=== PATIENT | male | born 1960 | race Caucasian/White ===

== ENCOUNTER → 2019-08-12 09:09 | Outpatient (CLI) | payer OTHER, SELFPAY ==
--- NOTE | ~2019-08-12 | CT_ITS ---
EXAMINATION: CT chest w con DATE: 08/12/2019 09:34 INDICATION: Solitary pulmonary nodule TECHNIQUE: Transaxial computed tomographic images of the chest were obtained after the administration of 75 cc of Omnipaque 350 intravenous contrast. The dose-length product (DLP) was 400.32 mGy-cm. Ite rative reconstruction was used. COMPARISON: 06/12/2018 FINDINGS: Calcified pulmonary nodules and calcified left hilar lymph nodes are consistent with old gr anulomatous disease. No suspicious pulmonary nodule is identified. There is mild dependent atelectasi s. There is no pleural effusion or pneumothorax. No focal airspace opacity is identified. No patholog ically enlarged thoracic lymph nodes are identified. The heart size is normal. There is mild thoracic spondylosis. Punctate calcifications in an otherwise normal spleen likely represent healed granuloma tous disease. IMPRESSION: 1. Old granulomatous disease without suspicious pulmonary nodule identified. Reviewed, dictated and finalized at location A. TAL CUTTER
== END ==
PROVIDERS: PCP Physician Assistant; Visit Provider Physician Assistant
DX: R91.1 Solitary pulmonary nodule (principal)
CPT/HCPCS: 71260; Q9967

== ENCOUNTER 2021-03-15 02:19 | Day surgery (SDC) | payer OTHER, SELFPAY ==
[2021-03-04 09:27] VITALS: BMI 29.6
--- NOTE | 2021-03-15 10:57 | WPDANESEPPF ---
Anes - Initial Pre Proc Eval Procedure: Operation Date: 03/15/21 13:00 Proposed Procedures p Colonoscopy - Denzel Hannah MD Date/Time: 03/15/21 10:57 Surgeon: Denzel Hannah MD Pre Op Diagnosis: change in bowel habits, hx of colon polyps Patient Data Age: 60 Gender: M Height: 1.73 m Weight: 88.5 kg Allergies Allergy/AdvReac Type Severity Reaction Status Date / Time Antihistamines - Alkylamine Allergy Unknown Unknown Verified 03/15/21 12:06 codeine Allergy Unknown Abdominal Verified 03/15/21 12:06 Pain Penicillins Allergy Unknown Rash Verified 03/15/21 12:06 Sulfa (Sulfonamide Allergy Unknown Unknown Verified 03/15/21 12:06 Antibiotics) sulfamethoxazole Allergy Unknown Unknown Verified 03/15/21 12:06 trimethoprim Allergy Unknown Unknown Verified 03/15/21 12:06 acetaminophen AdvReac Unknown UPSET Verified 03/15/21 12:06 STOMACH oxycodone AdvReac Unknown UPSET Verified 03/15/21 12:06 STOMACH Home Medications Medication Instructions Recorded Confirmed Type bupropion HCl 150 mg PO DAILY 03/04/21 03/04/21 History ergocalciferol (vitamin D2) 1,250 mcg PO WEEKLY 03/04/21 03/04/21 History ergocalciferol (vitamin D2) 1 mcg PO DAILY 03/04/21 03/04/21 History [Vitamin D2] finasteride 5 mg PO DAILY 03/04/21 03/04/21 History hydroxyzine HCl 25 mg PO DAILY 03/04/21 03/04/21 History simvastatin 40 mg PO DAILY 03/04/21 03/04/21 History tamsulosin 0.4 mg PO DAILY 03/04/21 03/04/21 History Patient hx anesthesia problems: none Family hx anesthesia problems: none PMFSH Past Medical History Medical History (Updated 03/15/21 @ 10:58 by Anil Goldberg MD) BPH (benign prostatic hyperplasia) Depression Hyperlipidemia FELICIA (obstructive sleep apnea) Overweight (BMI 25.0-29.9) Family History Family History (Updated 01/29/16 @ 23:21 by DOCTOR UNKNOWN) Father Patient's father is in good health Mother Family history of diabetes mellitus in first degree relative Family history of malignant neoplasm of breast in first degree relative Grandparent Family history of heart disease in male family member before age 55 Other Depression Social History Social History Smoking status: Never smoker Alcohol intake: current Drinks per week: 3 Alcohol use details: on weekend 2-8 beers Substance use: current Substance use type: marijuana Other substance usage details: evita 2 times per month Living arrangements: with family Additional living arrangements comments: lives with spouse Spiritual care concerns: No Anes - Eval Final PreProcedure Day of Procedure 03/15/21 10:57 Patient weight: overweight Heart: regular rate and rhythm Lungs: clear to auscultation and normal air movement Airway: Mallampati scale class II Neurological: alert and oriented Last oral intake: >/= 8 hours ASA classification: II Emergent: no Anesthetic plan: proceed Anesthesia type and monitoring: general GIVS Informed Consent: The patient's anesthetic plan and its attendant risks and benefits were discussed with the patient/family/POA. Questions were solicited and answers provided to the satisfaction of the patient/family/POA.
[2021-03-15 12:08] VITALS: BP 123/84; PULSE 87; RESP 16; TEMP 36.1; O2SAT 99; BMI 28.7
[2021-03-15] MEDS: LACTATED RINGERS 1,000 ML 150 ML IV CONT (12:23)
--- NOTE | 2021-03-15 12:32 | PM.HPGS ---
History of Present Illness History of Present Illness Consent: Risks, benefits, and alternatives have been discussed and questions answered. Patient agrees to proceed with procedure. Chief complaint: change in bowel habits, hx of colon polyps Narrative: Clay Cabrera is a 60 year old male with a history of colon polyps removed 5 years ago. Recently he has had some discomfort in left lower quadrant and was constipated. This pain also radiated to the left lower back Review of Systems Review of Systems: All systems reviewed & are unremarkable except as noted in HPI and below PMFSH Past Medical History Medical History BPH (benign prostatic hyperplasia) Depression Hyperlipidemia FELICIA (obstructive sleep apnea) Overweight (BMI 25.0-29.9) Family History Family History Father Patient's father is in good health Mother Family history of diabetes mellitus in first degree relative Family history of malignant neoplasm of breast in first degree relative Grandparent Family history of heart disease in male family member before age 55 Other Depression Social History Social History Smoking status: Never smoker Alcohol intake: current Drinks per week: 3 Alcohol use details: on weekend 2-8 beers Substance use: current Substance use type: marijuana Other substance usage details: evita 2 times per month Living arrangements: with family Additional living arrangements comments: lives with spouse Spiritual care concerns: No Meds Home Medications and Allergies Home Medications Medication Instructions Recorded Confirmed Type bupropion HCl 150 mg PO DAILY 03/04/21 03/04/21 History ergocalciferol (vitamin D2) 1,250 mcg PO WEEKLY 03/04/21 03/04/21 History ergocalciferol (vitamin D2) 1 mcg PO DAILY 03/04/21 03/04/21 History [Vitamin D2] finasteride 5 mg PO DAILY 03/04/21 03/04/21 History hydroxyzine HCl 25 mg PO DAILY 03/04/21 03/04/21 History simvastatin 40 mg PO DAILY 03/04/21 03/04/21 History tamsulosin 0.4 mg PO DAILY 03/04/21 03/04/21 History Allergies Allergy/AdvReac Type Severity Reaction Status Date / Time Antihistamines - Alkylamine Allergy Unknown Unknown Verified 03/15/21 12:06 codeine Allergy Unknown Abdominal Verified 03/15/21 12:06 Pain Penicillins Allergy Unknown Rash Verified 03/15/21 12:06 Sulfa (Sulfonamide Allergy Unknown Unknown Verified 03/15/21 12:06 Antibiotics) sulfamethoxazole Allergy Unknown Unknown Verified 03/15/21 12:06 trimethoprim Allergy Unknown Unknown Verified 03/15/21 12:06 acetaminophen AdvReac Unknown UPSET Verified 03/15/21 12:06 STOMACH oxycodone AdvReac Unknown UPSET Verified 03/15/21 12:06 STOMACH Vital Signs Vital Signs - 24 hr 03/15/21 12:08 Temperature 36.1 C L Pulse Rate 87 Respiratory Rate 16 Blood Pressure 123/84 Pulse Oximetry 99 Exam Resp: Auscultation: clear to auscultation bilaterally Cardio: Rate: regular rate Rhythm: regular rhythm GI: GI Palp: Yes Soft to palpation and No Tenderness to palpation present (GI) Assessment and Plan Assessment and plan (1) Colon cancer screening: Code(s): Z12.11 - Encounter for screening for malignant neoplasm of colon Status: Acute Assessment and Plan: Colonoscopy with possible biopsy or polypectomy or cautery or injection of substances.
[2021-03-15 13:00] VITALS: BP 112/73; PULSE 82; RESP 21; O2SAT 95
[2021-03-15 13:10] VITALS: BP 123/78; PULSE 83; RESP 15; O2SAT 93
[2021-03-15 13:20] VITALS: BP 122/89; PULSE 75; RESP 17; O2SAT 93
== END 2021-03-15 13:39 | disposition home or self-care (01) ==
PROVIDERS: PCP Physician Assistant; Visit Provider Internal Medicine Gastroenterology
PROC: 0DJD8ZZ Inspection of Lower Intestinal Tract, Via Natural or Artificial Opening Endoscopic (ICD-10-PCS; CPT 45378; principal; 2021-03-15 13:00)
DX: Z12.11 Encounter for screening for malignant neoplasm of colon (principal); Z86.010 Personal history of colon polyps; N40.0 Benign prostatic hyperplasia without lower urinary tract symptoms; F32.9 Major depressive disorder, single episode, unspecified; G47.33 Obstructive sleep apnea (adult) (pediatric); E78.5 Hyperlipidemia, unspecified; F12.90 Cannabis use, unspecified, uncomplicated; R19.4 Change in bowel habit
CPT/HCPCS: 45378; J2704; J7120

== ENCOUNTER 2021-07-16 13:04 | Outpatient (CLI) | payer OTHER, SELFPAY ==
--- NOTE | ~2021-07-16 | XR_ITS ---
XR chest 2V DATE: 07/16/2021 13:21 INDICATION: Cough for 2 weeks post Covid TECHNIQUE: PA and lateral views COMPARISON: August 12, 2019 CT chest 04/15/2013 two-view chest FINDINGS: Normal heart size. No hilar or mediastinal enlargement. Calcified pulmonary granulomas cons istent with old granulomatous disease. No pulmonary infiltrate or consolidation, pleural effusion or pulmonary vascular congestion or pneumothorax is detected. IMPRESSION: No active cardiopulmonary disease Reviewed, dictated and finalized at location J. D PROPELLANT PROCESSOR
== END 2021-07-16 13:05 | disposition home or self-care (01) ==
LOC: ANHIMG 13:09
PROVIDERS: PCP Physician Assistant; Visit Provider Physician Assistant
DX: R05.9 Cough, unspecified (principal)
CPT/HCPCS: 71046

== ENCOUNTER 2022-01-07 17:18 | Outpatient (CLI) | payer OTHER, SELFPAY ==
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
== END 2022-01-07 17:19 | disposition home or self-care (01) ==
PROVIDERS: PCP Physician Assistant; Visit Provider Physician Assistant
DX: M79.642 Pain in left hand (principal); Z98.1 Arthrodesis status
CPT/HCPCS: 73120

== ENCOUNTER 2022-07-13 13:45 | Emergency (ER) | payer OTHER, SELFPAY ==
--- NOTE | ~2022-07-13 | CT_ITS ---
EXAMINATION: CT abdomen pelvis wo con DATE: 07/13/2022 14:20 INDICATION: LLQ pain TECHNIQUE: Computed tomography (CT) of the abdomen and pelvis was performed without intravenous contr ast. Automated exposure control and iterative reconstruction technique were employed. The dose-length product was 507.78 mGy-cm. COMPARISON: 06/12/2018. FINDINGS: Lower thorax: Coronary artery calcification. Calcified left upper lobe granuloma. Liver: Normal. Biliary/Gallbladder: Gallbladder is normal. No bile duct dilation. Pancreas: No mass or duct dilation. Spleen: Granulomatous calcifications. Adrenals:No mass. Kidneys: No mass, stone, or hydronephrosis. Bilateral perinephric stranding likely secondary to medic al renal disease. GI tract: No small or large bowel dilation. Normal appendix. Mesentery/Peritoneum: No ascites, mass, or free air. Retroperitoneum: No mass. Atherosclerotic abdominal aortic and/or arterial calcifications. Pelvis: Pelvic organs are within normal limits. Soft Tissues: Soft tissues and body wall unremarkable. Bones: No acute osseous finding. IMPRESSION: No acute abdominopelvic process detected. Reviewed, dictated and finalized at location K. E ADVISOR
[2022-07-13 13:49] VITALS: BP 154/96; PULSE 92; RESP 14; TEMP 36.5; O2SAT 97
[2022-07-13 14:24] LABS: Basophils Percent Auto 0.4 % (0.2-1.2); Eosinophils Percent Auto 0.3 % (0-4.4); Hematocrit 47.6 % (42.0-52.0); Hemoglobin 16.5 g/dL (14.0-18.0); Immature Granulocyte Absolute 0.02 K/mm3 (0.00-0.031); Immature Granulocyte Percent A 0.2 % (0-0.5); Lymphocytes Absolute Auto 0.94 K/mm3 (0.9-3.2); Lymphocytes Percent Auto 10.4 % (18.3-44.2); Mean Corpuscular HGB Conc 34.7 g/dl (32-36); Mean Corpuscular Hemoglobin 31.4 pg (26-34); Mean Corpuscular Volume 90.5 fl (80-100); Mean Platelet Volume 11.4 fl (7.4-10.4); Monocytes Absolute Auto 0.8 K/mm3 (0.1-0.6); Monocytes Percent Auto 8.3 % (2.6-8.5); Neutrophils Absolute Auto 7.2 K/mm3 (1.3-6.7); Neutrophils Percent Auto 80.4 % (45.5-73.1); Platelet Count Result 241 k/mm3 (150-375); Red Blood Count 5.26 M/mm3 (4.6-6.20); Red Cell Distribution Width 12.7 % (11.5-14.5)
[2022-07-13 14:28] LABS: Alanine Aminotransferase 38 U/L (6-50); Albumin Level 4.8 g/dL (3.5-5.1); Alkaline Phosphatase 81 U/L (38-126); Anion Gap 9 mmol/L (8-16); Aspartate Amino Transferase 31 U/L (17-59); Bilirubin,Total 1.1 mg/dL (0.2-1.3); Blood Urea Nitrogen 17 mg/dL (9-20); Calcium 9.6 mg/dL (8.4-10.2); Carbon Dioxide 23 mmol/L (22-30); Chloride 103 mmol/L (98-107); Estimated CRCL calculation 57 ml/min; Estimated Glomerular Filt Rate > 60; Glucose 102 mg/dL (65-110); Lipase 72 U/L (23-300); Sodium 135 mmol/L (137-145)
--- NOTE | 2022-07-13 14:48 | ED.ABDPAIN ---
HPI - Abdominal Pain General Chief Complaint: Abdominal Pain Stated Complaint: LLQ pain Time Seen by Provider: 07/13/22 13:47 History of Present Illness HPI narrative: 61-year-old male history of depression, BPH, hyperlipidemia presents emergency room for evaluation of intermittent left lower quadrant abdominal pain has been present since last week. Patient denies nausea vomiting or diarrhea. Denies any urinary retention or dysuria. Denies fever. States had a colonoscopy last year which was clean. Denies any blood in stools. Related Data Home Medications Medication Instructions Recorded Confirmed bupropion HCl 150 mg 24 hr tablet, 150 mg PO DAILY 03/04/21 03/04/21 extended release ergocalciferol (vitamin D2) 1,250 1,250 mcg PO WEEKLY 03/04/21 03/04/21 mcg (50,000 unit) capsule ergocalciferol (vitamin D2) 1,250 1 mcg PO DAILY 03/04/21 03/04/21 mcg (50,000 unit) capsule (Vitamin D2) finasteride 5 mg tablet 5 mg PO DAILY 03/04/21 03/04/21 hydroxyzine HCl 25 mg tablet 25 mg PO DAILY 03/04/21 03/04/21 simvastatin 40 mg tablet 40 mg PO DAILY 03/04/21 03/04/21 tamsulosin 0.4 mg capsule 0.4 mg PO DAILY 03/04/21 03/04/21 Allergies Allergy/AdvReac Type Severity Reaction Status Date / Time Antihistamines - Alkylamine Allergy Unknown Unknown Verified 03/15/21 12:06 codeine Allergy Unknown Abdominal Verified 03/15/21 12:06 Pain Penicillins Allergy Unknown Rash Verified 03/15/21 12:06 Sulfa (Sulfonamide Allergy Unknown Unknown Verified 03/15/21 12:06 Antibiotics) sulfamethoxazole Allergy Unknown Unknown Verified 03/15/21 12:06 trimethoprim Allergy Unknown Unknown Verified 03/15/21 12:06 acetaminophen AdvReac Unknown UPSET Verified 03/15/21 12:06 STOMACH oxycodone AdvReac Unknown UPSET Verified 03/15/21 12:06 STOMACH Review of Systems Review of Systems: CONSTITUTIONAL: Denies fever, chills, or sweats. EYES: Denies visual changes, redness, or discharge. ENT: Denies rhinorrhea, congestion, sore throat, or otalgia. CARDIOVASCULAR: Denies chest pain, palpitations, or edema. RESPIRATORY: Denies cough or dyspnea. GASTROINTESTINAL: Reports abdominal pain GENITOURINARY: Denies dysuria or hematuria. SKIN: Denies rash or itching. MUSCULOSKELETAL: Denies back pain, joint pain, or myalgia. NEUROLOGIC: Denies headache, numbness, dizziness, or weakness. PSYCHIATRIC: Denies anxiety or depression. [facility] Past Medical History Medical History BPH (benign prostatic hyperplasia) Depression Hyperlipidemia FLEICIA (obstructive sleep apnea) Overweight (BMI 25.0-29.9) Family History Family History Father Patient's father is in good health Mother Family history of diabetes mellitus in first degree relative Family history of malignant neoplasm of breast in first degree relative Grandparent Family history of heart disease in male family member before age 55 Other Depression Social History Social History Smoking status: Never smoker Alcohol intake: current Drinks per week: 3 Alcohol use details: on weekend 2-8 beers Substance use: current Substance use type: marijuana Other substance usage details: evita 2 times per month Additional living arrangements comments: lives with spouse Spiritual care concerns: No Exam Narrative: GENERAL: Well-appearing, well-nourished, no physical limitations, and in no acute distress. HEAD: Normocephalic, atraumatic. EYES: Conjunctivae normal, PERRLA and EOMI. CHEST: Clear to auscultation. No respiratory distress. No wheezes rales or rhonchi. HEART: Regular rate and rhythm. No murmur heard. Normal peripheral pulses. ABDOMEN: Soft, left lower quadrant tenderness, nondistended, normal active bowel sounds. BACK: No CVA tenderness EXTREMITIES: Normal range of motion. No edema. No clubb
[2022-07-13 14:59] VITALS: BP 111/85; PULSE 88; RESP 18
[2022-07-13] MEDS: SODIUM CHLORIDE 0.9% IV 1,000 ML 999 ML IV CONT (14:59)
[2022-07-13 15:31] VITALS: BP 130/89; PULSE 90; RESP 21
[2022-07-13 15:36] LABS: Appearance Urine Clear (Clear); Bilirubin Urine Negative (Negative); Blood Urine Trace-intact (Negative); Color Urine Yellow (Yellow); Glucose Urine UA Negative (Negative); Ketones Urine Negative (Negative); Leukocyte Esterase Ur Negative LEU/UL (Negative); Nitrate Urine Negative (Negative); Protein Urine Negative (Negative); Specific Grav Ur 1.025 (1.001-1.035); Urobilinogen Urine 0.2 mg/dL (<2.0)
[2022-07-13 15:56] LABS: Mucus Urine Rare /lpf; RBC Urine 0-2 /hpf (0-2); WBC Urine 0-3 /hpf
[2022-07-13 16:00] LABS: Add Urine Microscopic? YES
== END 2022-07-13 15:35 | disposition home or self-care (01) ==
PROVIDERS: Emergency Provider Nurse Practitioner Family; PCP Physician Assistant
DX: R10.32 Left lower quadrant pain (principal); E78.5 Hyperlipidemia, unspecified; N40.0 Benign prostatic hyperplasia without lower urinary tract symptoms; G47.33 Obstructive sleep apnea (adult) (pediatric); F32.A Depression, unspecified; E66.3 Overweight; Z68.29 Body mass index [BMI] 29.0-29.9, adult
CPT/HCPCS: 36415; 74176; 80053; 81001; 83690; 85025; 96360; 99284; J7030

== ENCOUNTER 2024-05-01 22:51 | Observation (INO) | payer OTHER, SELFPAY ==
--- NOTE | ~2024-05-01 | XR_ITS ---
Supine and upright views of the abdomen Clinical history: Kidney stone Findings: Bowel gas pattern is nonspecific. No evidence for obstruction or free air. 6 mm proximal ri ght ureteral stone probably visualized projecting at the level of the L2-L3 disc space.. Osseous stru ctures are intact. Impression: Probable 6 mm proximal right ureteral stone, as detailed above. Reviewed, dictated and finalized at location . Impression: Probable 6 mm proximal right ureteral stone, as detailed above.
--- NOTE | ~2024-05-01 | XR_ITS ---
EXAMINATION: XR abdomen/kub 1V DATE: 05/03/2024 13:32 INDICATION: Kidney stone. TECHNIQUE: A supine view of the abdomen on 2 radiographs was obtained. COMPARISON: CT abdomen and pelvis 05/02/2024 FINDINGS: There are no dilated loops of bowel. There is a 6 x 3 mm stone in proximal right ureter. IMPRESSION: 1. 6 x 3 mm stone in proximal right ureter. Reviewed, dictated and finalized at location B.
--- NOTE | ~2024-05-01 | CT_ITS ---
Non-contrast CT scan of the Abdomen and Pelvis Clinical indication: Flank pain Technique: 2.5 mm axial scans were obtained through the abdomen and pelvis without intravenous or or al contrast. Dose reduction technique was used on this scan by utilizing automated exposure control a nd iterative reconstruction technique. The dose-length product (DLP) was 635.73 mGy-cm. COMPARISON: 07/13/2022 Findings: Images through the lung bases reveal no abnormalities. There is a 6 mm proximal right ureteral stone (axial image 5), with mild right hydronephrosis. Additi onal punctate nonobstructing right renal stone present. No left renal or left ureteral stone present. No left hydronephrosis. The liver, spleen, pancreas, gallbladder, and adrenals appear normal. There are mild atherosclerotic calcifications of the aorta. . There is no evidence of bowel obstruction. Images through the pelvis were performed. There is no evidence of ascites or lymphadenopathy. Urinary bladder unremarkable. No pelvic mass seen. Impression: 6 mm proximal right ureteral stone with mild right hydronephrosis to this level. Additional punctate nonobstructing right renal stone. Reviewed, dictated and finalized at location M. Impression: 6 mm proximal right ureteral stone with mild right hydronephrosis to this level . Additional punctate nonobstructing right renal stone.
[2024-05-01 23:08] VITALS: BP 139/96; PULSE 73; RESP 20; TEMP 36; O2SAT 100
[2024-05-01 23:20] LABS: Basophils Absolute Auto 0.1 K/mm3 (0.0-0.1); Basophils Percent Auto 0.9 % (0.2-1.2); Eosinophils Absolute Auto 0.1 K/mm3 (0-0.3); Eosinophils Percent Auto 1.3 % (0-4.4); Hematocrit 42.5 % (42.0-52.0); Hemoglobin 15.1 g/dL (14.0-18.0); Immature Granulocyte Absolute 0.02 K/mm3 (0.00-0.031); Immature Granulocyte Percent A 0.3 % (0-0.5); Lymphocytes Absolute Auto 1.99 K/mm3 (0.9-3.2); Lymphocytes Percent Auto 26.6 % (18.3-44.2); Mean Corpuscular HGB Conc 35.5 g/dl (32-36); Mean Corpuscular Hemoglobin 31.5 pg (26-34); Mean Corpuscular Volume 88.5 fl (80-100); Monocytes Absolute Auto 0.6 K/mm3 (0.1-0.6); Monocytes Percent Auto 8.3 % (2.6-8.5); Neutrophils Absolute Auto 4.7 K/mm3 (1.3-6.7); Neutrophils Percent Auto 62.6 % (45.5-73.1); Platelet Count Result 235 k/mm3 (150-375); Red Cell Distribution Width 12.8 % (11.5-14.5); White Blood Count 7.5 K/mm3 (4.5-10.0)
[2024-05-01 23:38] LABS: Alanine Aminotransferase 31 U/L (6-50); Albumin Level 4.9 g/dL (3.5-5.1); Alkaline Phosphatase 83 U/L (38-126); Anion Gap 23 mmol/L (4-12); Aspartate Amino Transferase 35 U/L (17-59); Bilirubin,Total 0.8 mg/dL (0.2-1.3); Blood Urea Nitrogen 14 mg/dL (9-20); Calcium 9.5 mg/dL (8.4-10.2); Carbon Dioxide 20 mmol/L (22-30); Chloride 97 mmol/L (98-107); Estimated CRCL calculation 39 ml/min; Estimated Glomerular Filt Rate 41; Glucose 114 mg/dL (65-110); Lipase 138 U/L (23-300); Potassium 3.7 mmol/L (3.4-5.0); Sodium 140 mmol/L (137-145)
[2024-05-01 23:42] LABS: Add Urine Microscopic? YES; Appearance Urine Clear (Clear); Bacteria Urine None Seen /hpf; Bilirubin Urine Negative (Negative); Blood Urine 2+ (Negative); Color Urine Yellow (Yellow); Glucose Urine UA Negative (Negative); Ketones Urine Trace mg/dL (Negative); Leukocyte Esterase Ur Trace LEU/UL (Negative); Nitrate Urine Negative (Negative); Non Pathogenic Casts 0-2; Protein Urine Trace mg/dL (Negative); RBC Urine >100 /hpf (0-2); Squamous Epithelial Cell Urine None Seen /hpf (Few); WBC Urine 0-5 /hpf (0-3); pH Urine 6.5 (5.0-9.0)
[2024-05-02] MEDS: SODIUM CHLORIDE 0.9% IV 1,000 ML 999 ML IV CONT (04:20)
[2024-05-02] MEDS: ONDANSETRON INJ 4 MG/2 ML VIAL IV PUSH ×4 (04:21→21:07)
[2024-05-02] MEDS: MORPHINE SULFATE (*CRX) 4 MG/ML INJ IV PUSH ×2 (04:21→05:59)
--- NOTE | 2024-05-02 05:44 | ED_ITS ---
HPI - General Adult General Chief complaint: Abdominal Pain <Troy Galindo MD - Last Filed: 05/02/24 07:09> Stated complaint: abd pain <Troy Galindo MD - Last Filed: 05/02/24 07:09> Time Seen by Provider: 05/02/24 04:07 <Troy Galindo MD - Last Filed: 05/02/24 07:09> History of Present Illness HPI narrative: Patient is 63-year-old gentleman who presents emergency department with chief complaint of abdominal pain and flank pain. Patient reports he has prior history of kidney stones reports that he started having pain in the right flank and right lower quadrant around 9:00 p.m. this evening patient reports pain is not improved by anything reports he is not able to get comfortable in any position. <Troy Galindo MD - Last Filed: 05/02/24 07:09> Related Data Home medications: Home Medications Medication Instructions Recorded Confirmed bupropion HCl 150 mg 24 hr tablet, 150 mg PO DAILY 03/04/21 05/02/24 extended release simvastatin 40 mg tablet 40 mg PO DAILY 03/04/21 05/02/24 gabapentin 300 mg capsule 600 mg PO HS 05/02/24 05/02/24 pantoprazole 40 mg tablet,delayed 40 mg PO DAILY 05/02/24 05/02/24 release <Troy Galindo MD - Last Filed: 05/02/24 07:09> Allergies/adverse reactions: Allergies Allergy/AdvReac Type Severity Reaction Status Date / Time codeine Allergy Unknown Abdominal Verified 05/02/24 10:04 Pain Penicillins Allergy Unknown Rash Verified 05/02/24 10:04 oxycodone AdvReac Unknown UPSET Verified 05/02/24 10:04 STOMACH <Troy Galindo MD - Last Filed: 05/02/24 07:09> Review of Systems Review of Systems: A 10 system review of systems was completed on the patient and is negative except for what is stated in the HPI. Nursing and ancillary documentation was reviewed. <Troy Galindo MD - Last Filed: 05/02/24 07:09> [facility] Past Medical History Medical History: Medical History BPH (benign prostatic hyperplasia) Depression Hyperlipidemia FELICIA (obstructive sleep apnea) Overweight (BMI 25.0-29.9) <Troy Galindo MD - Last Filed: 05/02/24 07:09> Family History Family History: Family History Father Patient's father is in good health Mother Family history of diabetes mellitus in first degree relative Family history of malignant neoplasm of breast in first degree relative Grandparent Family history of heart disease in male family member before age 55 Other Depression <Troy Galindo MD - Last Filed: 05/02/24 07:09> Social History Social History: Social History Smoking status: Never smoker Alcohol intake: current Drinks per week: 2 Alcohol use details: on weekend 2-8 beers Substance use: current Substance use type: does not use Other substance usage details: maijuana 2 times per month Do You Feel Safe in your Home?: Yes Lack of Transportation: No Lack of Food: Never True Current Housing: I Have Housing Concerned About Future Housing: No Difficulty Paying Gas/Electric Bills: No Difficulty Paying for Meds: No Currently Unemployed: No Education: High School Diploma/GED Difficulty w/ Childcare or Family Care: No Living arrangements: with family Additional living arrangements comments: lives with spouse Spiritual care concerns: No <Troy Galindo MD - Last Filed: 05/02/24 07:09> Exam Narrative: GENERAL: Well-appearing, well-nourished, and in mild acute pain distress. HEAD: Normocephalic, atraumatic. EYES: PERRLA and EOMI. ENT: Nares clear, no rhinorrhea or epistaxis. Mucous membranes moist. NECK: Supple. CHEST: Clear to auscultation. No respiratory distress. HEART: Regular rate and rhythm. No murmur heard. Normal peripheral pulses. ABDOMEN: Soft, nontender, nondistended, normal active bowel sounds. EXTREMITIES: Normal range of motion. No edema. SKIN: Warm, dry, no rash. NEURO: No focal deficits. Alert and oriented x3. PSYCH: Normal mood and affect. <Troy Galindo MD - Last Filed: 05/02/24 07:09> Course Reevaluation(s) Reevaluation #1: Patient evaluated by a urology and admitted to their service for pain control. <Gadiel Badillo MD - Last Filed: 05/02/24 17:36> Vital Signs Vital signs: Vital Signs Temperature 96.8 F L 05/01/24 23:08 Pulse Rate 73 05/01/24 23:08 Respiratory Rate 20 05/01/24 23:08 Blood Pressure 139/96 H 05/01/24 23:08 Pulse Oximetry 100 05/01/24 23:08 Oxygen Delivery Room Air 05/01/24 23:08 Temperature 97.3 F L 05/02/24 13:55 Pulse Rate 71 05/02/24 13:55 Respiratory Rate 16 05/02/24 13:55 Blood Pressure 108/65 05/02/24 13:55 Pulse Oximetry 96 05/02/24 13:55 Oxygen Delivery Room Air 05/01/24 23:08 <Troy Galindo MD - Last Filed: 05/02/24 07:09> Vital Signs Temperature 96.8 F L 05/01/24 23:08 Pulse Rate 73 05/01/24 23:08 Respiratory Rate 20 05/01/24 23:08 Blood Pressure 139/96 H 05/01/24 23:08 Pulse Oximetry 100 05/01/24 23:08 Oxygen Delivery Room Air 05/01/24 23:08 Temperature 97.3 F L 05/02/24 13:55 Pulse Rate 71 05/02/24 13:55 Respiratory Rate 16 05/02/24 13:55 Blood Pressure 108/65 05/02/24 13:55 Pulse Oximetry 96 05/02/24 13:55 Oxygen Delivery Room Air 05/01/24 23:08 <Gadiel Badillo MD - Last Filed: 05/02/24 17:36> Medical Decision Making Vital Signs Vital Signs: Vital Signs Temperature 96.8 F L 05/01/24 23:08 Pulse Rate 73 05/01/24 23:08 Respiratory Rate 20 05/01/24 23:08 Blood Pressure 139/96 H 05/01/24 23:08 Pulse Oximetry 100 05/01/24 23:08 Oxygen Delivery Room Air 05/01/24 23:08 Temperature 97.3 F L 05/02/24 13:55 Pulse Rate 71 05/02/24 13:55 Respiratory Rate 16 05/02/24 13:55 Blood Pressure 108/65 05/02/24 13:55 Pulse Oximetry 96 05/02/24 13:55 Oxygen Delivery Room Air 05/01/24 23:08 <Troy Galindo MD - Last Filed: 05/02/24 07:09> Vital Signs Temperature 96.8 F L 05/01/24 23:08 Pulse Rate 73 05/01/24 23:08 Respiratory Rate 20 05/01/24 23:08 Blood Pressure 139/96 H 05/01/24 23:08 Pulse Oximetry 100 05/01/24 23:08 Oxygen Delivery Room Air 05/01/24 23:08 Temperature 97.3 F L 05/02/24 13:55 Pulse Rate 71 05/02/24 13:55 Respiratory Rate 16 05/02/24 13:55 Blood Pressure 108/65 05/02/24 13:55 Pulse Oximetry 96 05/02/24 13:55 Oxygen Delivery Room Air 05/01/24 23:08 <Gadiel Badillo MD - Last Filed: 05/02/24 17:36> Lab Data Result diagrams: 05/01/24 23:13 05/01/24 23:13 <Troy Galindo MD - Last Filed: 05/02/24 07:09> Labs: Lab Results 05/01/24 05/01/24 Range/Units 23:13 23:29 WBC 7.5 (4.5-10.0) K/mm3 RBC 4.80 (4.6-6.20) M/mm3 Hgb 15.1 (14.0-18.0) g/dL Hct 42.5 (42.0-52.0) % MCV 88.5 (80-100) fl MCH 31.5 (26-34) pg MCHC 35.5 (32-36) g/dl RDW 12.8 (11.5-14.5) % Plt Count 235 (150-375) k/mm3 MPV 11.0 H (7.4-10.4) fl Immature Gran % (Auto) 0.3 (0-0.5) % Neut % (Auto) 62.6 (45.5-73.1) % Lymph % (Auto) 26.6 (18.3-44.2) % [place] % (Auto) 8.3 (2.6-8.5) % Eos % (Auto) 1.3 (0-4.4) % Baso % (Auto) 0.9 (0.2-1.2) % Lymph # (Auto) 1.99 (0.9-3.2) K/mm3 [place] # (Auto) 0.6 (0.1-0.6) K/mm3 Eos # (Auto) 0.1 (0-0.3) K/mm3 Baso # (Auto) 0.1 (0.0-0.1) K/mm3 Abs Immat Gran (auto) 0.02 (0.00-0.031) K/mm3 Absolute Neuts (auto) 4.7 (1.3-6.7) K/mm3 Absolute Nucleated RBC 0.000 (0.0-0.012) K/mm3 Nucleated RBC % 0.0 (0.0-0.2) % Sodium 140 (137-145) mmol/L Potassium 3.7 (3.4-5.0) mmol/L Chloride 97 L (98-107) mmol/L Carbon Dioxide 20 L (22-30) mmol/L Anion Gap 23 H (4-12) mmol/L BUN 14 (9-20) mg/dL Creatinine 1.70 H (0.7-1.3) mg/dL Estim Creat Clear Calc 39 ml/min Estimated GFR 41 L (59 - ) Glucose 114 H (65-110) mg/dL Calcium 9.5 (8.4-10.2) mg/dL Total Bilirubin 0.8 (0.2-1.3) mg/dL AST 35 (17-59) U/L ALT 31 (6-50) U/L Alkaline Phosphatase 83 (38-126) U/L Total Protein 8.0 (6.3-8.2) g/dL Albumin 4.9 (3.5-5.1) g/dL Lipase 138 (23-300) U/L Urine Color Yellow (Yellow) Urine Appearance Clear (Clear) Urine pH 6.5 (5.0-9.0) Ur Specific [place] 1.020 (1.001-1.035) Urine Protein Trace (Negative) mg/dL Urine Glucose (UA) Negative (Negative) mg/dL Urine Ketones Trace H (Negative) mg/dL Ur Blood (Man) 2+ H (Negative) Urine Nitrate Negative (Negative) Urine Bilirubin Negative (Negative) Urine Urobilinogen 1.0 (<2.0) mg/dL Leukocyte Esterase Rfl Trace H (Negative) CATHY/UL Urine RBC >100 H (0-2) /hpf Urine WBC 0-5 (0-3) /hpf Ur Squamous Epith Cells None seen (Few) /hpf Urine Bacteria None seen /hpf Urine Casts 0-2 <Troy Galindo MD - Last Filed: 05/02/24 07:09> Lab Results 05/01/24 05/01/24 Range/Units 23:13 23:29 WBC 7.5 (4.5-10.0) K/mm3 RBC 4.80 (4.6-6.20) M/mm3 Hgb 15.1 (14.0-18.0) g/dL Hct 42.5 (42.0-52.0) % MCV 88.5 (80-100) fl MCH 31.5 (26-34) pg MCHC 35.5 (32-36) g/dl RDW 12.8 (11.5-14.5) % Plt Count 235 (150-375) k/mm3 MPV 11.0 H (7.4-10.4) fl Immature Gran % (Auto) 0.3 (0-0.5) % Neut % (Auto) 62.6 (45.5-73.1) % Lymph % (Auto) 26.6 (18.3-44.2) % [place] % (Auto) 8.3 (2.6-8.5) % Eos % (Auto) 1.3 (0-4.4) % Baso % (Auto) 0.9 (0.2-1.2) % Lymph # (Auto) 1.99 (0.9-3.2) K/mm3 [place] # (Auto) 0.6 (0.1-0.6) K/mm3 Eos # (Auto) 0.1 (0-0.3) K/mm3 Baso # (Auto) 0.1 (0.0-0.1) K/mm3 Abs Immat Gran (auto) 0.02 (0.00-0.031) K/mm3 Absolute Neuts (auto) 4.7 (1.3-6.7) K/mm3 Absolute Nucleated RBC 0.000 (0.0-0.012) K/mm3 Nucleated RBC % 0.0 (0.0-0.2) % Sodium 140 (137-145) mmol/L Potassium 3.7 (3.4-5.0) mmol/L Chloride 97 L (98-107) mmol/L Carbon Dioxide 20 L (22-30) mmol/L Anion Gap 23 H (4-12) mmol/L BUN 14 (9-20) mg/dL Creatinine 1.70 H (0.7-1.3) mg/dL Estim Creat Clear Calc 39 ml/min Estimated GFR 41 L (59 - ) Glucose 114 H (65-110) mg/dL Calcium 9.5 (8.4-10.2) mg/dL Total Bilirubin 0.8 (0.2-1.3) mg/dL AST 35 (17-59) U/L ALT 31 (6-50) U/L Alkaline Phosphatase 83 (38-126) U/L Total Protein 8.0 (6.3-8.2) g/dL Albumin 4.9 (3.5-5.1) g/dL Lipase 138 (23-300) U/L Urine Color Yellow (Yellow) Urine Appearance Clear (Clear) Urine pH 6.5 (5.0-9.0) Ur Specific [place] 1.020 (1.001-1.035) Urine Protein Trace (Negative) mg/dL Urine Glucose (UA) Negative (Negative) mg/dL Urine Ketones Trace H (Negative) mg/dL Ur Blood (Man) 2+ H (Negative) Urine Nitrate Negative (Negative) Urine Bilirubin Negative (Negative) Urine Urobilinogen 1.0 (<2.0) mg/dL Leukocyte Esterase Rfl Trace H (Negative) CATHY/UL Urine RBC >100 H (0-2) /hpf Urine WBC 0-5 (0-3) /hpf Ur Squamous Epith Cells None seen (Few) /hpf Urine Bacteria None seen /hpf Urine Casts 0-2 <Gadiel Badillo MD - Last Filed: 05/02/24 17:36> Discharge Plan Discharge Clinical Impression: Ureterolithiasis <Troy Galindo MD - Last Filed: 05/02/24 07:09> Patient Disposition: Still a Patient <Troy Galindo MD - Last Filed: 05/02/24 07:09> Condition: Stable <Troy Galindo MD - Last Filed: 05/02/24 07:09>
[2024-05-02 06:25] VITALS: BP 126/85; PULSE 77; RESP 15; O2SAT 96
[2024-05-02] MEDS: HYDROmorphone HCL INJ (*CRX) 1 MG/ML SYR IV PUSH (06:35)
--- NOTE | 2024-05-02 07:18 | P.HP_ITS ---
H&P: HPI History of Present Illness Date/Time: 05/02/24 07:18 Chief Complaint: Right flank pain, nausea/vomiting Narrative: 63-year-old male who has spontaneously passed stones in the past presents to the emergency department with acute right flank pain, nausea and vomiting. This occurred without precipitating injury or strain it was not associated with fever chills or gross hematuria. Imaging demonstrates a calcified 6 mm obstructing right proximal ureteral stone. Intractable pain and nausea will likely require admission with plans for right ESWL tomorrow. Review of Systems Review of Systems: All systems reviewed & are unremarkable except as noted in HPI and below Cardiovascular: Cardiovascular: Denies chest pain, Denies lightheadedness, Denies palpitations and Denies dyspnea Respiratory: Respiratory: Denies dyspnea Gastrointestinal: Gastrointestinal: Denies diarrhea, Denies nausea and Denies vomiting Genitourinary: Genitourinary: Denies hematuria and Denies dysuria Endocrine: Endocrine: Denies palpitations PMFSH Past Medical History Medical History BPH (benign prostatic hyperplasia) Depression Hyperlipidemia FELICIA (obstructive sleep apnea) Overweight (BMI 25.0-29.9) Family History Family History Father Patient's father is in good health Mother Family history of diabetes mellitus in first degree relative Family history of malignant neoplasm of breast in first degree relative Grandparent Family history of heart disease in male family member before age 55 Other Depression Social History Social History Smoking status: Never smoker Alcohol intake: current Drinks per week: 3 Alcohol use details: on weekend 2-8 beers Substance use: current Substance use type: marijuana Other substance usage details: evita 2 times per month Living arrangements: with family Additional living arrangements comments: lives with spouse Spiritual care concerns: No Meds Home Medications and Allergies Home Medications Medication Instructions Recorded Confirmed Type bupropion HCl 150 mg 24 hr tablet, 150 mg PO DAILY 03/04/21 03/04/21 History extended release ergocalciferol (vitamin D2) 1,250 1,250 mcg PO WEEKLY 03/04/21 03/04/21 History mcg (50,000 unit) capsule ergocalciferol (vitamin D2) 1,250 1 mcg PO DAILY 03/04/21 03/04/21 History mcg (50,000 unit) capsule (Vitamin D2) finasteride 5 mg tablet 5 mg PO DAILY 03/04/21 03/04/21 History hydroxyzine HCl 25 mg tablet 25 mg PO DAILY 03/04/21 03/04/21 History simvastatin 40 mg tablet 40 mg PO DAILY 03/04/21 03/04/21 History tamsulosin 0.4 mg capsule 0.4 mg PO DAILY 03/04/21 03/04/21 History Allergies Allergy/AdvReac Type Severity Reaction Status Date / Time codeine Allergy Unknown Abdominal Verified 05/01/24 23:07 Pain Penicillins Allergy Unknown Rash Verified 05/01/24 23:07 oxycodone AdvReac Unknown UPSET Verified 05/01/24 23:07 STOMACH Vital Signs Vital Signs - 24 hr 05/01/24 23:08 05/02/24 06:25 Temperature 96.8 F L Pulse Rate 73 77 Respiratory Rate 20 15 Blood Pressure 139/96 H 126/85 Pulse Oximetry 100 96 Oxygen Delivery Room Air Exam Const: General: no acute distress Resp: Effort & Inspection: normal respiratory effort GI: Inspection: non-distended GI Palp: No abdominal tenderness and No Guarding due to palpation present (GI) Auscultation: normal bowel sounds H&P: Results Labs Labs: Short CBC 05/01/24 Range/Units 23:13 WBC 7.5 (4.5-10.0) K/mm3 Hgb 15.1 (14.0-18.0) g/dL Hct 42.5 (42.0-52.0) % Plt Count 235 (150-375) k/mm3 BMP 05/01/24 23:13 Sodium 140 Potassium 3.7 Chloride 97 L Carbon Dioxide 20 L BUN 14 Creatinine 1.70 H Glucose 114 H Calcium 9.5 Liver Function 05/01/24 Range/Units 23:13 Total Bilirubin 0.8 (0.2-1.3) mg/dL AST 35 (17-59) U/L ALT 31 (6-50) U/L Alkaline Phosphatase 83 (38-126) U/L Albumin 4.9 (3.5-5.1) g/dL Urine 05/01/24 Range/Units 23:29 Urine Color Yellow (Yellow) Urine Appearance Clear (Clear) Urine pH 6.5 (5.0-9.0) Ur Specific [place] 1.020 (1.001-1.035) Urine Protein Trace (Negative) mg/dL Urine Glucose (UA) Negative (Negative) mg/dL Assessment and Plan Assessment and plan (1) Ureterolithiasis: Code(s): N20.1 - Calculus of ureter Status: Acute Assessment and Plan: * Admission for hydration analgesics and management of nausea vomiting * Plan right ESWL tomorrow for 6 mm right proximal ureteral stone
[2024-05-02] MEDS: METOCLOPRAMIDE HCL INJ 10 MG/2 ML VIAL IV PUSH (07:22)
[2024-05-02] MEDS: SODIUM CHLORIDE 0.9% IV 1,000 ML 125 ML IV CONT ×3 (07:36→23:13)
[2024-05-02] MEDS: diphenhydrAMINE HCl INJ 50 MG/ML VIAL 25 MG IV PUSH (09:45)
--- NOTE | 2024-05-02 09:46 | PC.NURSE ---
Pt was about to go upstairs when inorganic chemical technician told this RN pt was vomiting. Verbal order for 25 mg Benadryl IV obtained from EDP Dr. Badillo.
[2024-05-02] MEDS: HYDROmorphone HCL INJ (*CRX) 1 MG/ML SYR 0.5 MG IV PUSH ×3 (09:49→21:07)
[2024-05-02 10:19] VITALS: BP 104/64; PULSE 73; RESP 18; TEMP 36.1; O2SAT 94
[2024-05-02 13:55] VITALS: BP 108/65; PULSE 71; RESP 16; TEMP 36.3; O2SAT 96
[2024-05-02] MEDS: polyethylene glycoL 3350 17 GM POWD.PACK PO (15:41)
[2024-05-02 20:00] VITALS: PULSE 62; RESP 16; O2SAT 97
[2024-05-02 20:32] VITALS: BP 106/70; PULSE 62; RESP 16; TEMP 36.5; O2SAT 97
[2024-05-03] VITALS (9 sets, daily range): BP systolic 100–136; BP diastolic 66–85; PULSE 61–70; RESP 14–20; TEMP 36.1–36.6; O2SAT 98–100
[2024-05-03] MEDS: HYDROmorphone HCL INJ (*CRX) 1 MG/ML SYR 0.5 MG IV PUSH (01:00)
[2024-05-03] MEDS: ONDANSETRON INJ 4 MG/2 ML VIAL IV PUSH ×2 (01:00→07:22)
--- NOTE | 2024-05-03 06:34 | WPDHPUPDATE1 ---
History and Physical Update Update Date/Time: 05/03/24 06:34 History and Physical has been reviewed, including an updated exam of the patient. There are NO changes in the patient's condition. Risks, benefits, and alternatives have been discussed and questions answered. Patient agrees to proceed with procedure.
--- NOTE | 2024-05-03 06:52 | P.PNUR_ITS ---
Progress Note: A&P Assessment and Plan (1) Ureterolithiasis: Code(s): N20.1 - Calculus of ureter Status: Acute Assessment and Plan: * Right ESWL this afternoon * Anticipate discharge following that procedure Subjective Subjective Date/Time Seen: 05/03/24 06:52 Interval history: Intermittent right flank pain persist Review of Systems Review of Systems: All systems reviewed & are unremarkable except as noted in HPI and below Exam Const: General: no acute distress Resp: Effort & Inspection: normal respiratory effort GI: Inspection: non-distended GI Palp: No abdominal tenderness and No Guarding due to palpation present (GI) Auscultation: normal bowel sounds Objective Data Vital Signs Vital Signs: Vital Signs - 24 hr 05/02/24 10:19 05/02/24 13:55 05/02/24 20:32 Temperature 97.0 F L 97.3 F L 97.7 F Pulse Rate 73 71 62 Respiratory Rate 18 16 16 Blood Pressure 104/64 108/65 106/70 Pulse Oximetry 94 96 97 Oxygen Delivery 05/02/24 20:00 05/03/24 05:16 Temperature 97.8 F Pulse Rate 62 65 Respiratory Rate 16 18 Blood Pressure 100/70 Pulse Oximetry 97 98 Oxygen Delivery Room Air Intake/Output Intake/Output: Intake & Output 04/30/24 05/01/24 05/02/24 05/03/24 23:59 23:59 23:59 23:59 Intake Total 3532.1 400 Output Total 700 Balance 3532.1 -300 Meds/Results Medications: Active Medications Generic Name Dose Route Start Last Admin Trade Name Freq PRN Reason Stop Dose Admin Bisacodyl 5 mg 05/02/24 15:37 Bisacodyl 5 Mg Tablet Ec PO QAM PRN Constipation Hydromorphone HCl 0.5 mg 05/02/24 07:21 05/03/24 01:00 Hydromorphone Hcl Inj (*Crx) 1 Mg/Ml Syr IV PUSH 0.5 mg Q4H PRN Administration Pain Rated 7-10 Sodium Chloride 1,000 mls @ 125 mls/hr 05/02/24 07:25 05/02/24 23:13 Normal Saline Iv IV CONT 125 mls/hr .Q8H SETH Administration Ondansetron HCl 4 mg 05/02/24 15:36 05/03/24 01:00 Ondansetron Inj 4 Mg/2 Ml Vial IV PUSH 4 mg Q4H PRN Administration Nausea And Vomiting Polyethylene Glycol 17 gm 05/02/24 15:37 05/02/24 15:41 Polyethylene Glycol 3350 17 Gm Powd.Pack PO 17 gm QAM SETH Administration Radiology Results: ITS Impressions Abdomen/Pelvis CT 05/02/24 06:10 Impression: 6 mm proximal right ureteral stone with mild right hydronephrosis to this level. Additional punctate nonobstructing right renal stone. Abdomen X-Ray 05/02/24 07:03 Impression: Probable 6 mm proximal right ureteral stone, as detailed above.
--- NOTE | 2024-05-03 06:54 | WPDHPUPDATE1 ---
History and Physical Update Update Date/Time: 05/03/24 06:54 History and Physical has been reviewed, including an updated exam of the patient. There are NO changes in the patient's condition. Risks, benefits, and alternatives have been discussed and questions answered. Patient agrees to proceed with procedure.
[2024-05-03] MEDS: SODIUM CHLORIDE 0.9% IV 1,000 ML 125 ML IV CONT (07:25)
[2024-05-03] MEDS: LACTATED RINGERS 1,000 ML 30 ML IV CONT (13:30)
--- NOTE | 2024-05-03 13:53 | WPDANESEPPF ---
Anes - Initial Pre Proc Eval Procedure: Operation Date: 05/03/24 15:00 Proposed Procedures p Right Extracorporeal Shock Wave Lithotripsy - Julio Cesar Martins MD Date/Time: 05/03/24 13:53 Surgeon: Julio Cesar Martins MD Pre Op Diagnosis: Kidney Stone/Pain Control Patient Data Age: 63 Gender: M Height: 1.73 m Weight: 81.8 kg Last Vital Signs Temp 36.1 C L 05/03/24 13:22 Pulse 61 05/03/24 13:22 Resp 18 05/03/24 13:22 BP 124/73 05/03/24 13:22 Pulse Ox 100 05/03/24 13:22 O2 Del Method Room Air 05/03/24 13:22 Allergies Allergy/AdvReac Type Severity Reaction Status Date / Time codeine Allergy Unknown Abdominal Verified 05/02/24 10:04 Pain Penicillins Allergy Unknown Rash Verified 05/02/24 10:04 oxycodone AdvReac Unknown UPSET Verified 05/02/24 10:04 STOMACH Home Medications Medication Instructions Recorded Confirmed Type bupropion HCl 150 mg 24 hr tablet, 150 mg PO DAILY 03/04/21 05/02/24 History extended release simvastatin 40 mg tablet 40 mg PO DAILY 03/04/21 05/02/24 History gabapentin 300 mg capsule 600 mg PO HS 05/02/24 05/02/24 History pantoprazole 40 mg tablet,delayed 40 mg PO DAILY 05/02/24 05/02/24 History release hydrocodone 5 mg-acetaminophen 325 1 - 2 tablet PO Q6H PRN pain #20 05/03/24 Rx mg tablet tabs Patient hx anesthesia problems: none Family hx anesthesia problems: none Results Review: All pre-operative results and documents have been reviewed as part of the pre-operative evaluation. [facility] Past Medical History Medical History BPH (benign prostatic hyperplasia) Depression Hyperlipidemia FELICIA (obstructive sleep apnea) Overweight (BMI 25.0-29.9) Family History Family History Father Patient's father is in good health Mother Family history of diabetes mellitus in first degree relative Family history of malignant neoplasm of breast in first degree relative Grandparent Family history of heart disease in male family member before age 55 Other Depression Social History Social History Smoking status: Never smoker Alcohol intake: current Drinks per week: 2 Alcohol use details: on weekend 2-8 beers Substance use: current Substance use type: does not use Other substance usage details: maijuana 2 times per month Do You Feel Safe in your Home?: Yes Lack of Transportation: No Lack of Food: Never True Current Housing: I Have Housing Concerned About Future Housing: No Difficulty Paying Gas/Electric Bills: No Difficulty Paying for Meds: No Currently Unemployed: No Education: High School Diploma/GED Difficulty w/ Childcare or Family Care: No Living arrangements: with family Additional living arrangements comments: lives with spouse Spiritual care concerns: No Anes - Eval Final PreProcedure Day of Procedure 05/03/24 13:53 Patient weight: overweight Heart: regular rate and rhythm Lungs: clear to auscultation Airway: Mallampati scale class II Neurological: alert and oriented Last oral intake: >/= 8 hours ASA classification: II Emergent: no Anesthetic plan: proceed Anesthesia type and monitoring: general LMA and standard monitoring Results Review: All pre-operative results and documents have been reviewed as part of the pre-operative evaluation. Informed Consent: The patient's anesthetic plan and its attendant risks and benefits were discussed with the patient/family/POA. Questions were solicited and answers provided to the satisfaction of the patient/family/POA.
--- NOTE | 2024-05-03 14:42 | W.PM.PROC2 ---
Procedure Note - Detailed Date of Procedure 05/03/24 Pre-op Diagnosis Right ureteral stone Post-op Diagnosis Same Procedure Performed Right ESWL Surgeon Julio Cesar Martins MD Anesthesia General Description of Procedure The patient was brought to the operative suite where he was placed in the supine position on the Dornier lithotripsy table. The focal point of the lithotripter was placed at a 5mm right mid-ureteral calculus. A total of 3000 shocks were delivered at a power setting of 6. There appeared to be good fragmentation of the stone. The patient tolerated the procedure well and was taken to the recovery room in good condition. Urine Output 300 Drains No Packing No Pathology None sent Complications No immediate complications Condition Stable Disposition PACU
--- NOTE | 2024-05-06 15:19 | PM.DS ---
DS: Admitting Diagnosis Discharge Date 05/03/24 Admitting Diagnosis Ureteral stone DS: Discharge Diagnosis Discharge Diagnosis (1) Ureterolithiasis: Code(s): N20.1 - Calculus of ureter Status: Acute DS: Summary Hospital Course Hospital Course: Patient mid to the ER with a painful obstructing proximal ureteral stone. Had intractable nausea vomiting opting to be admitted for pain management while awaiting right ESWL. That procedure was undertaken and subsequently he was comfortable and tolerating a diet. He was discharged the evening of his right ESWL Time Spent with Patient Time attestation: Total time spent providing and/or coordinating discharge services: Exam Const: General: no acute distress Resp: Effort & Inspection: normal respiratory effort GI: Inspection: non-distended GI Palp: No abdominal tenderness and No Guarding due to palpation present (GI) Auscultation: normal bowel sounds Discharge Plan Discharge Attending physician on discharge: Julio Cesar Martins Consulting providers: Gadiel Badillo; Waqas Petersen; Rayray Haas; Joseph Menendez V. Discharging Clinician: Julio Cesar Martins Patient Disposition: Home, Self-Care Activity: other - see discharge instructions Diet: other - see discharge instructions Discharge Instructions: 1) Activity: no driving or important decisions x24 hours. 2) Diet: resume your normal, pre-admission diet. 3) Follow-up: 1-2 weeks / call for appointment ([phone]). Patient Instructions: Antibiotic Form Stand Alone Forms: General Discharge Information Follow-up/Referrals: Julio Cesar Martins MD [Physician] - Discharge Medications: New hydrocodone-acetaminophen 5-325 mg tablet 1 - 2 tablet PO Q6H PRN (Reason: pain) Qty: 20 0RF cephalexin 500 mg capsule 500 mg PO Q8H Qty: 9 0RF ondansetron 4 mg tablet,disintegrating 4 mg PO Q8H Qty: 10 0RF Continued simvastatin 40 mg tablet 40 mg PO DAILY bupropion HCl 150 mg tablet extended release 24 hr 150 mg PO DAILY pantoprazole 40 mg tablet,delayed release (DR/EC) 40 mg PO DAILY gabapentin 300 mg capsule 600 mg PO HS Other Ambulatory Orders: XR abdomen/kub 1V (Routine) Timeframe: 2 Weeks Location: Determined by Patient Ordered By: Julio Cesar Martins XR abdomen/kub 1V (Routine) Timeframe: 2 Weeks Location: Determined by Patient Ordered By: Julio Cesar Martins Date of admission: 05/02/24 07:21 Primary Care Provider: Nancy,Tiffany Admitting Provider: Julio Cesar Martins Attending physician on admission: Julio Cesar Martins Condition: Stable
== END 2024-05-03 18:29 | disposition home or self-care (01) ==
LOC: ANHED 05-02 07:25 → ANH3MEDSUR 05-02 09:36
PROVIDERS: Admitting Provider Urology; Emergency Provider Emergency Medicine; PCP Physician Assistant; Visit Provider Urology
PROC: (CPT 50590; principal; 2024-05-03 15:00)
DX: N20.1 Calculus of ureter (principal); Z87.442 Personal history of urinary calculi; N40.0 Benign prostatic hyperplasia without lower urinary tract symptoms; F32.9 Major depressive disorder, single episode, unspecified; G47.33 Obstructive sleep apnea (adult) (pediatric); Z79.899 Other long term (current) drug therapy
CPT/HCPCS: 50590; 36415; 74018; 74176; 80053; 81001; 83690; 85025; 96361; 96374; 96375; 96376; 99285; G0378; J0690; J1100; J1171; J1200; J2003; J2270; J2405; J2704; J2765; J7030; J7120

== ENCOUNTER 2024-07-09 11:16 | Outpatient (CLI) | payer BC, SELFPAY ==
--- NOTE | ~2024-07-09 | XR_ITS ---
XR abdomen/kub 1V 07/09/2024 11:49 INDICATION: History of kidney stones. TECHNIQUE: KUB COMPARISON: 05/03/2024 05/02/2024 FINDINGS: Bowel gas pattern is normal. There is no evidence of free air, mass, organomegaly, ascites or obstruction. No abnormal calculi are seen. The bones appear intact. IMPRESSION: 1: No acute abdominal abnormality identified. Reviewed, dictated and finalized at location B. [employer]
--- OUTSIDE RECORDS SUMMARY | 2024-07-16 11:41 | XMS_ITS | Data Portability ---
Author Organization [facility] Address [address] [place] [address] Care Team Providers Care Accounting Associate Name Role Phone JOCELYN ARAUJO Primary Care Provider Unavailab le Assessment No assessment recorded. Plan of Treatment Reminders Order Date Submit Date Provider Last Modified By Organization Details Last Modified Time Details Appointments ANY 15 2024 11:00A M GANGA Man Not available Not available Not available Lab CBC w/ auto diff 2023 024 [facility], [address] Kaela Britt, [address], [place], [address], 01/25/2024 12:37:21 CMP, serum or plasma 2023 024 [facility] [address] Kaela Britt, [address], [place], [address], 01/25/2024 12:37:19 lipid panel, serum 2023 024 [facility], 2022 Kaela Britt, [address], [place], [address], 01/25/2024 12:37:18 vitamin B12 + folate, serum or blood 2023 024 [facility], 2022 Kaela Britt, [address], [place], [address], 01/25/2024 12:37:19 magnesium , serum or plasma 2023 024 [facility], 2022 Kaela Britt, [address], [place], [address], 01/25/2024 12:37:20 PSA, total, serum or plasma 2023 [facility], 2022 Kaela Britt, [address], [place], [address], 01/25/2024 12:37:21 vitamin D, 25-hydrox y, total, serum 2023 [facility], 2022 Kaela Britt, [address], [place], [address], 01/25/2024 12:37:22 HbA1c (hemoglob in A1c), blood 2023 [facility], 2022 Kaela Britt, [address], [place], [address], 01/25/2024 12:37:20 Referral None recorded. Procedures colonosco py screening (PROC) 2023 BRITANY Wall MD, [address] [place], [address], 05/08/2024 15:28:48 Surgeries None recorded. Imaging None recorded. Medication Orders hydroxyzi ne HCl 50 mg tablet 2023 [facility] [address], [address], [place], [address], 01/03/2024 12:43:10 Patient TargetsNo targets recorded. Patient InstructionsNo instructions recorded. Reason for Referral None Reported. Results Created Date Observation Date Name Description Value Unit Range Abnormal Flag Note LastModifiedBy Organization Detail LastModifiedTime 01/24/2001/25/2024 LIPID PANEL cholesterol, total 161 mg/dL 100-19 9 Not Available [facility] ([facility]) [address] [facility], [place], [address], 01/25/2024 12:37:18 01/24/20 24 01/25/2024 LIPID PANEL triglyceride s 152 mg/dL 0-149 above high normal Not Available [facility] ([facility]) [address] [place], [address], 01/25/2024 12:37:18 01/24/20 24 01/25/2024 LIPID PANEL HDL cholesterol 33 mg/dL >39 below low normal Not Available [facility] ([facility]) [address] [place], [address], 01/25/2024 12:37:18 01/24/20 24 01/25/2024 LIPID PANEL VLDL cholesterol sally 27 mg/dL 5-40 Not Available [facility] ([facility]) [address] [place], [address], 01/25/2024 12:37:18 01/24/20 24 01/25/2024 LIPID PANEL LDL chol calc ([facility]) 101 mg/dL 0-99 above high normal Not Available [facility] ([facility]) [address] [place], [address], 01/25/2024 12:37:18 01/24/20 24 01/25/2024 COMP. METAB OLIC PANEL (14) glucose 93 mg/dL 70-99 Not Available [facility] ([facility]) [address] [place], [address], 01/25/2024 12:37:19 01/24/20 24 01/25/2024 COMP. METAB OLIC PANEL (14) BUN 13 mg/dL 8-27 Not Available [facility] ([facility]) [address] [place], [address], 01/25/2024 12:37:19 01/24/20 24 01/25/2024 COMP. METAB OLIC PANEL (14) creatinine 1.29 mg/dL 0.76-1 .27 above high normal Not Available [facility] ([facility]) [address] [place], [address], 01/25/2024 12:37:19 01/24/20 24 01/25/2024 COMP. METAB OLIC PANEL (14) eGFR 63 mL/mi n/1.7 3 >59 Not Available [facility] ([facility]) [address] [facility], [place], [address], 01/25/2024 12:37:19 01/24/20 24 01/25/2024 COMP. METAB OLIC PANEL (14) BUN/creatini ne ratio 10 10-24 Not Available [facility] ([facility]) [address] [facility], [place], [address], 01/25/2024 12:37:19 01/24/20 24 01/25/2024 COMP. METAB OLIC PANEL (14) sodium 142 mmol/ L 134-14 4 Not Available [facility] ([facility]) [address] [facility], [place], [address], 01/25/2024 12:37:19 01/24/20 24 01/25/2024 COMP. METAB OLIC PANEL (14) potassium 4.3 mmol/ L 3.5-5. 2 Not Available [facility] ([facility]) [address] [facility], [place], [address], 01/25/2024 12:37:19 01/24/20 24 01/25/2024 COMP. METAB OLIC PANEL (14) chloride 103 mmol/ L 96-106 Not Available [facility] ([facility]) [address] [facility], [place], [address], 01/25/2024 12:37:19 01/24/20 24 01/25/2024 COMP. METAB OLIC PANEL (14) carbon dioxide, total 24 mmol/ L 20-29 Not Available [facility] ([facility]) [address] [place], [address], 01/25/2024 12:37:19 01/24/20 24 01/25/2024 COMP. METAB OLIC PANEL (14) calcium 9.7 mg/dL 8.6-10 .2 Not Available [facility] ([facility]) [address], [place], [address], 01/25/2024 12:37:19 01/24/20 24 01/25/2024 COMP. METAB OLIC PANEL (14) protein, total 6.5 g/dL 6.0-8. 5 Not Available [facility] ([facility]) [address] [place], [address], 01/25/2024 12:37:19 01/24/20 24 01/25/2024 COMP. METAB OLIC PANEL (14) albumin 4.5 g/dL 3.9-4. 9 Not Available [facility] ([facility]) [address] [place], [address], 01/25/2024 12:37:19 01/24/20 24 01/25/2024 COMP. METAB OLIC PANEL (14) globulin, total 2.0 g/dL 1.5-4. 5 Not Available [facility] ([facility]) [address], [place], [address], 01/25/2024 12:37:19 01/24/20 24 01/25/2024 COMP. METAB OLIC PANEL (14) bilirubin, total 0.5 mg/dL 0.0-1. 2 Not Available [facility] ([facility]) [address] [place], [address], 01/25/2024 12:37:19 01/24/20 24 01/25/2024 COMP. METAB OLIC PANEL (14) alkaline phosphatase 77 IU/L 44-121 Not Available [facility]) [address] [place], [address], 01/25/2024 12:37:19 01/24/20 24 01/25/2024 COMP. METAB OLIC PANEL (14) AST (SGOT) 29 IU/L 0-40 Not Available [facility] ([facility]) [address] [place], [address], 01/25/2024 12:37:19 01/24/20 24 01/25/2024 COMP. METAB OLIC PANEL (14) ALT (SGPT) 29 IU/L 0-44 Not Available [facility] ([facility]) [address] [facility], [place], [address], 01/25/2024 12:37:19 01/24/20 24 01/25/2024 VITAM IN B12 AND FOLAT E vitamin B12 299 pg/mL 232-12 45 Not Available [facility] ([facility]) [address] [place], [address], 01/25/2024 12:37:19 01/24/20 24 01/25/2024 VITAM IN B12 AND FOLAT E folate (folic acid), serum 8.2 NG/mL >3.0 A serum folat e alida ntrat ion of less than 3.1 ng/mL is consi dered to repre sent clini sally defic iency . Not Available [facility] ([facility]) [address] [facility], [place], [address], 01/25/2024 12:37:19 01/24/2001/25/2024 HEMOG LOBIN A1C hemoglobin A1C 5.7 % 4.8-5. 6 above high normal Predi abete s: 5.7 - 6.4 Diabe andreia: >6.4 Glyce paras contr ol for adult s with diabe andreia: <7.0 Not Available [facility] ([facility]) [address] [place], [address], 01/25/2024 12:37:20 01/24/2001/25/2024 MAGNE SIUM magnesium 2.2 mg/dL 1.6-2. 3 Not Available [facility] ([facility]) [address] [place], [address], 01/25/2024 12:37:20 01/24/20 24 01/25/2024 CBC WITH DIFFE RENTI AL/PL ATELE T WBC 6.1 x10e3 /uL 3.4-10 .8 Not Available [facility] ([facility]) [address] [place], [address], 01/25/2024 12:37:21 01/24/20 24 01/25/2024 CBC WITH DIFFE RENTI AL/PL ATELE T RBC 4.81 x10e6 /uL 4.14-5 .80 Not Available [facility] ([facility]) [address] [place], [address], 01/25/2024 12:37:21 01/24/2001/25/2024 CBC WITH DIFFE RENTI AL/PL ATELE T hemoglobin 15.3 g/dL 13.0-1 7.7 Not Available [facility] ([facility]) [address] [place], [address], 01/25/2024 12:37:21 01/24/2001/25/2024 CBC WITH DIFFE RENTI AL/PL ATELE T hematocrit 44.0 % 37.5-5 1.0 Not Available [facility] ([facility]) [address] [place], [address], 01/25/2024 12:37:21 01/24/2001/25/2024 CBC WITH DIFFE RENTI AL/PL ATELE T MCV 92 fL 79-97 Not Available [facility] ([facility]) [address] [place], [address], 01/25/2024 12:37:21 01/24/2001/25/2024 CBC WITH DIFFE RENTI AL/PL ATELE T MCH 31.8 pg 26.6-3 3.0 Not Available [facility] ([facility]) [address] [place], [address], 01/25/2024 12:37:21 01/24/2001/25/2024 CBC WITH DIFFE RENTI AL/PL ATELE T MCHC 34.8 g/dL 31.5-3 5.7 Not Available [facility] ([facility]) [address] [facility], [place], [address], 01/25/2024 12:37:21 01/24/20 24 01/25/2024 CBC WITH DIFFE RENTI AL/PL ATELE T RDW 12.4 % 11.6-1 5.4 Not Available [facility] ([facility]) [address] [facility], [place], [address], 01/25/2024 12:37:21 01/24/20 24 01/25/2024 CBC WITH DIFFE RENTI AL/PL ATELE T platelets 225 x10e3 /uL 150-45 0 Not Available [facility] ([facility]) [address] [facility], [place], [address], 01/25/2024 12:37:21 01/24/20 24 01/25/2024 CBC WITH DIFFE RENTI AL/PL ATELE T neutrophils 56 % notest ab. Not Available [facility] ([facility]) [address] [facility], [place], [address], 01/25/2024 12:37:21 01/24/20 24 01/25/2024 CBC WITH DIFFE RENTI AL/PL ATELE T lymphs 33 % notest ab. Not Available [facility] ([facility]) [address] [place], [address], 01/25/2024 12:37:21 01/24/20 24 01/25/2024 CBC WITH DIFFE RENTI AL/PL ATELE T monocytes 8 % notest ab. Not Available [facility] ([facility]) [address] [facility], [place], [address], 01/25/2024 12:37:21 01/24/20 24 01/25/2024 CBC WITH DIFFE RENTI AL/PL ATELE T eos 2 % notest ab. Not Available [facility] ([facility]) [address] [facility], [place], [address], 01/25/2024 12:37:21 01/24/20 24 01/25/2024 CBC WITH DIFFE RENTI AL/PL ATELE T basos 1 % notest ab. Not Available [facility] ([facility]) [address] [facility], [place], [address], 01/25/2024 12:37:21 01/24/20 24 01/25/2024 CBC WITH DIFFE RENTI AL/PL ATELE T neutrophils (absolute) 3.4 x10e3 /uL 1.4-7. 0 Not Available [facility] ([facility]) [address] [facility], [place], [address], 01/25/2024 12:37:21 01/24/20 24 01/25/2024 CBC WITH DIFFE RENTI AL/PL ATELE T lymphs (absolute) 2.0 x10e3 /uL 0.7-3. 1 Not Available [facility] ([facility]) [address] [facility], [place], [address], 01/25/2024 12:37:21 01/24/20 24 01/25/2024 CBC WITH DIFFE RENTI AL/PL ATELE T monocytes(ab solute) 0.5 x10e3 /uL 0.1-0. 9 Not Available [facility] ([facility]) [address] [place], [address], 01/25/2024 12:37:21 01/24/20 24 01/25/2024 CBC WITH DIFFE RENTI AL/PL ATELE T eos (absolute) 0.1 x10e3 /uL 0.0-0. 4 Not Available [facility] ([facility]) [address] [facility], [place], [address], 01/25/2024 12:37:21 01/24/20 24 01/25/2024 CBC WITH DIFFE RENTI AL/PL ATELE T baso (absolute) 0.1 x10e3 /uL 0.0-0. 2 Not Available [facility] ([facility]) [address] [place], [address], 01/25/2024 12:37:21 01/24/20 24 01/25/2024 CBC WITH DIFFE RENTI AL/PL ATELE T immature granulocytes 0 % notest ab. Not Available [facility] ([facility]) [address] [place], [address], 01/25/2024 12:37:21 01/24/2001/25/2024 CBC WITH DIFFE RENTI AL/PL ATELE T immature grans (abs) 0.0 x10e3 /uL 0.0-0. 1 Not Available [facility] ([facility]) [address] [place], [address], 01/25/2024 12:37:21 01/24/2001/25/2024 PROST ATE-S PECIF IC AG prostate specific Ag 0.2 NG/mL 0.0-4. 0 Stephanie ECLIA metho dolog y. Accor ding to the Ameri can Urolo gical Assoc iatio n, Serum PSA shoul d decre ase and remai n at undet ectab le level s after radic al prost atect jael. The AUA defin es bioch emica l recur rence as an initi al PSA value 0.2 ng/mL or great er follo wed by a subse quent confi rmato ry PSA value 0.2 ng/mL or great er. Value s obtai frank with diffe rent assay metho ds or kits canno t be used inter sims eaevangelinay . Resul ts canno t be inter prete d as absol [place] evide nce of the prese nce or absen ce of ref[place] se. Not Available [facility] ([facility]) [address] [place], [address], 01/25/2024 12:37:21 01/24/20 24 01/25/2024 VITAM IN D, 25-HY DROXY vitamin D, 25-hydroxy 92.6 NG/mL 30.0-1 00.0 Vitam in D defic iency has been defin ed by the Insti tute of Medic ine and an Endoc rine Socie ty pract ice guide line as a level of serum 25-OH vitam in D less than 20 ng/mL (1,2) . The Endoc rine Socie ty went on to furth er defin e vitam in D insuf ficie ncy as a level betwe en 21 and 29 ng/mL (2). 1. IOM (Inst itute of Medic ine). 2010. Aleta ry refer ence solo es for calci um and D. Lien busby [place]: The [facility] . 2. Jovana anne MF, Tyrel cramer [place], Alberto off-F errar i GARNER, et al. Evalu ation , treat ment, and preve ntion of vitam in D defic iency : an Endoc rine Socie ty clini sally pract ice guide line. JCEM. 2010; 96(7) :1911 -30. Not Available [facility] ([facility]) [address] [facility], [place], [address], 01/25/2024 12:37:22 05/02/20 24 05/02/2024 CT, abdom en + pelvi s, w/o contr ast No observ ation record ed. [address], [address], 05/02/2024 14:06:50 05/03/20 24 05/03/2024 XR, abdom en No observ ation record ed. [address], [address], 05/03/2024 17:51:43 07/09/19 25 07/09/2024 XR, abdom en No observ ation record ed. [address], [address], 07/09/2024 17:41:50 Result Notes None recorded. Problems Name Problem SNOMED Code Status Onset Date Resolution Date Notes Provider Name and Address Organization Details Recorded Time Hyperlipidemia 97878267 Active 2023 Danni amador, [place] - [facility] 4 13:12:33 Long-term drug therapy Active 2023 GANGA Man Attn: Eulalio anderson,[address] [place], [address], [place] - [facility] 4 21:00:38 Fatigue 05349756 Active 2023 GANGA Man Attn: Eulalio anderson,[address] [place], [address], [place] - [facility] 4 21:00:39 Obstructive sleep apnea syndrome 55031473 Active 2023 GANGA Man Attn: Eulalio anderson,[address] [place], [address], [place] [facility] 4 21:00:51 Restless legs 70952655 Active 2023 GANGA Man Attn: Eulalio anderson,[address] [place], [address], [place] [facility] 4 21:00:53 Insomnia 232734878 Active 2023 GANGA Man Attn: Eulalio anderson,[address] [place], [address], [place] [facility] 4 21:00:55 Vitamin D deficiency 79218964 Active 2023 GANGA Man Attn: Eulalio anderson,[address] [place], [address], [place] - [facility] 4 21:01:12 Major depressive disorder 753089609 Active 2023 GANGA Man Attn: Eulalio anderson,[address] [place], [address], [place] [facility] 4 21:01:30 Problem Notes None recorded. Procedures Surgical History Date Name Laterality Status Provider Name and Address Organization Details Recorded Time 05/02/20 24 extracorporeal shockwave lithotripsy completed Danni Patel [facility] 05/31/2024 14:16:11 07/03/19 16 Back Surgery completed Alfred Lowery MA [facility] 01/03/2024 12:07:40 Imaging Results Imaging Date Name Status LastModified by Organiz ation Details LastModified Time 05/02/2024 CT, abdomen + pelvis, w/o contrast completed [address], [address], 05/02/2024 14:06:50 05/03/2024 XR, abdomen completed [address], [address], 05/03/2024 17:51:43 07/09/2024 XR, abdomen completed [address], [address], 07/09/2024 17:41:50 Procedure Notes None recorded. Medical Equipment None Reported. Allergies Allergen ID Allergen Name Allergen Category Reaction Reaction Severity Criticality Documentation Date Start Date Code Code System Note Provider Name and Address Organization Details Recorded Time 197441 Medicinal product containin g penicilli n and acting as antibacte rial agent (product) medicatio n Not available Not available Not available 01/03/2024 51377 05 SNOMED PB Viramontes [facility] 4 12:05:36 376200 codeine medicatio n Not available Not available Not available 01/03/2024 2670 RxNorm PB Viramontes [facility] 4 12:05:41 Medications Name Sig Start Date Stop Date Status Note LastModified by Organization Details LastModified Time hydroxyzi ne HCl 50 mg tablet Take 1 tablet every day by oral route at bedtime. active Not Available Not Available No t Available simvastat in 40 mg tablet one tab po daily 04/02/ 2024 active Not Available Not Available Not Avai lable pantopraz ole 40 mg tablet,de layed release active Not Available Not Available Not Available gabapenti n 300 mg capsule Take 1 capsule twice a day by oral route. active at night for restless leg syndrome Not Available Not Available Not Available ergocalci ferol (vitamin D2) 1,250 mcg (50,000 unit) capsule Take 1 capsule by mouth once a week 2023 active Not Available Not Available Not Avai lable finasteri de 5 mg tablet Take 1 tablet every day by oral route. active Not Available Not Available No t Available Wellbutri n XL 150 mg 24 hr tablet, extended release Take 1 tablet every day by oral route. active Not Available Not Available No t Available bupropion HCl 150 mg tablet,12 hr sustained -release( smoking deterrent ) Take 1 tablet twice a day by oral route. 01/02 completed Not Available Not Available Not Available Vitals Date Recorded Body weight Respiratory rate Body mass index (BMI) Body height Oxygen saturation Oxygen saturation in Arterial blood by Pulse oximetry Heart rate Systolic blood pressure Diastolic blood pressure Provider Name and Address Organization Details Last Updated DateTime 4 78561.1 3 g 20 /min 28.4 kg/m2 172.72 cm 99 % 99 % 68 /min 130 mm[Hg] 82 mm[Hg] Alfred Lowery MA [facility] 12:11:35 Social History Question Answer Notes LastModified by Organizat ion Details LastModified Time Tobacco Smoking Status Never Smoker Alfred Lowery MA null, [facility] 01/03/2024 12:08:48 What Is Your Level Of Alcohol Consumption? Occasional Beer Information not available 01/03/2024 In The 14 Days Before Symptom Onset, Have You Had Close Contact With A Laboratory-confirm ed COVID-19 While That Case Was Ill? No Information n ot available 01/02/2024 In The 14 Days Before Symptom Onset, Have You Had Close Contact With A Person Who Is Under Investigation For COVID-19 While That Person Was Ill? No Information not available 01/02/2024 Have You Been To An Area Known To Be High Risk For COVID-19? No Information not available 01/02/2024 Are There Any Guns Present In Your Home? No Information not available 01/03/2024 What Was The Date Of Your Most Recent Tobacco Screening? 01/03/2024 Information not available 01/03/2024 What Is Your Relationship Status? Information not available 01/03/2024 Do You Use Your Seat Belt Or Car Seat Routinely? Yes Information not available 01/02/2024 Do You Have Smoke And Carbon Monoxide Detectors In Your Home? Yes Information not available 01/02/2024 Do You Use Any Illicit Or Recreational Drugs? No Information not available 01/03/2024 Do You Use Sunscreen Routinely? No Information not available 01/03/2024 Has Tobacco Cessation Counseling Been Provided? Yes Information not available 01/02/2024 On What Date Was Tobacco Cessation Counseling Provided? 01/03/2024 Information not available 01/03/2024 Do You Or Have You Ever Used Any Other Forms Of Tobacco Or Nicotine? No Information not available 01/03/2024 Sex: Male Functional Status Question Answer Note LastModified by Organization D etails LastModified Time Are you able to care for yourself? Yes Information n ot available 01/02/2024 Mental Status None recorded. Family History Relationship Description Onset Age of this Age Resolved Age Notes LastModified by Organization Details LastModified Time Mother Family history of breast cancer [email or web address] Not available 2023 12:08:08 Mother Diabetes mellitus [email or web address] Not available 2023 12:08:13 Mother Disorder of thyroid gland [email or web address] Not available 2023 12:08:20 Sister Disorder of thyroid gland tcarterma Not available 2023 12:08:20 Father Hypercholest erolemia [email or web address] Not available 2023 12:08:27 Medical History Condition Response Acid Reflux (GERD) Y Headaches Y Depression Y High Cholesterol Y Past Encounters Encounter ID Performer Location Encounter Start Date Encounter Closed Date Diagnosis/Indication Diagnosis SNOMED-CT Code Diagnosis ICD10 Code Diagnosis Note [id number] GANGA Man [facility] Desiree Pierce [address] [place] [address] 01/03/2024 11:42:00 01/03/2024 12:52:14 Screening for malignant neoplasm of colon 747081020 Z12.11 Referral for colonoscop y that is due has been given today Screening for malignant neoplasm of prostate 816554928 Z12.5 Annual PSA lab is due Adult heal th examination 241594585 Z00.01 Annual wellness exam completed Major depr essive disorder 241178307 F32.9 Though not in remission, the patient is stable on Wellbutrin XL 150 mg p.o. daily Hyperlipidemia 20154285 E78.5 Continue simvastati n 40 mg daily and check updated fasting lipid panel Insomnia 106527410 G47.0 0 For chronic insomnia we will have the patient trial hydroxyzin e 50 mg at bedtime. Vitamin D deficiency 347 15553 E55.9 Vitamin-D deficiency ongoing, due for updated lab Obstructiv e sleep apnea syndrome 20570879 G47.33 Pt has inspire device. placed almost one year ago (december 2022, kicked on apr 2023). Restless legs 89200134 G 25.81 Patient has restless legs at night and does take gabapentin . We will check a serum magnesium level. Long-term drug therapy 096889408 Z79.899 Routine CBC and CMP ordered Fatigue 86064557 R53.83 Patient does have chronic fatigue and routine vitamin B12 and folate labs are being ordered Diabetes m ellitus screening 320337415 Z13.1 Annual A1c screening ordered Health Concerns Section Related Observation LastModified by Organization Detai ls LastModified Time None Recorded Concern Status LastModified by Organization Details LastModified Time None Recorded Advance Directives Directive None Recorded Payers Encounter Date Sequence Insurance Name Policy Number Policy Quinonez Covered Member ID Quinonez Member ID Guarantor Name 01/03/2024 1 [employer] [id number] Clay Cabrera [id number] Clay Cabrera Notes Date Note Type Note Provider Name and Address Organization Details Recorded Time 024 text/ht ml Anxiety/DepressionReported bypatient.Notes:Patient continues with anxiety and depression. He is taking Wellbutrin XL 150 mg daily he is stable though it is not in remissionHyperlipidemiaReported bypatient.Notes:Patient is stable on simvastatin 40 mg dailyInsomniaReported bypatient.Notes:Insomnia continues to be problematic for the patient and a primary Complaint. Interested in discussing other options for treatmentObstructive Sleep Apnea F/UReported bypatient.Notes:Patient is currently undergoing consultation and workup for inspire device which has been placed and he is waiting on the time frame of healing before it can be activated. RLS- on gabapentin from sleep sleep medicine physician that manages FELICIA and [employer]. GANGA Man Attn: Accounting, [address] [place], [address], [facility] 01/27/2024 21:02:29
--- OUTSIDE RECORDS SUMMARY | 2024-07-16 11:42 | XMS_ITS | Encounter Summary ---
Author Organization [facility] Health Address [address] [place] [address] Care Team Providers Care Telecommunications Manager Name Role Phone Tiffany Linda Primary Care Pr ovider Encounter Details Date Type Department Care Team (Latest Contact Info) Description 12/13/2022 Travel Social History Tobacco Use Types Packs/Day Years Used Date Smoking Tobacco: Former Cigarettes 0.1 2 1 976 - 1977 Smokeless Tobacco: Never Alcohol Use Standard Drinks/Week Comments Yes 4 (1 standard drink = 0.6 oz pur e alcohol) weekly 4 beers AUDIT-C Answer Date Recorded Q1: How often do you have a drink containing alcohol? Never 11/23/2022 Q2: How many drinks containi ng alcohol do you have on a typical day when you are drinking? Patient does not drink Q3: How often do you have si x or more drinks on one occasion? Never 11/23/2022 Education Answer Date Recorded What is the highest level of school you have completed or the highest degree you have received? 12th grade 06/14/2022 Sex and Gender Information Value Date Recorded Sex Assigned at Not on file Gender Identity Not on file Sexual Orientation Not on file COVID-19 Exposure Response Date Recorded In the last 10 days, have yo u been in contact with someone who was confirmed or suspected to have Coronavirus/COVID-19? No / Unsure 12/13/2022 12:11 PM CDT documented as of this encounter Plan of Treatment Not on file documented as of this encounter Visit Diagnoses Not on filedocumented in this encounter Care Teams Telecommunications Manager Relationship Specialty Start Date End Date Tiffany Linda PA [address] [place] [address] [place] [id number] PCP - General 06/14/22 documented as of this encounter
--- OUTSIDE RECORDS SUMMARY | 2024-07-16 11:42 | XMS_ITS | Encounter Summary ---
Author Organization [facility] [address] [place] [address] Care Team Providers Care Project Specialist Name Role Phone Tiffany Linda Primary Care Pr ovider Encounter Details Date Type Department Care Team (Late st Contact Info) Description 02/07/2023 Orders Only [facility] [address] [place] [phone] Krishna Temple MD [address] [facility] [place] [address] Social History Tobacco Use Types Packs/Day Years [...] on file Sexual Orientation Not on file documented as of this encounter Plan of Treatment Not on file documented as of this encounter Visit Diagnoses Not on filedocumented in this encounter Care Teams Project Specialist Relationship Specialty Start Date End Date Tiffany Linda PA [address] [place] [address] [place] [phone] PCP - General 06/14/22 documented as of this encounter
--- OUTSIDE RECORDS SUMMARY | 2024-07-16 11:42 | XMS_ITS | Encounter Summary ---
Author Organization [facility] Address [address] [place] [address] Care Team Providers Care Commercial Crabber Name Role Phone Tiffany Linda Primary Care Pr ovider Reason for Referral * Procedure (Routine) - Closed Specialty Diagnoses / Procedures Referred By Yoshi t Referred To Contact Sleep Center Diagnoses FELICIA (obstructive sleep apnea) Procedures PROC POLYSOMNOGRAPHY,DIAGNOSTI C FULL NIGHT Gregory Mcwilliams MD [address] [address] [facility] [address] [place] [address] Referral ID Status Reason Start Date Expiration Date Visits Re quested Visits Authorized [id number] Closed 05/29/2023 05/28/2024 1 1 ADER OPERATOR Reason for Visit * Reason Comments Follow-up Inspire Implant Encounter Details Date Type Department Care Team (Late st Contact Info) Description 05/29/2023 10:20 AM THREADER OPERATOR Office Visit [facility] - Sleep Services [address] [place] [address] Gregory Mcwilliams MD [address] DIV OF PULMONARY/[place] [address] FELICIA (obstructive sleep apnea) (Primary Dx); RLS (restless legs syndrome) Social History Tobacco Use Types Packs/Day Years Used Date Smoking Tobacco: Former Cigarettes 0.1 2 1 253 - 9603 Smokeless Tobacco: Never Alcohol Use Standard Drinks/Week [...] on file documented as of this encounter Last Filed Vital Signs Vital Sign Reading Time Taken Comments Blood Pressure 124/90 05/29/2023 10:02 AM THREADER OPERATOR Pulse 84 05/29/2023 10:02 AM THREADER OPERATOR Temperature - - Respiratory Rate - - Oxygen Saturation - - Inhaled Oxygen Concentration - - Weight 84.4 kg (186 lb) 05/29/2023 10:02 AM THREADER OPERATOR Height 172.7 cm (5' 8 ) 05/29/2023 10:02 AM THREADER OPERATOR Body Mass Index 28.28 05/29/2023 10:02 AM THREADER OPERATOR documented in this encounter Patient Instructions * Patient Instructions* Rose Mercedes - 05/29/2023 10:23 AM THREADER OPERATOR Images from the original note were not included. [facility], First Floor [address] [place] [address] Telephone : [phone] Medical Records SLEEP DISORDERS CLINIC HYPOGLOSSAL NERVE STIMULATOR ADHERENCE VISIT NOTE Patient Name: Clay Cabrera Date of : 1960 Date of Visit: 05/29/2023 Age: [age] year old Sex: male Time allotted by [facility] to evaluate patient = 40 minutes The patient is a 62 year old male who presents for activation of hypoglossal nerve stimulator. S> Since the patient's last clinic visit in Apr 2023, the patient has had no new health problems. Nasal congestion and nasal drainage better Heartburn controlled with as needed famotidine HNS Subjective Adherence: Frequency: [x] Nightly throughout the night - except 1 day when he went to level 9 (rough night); now back on 8 (fine) [] Most nights (5 or 6 nights a week) [] > 4 hrs/night [] < 4 hrs per night [] Some nights (< 5 nights a week) [] Not using at all Problems with HNS use: [] tongue biting [] arousals [x] grabbing throat too much on level 9 FELICIA symptoms on HNS therapy: is back in the bedroom Wt Readings from Last 3 Encounters: 05/29/23 84.4 kg (186 lb) 04/27/23 83.9 kg (185 lb) 03/28/23 82.1 kg (181 lb) He takes gabapentin 300 mg tablet, 3 tablets at bedtime. There was a day or two when he felt drowsyon 3 tabs. He went down to 2 tablets but went hack up to 3 tablets. His RLS symptoms are mostly a rippling on the left leg INTERNATIONAL RESTLESS LEGS SYNDROME RATING SCALE Overall, how would you rate the RLS discomfort in your legs or arms? 1 [ 4 ] Very severe [ 3 ] Severe [ 2 ] Moderate [ 1 ] Mild [ 0 ] None Overall, how would you rate the need to move around because of your RLS symptoms? 1 [ 4 ] Very severe [ 3 ] Severe [ 2 ] Moderate [ 1 ] Mild [ 0 ] None Overall, how much relief of your RLS arm or leg discomfort did you get from moving around? 1 [ 4 ] No relief [ 3 ] Mild relief [ 2 } Moderate relief [ 1 ] Either complete or almost complete relief [ 0 ] No RLS symptoms to be relieved How severe was your sleep disturbance from your RLS symptoms? 1 [ 4 ] Very severe [ 3 ] Severe [ 2 ] Moderate [ 1 ] Mild [ 0 ] None How severe was your tiredness or sleepiness during the day due to your RLS symptoms? 0 [ 4 ] Very severe [ 3 ] Severe [ 2 ] Moderate [ 1 ] Mild [ 0 ] None How severe was your RLS as a whole? 1 [ 4 ] Very severe [ 3 ] Severe [ 2 ] Moderate [ 1 ] Mild [ 0 ] None How often did you get RLS symptoms? 2 [ 4 ] Very often (6-7 days in 1 week) [ 3 ] Often (4-5 days in 1 week) [ 2 ] Sometimes (2-3 days in 1 week) [ 1 ] Occasionally (1 day in 1 week) [ 0 ] Never When you had RLS symptoms, how severe were they on average? 1 [ 4 ] Very severe (8 h or more per 24 h) [ 3 ] Severe (3-8 h per 24 h) [ 2 ] Moderate (1-3 h per 24 h) [ 1 ] Mild (less than 1 h per 24 h) [ 0 ] None Overall, how severe was the impact of your RLS symptoms, on your ability to carry out your daily affairs, for example, carrying out a satisfactory family, home, social, school, or work life? 0 [ 4 ] Very severe [ 3 ] Severe [ 2 ] Moderate [ 1 ] Mild [ 0 ] None How severe was your mood disturbance from your RLS symptoms-for example angry, depressed, sad, anxious, or irritable? 1 [ 4 ] Very severe [ 3 ] Severe [ 2 ] Moderate [ 1 ] Mild [ 0 ] None Total score = 9 Mild: 0 to 10 Moderate: 11 to 20 Severe: 21 to 30 Very Severe: 31 to 40 Workweek/Weekday: Bedtime 10:30 pm Initial sleep latency < 60 min Activities while awake in bed: [] worrying about sleep [] worrying about other things; Describe: [] watching TV [] reading [] computer tablet [] smart phone [] telephone call [] texting [x] other: Describe: Face mask Number of awakenings 0 Wake time 6:30 am Alarm: [] Yes; alarm time: [x] No Rise time Within 10 min Nap duration 0 Nap frequency 0 times during the workweek Weekend/Days Off: [] Same as weekday Bedtime 12 am Wake time 7 am Rise time 7 am Nap duration 0 Nap frequency 0 times during the weekend Exercise: [x] Yes [] No 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) Current Outpatient Medications: acetaminophen (Tylenol) 500 MG capsule, Take 2 (two) capsules by mouth every 6 hours as needed for Fever or Pain, Disp: 60 capsule, Rfl: 1 buPROPion XL 24hr (Wellbutrin-XL) 150 MG tablet, bupropion HCl XL 150 mg 24 hr tablet, extended release TAKE 1 TABLET BY MOUTH ONCE DAILY, Disp: , Rfl: docusate sodium (Colace) 100 MG capsule, Take 1 (one) capsule by mouth once daily as needed for Constipation, Disp: 30 capsule, Rfl: 0 ergocalciferol (Drisdol) 1.25 MG (05654 UT) capsule, ergocalciferol (vitamin D2) 1,250 mcg (50,000 unit) capsule TAKE 1 CAPSULE BY MOUTH ONCE A WEEK DIRECTED, Disp: , Rfl: famotidine (Pepcid) 40 MG tablet, Take 1 (one) tablet by mouth once daily, Disp: 90 tablet, Rfl: 3 Fexofenadine-Pseudoephedrine (KATHRYN-D 24 HOUR PO), Take 1 tablet by mouth once daily as needed (ALLERGIES), Disp: , Rfl: finasteride (Proscar) 5 MG tablet, finasteride 5 mg tablet TAKE 1 TABLET BY MOUTH ONCE DAILY, Disp:, Rfl: gabapentin (Neurontin) 300 MG capsule, Take 1 (one) capsule by mouth at bedtime, Disp: 270 capsule,Rfl: 3 ibuprofen (Motrin) 600 MG tablet, Take 1 (one) tablet by mouth every 6 hours as needed for Pain, Disp: 60 tablet, Rfl: 1 ondansetron (Zofran) 4 MG tablet, Take 1 (one) tablet by mouth every 6 hours as needed for Nausea/Vomiting, Disp: 9 tablet, Rfl: 0 oxyCODONE, immediate release, (Roxicodone) 5 MG tablet, Take 1 (one) tablet by mouth every 6 hours as needed for Pain, Disp: 15 tablet, Rfl: 0 simvastatin (Zocor) 40 MG tablet, simvastatin 40 mg tablet TAKE 1 TABLET BY MOUTH ONCE DAILY, Disp:, Rfl: tamsulosin (Flomax) 0.4 MG capsule, Take 1 (one) capsule by mouth once daily, Disp: , Rfl: Allergies Allergen Reactions Penicillins Urticaria and Other Reaction: Codeine Itching, Rash and Vomiting Reaction: Rash, Sleep Screening Tools [place] =3 Fatigue =26 O> Physical Examination There were no vitals taken for this visit. Wt Readings from Last 3 Encounters: 04/27/23 83.9 kg (185 lb) 03/28/23 82.1 kg (181 lb) 02/14/23 83 kg (183 lb) General: The patient is coherent and not in cardiopulmonary distress. Lungs: Vesicular breath sounds. No crackles. No rhonchi. No wheezing. Heart: Regular heart rhythm. No S3 or S4. No murmurs. Oropharynx: Tongue movement: intact. No neurapraxia noted. Skin: Incision site: Submandibular: healing well Right anterior thoracic: healing well I have reviewed the following laboratory tests, imaging studies, and other ancillary test results available on [facility] as part of my medical decision-making process: HNS Device Settings: Amplitude = 1.7 V Lower Limit = 1 V Upper Limit = 2 V Start Delay = 60 min Pause Time = 15 min Duration = 9 hours Electrode: default Pulse Width: default Rate: Default Sensory Waveform Analysis (Please see Inspire Printout): Nights Used = 98% Hours per Night Used = 8 hours and 34 min Therapy Pauses = 0.4 per night ASSESSMENT: Severe obstructive sleep apnea based on the respiratory disturbance index Sleep-related hypoxemia; cannot rule out sleep-related hypoventilation as cause of hypoxemia since capnography was not performed. CPAP intolerance due to nasal congestion, chest tightness, and claustrophobia History of oral appliance therapy not fitting well Restless legs syndrome (RLS), severe, with mildly elevated periodic limb movement index with rare associated arousals. Chronic insomnia History of depression History of allergic rhinitis History of COVID-19 History of GERD History of chronic low back pain PLAN: Diagnostic: Full-night therapeutic PSG with HNS titration 2. HNS Device Settings: Amplitude = 1.7 V Lower Limit = 1 V Upper Limit = 2 V Start Delay = 60 min Pause Time = 15 min Duration = 9 hours Electrode: default Pulse Width: default Rate: Default Therapeutic: Weight loss via healthy eating and exercise. Walk up to 30 minutes 3-5 days a week. Eat more fruits, vegetables, beans, nuts, seeds, etc. Avoid or minimize meat, dairy, eggs, processed foods or refined carbohydrates. Patient was instructed to use therapy all night, every night and step up levels by 0.1V once per week until patient feels that sleep quality has improved. Gabapentin 300 mg capsule, Take 3 tablets at bedtime for week 3 and onwards Set aside worry time to write worries and 1st step solution early in the evening Stimulus Control Therapy Sleep Restriction Therapy He takes melatonin gummy 25 mg tablet at bedtime Continue Loratadine 10 mg daily as needed GERD regimen: A. Avoid eating within 2-3 hours of bedtime B. Weight loss C. Raise head of bed > 30 degrees D. Minimize caffeine (coffee, tea, soda, energy drinks, etc.) E. famotidine to 40 mg po daily - which he takes as needed Patient was advised to receive Influenza and RSV vaccinations this fall. [facility], First Floor [address] [place] [address] Telephone : [phone] Medical Records Sleep Restriction Therapy for Insomnia Some people with insomnia try to deal with their poor sleep by staying in bed longer in the morningto make up some of their lost sleep. This additional sleep later in the morning may make it more difficult to fall asleep that night, resulting in the need to stay in bed even longer the following morning. Sleep restriction breaks this cycle. Estimate the average number of hours you sleep at night: Sleep ability = ___7____ hours Write down your desired wake time: ___6:30____ am. You should wake up at your desired wake time everyday with the help of an alarm clock or a household member, whether or not you slept well the previous night. If your sleep ability is only ___7__ hours and your desired wake time is __6:30___ am, then you should not go to bed before ___11____ pm Do not take daytime naps. Once sleep has improved, we will gradually increase time in bed by 15-30 minute increments each week until an optimal bedtime is determined. Note: Sleep Restriction Therapy causes partial sleep deprivation, which increases your need to sleep the next night.During the first few days to weeks, you may feel sleepy during the day and may havedifficulty being alert.You can deal with this by increasing activity levels when sleepy, avoiding sedentary activities, and discussing the sleep restriction therapy with your sleep specialist, who may need to fine tune sleep times. Gregory Mcwilliams MD, MSP, FCCP, [facility] Heavy Equipment Mechanic, [facility] [place] Professor of Internal Medicine Adjunct Machine Pecan Picker of Neurology Division of Pulmonary, Critical Care, and Sleep Medicine [facility] This note was electronically signed on 05/29/2023. [facility], First Floor [address] [place] [address] Telephone : [phone] Medical Records RESPIRATORY SYNCITIAL VIRUS (RSV) VACCINE ORDER Date: 05/29/2023 Patient's name: Clay Cabrera Date of Birth1960 Age: [age] year old Sex: male Address: [address] [place] [id number] Order: [x] RSV vaccine (Arexvy) Diagnosis: [] Asthma [] Chronic obstructive pulmonary disease (COPD) [] Congestive heart failure [] Diabetes mellitus [] Tobacco use disorder [x] Others: age 60 and older Gregory Mcwilliams MD, MSP, FCCP, [facility] Heavy Equipment Mechanic, [facility] [place] Professor of Internal Medicine Adjunct Machine Pecan Picker of Neurology Division of Pulmonary, Critical Care, and Sleep Medicine [facility], First Floor, [address] [facility] [address] [place] [address] Date of Sleep Study: 07/11/2023 Arrive by 08:30 pm you will leave by 11:00 am the following morning. PRE-TEST INSTRUCTIONS: 2-3 days prior to your test, sleep 8 hours nightly with regular sleep and wake times. Do not drink caffeine and do not nap after 11 am the day of your test. Follow any special instructions given by your doctor regarding medication changes and changes in smoking or alcohol consumption. Shower the day of your test, but DO NOT USE lotion on your skin or oily conditioners on your hair (these interfere with applying the electrodes). WHAT TO BRING the evening of the test: comfortable pajamas, shorts, sweats, etc. (two-piece clothing only please) toothbrush & toothpaste, comb, facial cleanser, wash cloth & towel (if removing electrode glue residue while you're here) ALL MEDICATIONS Insurance card(s) and picture ID, if this is your first visit at the Sleep Center Day time nap patients need to bring lunch in a lunch box or bag marked with your name. We can storethis in our office refrigerator for you. To help maintain cleanliness, we ask that you bring [id number] items such as a sandwich, apple, etc. Optional items to bring: your own pillow if you have a preference, ours are somewhat firm and flat a book to read or something to help pass the time while waiting a container with a lid if you want something to drink while you wait or when you wake up There is a TV, chair and a bathroom in your room. No food is provided and we ask that you do not have any open food in your room. For any changes to your Sleep test ON THE EVENING OF THE TEST; call [phone] to speak to or leave a message for the in-clinic evening Black Top Paver Operator. If you are unable to come, kindly call us in advance at [facility]. Obtaining authorization for a sleep test is often very difficult and time consuming. Therefore, if you have any insurance changes, please notify our office staff immediately to prevent the cancelation of your test. We need 1-2 weeks or more to get an insurance approval. ADER OPERATOR documented in this encounter Progress Notes * Gregory Mcwilliams MD - 05/29/2023 10:22 AM CST [facility], First Floor [address] [place] [id number] Telephone : [phone] Medical Records RESPIRATORY SYNCITIAL VIRUS (RSV) VACCINE ORDER Date: 05/29/2023 Patient's name: Clay Cabrera Date of Birth1960 Age: [age] year old Sex: male Address: [address] [place] [id number] Order: [x] RSV vaccine (Arexvy) Diagnosis: [] Asthma [] Chronic obstructive pulmonary disease (COPD) [] Congestive heart failure [] Diabetes mellitus [] Tobacco use disorder [x] Others: age 60 and older Gregory Mcwilliams MD, [facility], [facility], [facility] Heavy Equipment Mechanic, [facility] Professor of Internal Medicine Adjunct Machine Pecan Picker of Neurology Division of Pulmonary, Critical Care, and Sleep Medicine [facility] ADER OPERATOR * Gregory Mcwilliams MD - 05/29/2023 10:20 AM CST [facility], First Floor [address] [place] [address] Telephone : [phone] Medical Records SLEEP DISORDERS CLINIC HYPOGLOSSAL NERVE STIMULATOR ADHERENCE VISIT NOTE Patient Name: Clay Cabrera Date of : 1960 Date of Visit: 05/29/2023 Age: [age] year old Sex: male Time allotted by [facility] to evaluate patient = 40 minutes The patient is a 62 year old male who presents for activation of hypoglossal nerve stimulator. S> Since the patient's last clinic visit in Apr 2023, the patient has had no new health problems. Nasal congestion and nasal drainage better Heartburn controlled with as needed famotidine HNS Subjective Adherence: Frequency: [x] Nightly throughout the night - except 1 day when he went to level 9 (rough night); now back on 8 (fine) [] Most nights (5 or 6 nights a week) [] > 4 hrs/night [] < 4 hrs per night [] Some nights (< 5 nights a week) [] Not using at all Problems with HNS use: [] tongue biting [] arousals [x] grabbing throat too much on level 9 FELICIA symptoms on HNS therapy: is back in the bedroom Wt Readings from Last 3 Encounters: 05/29/23 84.4 kg (186 lb) 04/27/23 83.9 kg (185 lb) 03/28/23 82.1 kg (181 lb) He takes gabapentin 300 mg tablet, 3 tablets at bedtime. There was a day or two when he felt drowsyon 3 tabs. He went down to 2 tablets but went hack up to 3 tablets. His RLS symptoms are mostly a rippling on the left leg INTERNATIONAL RESTLESS LEGS SYNDROME RATING SCALE 1. Overall, how would you rate the RLS discomfort in your legs or arms? 1 [ 4 ] Very severe [ 3 ] Severe [ 2 ] Moderate [ 1 ] Mild [ 0 ] None 2. Overall, how would you rate the need to move around because of your RLS symptoms? 1 [ 4 ] Very severe [ 3 ] Severe [ 2 ] Moderate [ 1 ] Mild [ 0 ] None 3. Overall, how much relief of your RLS arm or leg discomfort did you get from moving around? 1 [ 4 ] No relief [ 3 ] Mild relief [ 2 } Moderate relief [ 1 ] Either complete or almost complete relief [ 0 ] No RLS symptoms to be relieved 4. How severe was your sleep disturbance from your RLS symptoms? 1 [ 4 ] Very severe [ 3 ] Severe [ 2 ] Moderate [ 1 ] Mild [ 0 ] None 5. How severe was your tiredness or sleepiness during the day due to your RLS symptoms? 0 [ 4 ] Very severe [ 3 ] Severe [ 2 ] Moderate [ 1 ] Mild [ 0 ] None 6. How severe was your RLS as a whole? 1 [ 4 ] Very severe [ 3 ] Severe [ 2 ] Moderate [ 1 ] Mild [ 0 ] None 7. How often did you get RLS symptoms? 2 [ 4 ] Very often (6-7 days in 1 week) [ 3 ] Often (4-5 days in 1 week) [ 2 ] Sometimes (2-3 days in 1 week) [ 1 ] Occasionally (1 day in 1 week) [ 0 ] Never 8. When you had RLS symptoms, how severe were they on average? 1 [ 4 ] Very severe (8 h or more per 24 h) [ 3 ] Severe (3-8 h per 24 h) [ 2 ] Moderate (1-3 h per 24 h) [ 1 ] Mild (less than 1 h per 24 h) [ 0 ] None 9. Overall, how severe was the impact of your RLS symptoms, on your ability to carry out your dailyaffairs, for example, carrying out a satisfactory family, home, social, school, or work life? 0 [ 4 ] Very severe [ 3 ] Severe [ 2 ] Moderate [ 1 ] Mild [ 0 ] None 10. How severe was your mood disturbance from your RLS symptoms-for example angry, depressed, sad, anxious, or irritable? 1 [ 4 ] Very severe [ 3 ] Severe [ 2 ] Moderate [ 1 ] Mild [ 0 ] None Total score = 9 Mild: 0 to 10 Moderate: 11 to 20 Severe: 21 to 30 Very Severe: 31 to 40 Workweek/Weekday: Bedtime 10:30 pm Initial sleep latency < 60 min Activities while awake in bed: [] worrying about sleep [] worrying about other things; Describe: [] watching TV [] reading [] computer tablet [] smart phone [] telephone call [] texting [x] other: Describe: Face mask Number of awakenings 0 Wake time 6:30 am Alarm: [] Yes; alarm time: [x] No Rise time Within 10 min Nap duration 0 Nap frequency 0 times during the workweek Weekend/Days Off: [] Same as weekday Bedtime 12 am Wake time 7 am Rise time 7 am Nap duration 0 Nap frequency 0 times during the weekend Exercise: [x] Yes [] 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 acetaminophen (Tylenol) 500 MG capsule, Take 2 (two) capsules by mouth every 6 hours as needed for Fever or Pain, Disp: 60 capsule, Rfl: 1 ??? buPROPion XL 24hr (Wellbutrin-XL) 150 MG tablet, bupropion HCl XL 150 mg 24 hr tablet, extendedrelease TAKE 1 TABLET BY MOUTH ONCE DAILY, Disp: , Rfl: ??? docusate sodium (Colace) 100 MG capsule, Take 1 (one) capsule by mouth once daily as needed forConstipation, Disp: 30 capsule, Rfl: 0 ??? ergocalciferol (Drisdol) 1.25 MG (84860 UT) capsule, ergocalciferol (vitamin D2) 1,250 mcg (50,000 unit) capsule TAKE 1 CAPSULE BY MOUTH ONCE A WEEK DIRECTED, Disp: , Rfl: ??? famotidine (Pepcid) 40 MG tablet, Take 1 (one) tablet by mouth once daily, Disp: 90 tablet, Rfl: 3 ??? Fexofenadine-Pseudoephedrine (KATHRYN-D 24 HOUR PO), Take 1 tablet by mouth once daily as needed (ALLERGIES), Disp: , Rfl: ??? finasteride (Proscar) 5 MG tablet, finasteride 5 mg tablet TAKE 1 TABLET BY MOUTH ONCE DAILY, Disp: , Rfl: ??? gabapentin (Neurontin) 300 MG capsule, Take 1 (one) capsule by mouth at bedtime, Disp: 270 capsule, Rfl: 3 ??? ibuprofen (Motrin) 600 MG tablet, Take 1 (one) tablet by mouth every 6 hours as needed for Pain, Disp: 60 tablet, Rfl: 1 ??? ondansetron (Zofran) 4 MG tablet, Take 1 (one) tablet by mouth every 6 hours as needed for Nausea/Vomiting, Disp: 9 tablet, Rfl: 0 ??? oxyCODONE, immediate release, (Roxicodone) 5 MG tablet, Take 1 (one) tablet by mouth every 6 hours as needed for Pain, Disp: 15 tablet, Rfl: 0 ??? simvastatin (Zocor) 40 MG tablet, simvastatin 40 mg tablet TAKE 1 TABLET BY MOUTH ONCE DAILY, Disp: , Rfl: ??? tamsulosin (Flomax) 0.4 MG capsule, Take 1 (one) capsule by mouth once daily, Disp: , Rfl: Allergies Allergen Reactions ??? Penicillins Urticaria and Other Reaction: ??? Codeine Itching, Rash and Vomiting Reaction: Rash, Sleep Screening Tools [place] =3 Fatigue =26 O> Physical Examination There were no vitals taken for this visit. Wt Readings from Last 3 Encounters: 04/27/23 83.9 kg (185 lb) 03/28/23 82.1 kg (181 lb) 02/14/23 83 kg (183 lb) General: The patient is coherent and not in cardiopulmonary distress. Lungs: Vesicular breath sounds. No crackles. No rhonchi. No wheezing. Heart: Regular heart rhythm. No S3 or S4. No murmurs. Oropharynx: Tongue movement: intact. No neurapraxia noted. Skin: Incision site: Submandibular: healing well Right anterior thoracic: healing well I have reviewed the following laboratory tests, imaging studies, and other ancillary test results available on [facility] as part of my medical decision-making process: HNS Device Settings: Amplitude =??1.7??V Lower Limit =??1??V Upper Limit =?2??V Start Delay =?60??min Pause Time =?15??min Duration =??9??hours Electrode: ??default Pulse Width: ??default Rate: ??Default ?? Sensory Waveform Analysis (Please see Inspire Printout): ?? Nights Used = 98% Hours per Night Used = 8 hours and 34 min Therapy Pauses = 0.4 per night ?? ASSESSMENT: 1. Severe??obstructive sleep apnea based on the respiratory disturbance index 2. Sleep-related hypoxemia; cannot rule out sleep-related hypoventilation as cause of hypoxemia since capnography was not performed. 3. CPAP intolerance due to nasal congestion, chest tightness, and claustrophobia 4. History of oral appliance therapy not fitting well 5. Restless legs syndrome (RLS), severe, with mildly elevated periodic limb movement index with?rare??associated arousals. 6. Chronic insomnia 7. History of depression 8. History of allergic rhinitis 9. History of COVID-19 10. History of GERD 11. History of chronic low back pain ? PLAN: Diagnostic:?? 1. Full-night therapeutic PSG with HNS titration 2. ?HNS Device Settings: Amplitude =??1.7 V Lower Limit =??1??V Upper Limit =?2??V Start Delay =?60??min Pause Time =?15??min Duration =??9??hours Electrode: ??default Pulse Width: ??default Rate: ??Default ? Therapeutic: 1. Weight loss via healthy eating and exercise. ??Walk up to 30 minutes 3-5 days a week. ??Eat morefruits, vegetables, beans, nuts, seeds, etc. ??Avoid or minimize meat, dairy, eggs, processed foodsor refined carbohydrates. 2. Patient was instructed to use therapy all night, every night and step up levels by 0.1V once per week until patient feels that sleep quality has improved. 3. Gabapentin 300 mg capsule, Take 3 tablets at bedtime for week 3 and onwards 4. Set aside worry time to write worries and 1st step solution early in the evening 5. Stimulus Control Therapy 6. Sleep Restriction Therapy 7. He takes melatonin gummy 25 mg tablet at bedtime 8. Continue??Loratadine 10 mg daily??as needed 9. GERD regimen: ?A. ??Avoid eating within 2-3 hours of bedtime ?B. ??Weight loss ?C. ??Raise head of bed >??30 degrees ?D. ??Minimize caffeine (coffee, tea, soda, energy drinks, etc.) ?E. ??famotidine??to 40 mg po daily - which he takes as needed 10. Patient was advised to receive Influenza and RSV??vaccinations??this fall. ?? [facility], First Floor [address] [place] [address] Telephone : [phone] Medical Records Sleep Restriction Therapy for Insomnia Some people with insomnia try to deal with their poor sleep by staying in bed longer in the morningto make up some of their lost sleep. This additional sleep later in the morning may make it more difficult to fall asleep that night, resulting in the need to stay in bed even longer the following morning. Sleep restriction breaks this cycle. Estimate the average number of hours you sleep at night: Sleep ability = ___7____ hours Write down your desired wake time: ___6:30____ am. You should wake up at your desired wake time everyday with the help of an alarm clock or a household member, whether or not you slept well the previous night. If your sleep ability is only ___7__ hours and your desired wake time is __6:30___ am, then you should not go to bed before ___11____ pm Do not take daytime naps. Once sleep has improved, we will gradually increase time in bed by 15-30 minute increments each week until an optimal bedtime is determined. Note: Sleep Restriction Therapy causes partial sleep deprivation, which increases your need to sleep the next night.During the first few days to weeks, you may feel sleepy during the day and may havedifficulty being alert.You can deal with this by increasing activity levels when sleepy, avoiding sedentary activities, and discussing the sleep restriction therapy with your sleep specialist, who may need to fine tune sleep times. Gregory Mcwilliams MD, [facility], [facility], [facility] Heavy Equipment Mechanic, [facility] [place] Professor of Internal Medicine Adjunct Machine Pecan Picker of Neurology Division of Pulmonary, Critical Care, and Sleep Medicine [facility] This note was electronically signed on 05/29/2023. ADER OPERATOR documented in this encounter Plan of Treatment Not on file documented as of this encounter Results * AL POLYSOM 6/> YRS 4/> FEMI (07/12/2023 8:41 AM THREADER OPERATOR) Narrative Gregory Mcwilliams MD - 07/12/2023 8:41 AM THREADER OPERATOR Gregory Mcwilliams MD ? 07/12/2023 ??8:42 AM [facility] [place] Accredited by the [place] [employer] [facility], First Floor [address] [place] [address] Telephone : [phone] ? Medical Records Patient Name: ??Clay Cabrera : ??1960 Date of Study: ??07/11/2023 Referring Physician: ??Gregory Mcwilliams MD Type of Montage: ??Respiratory Scoring System: ??[facility] FULL NIGHT THERAPEUTIC POLYSOMNOGRAM INTERPRETATION (07/11/2023) Procedure: The polysomnogram was performed with a ct mri technologist in attendance. ??Frontal, central, and temporal EEG, EOG, submentalis EMG, oronasal thermistor airflow, nasal pressure transducer airflow, thoracic and abdominal respiratory effort by respiratory inductive plethysmography, anterior tibialis EMG, snore sensor, and pulse oximetry were monitored. ??Sleep stages, periodic limb movements, and EEG arousals were scored in 30-second epochs according to the AASM Scoring Manual. ??Apnea-hypopnea index was calculated using the recommended definition of hypopnea for scoring events. ??Data acquisition, collection, and scoring have been validated and clinically correlated. Sleep History: Mr. Clay Cabrera, a 62 year old male, was referred to the [facility] Disorders [facility] by Gregory Mcwilliams MD for the evaluation of obstructive sleep apnea (FELICIA). Current Outpatient Medications: ?acetaminophen (Tylenol) 500 MG capsule, Take 2 (two) capsules by mouth every 6 hours as needed for Fever or Pain, Disp: 60 capsule, Rfl: 1 ?buPROPion XL 24hr (Wellbutrin-XL) 150 MG tablet, bupropion HCl XL 150 mg 24 hr tablet, extended release ??TAKE 1 TABLET BY MOUTH ONCE DAILY, Disp: , Rfl: ?docusate sodium (Colace) 100 MG capsule, Take 1 (one) capsule by mouth once daily as needed for Constipation, Disp: 30 capsule, Rfl: 0 ?ergocalciferol (Drisdol) 1.25 MG (33526 UT) capsule, ergocalciferol (vitamin D2) 1,250 mcg (50,000 unit) capsule ??TAKE 1 CAPSULE BY MOUTH ONCE A WEEK DIRECTED, Disp: , Rfl: ?famotidine (Pepcid) 40 MG tablet, Take 1 (one) tablet by mouth once daily, Disp: 90 tablet, Rfl: 3 ?Fexofenadine-Pseudoephedrine (KATHRYN-D 24 HOUR PO), Take 1 tablet by mouth once daily as needed (ALLERGIES), Disp: , Rfl: ?finasteride (Proscar) 5 MG tablet, finasteride 5 mg tablet ?? TAKE 1 TABLET BY MOUTH ONCE DAILY, Disp: , Rfl: ?gabapentin (Neurontin) 300 MG capsule, Take 2 (two) capsules by mouth at bedtime, Disp: 180 capsule, Rfl: 3 ?ibuprofen (Motrin) 600 MG tablet, Take 1 (one) tablet by mouth every 6 hours as needed for Pain, Disp: 60 tablet, Rfl: 1 ?ondansetron (Zofran) 4 MG tablet, Take 1 (one) tablet by mouth every 6 hours as needed for Nausea/Vomiting, Disp: 9 tablet, Rfl: 0 ?oxyCODONE, immediate release, (Roxicodone) 5 MG tablet, Take 1 (one) tablet by mouth every 6 hours as needed for Pain, Disp: 15 tablet, Rfl: 0 ?simvastatin (Zocor) 40 MG tablet, simvastatin 40 mg tablet ?? TAKE 1 TABLET BY MOUTH ONCE DAILY, Disp: , Rfl: ?tamsulosin (Flomax) 0.4 MG capsule, Take 1 (one) capsule by mouth once daily, Disp: , Rfl: THERAPEUTIC STUDY Sleep Architecture: During this therapeutic study, the patient was monitored from 10:24 pm to 8:25 am. ??The patient slept for 391.5 minutes and had normal sleep efficiency of 81.2%. ??The patient's initial sleep latency was within normal limits at 20.5 minutes. ??The initial REM latency was prolonged at 134.5 minutes. The sleep architecture was as follows: ??stage N1: 21.2%; stage N2: 50.2%; stage N3: 7.3%; stage REM: 21.3%. Respiratory Analysis, Oximetry Data, and Snoring Profile: During the initial latency period when the hypoglossal nerve stimulation had not yet started, the patient's overall apnea-hypopnea index (AHI) was decreased at 14.5 per hour while the respiratory effort-related arousal index was increased at 41.4 per hour based on a sleep duration of 29 minutes at this level. ?? Hypoglossal nerve stimulation (HNS) device was titrated from a minimum amplitude of 1.5 V to a maximum amplitude of 2 V. ??HNS therapy at the maximal level of 2 V was associated with a normal overall apnea-hypopnea index of 1.5 per hour, an increased respiratory-related arousal index of 11.9 per hour, and a normal minimum oxygen saturation of 90%. Frequent, mild to moderate snoring was detected on HNS therapy. The patient had a normal minimum oxygen saturation of 89% during REM sleep and a decreased minimum oxygen saturation of 82% during non-REM sleep. ?? The time spent with oxygen saturation less than 90% was 25 minutes of the total therapeutic sleep time. Periodic limb movement index: The patient's periodic limb movement index was within normal limits at 10.5 per hour. ?? EEG Profile: The patient's total arousal index on HNS at an amplitude of 2 V was elevated at 17.8 per hour. ??Approximately 75% of the arousals was due to respiratory events, 0% was due to leg movements,and 25% was due to spontaneous arousals. ?? There was no epileptiform activity during sleep. Cardiac profile: EKG showed normal sinus rhythm. ??No clinically significant arrhythmia was noted. Parasomnia Profile: A few episodes of increased phasic EMG twitches of the anterior tibial muscles during REM sleep were noted during this therapeutic study. IMPRESSION: Hypoglossal nerve therapy at a maximum amplitude of 2 V was effective in ameliorating obstructive apneas and hypopneas but were associated with persistence of a few some respiratory effort-related arousals (RERA) RECOMMENDATIONS: Consider further titration of HNS amplitude beyond 2 V as tolerated to ameliorate residual disordered breathing events. Gregory Henning. ??MD Poppy, [facility], [facility], [facility] Heavy Equipment Mechanic, [facility] Professor of Internal Medicine Adjunct Machine Pecan Picker of Neurology Division of Pulmonary, Critical Care, and Sleep Medicine [facility] This note was electronically signed on 07/12/2023. CC: ??Grgeory Mcwilliams MD [address] [facility] [address] [facility]/critical [facility], ??[place] [address] GANGA Heck Gregory Mcwilliams MD PROCEDURE/MINOR TORI GICAL ORDERABLES documented in this encounter Visit Diagnoses Diagnosis FELICIA (obstructive sleep apnea)- Primary Obstructive sleep apnea (adult) (pediatric) RLS (restless legs syndrome) Restless legs syndrome (RLS) Restless legs syndrome (RLS)- Primary FELICIA (obstructive sleep apnea) Obstructive sleep apnea (adult) (pediatric) documented in this encounter Care Teams Commercial Crabber Relationship Specialty Start Date End Date Tiffany Linda PA [address] [place] [id number] PCP - General 06/14/22 documented as of this encounter
--- OUTSIDE RECORDS SUMMARY | 2024-07-16 11:42 | XMS_ITS | Encounter Summary ---
Author Organization [facility] Address [address] [place] [address] Care Team Providers Care Railway Signal Operator Name Role Phone Tiffany Linda Primary Care Pr ovider Reason for Visit * Reason Comments Follow-up Inspire Encounter Details Date Type Department Care Team (Late st Contact Info) Description 04/27/2023 10:20 AM CDT Office Visit [facility] - [facility] [address] [place] [address] Gregory Mcwilliams MD [address] [facility] 2L DIV OF PULMONARY/[place] [address] RLS (restless legs syndrome) (Primary Dx) Social History Tobacco Use Types Packs/Day Years Used Date Smoking Tobacco: Former Cigarettes 0.1 2 1 596 - 1977 Smokeless Tobacco: Never Alcohol Use [...] Sign Reading Time Taken Comments Blood Pressure 108/75 04/27/2023 10:05 AM CDT Pulse 68 04/27/2023 10:05 AM CDT Temperature - - Respiratory Rate - - Oxygen Saturation - - Inhaled Oxygen Concentration - - Weight 83.9 kg (185 lb) 04/27/2023 10:05 AM CDT Height 172.7 cm (5' 8 ) 04/27/2023 10:05 AM CDT Body Mass Index 28.13 04/27/2023 10:05 AM CDT documented in this encounter Patient Instructions * Patient Instructions* Gregory Mcwilliams MD - 04/27/2023 10:[address] [facility], First Floor [address] [place] [address] Telephone : [phone] [employer] Medical Records SLEEP DISORDERS CLINIC HYPOGLOSSAL NERVE STIMULATOR ADHERENCE VISIT NOTE Patient Name: Clay Cabrera Date of : 1960 Date of Visit: 04/27/2023 Age: [age] year old Sex: male Time allotted by Mu to evaluate patient = 40 minutes The patient is a 62 year old male who presents for activation of hypoglossal nerve stimulator. S> Since the patient's last clinic visit in Mar 2023, the patient has had no new health problems. [x] nasal congestion - lightened up [x] nasal drainage- lightened up She has more upset stomach than upset stomach. No nausea, vomiting, diarrhea, constipation or weight loss. HNS Subjective Adherence: Frequency: [x] Nightly throughout the night [] Most nights (5 or 6 nights a week) [] > 4 hrs/night [] < 4 hrs per night [] Some nights (< 5 nights a week) [] Not using at all Problems with HNS use: [] tongue biting [] arousals [x] other: he feels a little jolt when he turns it on He has problem turning off his brain FELICIA symptoms on HNS therapy: He has noted that the snoring has come to a halt, hearing him gasp only once. He feels more rested, with more energy, waking up without alarm. INTERNATIONAL RESTLESS LEGS SYNDROME RATING SCALE Overall, how would you rate the RLS discomfort in your legs or arms? 3 [ 4 ] Very severe [ 3 ] Severe [ 2 ] Moderate [ 1 ] Mild [ 0 ] None Overall, how would you rate the need to move around because of your RLS symptoms? 3 [ 4 ] Very severe [ 3 ] Severe [ 2 ] Moderate [ 1 ] Mild [ 0 ] None Overall, how much relief of your RLS arm or leg discomfort did you get from moving around? 3 [ 4 ] No relief [ 3 ] Mild relief [ 2 } Moderate relief [ 1 ] Either complete or almost complete relief [ 0 ] No RLS symptoms to be relieved How severe was your sleep disturbance from your RLS symptoms? 0 [ 4 ] Very severe [ 3 ] Severe [ 2 ] Moderate [ 1 ] Mild [ 0 ] None How severe was your tiredness or sleepiness during the day due to your RLS symptoms? 2 [ 4 ] Very severe [ 3 ] Severe [ 2 ] Moderate [ 1 ] Mild [ 0 ] None How severe was your RLS as a whole? 2 [ 4 ] Very severe [ 3 ] Severe [ 2 ] Moderate [ 1 ] Mild [ 0 ] None How often did you get RLS symptoms? 3 [ 4 ] Very often (6-7 days in 1 week) [ 3 ] Often (4-5 days in 1 week) [ 2 ] Sometimes (2-3 days in 1 week) [ 1 ] Occasionally (1 day in 1 week) [ 0 ] Never When you had RLS symptoms, how severe were they on average? 2 [ 4 ] Very severe (8 h [...] family, home, social, school, or work life? 2 [ 4 ] Very severe [ 3 ] Severe [ 2 ] Moderate [ 1 ] Mild [ 0 ] None How severe was your mood disturbance from your RLS symptoms-for example angry, depressed, sad, anxious, or irritable? 3 [ 4 ] Very severe [ 3 ] Severe [ 2 ] Moderate [ 1 ] Mild [ 0 ] None Total score = 23 Mild: 0 to 10 Moderate: 11 to 20 Severe: 21 to 30 Very Severe: 31 to 40 Workweek/Weekday: Bedtime 9 pm Initial sleep latency 60 min Activities while awake in bed: [] worrying about sleep [x] worrying about other things; Describe: recap the entire day [] watching TV [] reading [] computer tablet [] smart phone [] telephone call [] texting [x] other: Describe:waith for machine to come on Number of awakenings 0 Wake time 7 am Alarm: [] Yes; alarm time: [x] No Rise time 7:15 am Nap duration 0 Nap frequency 0 times during the workweek Weekend/Days Off: [] Same as weekday Bedtime 10:30 pm Wake time 7 am Rise time 7;15 am Nap duration 0 Nap frequency 0 times during the weekend Exercise: [] Yes [x] No Current Outpatient Medications: acetaminophen (Tylenol) 500 MG [...] capsule, Rfl: 0 ergocalciferol (Drisdol) 1.25 MG (62241 UT) capsule, ergocalciferol (vitamin D2) 1,250 mcg [...] TABLET BY MOUTH ONCE DAILY, Disp:, Rfl: ibuprofen (Motrin) 600 MG tablet, Take 1 [...] and Vomiting Reaction: Rash, Sleep Screening Tools [place] =9 Fatigue =33 O> Physical Examination BP 108/75 Pulse 68 Ht 1.727 m (5' 8 ) Wt 83.9 kg (185 lb) Wt Readings from Last 3 Encounters: 04/27/23 [...] and other ancillary test results available on [employer] as part of my medical decision-making process: HNS Device Settings: Amplitude = 1.4 V Lower Limit = 1 V Upper Limit = 2 V Start Delay = 60 min Pause Time = 15 min Duration = 9 hours Electrode: default Pulse Width: default Rate: Default Sensory Waveform Analysis (Please see Inspire Printout): Nights Used = 97% Hours per Night Used = 9 hours and 5 min Therapy Pauses = 0.3 per night ASSESSMENT: Severe obstructive sleep apnea [...] Diagnostic: Full-night therapeutic PSG with HNS titration in 3 months 2. HNS Device Settings: Amplitude = 1.4 V Lower Limit = 1 V Upper Limit = 2 V Start Delay = 60 min Pause Time = 15 min Duration = 9 hours Electrode: default Pulse Width: default Rate: Default 3. If GERD symptoms persist despite optimal medical therapy, refer to GI for possible EGD Therapeutic: Weight loss via healthy eating and exercise. Walk up to 30 minutes 3-5 days a week. Eat more fruits, vegetables, beans, nuts, seeds, etc. Avoid or minimize meat, dairy, eggs, processed foods or refined carbohydrates. Patient was instructed to use therapy all night, every night and step up levels by 0.1V once per week until patient feels that sleep quality has improved. Start gabapentin 300 mg capsule titration as follows: Take 1 tablet at bedtime for week 1. If RLS symptoms persist, Take 2 tablets at bedtime for week 2. If RLS symptoms persist, Take 3 tablets at bedtime for week 3 and onwards Do not exceed 3 tablets at bedtime. Watch out for drowsiness. Set aside worry time to write worries [...] receive Influenza and RSV vaccinations this fall. [facility], First Floor [address] [place] [address] Telephone : [phone] Medical Records Stimulus Control Therapy for Insomnia 1. Go to bed only when sleepy. 2. Use bed only for sleep and sex. Do not watch television, read, eat, or worry while in bed. 3. Get out of bed if unable to fall asleep within 15 - 20 minutes, get up, go to another room and read or find another relaxing activity (reading magazines, watching boring TV shows or videos, etc.) until you feel sleepy again. Activities such as eating, balancing your checkbook, doing housework, or studying for a test, which reward you for staying awake, should be avoided. Return to bed only when sleepy. Repeat this step as manytimes as necessary throughout the night. 4. Set an alarm clock to wake up at a fixed time each morning including weekends, whether or not you slept well the previous night. 5. Avoid daytime naps. Note: You may not sleep much on the first night. However, sleep is more likely on succeeding nightsbecause naps are not allowed. Modified from: HOLLI Jeffery, JEFFY Hernandez. Nonpharmacologic treatments of insomnia. J Clin Psychiatry 1992; 53:37. [facility], First Floor [address] [place] [address] Telephone : [phone] Medical Records Sleep [...] you sleep at night: Sleep ability = ____7___ hours Write down your desired wake time: ____7___ am. You should wake up at your desired wake time everyday with the help of an alarm clock or a household member, whether or not you slept well the previous night. If your sleep ability is only ___7__ hours and your desired wake time is ___7__ am, then you shouldnot go to bed before ____12___ am. Do not take daytime naps. Once sleep [...] fine tune sleep times. Gregory Mcwilliams MD, [facility], [facility], [facility] Dog Boarder, [facility] [place] Professor of Internal Medicine Adjunct Vamp Wetter of Neurology Division of Pulmonary, Critical Care, and Sleep Medicine [facility] This note was electronically signed on 04/27/2023. documented in this encounter Progress Notes * Gregory Mcwilliams MD - 04/27/2023 10:[address] [facility] Sleep Disorders [facility], First Floor [address] [place] [address] Telephone : [phone] Medical Records SLEEP DISORDERS CLINIC HYPOGLOSSAL NERVE STIMULATOR ADHERENCE VISIT NOTE Patient Name: Clay Cabrera Date of : 1960 Date of Visit: 04/27/2023 Age: [age] year old Sex: male Time allotted by [facility] to evaluate patient = 40 minutes The patient is a 62 year old male who presents for activation of hypoglossal nerve stimulator. S> Since the patient's last clinic visit in Mar 2023, the patient has had no new health problems. [x] nasal congestion - lightened up [x] nasal drainage- lightened up She has more upset stomach than upset stomach. No nausea, vomiting, diarrhea, constipation or weight loss. HNS Subjective Adherence: Frequency: [x] Nightly throughout the night [] Most nights (5 or 6 nights a week) [] > 4 hrs/night [] < 4 hrs per night [] Some nights (< 5 nights a week) [] Not using at all Problems with HNS use: [] tongue biting [] arousals [x] other: he feels a little jolt when he turns it on He has problem turning off his brain FELICIA symptoms on HNS therapy: He has noted that the snoring has come to a halt, hearing him gasp only once. He feels more rested, with more energy, waking up without alarm. INTERNATIONAL RESTLESS LEGS SYNDROME RATING SCALE 1. Overall, how would you rate the RLS discomfort in your legs or arms? 3 [ 4 ] Very severe [ 3 ] Severe [ 2 ] Moderate [ 1 ] Mild [ 0 ] None 2. Overall, how would you rate the need to move around because of your RLS symptoms? 3 [ 4 ] Very severe [ 3 ] Severe [ 2 ] Moderate [ 1 ] Mild [ 0 ] None 3. Overall, how much relief of your RLS arm or leg discomfort did you get from moving around? 3 [ 4 ] No relief [ 3 ] Mild relief [ 2 } Moderate relief [ 1 ] Either complete or almost complete relief [ 0 ] No RLS symptoms to be relieved 4. How severe was your sleep disturbance from your RLS symptoms? 0 [ 4 ] Very severe [ 3 ] Severe [ 2 ] Moderate [ 1 ] Mild [ 0 ] None 5. How severe was your tiredness or sleepiness during the day due to your RLS symptoms? 2 [ 4 ] Very severe [ 3 ] Severe [ 2 ] Moderate [ 1 ] Mild [ 0 ] None 6. How severe was your RLS as a whole? 2 [ 4 ] Very severe [ 3 ] Severe [ 2 ] Moderate [ 1 ] Mild [ 0 ] None 7. How often did you get RLS symptoms? 3 [ 4 ] Very often (6-7 days in 1 week) [ 3 ] Often (4-5 days in 1 week) [ 2 ] Sometimes (2-3 days in 1 week) [ 1 ] Occasionally (1 day in 1 week) [ 0 ] Never 8. When you had RLS symptoms, how severe were they on average? 2 [ 4 ] Very severe (8 h [...] family, home, social, school, or work life? 2 [ 4 ] Very severe [ 3 ] Severe [ 2 ] Moderate [ 1 ] Mild [ 0 ] None 10. How severe was your mood disturbance from your RLS symptoms-for example angry, depressed, sad, anxious, or irritable? 3 [ 4 ] Very severe [ 3 ] Severe [ 2 ] Moderate [ 1 ] Mild [ 0 ] None Total score = 23 Mild: 0 to 10 Moderate: 11 to 20 Severe: 21 to 30 Very Severe: 31 to 40 Workweek/Weekday: Bedtime 9 pm Initial sleep latency 60 min Activities while awake in bed: [] worrying about sleep [x] worrying about other things; Describe: recap the entire day [] watching TV [] reading [] computer tablet [] smart phone [] telephone call [] texting [x] other: Describe:waith for machine to come on Number of awakenings 0 Wake time 7 am Alarm: [] Yes; alarm time: [x] No Rise time 7:15 am Nap duration 0 Nap frequency 0 times during the workweek Weekend/Days Off: [] Same as weekday Bedtime 10:30 pm Wake time 7 am Rise time 7;15 am Nap duration 0 Nap frequency 0 times during the weekend Exercise: [] Yes [x] No Current Outpatient Medications: ??? acetaminophen (Tylenol) 500 [...] Rfl: 0 ??? ergocalciferol (Drisdol) 1.25 MG (12259 UT) capsule, ergocalciferol (vitamin D2) 1,250 mcg [...] MOUTH ONCE DAILY, Disp: , Rfl: ??? ibuprofen (Motrin) 600 MG tablet, Take [...] and Vomiting Reaction: Rash, Sleep Screening Tools [place] =9 Fatigue =33 O> Physical Examination BP 108/75 Pulse 68 Ht 1.727 m (5' 8 ) Wt 83.9 kg (185 lb) Wt Readings from Last 3 Encounters: 04/27/23 [...] and other ancillary test results available on [facility] as part of my medical decision-making process: HNS Device Settings: Amplitude = 1.4 V Lower Limit = 1 V Upper Limit = 2 V Start Delay = 60 min Pause Time = 15 min Duration = 9 hours Electrode: default Pulse Width: default Rate: Default Sensory Waveform Analysis (Please see Inspire Printout): Nights Used = 97% Hours per Night Used = 9 hours and 5 min Therapy Pauses = 0.3 per night ASSESSMENT: 1. Severe??obstructive sleep apnea based on [...] 1. Full-night therapeutic PSG with HNS titration in 3 months 2. HNS Device Settings: Amplitude = 1.4 V Lower Limit = 1 V Upper Limit = 2 V Start Delay = 60 min Pause Time = 15 min Duration = 9 hours Electrode: default Pulse Width: default Rate: Default 3. If GERD symptoms persist despite optimal medical therapy, refer to GI for possible EGD ? Therapeutic: 1. Weight loss via healthy eating and exercise. Walk up to 30 minutes 3-5 days a week. Eat more fruits, vegetables, beans, nuts, seeds, etc. Avoid or minimize meat, dairy, eggs, processed foods or refined carbohydrates. 2. Patient was instructed to use therapy all night, every night and step up levels by 0.1V once per week until patient feels that sleep quality has improved. 3. Start gabapentin 300 mg capsule titration as follows: Take 1 tablet at bedtime for week 1. If RLS symptoms persist, Take 2 tablets at bedtime for week 2. If RLS symptoms persist, Take 3 tablets at bedtime for week 3 and onwards Do not exceed 3 tablets at bedtime. Watch out for drowsiness. 5. Set aside worry time to write worries and 1st step solution early in the evening 6. Stimulus Control Therapy 7. Sleep Restriction Therapy 8. He takes melatonin gummy 25 mg tablet at bedtime 9. Continue??Loratadine 10 mg daily as needed 10. GERD regimen: A. Avoid eating within 2-3 hours of bedtime B. Weight loss C. Raise head of bed > 30 degrees D. Minimize caffeine (coffee, tea, soda, energy drinks, etc.) E. famotidine to 40 mg po daily - which he takes as needed 10. Patient was advised to receive Influenza and RSV vaccinations this fall. ?? [facility], First Floor [address] [place] [address] Telephone : [phone] Medical Records Stimulus Control Therapy for Insomnia 1. Go to bed only when sleepy. 2. Use bed only for sleep and sex. Do not watch television, read, eat, or worry while in bed. 3. Get out of bed if unable to fall asleep within 15 - 20 minutes, get up, go to another room and read or find another relaxing activity (reading magazines, watching boring TV shows or videos, etc.) until you feel sleepy again. Activities such as eating, balancing your checkbook, doing housework, or studying for a test, which reward you for staying awake, should be avoided. Return to bed only when sleepy. Repeat this step as manytimes as necessary throughout the night. 4. Set an alarm clock to wake up at a fixed time each morning including weekends, whether or not you slept well the previous night. 5. Avoid daytime naps. Note: You may not sleep much on the first night. However, sleep is more likely on succeeding nightsbecause naps are not allowed. Modified from: HOLLI Jeffery, Mary ML. Nonpharmacologic treatments of insomnia. J Clin Psychiatry 1992; 53:37. [facility], First Floor [address] [place] [address] Telephone : [phone] Medical Records Sleep Restriction Therapy for Insomnia [...] you sleep at night: Sleep ability = ____7___ hours Write down your desired wake time: ____7___ am. You should wake up at your desired wake time everyday with the help of an alarm clock or a household member, whether or not you slept well the previous night. If your sleep ability is only ___7__ hours and your desired wake time is ___7__ am, then you shouldnot go to bed before ____12___ am. Do not take daytime naps. Once sleep [...] fine tune sleep times. Gregory Mcwilliams MD, [facility], [facility], [facility] Dog Boarder, [facility] Professor of Internal Medicine Adjunct Vamp Wetter of Neurology Division of Pulmonary, Critical Care, and Sleep Medicine [facility] This note was electronically signed on 04/27/2023. documented in this encounter Plan of Treatment Not on file documented as of this encounter Visit Diagnoses Diagnosis RLS (restless legs syndrome)- Primary Restless legs syndrome (RLS) documented in this encounter Care Teams Railway Signal Operator Relationship Specialty Start Date End Date Tiffany Linda PA [address] [place] [address] PCP - General 06/14/22 documented as of this encounter
--- OUTSIDE RECORDS SUMMARY | 2024-07-16 11:42 | XMS_ITS | Encounter Summary ---
Author Organization [facility] Health Address [address] [facility] [place] [address] Care Team Providers Care Housesmith Name Role Phone Tiffany Linda Primary Care Pr ovider Encounter Details Date Type Department Care Team (Latest Contact Info) Description 05/29/2023 Travel Social History Tobacco Use Types Packs/Day [...] on filedocumented in this encounter Care Teams Housesmith Relationship Specialty Start Date End Date Tiffany Linda PA [address] [place] [address] PCP - General 06/14/22 documented as of this encounter
--- OUTSIDE RECORDS SUMMARY | 2024-07-16 11:42 | XMS_ITS | Encounter Summary ---
Author Organization [facility] Address [address] [facility] [place] [address] Care Team Providers Care Pharmacovigilance Safety Expert Name Role Phone Tiffany Linda Primary Care Pr ovider Encounter Details Date Type Department Care Team (Latest Contact Info) Description 07/12/2023 Travel Social History Tobacco Use Types Packs/Day [...] on filedocumented in this encounter Care Teams Pharmacovigilance Safety Expert Relationship Specialty Start Date End Date Tiffany Linda PA [address] [place] [address] PCP - General 06/14/22 documented as of this encounter
--- OUTSIDE RECORDS SUMMARY | 2024-07-16 11:42 | XMS_ITS | Encounter Summary ---
Author Organization [facility] Health Address [address] [facility] [place] [address] Care Team Providers Care Resaw Tailer Name Role Phone Tiffany Linda Primary Care Pr ovider Encounter Details Date Type Department Care Team (Latest Contact Info) Description 03/28/2023 Travel Social History Tobacco Use Types Packs/Day [...] on filedocumented in this encounter Care Teams Resaw Tailer Relationship Specialty Start Date End Date Tiffany Linda PA [address] [place] [address] PCP - General 06/14/22 documented as of this encounter
--- OUTSIDE RECORDS SUMMARY | 2024-07-16 11:42 | XMS_ITS | Encounter Summary ---
Author Organization [facility] Health Address [address] [facility] [place] [address] Care Team Providers Care Food Service Team Member Name Role Phone Tiffany Linda Primary Care Pr ovider Encounter Details Date Type Department Care Team (Late st Contact Info) Description 11/30/2022 Orders Only [facility] - [facility] [address] [place] [address] Shadia Diggs Social History Tobacco Use Types Packs/Day Years Used Date Smoking Tobacco: Former Cigarettes 0.1 2 1 976 - 7154 Smokeless Tobacco: Never Alcohol Use Standard Drinks/Week Comments Yes 4 (1 standard drink = 0.6 oz pur e alcohol) weekly 4 beers AUDIT-C Answer Date Recorded Q1: How often do you have a drink containing alcohol? Never 11/23/2022 Q2: How many drinks containi ng alcohol do you have on a typical day when you are drinking? Patient does not drink 3 Q3: How often do you have si [...] suspected to have Coronavirus/COVID-19? No / Unsure 11/30/2022 9:34 AM CDT documented as of this encounter Plan of Treatment Not on file documented as of this encounter Visit Diagnoses Not on filedocumented in this encounter Care Teams Food Service Team Member Relationship Specialty Start Date End Date Tiffany Linda PA [address] [place] [address] PCP - General 06/14/22 documented as of this encounter
--- OUTSIDE RECORDS SUMMARY | 2024-07-16 11:42 | XMS_ITS | Data Portability ---
Author Organization [facility] [employer], Main Office Address [address] [place] [address] Assessment No assessment recorded. Plan of Treatment Reminders Order Date Submit Date Provider Last Modified By Organization Details Last Modified Time Details Appointments None recorded . Lab CMP, serum or plasma 023 05/16/20 [email or web address] [facility], [address], [address], [place], [address], 3 08:42:29 CBC w/ auto diff 023 05/16/20 [email or web address] [facility], [address], [address], [place], [address], 3 08:42:38 TSH + free T4, serum 023 05/16/20 BRITANY [facility], [address], [address], [place], [address], 3 08:45:50 PSA, total, serum or plasma 023 05/16/20 [email or web address] [facility], [address], [address], [place], [address], 3 08:42:20 HbA1c (hemoglo bin A1c), blood 023 05/16/20 [email or web address] [facility], [address], [address], [place], [address], 3 08:42:12 lipid panel, serum 023 05/16/20 23 [email or web address] [facility], [address], [address], [place], [address], 3 08:42:04 Referral None recorded . Procedures None recorded . Surgeries None recorded . Imaging None recorded . Medication Orders None recorded . Patient TargetsNo targets recorded. Patient InstructionsNo instructions recorded. Reason for Referral None Reported. Results Created Date Observation Date Name Description Value Unit Range Abnormal Flag Note LastModifiedBy Organization Detail LastModifiedTime 04/08/20 21 04/09/2021 PROST ATE-S PECIF IC AG prostate specific [...] kits canno t be used inter sims eably . Resul ts canno t be inter prete d as absol yasmin evide nce of the prese nce or [facility]en [facility]. Not Available [facility] ([facility]) [address] [facility], [place], [address], 04/09/2021 08:21:46 04/08/20 21 04/09/2021 HEMOG LOBIN A1C hemoglobin A1C 5.9 % 4.8-5. 6 above high normal Predi abete s: 5.7 - 6.4 Diabe andreia: >6.4 Glyce paras contr ol for adult s with diabe andreia: <7.0 Not Available [facility] ([facility]) [address] [facility], [place], [address], 04/09/2021 08:21:45 04/08/20 21 04/09/2021 LIPID PANEL AND CHOL/ HDL RATIO cholesterol, total 163 mg/dL 100-19 9 Not Available [facility] ([facility]) [address] [place], [address], 04/09/2021 08:21:45 04/08/20 21 04/09/2021 LIPID PANEL AND CHOL/ HDL RATIO triglyceride s 121 mg/dL 0-149 Not Available [facility] ([facility]) [address] [place], [address], 04/09/2021 08:21:45 04/08/20 21 04/09/2021 LIPID PANEL AND CHOL/ HDL RATIO HDL cholesterol 35 mg/dL >39 below low normal Not Available [facility] ([facility]) [address] [facility], [place], [address], 04/09/2021 08:21:45 04/08/20 21 04/09/2021 LIPID PANEL AND CHOL/ HDL RATIO VLDL cholesterol sally 22 mg/dL 5-40 Not Available [facility] ([facility]) [address] [place], [address], 04/09/2021 08:21:45 04/08/20 21 04/09/2021 LIPID PANEL AND CHOL/ HDL RATIO LDL chol calc ([facility]) 106 mg/dL 0-99 above high normal Not Available [facility] ([facility]) [address] [place], [address], 04/09/2021 08:21:45 04/08/20 21 04/09/2021 LIPID PANEL AND CHOL/ HDL RATIO comment: digester hand Not Available [facility] ([facility]) [address] [place], [address], 04/09/2021 08:21:45 04/08/20 21 04/09/2021 LIPID PANEL AND CHOL/ HDL RATIO T. chol/HDL ratio 4.7 ratio 0.0-5. 0 T. Chol/ HDL Ratio Men Women 1/2 Avg.R isk 3.4 3.3 Avg.R isk 5.0 4.4 2X Avg.R isk 9.6 7.1 3X Avg.R isk 23.4 11.0 Not Available [facility] ([facility]) [address] [facility], [place], [address], 04/09/2021 08:21:45 04/08/20 21 04/09/2021 COMP. METAB OLIC PANEL (14) glucose 97 mg/dL 65-99 Not Available [facility] ([facility]) [address] [place], [address], 04/09/2021 08:21:44 04/08/20 21 04/09/2021 COMP. METAB OLIC PANEL (14) BUN 14 mg/dL 6-24 Not Available [facility] ([facility]) [address] [place], [address], 04/09/2021 08:21:44 04/08/20 21 04/09/2021 COMP. METAB OLIC PANEL (14) creatinine 1.23 mg/dL 0.76-1 .27 Not Available [facility] ([facility]) [address] [place], [address], 04/09/2021 08:21:44 04/08/20 21 04/09/2021 COMP. METAB OLIC PANEL (14) eGFR if nonafricn AM 64 mL/mi n/1.7 3 >59 Not Available [facility] ([facility]) [address] [place], [address], 04/09/2021 08:21:44 04/08/20 21 04/09/2021 COMP. METAB OLIC PANEL (14) eGFR if africn AM 74 mL/mi n/1.7 3 >59 [facility] curre ntly repor ts eGFR in compl iance with the curre nt recom menda tions of the [facility] at[facility] . [facility] will updat e repor ting as new guide lines are publi shed from the NKF-A SN Task force . Not Available [facility] ([facility]) [address] [facility], [place], [address], 04/09/2021 08:21:44 04/08/20 21 04/09/2021 COMP. METAB OLIC PANEL (14) BUN/creatini ne ratio 11 9-20 Not Available [facility] ([facility]) [address] [facility], [place], [address], 04/09/2021 08:21:44 04/08/20 21 04/09/2021 COMP. METAB OLIC PANEL (14) sodium 141 mmol/ L 134-14 4 Not Available [facility] ([facility]) [address] [facility], [place], [address], 04/09/2021 08:21:44 04/08/20 21 04/09/2021 COMP. METAB OLIC PANEL (14) potassium 4.1 mmol/ L 3.5-5. 2 Not Available [facility] ([facility]) [address] [facility], [place], [address], 04/09/2021 08:21:44 04/08/20 21 04/09/2021 COMP. METAB OLIC PANEL (14) chloride 103 mmol/ L 96-106 Not Available [facility] ([facility]) [address] [facility], [place], [address], 04/09/2021 08:21:44 04/08/20 21 04/09/2021 COMP. METAB OLIC PANEL (14) carbon dioxide, total 23 mmol/ L 20-29 Not Available [facility] ([facility]) [address] [place], [address], 04/09/2021 08:21:44 04/08/20 21 04/09/2021 COMP. METAB OLIC PANEL (14) calcium 9.7 mg/dL 8.7-10 .2 Not Available [facility] ([facility]) [address] [facility], [place], [address], 04/09/2021 08:21:44 04/08/20 21 04/09/2021 COMP. METAB OLIC PANEL (14) protein, total 7.1 g/dL 6.0-8. 5 Not Available [facility] ([facility]) [address] [facility], [place], [address], 04/09/2021 08:21:44 04/08/20 21 04/09/2021 COMP. METAB OLIC PANEL (14) albumin 4.8 g/dL 3.8-4. 9 Not Available [facility] ([facility]) [address] [facility], [place], [address], 04/09/2021 08:21:44 04/08/20 21 04/09/2021 COMP. METAB OLIC PANEL (14) globulin, total 2.3 g/dL 1.5-4. 5 Not Available [facility] ([facility]) [address] [facility], [place], [address], 04/09/2021 08:21:44 04/08/20 21 04/09/2021 COMP. METAB OLIC PANEL (14) AST (SGOT) 22 IU/L 0-40 Not Available [facility] ([facility]) [address] [facility], [place], [address], 04/09/2021 08:21:44 04/08/20 21 04/09/2021 COMP. METAB OLIC PANEL (14) A/G ratio 2.1 1.2-2. 2 Not Available [facility] ([facility]) [address] [facility] [place], [address], 04/09/2021 08:21:44 04/08/20 21 04/09/2021 COMP. METAB OLIC PANEL (14) bilirubin, total 0.6 mg/dL 0.0-1. 2 Not Available [facility] ([facility]) [address] [facility], [place], [address], 04/09/2021 08:21:44 04/08/20 21 04/09/2021 COMP. METAB OLIC PANEL (14) alkaline phosphatase 74 IU/L 44-121 Ple ase note refer ence inter kelley sims e Not Available [facility] ([facility]) [address] [facility], [place], [address], 04/09/2021 08:21:44 04/08/20 21 04/09/2021 COMP. METAB OLIC PANEL (14) ALT (SGPT) 24 IU/L 0-44 Not Available [facility] ([facility]) [address] [facility], [place], [address], 04/09/2021 08:21:44 04/08/20 21 04/09/2021 CBC WITH DIFFE RENTI AL/PL ATELE T WBC 5.2 x10e3 /uL 3.4-10 .8 Not Available [facility] ([facility]) [address] [facility], [place], [address], 04/09/2021 08:21:44 04/08/2004/09/2021 CBC WITH DIFFE RENTI AL/PL ATELE T RBC 5.10 x10e6 /uL 4.14-5 .80 Not Available [facility] ([facility]) [address] [facility], [place], [address], 04/09/2021 08:21:44 04/08/2004/09/2021 CBC WITH DIFFE RENTI AL/PL ATELE T hemoglobin 15.7 g/dL 13.0-1 7.7 Not Available [facility] ([facility]) [address] [facility], [place], [address], 04/09/2021 08:21:44 04/08/20 21 04/09/2021 CBC WITH DIFFE RENTI AL/PL ATELE T hematocrit 46.1 % 37.5-5 1.0 Not Available [facility] ([facility]) [address] [facility], [place], [address], 04/09/2021 08:21:44 04/08/2004/09/2021 CBC WITH DIFFE RENTI AL/PL ATELE T MCV 90 fL 79-97 Not Available [facility] ([facility]) [address] [facility], [place], [address], 04/09/2021 08:21:44 04/08/2004/09/2021 CBC WITH DIFFE RENTI AL/PL ATELE T MCH 30.8 pg 26.6-3 3.0 Not Available [facility] ([facility]) [address] [facility], [place], [address], 04/09/2021 08:21:44 04/08/2004/09/2021 CBC WITH DIFFE RENTI AL/PL ATELE T MCHC 34.1 g/dL 31.5-3 5.7 Not Available [facility] ([facility]) [address] [facility], [place], [address], 04/09/2021 08:21:44 04/08/2004/09/2021 CBC WITH DIFFE RENTI AL/PL ATELE T RDW 12.8 % 11.6-1 5.4 Not Available [facility] ([facility]) [address] [facility], [place], [address], 04/09/2021 08:21:44 04/08/2004/09/2021 CBC WITH DIFFE RENTI AL/PL ATELE T platelets 246 x10e3 /uL 150-45 0 Not Available [facility] ([facility]) [address] [facility], [place], [address], 04/09/2021 08:21:44 04/08/2004/09/2021 CBC WITH DIFFE RENTI AL/PL ATELE T neutrophils 50 % not estab. Not Available [facility] ([facility]) [address] [facility], [place], [address], 04/09/2021 08:21:44 04/08/2004/09/2021 CBC WITH DIFFE RENTI AL/PL ATELE T lymphs 39 % not estab. Not Available [facility] ([facility]) [address] [facility], [place], [address], 04/09/2021 08:21:44 04/08/2004/09/2021 CBC WITH DIFFE RENTI AL/PL ATELE T monocytes 8 % not estab. Not Available [facility] ([facility]) [address] [facility], [place], [address], 04/09/2021 08:21:44 04/08/2004/09/2021 CBC WITH DIFFE RENTI AL/PL ATELE T eos 2 % not estab. Not Available [facility] ([facility]) [address] [facility], [place], [address], 04/09/2021 08:21:44 04/08/2004/09/2021 CBC WITH DIFFE RENTI AL/PL ATELE T basos 1 % not estab. Not Available [facility] ([facility]) [address] [facility], [place], [address], 04/09/2021 08:21:44 04/08/2004/09/2021 CBC WITH DIFFE RENTI AL/PL ATELE T immature cells digester hand Not Available [facility] ([facility]) [address] [facility], [place], [address], 04/09/2021 08:21:44 04/08/2004/09/2021 CBC WITH DIFFE RENTI AL/PL ATELE T neutrophils (absolute) 2.6 x10e3 /uL 1.4-7. 0 Not Available [facility] ([facility]) [address] [place], [address], 04/09/2021 08:21:44 04/08/20 21 04/09/2021 CBC WITH DIFFE RENTI AL/PL ATELE T lymphs (absolute) 2.0 x10e3 /uL 0.7-3. 1 Not Available [facility] ([facility]) [address] [facility], [place], [address], 04/09/2021 08:21:44 04/08/20 21 04/09/2021 CBC WITH DIFFE RENTI AL/PL ATELE T monocytes(ab solute) 0.4 x10e3 /uL 0.1-0. 9 Not Available [facility] ([facility]) [address] [facility], [place], [address], 04/09/2021 08:21:44 04/08/2004/09/2021 CBC WITH DIFFE RENTI AL/PL ATELE T eos (absolute) 0.1 x10e3 /uL 0.0-0. 4 Not Available [facility] ([facility]) [address] [place], [address], 04/09/2021 08:21:44 04/08/20 21 04/09/2021 CBC WITH DIFFE RENTI AL/PL ATELE T baso (absolute) 0.1 x10e3 /uL 0.0-0. 2 Not Available [facility] ([facility]) [address] [place], [address], 04/09/2021 08:21:44 04/08/2004/09/2021 CBC WITH DIFFE RENTI AL/PL ATELE T immature granulocytes 0 % not estab. Not Available [facility] ([facility]) [address] [place], [address], 04/09/2021 08:21:44 04/08/20 21 04/09/2021 CBC WITH DIFFE RENTI AL/PL ATELE T immature grans (abs) 0.0 x10e3 /uL 0.0-0. 1 Not Available [facility] ([facility]) [address] [place], [address], 04/09/2021 08:21:44 04/08/2004/09/2021 CBC WITH DIFFE RENTI AL/PL ATELE T NRBC digester hand Not Available [facility] ([facility]) [address] [facility], [place], [address], 04/09/2021 08:21:44 04/08/2004/09/2021 CBC WITH DIFFE RENTI AL/PL ATELE T hematology comments: digester hand Not Available [facility] ([facility]) [address] [facility], [place], [address], 04/09/2021 08:21:44 04/08/2004/09/2021 TSH+F REE T4 TSH 1.150 uIU/m L 0.450- 4.500 Not Available [facility] ([facility]) [address] [facility], [place], [address], 04/09/2021 08:21:43 04/08/2004/09/2021 TSH+F REE T4 T4,free(dire ct) 1.23 NG/dL 0.82-1 .77 Not Available [facility] ([facility]) [address] [place], [address], 04/09/2021 08:21:43 04/08/2004/09/2021 URINA LYSIS , ROUTI NE W/RFX specific gravity 1.021 1.005- 1.030 Not Available [facility] ([facility]) [address] [facility], [place], [address], 04/09/2021 08:21:42 04/08/2004/09/2021 URINA LYSIS , ROUTI NE W/RFX pH 6.5 5.0-7. 5 Not Available [facility] ([facility]) [address] [place], [address], 04/09/2021 08:21:42 04/08/2004/09/2021 URINA LYSIS , ROUTI NE W/RFX urine-color yellow yellow Not Available [facility] ([facility]) [address] [facility], [place], [address], 04/09/2021 08:21:42 04/08/2004/09/2021 URINA LYSIS , ROUTI NE W/RFX appearance clear clear Not Available [facility] ([facility]) [address] [facility], [place], [address], 04/09/2021 08:21:42 04/08/2004/09/2021 URINA LYSIS , ROUTI NE W/RFX WBC esterase negati ve negati ve Not Available [facility] ([facility]) [address] [facility], [place], [address], 04/09/2021 08:21:42 04/08/2004/09/2021 URINA LYSIS , ROUTI NE W/RFX protein negati ve negati ve/tra ce Not Available [facility] ([facility]) [address] [facility], [place], [address], 04/09/2021 08:21:42 04/08/2004/09/2021 URINA LYSIS , ROUTI NE W/RFX glucose negati ve negati ve Not Available [facility] ([facility]) [address] [place], [address], 04/09/2021 08:21:42 04/08/2004/09/2021 URINA LYSIS , ROUTI NE W/RFX ketones negati ve negati ve Not Available [facility] ([facility]) [address] [place], [address], 04/09/2021 08:21:42 04/08/2004/09/2021 URINA LYSIS , ROUTI NE W/RFX occult blood negati ve negati ve Not Available [facility] ([facility]) [address] [place], [address], 04/09/2021 08:21:42 04/08/2004/09/2021 URINA LYSIS , ROUTI NE W/RFX microscopic examination commen t Micro scopi c not indic ated and not perfo rmed. Not Available [facility] ([facility]) [address] [place], [address], 04/09/2021 08:21:42 04/08/2004/09/2021 URINA LYSIS , ROUTI NE W/RFX bilirubin negati ve negati ve Not Available [facility] ([facility]) [address] [place], [address], 04/09/2021 08:21:42 04/08/2004/09/2021 URINA LYSIS , ROUTI NE W/RFX urobilinogen ,semi-qn 0.2 mg/dL 0.2-1. 0 Not Available [facility] ([facility]) [address] [facility], [place], [address], 04/09/2021 08:21:42 04/08/2004/09/2021 URINA LYSIS , ROUTI NE W/RFX nitrite, urine negati ve negati ve Not Available [facility] ([facility]) [address] [place], [address], 04/09/2021 08:21:42 09/24/19 22 09/24/2021 HEMOG LOBIN A1C hemoglobin A1C 5.6 % 4.8-5. 6 Predi abete s: 5.7 - 6.4 Diabe andreia: >6.4 Glyce paras contr ol for adult s with diabe andreia: <7.0 Not Available [facility] ([facility]) [address] [place], [address], 09/24/2021 09:13:27 09/24/19 22 09/24/2021 LIPID PANEL WITH LDL/H DL RATIO cholesterol, total 150 mg/dL 100-19 9 Not Available [facility] ([facility]) [address] [facility], [place], [address], 09/24/2021 09:13:27 09/24/19 22 09/24/2021 LIPID PANEL WITH LDL/H DL RATIO triglyceride s 128 mg/dL 0-149 Not Available [facility] ([facility]) [address] [place], [address], 09/24/2021 09:13:27 09/24/19 22 09/24/2021 LIPID PANEL WITH LDL/H DL RATIO HDL cholesterol 32 mg/dL >39 below low normal Not Available [facility] ([facility]) [address] [place], [address], 09/24/2021 09:13:27 09/24/19 22 09/24/2021 LIPID PANEL WITH LDL/H DL RATIO VLDL cholesterol sally 23 mg/dL 5-40 Not Available [facility] ([facility]) [address] [place], [address], 09/24/2021 09:13:27 09/24/19 22 09/24/2021 LIPID PANEL WITH LDL/H DL RATIO LDL chol calc ([facility]) 95 mg/dL 0-99 Not Available [facility] ([facility]) [address] [place], [address], 09/24/2021 09:13:27 09/24/19 22 09/24/2021 LIPID PANEL WITH LDL/H DL RATIO comment: digester hand Not Available [facility] ([facility]) [address] [place], [address], 09/24/2021 09:13:27 09/24/19 22 09/24/2021 LIPID PANEL WITH LDL/H DL RATIO LDL/HDL ratio 3.0 ratio 0.0-3. 6 LDL/H DL Ratio Men Women 1/2 Avg.R isk 1.0 1.5 Avg.R isk 3.6 3.2 2X Avg.R isk 6.2 5.0 3X Avg.R isk 8.0 6.1 Not Available [facility] ([facility]) [address] [facility] [place], [address], 09/24/2021 09:13:27 09/24/19 22 09/24/2021 COMP. METAB OLIC PANEL (14) glucose 108 mg/dL 65-99 above high normal Not Available [facility] ([facility]) [address] [facility] [place], [address], 09/24/2021 09:13:26 09/24/19 22 09/24/2021 COMP. METAB OLIC PANEL (14) BUN 12 mg/dL 6-24 Not Available [facility] ([facility]) [address] [facility] [place], [address], 09/24/2021 09:13:26 09/24/19 22 09/24/2021 COMP. METAB OLIC PANEL (14) creatinine 1.33 mg/dL 0.76-1 .27 above high normal Not Available [facility] ([facility]) [address] [facility] [place], [address], 09/24/2021 09:13:26 09/24/19 22 09/24/2021 COMP. METAB OLIC PANEL (14) eGFR 62 mL/mi n/1.7 3 >59 Not Available [facility] ([facility]) [address] [facility] [place], [address], 09/24/2021 09:13:26 09/24/19 22 09/24/2021 COMP. METAB OLIC PANEL (14) BUN/creatini ne ratio 9 9-20 Not Available [facility] ([facility]) [address] [facility] [place], [address], 09/24/2021 09:13:26 09/24/19 22 09/24/2021 COMP. METAB OLIC PANEL (14) sodium 142 mmol/ L 134-14 4 Not Available [facility] ([facility]) [address] [place], [address], 09/24/2021 09:13:26 09/24/19 22 09/24/2021 COMP. METAB OLIC PANEL (14) potassium 4.1 mmol/ L 3.5-5. 2 Not Available [facility] ([facility]) [address] [place], [address], 09/24/2021 09:13:26 09/24/19 22 09/24/2021 COMP. METAB OLIC PANEL (14) chloride 103 mmol/ L 96-106 Not Available [facility] ([facility]) [address] [place], [address], 09/24/2021 09:13:26 09/24/19 22 09/24/2021 COMP. METAB OLIC PANEL (14) carbon dioxide, total 23 mmol/ L 20-29 Not Available [facility] ([facility]) [address] [place], [address], 09/24/2021 09:13:26 09/24/19 22 09/24/2021 COMP. METAB OLIC PANEL (14) calcium 9.8 mg/dL 8.7-10 .2 Not Available [facility] ([facility]) [address] [place], [address], 09/24/2021 09:13:26 09/24/19 22 09/24/2021 COMP. METAB OLIC PANEL (14) A/G ratio 1.9 1.2-2. 2 Not Available [facility] ([facility]) [address] [place], [address], 09/24/2021 09:13:26 09/24/19 22 09/24/2021 COMP. METAB OLIC PANEL (14) protein, total 7.5 g/dL 6.0-8. 5 Not Available [facility] ([facility]) [address] [place], [address], 09/24/2021 09:13:26 09/24/19 22 09/24/2021 COMP. METAB OLIC PANEL (14) albumin 4.9 g/dL 3.8-4. 9 Not Available [facility] ([facility]) [address] [facility], [place], [address], 09/24/2021 09:13:26 09/24/19 22 09/24/2021 COMP. METAB OLIC PANEL (14) globulin, total 2.6 g/dL 1.5-4. 5 Not Available [facility] ([facility]) [address] [facility] [place], [address], 09/24/2021 09:13:26 09/24/19 22 09/24/2021 COMP. METAB OLIC PANEL (14) bilirubin, total 0.7 mg/dL 0.0-1. 2 Not Available [facility] ([facility]) [address] [place], [address], 09/24/2021 09:13:26 09/24/19 22 09/24/2021 COMP. METAB OLIC PANEL (14) alkaline phosphatase 80 IU/L 44-121 Not Available [facility]) [address] [facility], [place], [address], 09/24/2021 09:13:26 09/24/19 22 09/24/2021 COMP. METAB OLIC PANEL (14) AST (SGOT) 28 IU/L 0-40 Not Available [facility] ([facility]) [address] [place], [address], 09/24/2021 09:13:26 09/24/19 22 09/24/2021 COMP. METAB OLIC PANEL (14) ALT (SGPT) 34 IU/L 0-44 Not Available [facility] ([facility]) [address] [place], [address], 09/24/2021 09:13:26 09/24/19 22 09/24/2021 CBC/D IFF AMBIG UOUS DEFAU LT MCH 30.5 pg 26.6-3 3.0 Not Available [facility] ([facility]) [address] [facility], [place], [address], 09/24/2021 09:13:26 09/24/19 22 09/24/2021 CBC/D IFF AMBIG UOUS DEFAU LT WBC 5.1 x10e3 /uL 3.4-10 .8 Not Available [facility] ([facility]) [address] [facility], [place], [address], 09/24/2021 09:13:26 09/24/19 22 09/24/2021 CBC/D IFF AMBIG UOUS DEFAU LT RBC 5.25 x10e6 /uL 4.14-5 .80 Not Available [facility] ([facility]) [address] [facility], [place], [address], 09/24/2021 09:13:26 09/24/19 22 09/24/2021 CBC/D IFF AMBIG UOUS DEFAU LT hemoglobin 16.0 g/dL 13.0-1 7.7 Not Available [facility] ([facility]) [address] [facility], [place], [address], 09/24/2021 09:13:26 09/24/19 22 09/24/2021 CBC/D IFF AMBIG UOUS DEFAU LT hematocrit 47.3 % 37.5-5 1.0 Not Available [facility] ([facility]) [address] [facility], [place], [address], 09/24/2021 09:13:26 09/24/19 22 09/24/2021 CBC/D IFF AMBIG UOUS DEFAU LT MCV 90 fL 79-97 Not Available [facility] ([facility]) [address] [facility], [place], [address], 09/24/2021 09:13:26 09/24/19 22 09/24/2021 CBC/D IFF AMBIG UOUS DEFAU LT MCHC 33.8 g/dL 31.5-3 5.7 Not Available [facility] ([facility]) [address] [facility], [place], [address], 09/24/2021 09:13:26 09/24/19 22 09/24/2021 CBC/D IFF AMBIG UOUS DEFAU LT RDW 13.2 % 11.6-1 5.4 Not Available [facility] ([facility]) [address] [facility], [place], [address], 09/24/2021 09:13:26 09/24/19 22 09/24/2021 CBC/D IFF AMBIG UOUS DEFAU LT platelets 244 x10e3 /uL 150-45 0 Not Available [facility] ([facility]) [address] [facility], [place], [address], 09/24/2021 09:13:26 09/24/19 22 09/24/2021 CBC/D IFF AMBIG UOUS DEFAU LT neutrophils 57 % not estab. Not Available [facility] ([facility]) [address] [facility], [place], [address], 09/24/2021 09:13:26 09/24/19 22 09/24/2021 CBC/D IFF AMBIG UOUS DEFAU LT lymphs 33 % not estab. Not Available [facility] [facility]) [address] [facility], [place], [address], 09/24/2021 09:13:26 09/24/19 22 09/24/2021 CBC/D IFF AMBIG UOUS DEFAU LT monocytes 7 % not estab. Not Available [facility] ([facility]) [address] [facility], [place], [address], 09/24/2021 09:13:26 09/24/19 22 09/24/2021 CBC/D IFF AMBIG UOUS DEFAU LT eos 2 % not estab. Not Available [facility] ([facility]) [address] [place], [address], 09/24/2021 09:13:26 09/24/19 22 09/24/2021 CBC/D IFF AMBIG UOUS DEFAU LT basos 1 % not estab. Not Available [facility] ([facility]) [address] [facility], [place], [address], 09/24/2021 09:13:26 09/24/19 22 09/24/2021 CBC/D IFF AMBIG UOUS DEFAU LT immature cells digester hand Not Available [facility] ([facility]) [address] [place], [address], 09/24/2021 09:13:26 09/24/19 22 09/24/2021 CBC/D IFF AMBIG UOUS DEFAU LT neutrophils (absolute) 2.9 x10e3 /uL 1.4-7. 0 Not Available [facility] ([facility]) [address] [place], [address], 09/24/2021 09:13:26 09/24/19 22 09/24/2021 CBC/D IFF AMBIG UOUS DEFAU LT lymphs (absolute) 1.7 x10e3 /uL 0.7-3. 1 Not Available [facility] ([facility]) [address] [place], [address], 09/24/2021 09:13:26 09/24/19 22 09/24/2021 CBC/D IFF AMBIG UOUS DEFAU LT monocytes(ab solute) 0.4 x10e3 /uL 0.1-0. 9 Not Available [facility] ([facility]) [address] [place], [address], 09/24/2021 09:13:26 09/24/19 22 09/24/2021 CBC/D IFF AMBIG UOUS DEFAU LT eos (absolute) 0.1 x10e3 /uL 0.0-0. 4 Not Available [facility] ([facility]) [address] [place], [address], 09/24/2021 09:13:26 09/24/19 22 09/24/2021 CBC/D IFF AMBIG UOUS DEFAU LT baso (absolute) 0.1 x10e3 /uL 0.0-0. 2 Not Available [facility] ([facility]) [address] [place], [address], 09/24/2021 09:13:26 09/24/19 22 09/24/2021 CBC/D IFF AMBIG UOUS DEFAU LT immature granulocytes 0 % not estab. Not Available [facility] ([facility]) [address] [place], [address], 09/24/2021 09:13:26 09/24/19 22 09/24/2021 CBC/D IFF AMBIG UOUS DEFAU LT immature grans (abs) 0.0 x10e3 /uL 0.0-0. 1 Not Available [facility] ([facility]) [address] [place], [address], 09/24/2021 09:13:26 09/24/19 22 09/24/2021 CBC/D IFF AMBIG UOUS DEFAU LT NRBC digester hand Not Available [facility] ([facility]) [address] [place], [address], 09/24/2021 09:13:26 09/24/19 22 09/24/2021 CBC/D IFF AMBIG UOUS DEFAU LT hematology comments: digester hand A hand- writt en panel /prof lashaun was recei darius from your offic e. In accor dance with the [facility] Ambig uous Test Code Polic y dated December 2002, we have assig frank CBC with Diffe yaquelin al/Pl danitza lopez, Test Code #[address]. If this is not the testi ng you wishe d to recei ve on this speci men, pleas e conta ct the [facility] Clien t Inqui ry/ Techn ical Servi juan f Depar tment to charles fy the test order . We appre ciate your busin ess. Not Available [facility] ([facility]) [address] [facility], [place], [address], 09/24/2021 09:13:26 03/15/20 21 03/15/2021 diagn ostic colon oscop y (PROC ) No observ ation record ed. [id number] Denzel Hannah MD [address] [facility] [address], [place], [address], 08/31/2022 06:10:07 07/19/19 22 07/16/2021 XR, chest , 2 view No observ ation record ed. [id number] [facility] (Imaging) [address] [place] [address] [address], [place], [address], 08/31/2022 06:10:07 01/14/20 22 01/05/2022 XR, hand No observ ation record ed. [id number], [place], [address], 08/31/2022 06:10:07 08/23/19 23 07/13/2022 CT, abdom en + pelvi s, w/o contr ast No observ ation record ed. [id number] [facility] [address], [place], [address], 08/31/2022 06:10:07 05/30/20 23 08/18/2022 sleep study , diagn ostic (PROC ) No observ ation record ed. [email or web address] Ivelisse Mora BARREL BANDER [address] [facility] [address], [place], [address], 05/31/2023 15:23:02 07/12/19 24 07/11/2023 home sleep study No observ ation record ed. [facility] [address] [place] [address], [place], [address], 07/13/2023 16:35:39 Result Notes None recorded. Problems Name Problem SNOMED Code Status Onset Date Resolution Date Notes Provider Name and Address Organization Details Recorded Time Decreased hearing 860879361 Active 2021 Not Available [facility] 3 06:04:04 Testicular hypofuncti on 132018939 Active Not Available [facility] 3 06:04:04 Chronic obstructiv e pulmonary disease 41878288 Active Not Available [facility] 3 06:04:04 Hearing loss 96368498 Active Not Available [facility] 3 06:04:04 Blood glucose outside reference range 621580059 Active Not Available [facility] 3 06:04:04 Gastroesop hageal reflux disease 575860733 Active Not Available [facility] 3 06:04:04 External hemorrhoid s 17826106 Active Not Available [facility] 3 06:04:04 Lumbar spondylosi s 206560435 Active Not Available [facility] 3 06:04:04 Long-term drug therapy Active 2021 Not Available [facility] 3 06:04:04 Adult health examinatio n Active 2021 Not Available [facility] 3 06:04:04 Lower urinary tract symptoms 524315913 Active 2021 Not Available [facility] 3 06:04:05 Pain of left hand 8905801232909 03 Active 2021 Not Available [facility] 3 06:04:05 Pain of left wrist 6879677867283 02 Active 2021 Not Available [facility] 3 06:04:05 Vitamin D deficiency 94326288 Active Not Available [facility] 3 06:04:05 Family history of malignant neoplasm of prostate 665239645 Active 2021 Not Available [facility] 3 06:04:05 Gastritis 2958509 Active 2021 Not Available [facility] 3 06:04:05 Hyperlipid emia 75611927 Active Not Available [facility] 3 06:04:05 Dysfunctio n of eustachian tube 45502886 Active Not Available [facility] 3 06:04:05 Recurrent major depression 90973005 Active Not Available [facility] 3 06:04:05 Eustachian tube disorder 19384213 Active Not Available [facility] 3 06:04:06 Liver enzymes level above reference range 097346536 Active Not Available [facility] 3 06:04:06 Obstructiv e sleep apnea syndrome 74918474 Active Not Available [facility] 3 06:04:06 Fatigue 86971028 Active Not Available [facility] 3 06:04:06 Altered bowel function 42189411 Active 2021 Not Available [facility] 3 06:04:06 Internal hemorrhoid s 70862704 Active Not Available [facility] 3 06:04:06 Problem Notes None recorded. Procedures Surgical History Date Name Laterality Status Provider Name and Address Organization Details Recorded Time radiography of fivsax-wjhufk-wq adder completed Not Available [facility] 08/31/2022 05:57:01 Colonoscopy completed Not Available [facility] 08/31/2022 05:57:01 Back Surgery [facility] 08/31/20[facility] 05:57:01 Hand completed Not Available [facility] 07/2022 05:57:01 Carpal tunnel completed Not Available [facility] 08/31/2022 05:57:01 Imaging Results Imaging Date Name Status LastModified by Organiz ation Details LastModified Time 07/13/2022 CT, abdomen + pelvis, w/o contrast completed [id number] [facility] [address] [facility] [address], [place], [address], 08/31/2022 06:10:07 03/15/2021 diagnostic colonoscopy (PROC) completed [id number] Denzel Hannah MD [address], [place], [address], 08/31/2022 06:10:07 07/16/2021 XR, chest, 2 view completed [id number] [facility] (Imaging) [address] [facility] [address], [place], [address], 08/31/2022 06:10:07 01/05/2022 XR, hand completed [id number] [facility] [address] [facility] [address], [place], [address], 08/31/2022 06:10:07 08/18/2022 sleep study, diagnostic (PROC) completed [email or web address] Ivelisse Mora BARREL BANDER [address] [facility] [address], [place], [address], 05/31/2023 15:23:02 07/11/2023 home sleep study completed [email or web address] [facility] [address] [facility] [address], [place], [address], 07/13/2023 16:35:39 Procedure Notes None recorded. Medical Equipment None Reported. Allergies Allergen ID Allergen Name Allergen Category Reaction Reaction Severity Criticality Documentation Date Start Date Code Code System Note Provider Name and Address Organization Details Recorded Time 23762 Substance with sulfonami de structure and antibacte rial mechanism of action (substanc e) medicatio n Not available Not available Not available 08/31/2022 14273 8003 SNOMED unsur e Not Available [facility] 3 06:09:44 79702 acetamino phen / oxycodone medicatio n vomiting Not available Not available 08/31/2022 00289 3 RxNorm Not Available [facility] 3 06:09:44 05619 Medicinal product containin g penicilli n and acting as antibacte rial agent (product) medicatio n hives Not available Not available 08/31/2022 58117 05 SNOMED Not Available [facility] 3 06:09:44 55694 codeine medicatio n vomiting Not available Not available 08/31/2022 2670 RxNorm Not Available [facility] 3 06:09:44 80095 Propylami ne derivativ e with histamine receptor antagonis t mechanism of action (substanc e) medicatio n Not available Not available Not available 08/31/2022 60610 8008 SNOMED unsur e Not Available [facility] 3 06:09:44 Medications Name Sig Start Date Stop Date Status Note LastModified by Organization Details LastModified Time acetaminoph en 500mg cap TAKE 2 CAPSULES BY MOUTH EVERY 6 HOURS NEEDED FOR PAIN FOR FEVER active Not Available Not Available No t Available cyclobenzap rine 10 mg tablet Take 1 tablet every day by oral route at bedtime. 06/05 completed Not Available Not Available Not Available promethazin e-DM 6.25 mg-15 mg/5 mL oral syrup TAKE 5 ML BY MOUTH AT BEDTIME NEEDED 05/15 completed Not Available Not Available Not Available clindamycin HCl 300 mg capsule TAKE 1 CAPSULE BY MOUTH FOUR TIMES A DAY 08/05 completed Not Available Not Available Not Available Stool Softener 100 mg capsule TAKE 1 CAPSULE BY MOUTH ONCE DAILY NEEDED FOR CONSTIPAT ION active Not Available Not Available No t Available azithromyci n 250 mg tablet TAKE 2 TABLETS BY MOUTH ON DAY 1, AND THEN TAKE 1 TABLET BY MOUTH ONCE A DAY ON DAY 2 THROUGH DAY 5 08/16 completed Not Available Not Available Not Available tizanidine 4 mg tablet Take 1 tablet every 6 hours by oral route as needed for 23 days. 07/13 completed Not Available Not Available Not Available benzonatate 200 mg capsule TAKE 1 CAPSULE BY MOUTH THREE TIMES A DAY PRN cough active Not Available Not Available No t Available hydrocodone 5 mg-acetamin ophen 325 mg tablet Take 2 tablets every 4 hours by oral route as needed for 8 days. 07/05 completed Not Available Not Available Not Available ondansetron HCl 4 mg tablet TAKE 1 TABLET BY MOUTH EVERY 6 HOURS NEEDED FOR NAUSEA AND VOMITING 05/15 completed Not Available Not Available Not Available famotidine 40 mg tablet TAKE 1 TABLET BY MOUTH ONCE DAILY active Not Available Not Available No t Available metronidazo le 500 mg tablet TAKE 1 TABLET BY MOUTH TWICE A DAY 08/05 completed Not Available Not Available Not Available ciprofloxac in 500 mg tablet Take 1 tablet every 12 hours by oral route. active Not Available Not Available No t Available simvastatin 40 mg tablet TAKE 1 TABLET BY MOUTH ONCE DAILY active Not Available Not Available No t Available hydrocortis one acetate 25 mg rectal suppository INSERT 1 SUPPOSITO RY TWICE A DAY BY RECTAL ROUTE FOR 14 DAYS. 07/05 completed Not Available Not Available Not Available citalopram 20 mg tablet Take 1 tablet every day by oral route. active Not Available Not Available No t Available temazepam 15 mg capsule TAKE ONE CAPSULE BY MOUTH AT BEDTIME 06/05 completed Not Available Not Available Not Available tamsulosin 0.4 mg capsule TAKE 1 CAPSULE BY MOUTH ONCE DAILY active Not Available Not Available No t Available hydrocodone 7.5 mg-acetamin ophen 325 mg tablet 07/10 completed Not Available Not Available Not Available trazodone 150 mg tablet Take 1 tablet every day by oral route at bedtime. active Not Available Not Available No t Available Albenza 200 mg tablet TAKE 2 TABLETS BY MOUTH FOR 1 DOSE, THEN REPEAT IN 2 WEEKS 07/05 completed Not Available Not Available Not Available ibuprofen 200 mg tablet Take 4 tablets every day by oral route. 2014 active for back pain Not Available Not Available Not Available gabapentin 300 mg capsule TAKE 1 CAPSULE BY MOUTH AT BEDTIME active Not Available Not Available No t Available hydroxyzine HCl 25 mg tablet TAKE 1 TO 2 TABLETS BY MOUTH EVERY DAY AT BEDTIME NEEDED FOR SLEEP active Not Available Not Available No t Available ergocalcife rol (vitamin D2) 1,250 mcg (50,000 unit) capsule TAKE 1 CAPSULE BY MOUTH ONCE A WEEK DIRECTED active Not Available Not Available No t Available ibuprofen 600 mg tablet TAKE 1 TABLET BY MOUTH EVERY 6 HOURS NEEDED FOR PAIN active Not Available Not Available No t Available oxycodone-a cetaminophe n 7.5 mg-325 mg tablet TAKE 1/2-1 TABLET BY MOUTH EVERY 4 TO 6 HOURS FOR PAIN. MAX 4 TABS PER DAY 08/05 completed Not Available Not Available Not Available methylpredn isolone 4 mg tablets in a dose pack use as directed 04/08 completed Not Available Not Available Not Available fluticasone propionate 50 mcg/actuati on nasal spray,suspe nsion USE 1 SPRAY(S) IN EACH NOSTRIL ONCE DAILY FOR 15 DAYS 08/17 completed Not Available Not Available Not Available finasteride 5 mg tablet TAKE 1 TABLET BY MOUTH ONCE DAILY active Not Available Not Available No t Available loratadine 10 mg tablet TAKE 1 TABLET BY MOUTH ONCE DAILY NEEDED FOR CONGESTIO N NEEDED active Not Available Not Available No t Available oxycodone 5 mg tablet TAKE 1 TABLET BY MOUTH EVERY 6 HOURS NEEDED FOR PAIN active Not Available Not Available No t Available rosuvastati n 10 mg tablet TAKE 1 TABLET BY MOUTH IN THE EVENING 09/28 completed Not Available Not Available Not Available rosuvastati n 20 mg tablet TAKE 1 TABLET BY MOUTH EVERY EVENING 05/08 completed Not Available Not Available Not Available bupropion HCl XL 150 mg 24 hr tablet, extended release Take 1 tablet by mouth once daily 2023 active Not Available Not Available Not Avai lable tadalafil 20 mg tablet TAKE 1 TABLET BY MOUTH NEEDED ONCE DAILY 08/05 completed Not Available Not Available Not Available duloxetine 30 mg capsule,del ayed release TAKE 1 CAPSULE BY MOUTH ONCE DAILY 08/05 completed Not Available Not Available Not Available duloxetine 60 mg capsule,del ayed release Take 1 capsule every day by oral route. 01/08 completed Not Available Not Available Not Available chlorhexidi ne gluconate 0.12 % mouthwash SWISH AND SPIT 10 ML 3 TIMES A DAY 08/05 completed Not Available Not Available Not Available Nucynta 50 mg tablet active Not Available Not Available No t Available Suprep Bowel Prep Kit 17.5 gram-3.13 gram-1.6 gram oral solution active Not Available Not Available Not Available Vitals Date Recorded Body mass index (BMI) Body height Oxygen saturation Oxygen saturation in Arterial blood by Pulse oximetry Heart rate Body temperature Body weight Systolic blood pressure Diastolic blood pressure Provider Name and Address Organization Details Last Updated DateTime 1 29.9 kg/m2 172.72 cm 97 % 97 % 90 /min 97.6 [degF] 69659.2 6 g 130 mm[Hg] 92 mm[Hg] Not Available [facility] 3 06:00:50 Date Recorded Body mass index (BMI) Body height Oxygen saturation Oxygen saturation in Arterial blood by Pulse oximetry Heart rate Respiratory rate Body temperature Body weight Systolic blood pressure Diastolic blood pressure Provider Name and Address Organization Details Last Updated DateTime 2 29.3 kg/m2 172.72 cm 98 % 98 % 82 /min 16 /min 96.9 [degF] 33083.3 3 g 122 mm[Hg] 80 mm[Hg] Not Available [facility] 3 06:00:51 Date Recorded Body mass index (BMI) Body height Body weight Provider Name and Address Organization Details Last Updated DateTime 02/16/2022 29.3 kg/m2 172.72 cm 24266.33 g Not Available [facility] 08/31/2022 06:00:56 Date Recorded Body mass index (BMI) Body height Oxygen saturation Oxygen saturation in Arterial blood by Pulse oximetry Heart rate Respiratory rate Body temperature Body weight Systolic blood pressure Diastolic blood pressure Provider Name and Address Organization Details Last Updated DateTime 2 28.9 kg/m2 172.72 cm 97 % 97 % 97 /min 16 /min 97.9 [degF] 76387.9 9 g 120 mm[Hg] 80 mm[Hg] Not Available [facility] 3 06:00:51 Date Recorded Body weight Body mass index (BMI) Body height Body temperature Heart rate Oxygen saturation Oxygen saturation in Arterial blood by Pulse oximetry Systolic blood pressure Diastolic blood pressure Provider Name and Address Organization Details Last Updated DateTime 3 82636.5 9 g 28.1 kg/m2 172.72 cm 97.8 [degF] 87 /min 98 % 98 % 122 mm[Hg] 80 mm[Hg] Debbie Jiménez RN [facility] 3 09:02:06 Date Recorded Systolic blood pressure Diastolic blood pressure Provider Name and Address Organization Details Last Updated DateTime 05/16/2023 110 mm[Hg] 80 mm[Hg] GANGA Man [address] [place] [address], [address], [facility] 05/16/2023 09:24:54 Social History Question Answer Notes LastModified by Organizat ion Details LastModified Time Tobacco Smoking Status Never Smoker Not Available [facility] 08/31/2022 05:55:16 What Is Your Level Of Alcohol Consumption? Occasional [id number] Information not available 08/31/2022 What Is Your Level Of Caffeine Consumption? Occasional [id number].[id number] 5095 Information not available 08/31/2022 How Much Tobacco Do You Chew? None MIGRATION.[id number] Information not available 08/31/2022 In The 14 Days Before Symptom Onset, Have You Had Close Contact With A Laboratory-confir med COVID-19 While That Case Was Ill? No [id number] [id number] Information not available 08/31/2022 In The 14 Days Before Symptom Onset, Have You Had Close Contact With A Person Who Is Under Investigation For COVID-19 While That Person Was Ill? No [id number] 2474 Information not available 08/31/2022 Are You Currently Employed? Yes [email or web address] Information not available 05/15/2023 What Type Of Diet Are You Following? REGULAR [id number].708342 4615 Information not available 08/31/2022 Which Illicit Or Recreational Drugs Have You Used? None [id number].[id number] Information not available 08/31/2022 Do You Or Have You Ever Used E-cigarettes Or Vape? 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 No MIGRATION.835830 0381 Information not available 08/31/2022 Are There Any Guns Present In Your Home? No [id number].672200 3501 Information not available 08/31/2022 Do You Use Insect Repellent Routinely? No MIGRATION.581533 7686 Information not available 08/31/2022 What Was The Date Of Your Most Recent Tobacco Screening? 02/16/2022 [id number].[id number] 4830 Information not available 08/31/2022 What Is Your Relationship Status? [id number].210228 7622 Information not available 08/31/2022 Do You Use Your Seat Belt Or Car Seat Routinely? Yes [id number].[id number] 2475 Information not available 08/31/2022 Do You Have Smoke And Carbon Monoxide Detectors In Your Home? Yes MIGRATION.049583 2031 Information not available 08/31/2022 Do You Or Have You Ever Used Smokeless Tobacco? Never Used Smokeless Tobacco MIGRATION.628600 4994 Information not available 08/31/2022 Do You Use Any Illicit Or Recreational Drugs? No [id number].738031 7213 Information not available 08/31/2022 Do You Use Sunscreen Routinely? Yes MIGRATION.754853 6453 Information not available 08/31/2022 How Many Years Have You Smoked Tobacco? 0 MIGRATION.176187 3919 Information not available 08/31/2022 Have You Recently Traveled Abroad? No MIGRATION.444139 2205 Information not available 08/31/2022 Do You Have Any Dietary Restrictions? No MIGRATION.239027 9098 Information not available 08/31/2022 Do You Or Have You Ever Used Any Other Forms Of Tobacco Or Nicotine? No MIGRATION.349711 8474 Information not available 08/31/2022 Sex: Unknown Functional Status Question Answer Note LastModified by Organizat ion Details LastModified Time What is your exercise level? None [id number] Information not available 08/31/2022 Mental Status None recorded. Family History Relationship Description Onset Age of this Age Resolved Age Notes LastModified by Organization Details LastModified Time Unspecified Relation Depressive disorder [id number] Not available 08/31/2022 05:57:07 Mother Diabetes mellitus [id number].879 [id number] Not available 08/31/2022 05:57:07 Mother Malignant tumor of breast MIGRATION.971 [id number] Not available 08/31/2022 05:57:07 Maternal Grandfather Heart disease MIGRATION.[id number] Not available 08/31/2022 05:57:07 Father Carcinoma of prostate MIGRATION.989 [id number] Not available 08/31/2022 05:57:07 Medical History No medical history recorded. Immunizations Vaccine Type Date Status Note Provider Nam e and Address Organization Details Recorded Time RSV, recombinant, protein subunit RSVpreF, adjuvant reconstituted, 0.5 mL, PF 05/30/2023 completed [place], [place] [facility] 05/31/2023 16:38:36 Past Encounters Encounter ID Performer Location Encounter Start Date Encounter Closed Date Diagnosis/Indication Diagnosis SNOMED-CT Code Diagnosis ICD10 Code Diagnosis Note [id number] [facility] [place] [address] [place] [address] 12/14/2020 00:00:00 12/30/2020 23:25:40 [id number] [facility] [place] [address] [place] [address] 02/09/2021 00:00:00 03/02/2021 07:15:42 [id number] [facility] [place] [address] [place] [address] 08/17/2021 00:00:00 08/30/2021 09:17:22 [id number] [facility] [place] [address] [place] [address] 02/16/2022 00:00:00 02/16/2022 17:01:31 [id number] [facility] [place] [address] [place] [address] 02/17/2022 00:00:00 02/27/2022 17:55:49 [id number] GANGA Man [facility] [place] [address] [place] [address] 05/16/2023 08:55:41 05/16/2023 09:29:11 Hyperlipidemia 91611000 E78.5 on simvastati n 40mg daily and due for fasting lipids. Gastroesop hageal reflux disease 293854446 K21.9 stable on famotidine 40mg daily. Obstructiv e sleep apnea syndrome 97135422 G47.33 pt is seeing sleep med at [facility] Recurrent major depression 99214089 F33.9 stable on wellbutrin XL 150mg daily. Blood gluc ose outside reference range 993316743 R73.09 following a1c labs. order given. Family his tory of malignant neoplasm of prostate 607080303 Z80.42 due for annual psa. Long-term drug therapy 312767284 Z79.899 routine cmp, cbc and TFT due Health Concerns Section Related Observation LastModified by Organization Detai ls LastModified Time None Recorded Concern Status LastModified by Organization Details LastModified Time None Recorded Advance Directives Directive None Recorded Payers Encounter Date Sequence Insurance Name Policy Number Policy Quinonez Covered Member ID Quinonez Member ID Guarantor Name 05/16/2023 1 *SELF PAY* Eric Cabrera Notes Date Note Type Note Provider Name and Address Organization Details Recorded Time 021 text/h tml Anxiety/DepressionReported bypatient.Severity:denies suicidal ideations; able to maintain relationships; does not interfere with activities of daily living Context:no major life stressors Associated Symptoms:denies homicidal ideations; no significant weight gain; no significant weight loss; no visual/auditory hallucinations; no delusions; no shortness of breath; mood good; no anxiety; no crying spells; no panic; no isolation; sleeping well; appetite good; energy good; no apathy; maintaining functionalityHyperlipidemiaReported bypatient.Control:usually well controlled; improving; at goal Compliance:compliant; compliant with diet; exercises Complications:no coronary artery disease; no peripheral artery disease; no cardiovascular disease Not Available [facility] [email or web address] 03/02/2021 07:15:42 022 text/h tml Anxiety/DepressionReported bypatient.Quality:symptoms improved; doesnt matter time of day Severity:denies suicidal ideations; able to maintain relationships; does not interfere with activities of daily living Context:no major life stressors Modifying Factors:medications as directed Associated Symptoms:denies homicidal ideations; no significant weight gain; no significant weight loss; no visual/auditory hallucinations; no delusions; no shortness of breath; mood good; no anxiety; no crying spells; no panic; no isolation; sleeping well; appetite good; energy good; no apathy; maintaining functionalityHyperlipidemiaReported bypatient.Control:usually well controlled Current Therapy:currently taking: (simvastatin 40mg) Compliance:compliant;noncompliant with diet;does not exercise Complications:no coronary artery disease; no peripheral artery disease; no cardiovascular diseaseObstructive Sleep Apnea F/UReported bypatient.Notes:stable on cpapReflux/GERDReported bypatient.Symptomsasymptomatic; no difficulty swallowing; no pain swallowing; no postprandial pain Severity:same Duration:present 5 or more years Onset/Timing:continuous Context:non-smoker; no drug/alcohol abuse; no drug alcohol withdrawal; not related to food/drink 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 Associated Symptoms:no frequent coughing; no hoarseness; no food getting stuck; no belching/burping; no vomiting; not vomiting blood; no regurgitation; no shortness of breath; no chest pain; no heartburn; no difficulty swallowing; no pain when swallowing; no bad taste; no decreased appetite; no weight loss; no black/tarry stools; no fatigue; no throat pain; no dental erosion; no bloating; no early satiety; no halitosis Not Available [facility] 08/30/2021 09:17:22 022 text/h tml Anxiety/DepressionReported bypatient.Severity:denies suicidal ideations; able to maintain relationships; does not interfere with activities of daily living Context:no major life stressors Associated Symptoms:denies homicidal ideations; no significant weight gain; no significant weight loss; no visual/auditory hallucinations; no delusions; no shortness of breath; mood good; no anxiety; no crying spells; no panic; no isolation; sleeping well; appetite good; energy good; no apathy; maintaining functionalityHyperlipidemiaReported bypatient.Control:usually well controlled; improving; at goal Compliance:compliant; compliant with diet; exercises Complications:no coronary artery disease; no peripheral artery disease; no cardiovascular disease Not Available [facility] 02/27/2022 17:55:49 023 text/h tml Anxiety/DepressionReported bypatient.Severity:denies suicidal ideations; able to maintain relationships; does not interfere with activities of daily living Context:no major life stressors Associated Symptoms:denies homicidal ideations; no significant weight gain; no significant weight loss; no visual/auditory hallucinations; no delusions; no shortness of breathHyperlipidemiaReported bypatient.Control:usually well controlled; improving; at goal Compliance:compliant; compliant with diet; exercises Complications:no coronary artery disease; no peripheral artery disease; no cardiovascular diseaseObstructive Sleep Apnea F/UReported bypatient.Notes:pt is seeing sleep med group at SLUReflux/GERDReported bypatient.Severity:improving Context:non-smoker; no drug/alcohol abuse; no drug alcohol withdrawal; not related to food/drink Associated Symptoms:no frequent coughing; no feeling of fullness/mass in throat; no hoarseness; no food getting stuck; no belching/burping; no vomiting; not vomiting blood; no regurgitation; no shortness of breath; no chest pain; no heartburn; no difficulty swallowing; no pain when swallowing; no bad taste; no decreased appetite; no weight loss; no black/tarry stools; no fatigue; no throat pain routine Tiffany Menossi, PA [address] [facility], [facility] [address], [place], [address], [place] [facility] 05/28/2023 17:35:41
--- OUTSIDE RECORDS SUMMARY | 2024-07-16 11:42 | XMS_ITS | Encounter Summary ---
Author Organization [facility] Health Address [address] [place] [address] Care Team Providers Care Line Dancer Name Role Phone Tiffany Linda Primary Care Pr ovider Encounter Details Date Type Department Care Team (Latest Contact Info) Description 02/14/2023 Travel Social History Tobacco Use Types Packs/Day [...] on filedocumented in this encounter Care Teams Line Dancer Relationship Specialty Start Date End Date Tiffany Linda PA [address] [place] [address] PCP - General 06/14/22 documented as of this encounter
--- OUTSIDE RECORDS SUMMARY | 2024-07-16 11:42 | XMS_ITS | Encounter Summary ---
Author Organization [facility] Address [address] [place] [address] Care Team Providers Care Generation Technologist Name Role Phone Tiffany Linda Primary Care Pr ovider Reason for Visit * Procedure (Routine) - Closed Specialty Diagnoses / Procedures Referred By Yoshi lopez Referred To Contact Sleep Center Diagnoses FELICIA (obstructive sleep apnea) Procedures PROC POLYSOMNOGRAPHY,DIAGNOSTI C FULL NIGHT Gregory Mcwilliams MD [address] [address] [address] [facility] [address] [place] [address] Referral ID Status Reason Start Date Expiration Date Visits Re quested Visits Authorized [id number] Closed 05/29/2023 05/28/2024 1 1 Encounter Details Date Type Department Care Team (Latest Contact Info) Description 07/11/2023 8:30 PM FINISH INSPECTOR Procedure visit [facility] [address] [place] [address] Restless legs syndrome (RLS) ; FELICIA (obstructive sleep apnea) Social History Tobacco Use Types Packs/Day Years Used Date Smoking Tobacco: Former Cigarettes 0.1 2 1 6 - 1977 Smokeless Tobacco: Never Alcohol Use [...] on file documented as of this encounter Progress Notes * Gregory Mcwilliams MD - 07/12/2023 8:32 AM CST [facility] Accredited by the [employer] [facility], First Floor [address] [facility] [place] [address] Telephone : [phone] Medical Records Patient Name: Clay Cabrera : 1960 Date of Study: 07/11/2023 Referring Physician: Gregory Mcwilliams MD Type of Montage: Respiratory Scoring System: [facility] FULL NIGHT THERAPEUTIC POLYSOMNOGRAM INTERPRETATION (07/11/2023) Procedure: The polysomnogram was performed with a cath lab radiological technologist in attendance. Frontal, central, and temporal EEG, EOG, submentalis EMG, oronasal thermistor airflow, nasal pressure transducer airflow, thoracic and abdominal respiratory effort by respiratory inductive plethysmography, anterior tibialis EMG, snore sensor, and pulse oximetry were monitored. Sleep stages, periodic limb movements, and EEG arousals were scored in 30-second epochs according to the AASM Scoring Manual. Apnea-hypopnea index was calculated using the recommended definition of hypopnea for scoring events. Data acquisition, collection, and scoring have been validated and clinically correlated. Sleep History: Mr. Clay Cabrera, a 62 year old male, was referred to the [facility] Disorders [facility] by Gregory Mcwilliams MD for the evaluation of obstructive sleep apnea (FELICIA). Current Outpatient Medications: ??? acetaminophen (Tylenol) 500 [...] Rfl: 0 ??? ergocalciferol (Drisdol) 1.25 MG (06636 UT) capsule, ergocalciferol (vitamin D2) 1,250 mcg [...] ??? gabapentin (Neurontin) 300 MG capsule, Take 2 (two) capsules by mouth at bedtime, Disp: 180 capsule, Rfl: 3 ??? ibuprofen (Motrin) 600 [...] monitored from 10:24 pm to 8:25 am. The patient slept for 391.5 minutes and had normal sleep efficiency of 81.2%. The patient's initial sleep latency was within normal limits at 20.5 minutes. The initial REM latency was prolonged at 134.5 minutes. The sleep architecture was as follows: stage N1: 21.2%; stage N2: 50.2%; stage N3: 7.3%; stage REM:21.3%. Respiratory Analysis, Oximetry Data, and Snoring Profile: During the initial latency period when the hypoglossal nerve stimulation had not yet started, the patient's overall apnea-hypopnea index (AHI) was decreased at 14.5 per hour while the respiratory effort-related arousal index was increased at 41.4 per hour based on a sleep duration of 29 minutes at this level. Hypoglossal nerve stimulation (HNS) device was titrated from a minimum amplitude of 1.5 V to a maximum amplitude of 2 V. HNS therapy at the maximal level of 2 [...] oxygen saturation of 82% during non-REM sleep. The time spent with oxygen saturation less than 90% was 25 minutes of the total therapeutic sleep time. Periodic limb movement index: The patient's periodic limb movement index was within normal limits at 10.5 per hour. EEG Profile: The patient's total arousal index on HNS at an amplitude of 2 V was elevated at 17.8 per hour. Approximately 75% of the arousals was due to respiratory events, 0% was due to leg movements,and 25% wasdue to spontaneous arousals. There was no epileptiform activity during sleep. Cardiac profile: EKG showed normal sinus rhythm. No clinically significant arrhythmia was noted. Parasomnia Profile: [...] to ameliorate residual disordered breathing events. Gregory Mcwilliams MD, [facility], [facility], [facility] Supervisor [employer], [facility] Professor of Internal Medicine Adjunct Lens Cementer of Neurology Division of Pulmonary, Critical Care, and Sleep Medicine [facility] This note was electronically signed on 07/12/2023. CC: Gregory Mcwilliams MD [address] [facility] Of Pulmonary/[place] [address] GANGA Heck SH INSPECTOR documented in this encounter Procedure Notes * Gregory Mcwilliams MD - 07/12/2023 8:41 AM CSTAssociated Order(s): PROC POLYSOMNOGRAPHY,DIAGNOSTIC FULL NIGHT Procedure(s): IN POLYSOM 6/> YRS 4/> FEMI Pre-Procedure Diagnose(s): FELICIA (obstructive sleep apnea) Post-Procedure Diagnose(s): FELICIA (obstructive sleep apnea) [facility] Accredited by the [employer] Medicine [facility], First Floor [address] [place] [address] Telephone : [phone] Medical Records Patient Name: Clay Cabrera : 1960 Date of Study: 07/11/2023 Referring Physician: Gregory Mcwilliams MD Type of Montage: Respiratory Scoring System: [facility] FULL NIGHT THERAPEUTIC POLYSOMNOGRAM INTERPRETATION (07/11/2023) Procedure: The polysomnogram was performed with a cath lab radiological technologist in attendance. Frontal, central, and temporal EEG, EOG, submentalis EMG, oronasal thermistor airflow, nasal pressure transducer airflow, thoracic and abdominal respiratory effort by respiratory inductive plethysmography, anterior tibialis EMG, snore sensor, and pulse oximetry were monitored. Sleep stages, periodic limb movements, and EEG arousals were scored in 30-second epochs according to the AASM Scoring Manual. Apnea-hypopnea index was calculated using the recommended definition of hypopnea for scoring events. Data acquisition, collection, and scoring have been validated and clinically correlated. Sleep History: Mr. Clay Cabrera, a 62 year old male, was referred to the [facility] Disorders [facility] by Gregory Mcwilliams MD for the evaluation of obstructive sleep apnea (FELICIA). Current Outpatient Medications: ??? acetaminophen (Tylenol) 500 [...] Rfl: 0 ??? ergocalciferol (Drisdol) 1.25 MG (50282 UT) capsule, ergocalciferol (vitamin D2) 1,250 mcg [...] ??? gabapentin (Neurontin) 300 MG capsule, Take 2 (two) capsules by mouth at bedtime, Disp: 180 capsule, Rfl: 3 ??? ibuprofen (Motrin) 600 [...] monitored from 10:24 pm to 8:25 am. The patient slept for 391.5 minutes and had normal sleep efficiency of 81.2%. The patient's initial sleep latency was within normal limits at 20.5 minutes. The initial REM latency was prolonged at 134.5 minutes. The sleep architecture was as follows: stage N1: 21.2%; stage N2: 50.2%; stage N3: 7.3%; stage REM:21.3%. Respiratory Analysis, Oximetry Data, and Snoring Profile: During the initial latency period when the hypoglossal nerve stimulation had not yet started, the patient's overall apnea-hypopnea index (AHI) was decreased at 14.5 per hour while the respiratory effort-related arousal index was increased at 41.4 per hour based on a sleep duration of 29 minutes at this level. Hypoglossal nerve stimulation (HNS) device was titrated from a minimum amplitude of 1.5 V to a maximum amplitude of 2 V. HNS therapy at the maximal level of 2 [...] oxygen saturation of 82% during non-REM sleep. The time spent with oxygen saturation less than 90% was 25 minutes of the total therapeutic sleep time. Periodic limb movement index: The patient's periodic limb movement index was within normal limits at 10.5 per hour. EEG Profile: The patient's total arousal index on HNS at an amplitude of 2 V was elevated at 17.8 per hour. Approximately 75% of the arousals was due to respiratory events, 0% was due to leg movements,and 25% wasdue to spontaneous arousals. There was no epileptiform activity during sleep. Cardiac profile: EKG showed normal sinus rhythm. No clinically significant arrhythmia was noted. Parasomnia Profile: [...] to ameliorate residual disordered breathing events. Gregory Mcwilliams MD, [facility], [facility], [facility] Supervisor [employer], [facility] Professor of Internal Medicine Adjunct Lens Cementer of Neurology Division of Pulmonary, Critical Care, and Sleep Medicine [facility] This note was electronically signed on 07/12/2023. CC: Gregory Mcwilliams MD [address] Of Pulmonary/[place] [address] GANGA Heck SH INSPECTOR documented in this encounter Plan of Treatment Not on file documented as of this encounter Procedures Procedure Name Priority Date/Time Associated Diagnosis Comments IN POLYSOM 6/> YRS 4/> FEMI Routine 07/12/2023 8:41 AM FINISH INSPECTOR FELICIA (obstructive sleep apnea) documented in this encounter Results * IN POLYSOM 6/> YRS 4/> FEMI (07/12/2023 8:41 AM FINISH INSPECTOR) Narrative Gregory Mcwilliams MD - 07/12/2023 8:41 AM FINISH INSPECTOR Gregory Mcwilliams MD ? 07/12/2023 ??8:42 AM [facility] Accredited by the [employer] Medicine [facility], First Floor [address] [place] [address] Telephone : [phone] ? Medical Records Patient Name: ??Clay Cabrera : ??1960 Date of Study: ??07/11/2023 Referring Physician: ??Gregory Mcwilliams MD Type of Montage: ??Respiratory Scoring System: ??[facility] FULL NIGHT THERAPEUTIC POLYSOMNOGRAM INTERPRETATION (07/11/2023) Procedure: The polysomnogram was performed with a cath lab radiological technologist in attendance. ??Frontal, central, and temporal [...] capsule, Rfl: 0 ?ergocalciferol (Drisdol) 1.25 MG (43533 UT) capsule, ergocalciferol (vitamin D2) 1,250 mcg [...] disordered breathing events. Gregory Henning. ??MD [place], [facility], [facility], [facility] Supervisor [employer], [facility] Professor of Internal Medicine Adjunct Lens Cementer of Neurology Division of Pulmonary, Critical Care, and Sleep Medicine [facility] This note was electronically signed on 07/12/2023. CC: ??Gregory Mcwilliams MD [address] [facility] [address] Div Of Pulmonary/critical Care [facility], ??[place] [address] GANGA Heck Gregory Mcwilliams MD PROCEDURE/MINOR TORI GICAL ORDERABLES documented in this encounter Visit Diagnoses Diagnosis Restless legs syndrome (RLS)- Primary FELICIA (obstructive sleep apnea) Obstructive sleep apnea (adult) (pediatric) documented in this encounter Care Teams Generation Technologist Relationship Specialty Start Date End Date Tiffany Linda PA [address] [place] [id number] PCP - General 06/14/22 documented as of this encounter
--- OUTSIDE RECORDS SUMMARY | 2024-07-16 11:42 | XMS_ITS | Encounter Summary ---
Author Organization [facility] Health Address [address] [place] [address] Care Team Providers Care Top Flavor Attendant Name Role Phone Tiffany Linda Primary Care Pr ovider Encounter Details Date Type Department Care Team (Latest Contact Info) Description 11/30/2022 Travel Social History Tobacco Use Types Packs/Day [...] on filedocumented in this encounter Care Teams Top Flavor Attendant Relationship Specialty Start Date End Date Tiffany Linda PA [address] [place] [address] PCP - General 06/14/22 documented as of this encounter
--- OUTSIDE RECORDS SUMMARY | 2024-07-16 11:42 | XMS_ITS | Encounter Summary ---
Author Organization [facility] Health Address [address] [place] [address] Care Team Providers Care Classics Professor Name Role Phone Tiffany Linda Primary Care Pr ovider Reason for Visit * Reason Comments Follow-up [employer] Encounter Details Date Type Department Care Team (Latest Contact Info) Description 03/28/2023 10:40 AM CDT Office Visit [facility] - [facility] [address] [place] [address] Gregory Mcwilliams MD [address] [facility] [address] DIV [place] [address] Gastroesophageal reflux disease, unspecified whether esophagitis present (Primary Dx) Social History Tobacco Use Types [...] Sign Reading Time Taken Comments Blood Pressure 113/81 03/28/2023 10:19 AM CDT Pulse 69 03/28/2023 10:19 AM CDT Temperature - - Respiratory Rate - - Oxygen Saturation - - Inhaled Oxygen Concentration - - Weight 82.1 kg (181 lb) 03/28/2023 10:19 AM CDT Height 172.7 cm (5' 8 ) 03/28/2023 10:19 AM CDT Body Mass Index 27.52 03/28/2023 10:19 AM CDT documented in this encounter Patient Instructions * Patient Instructions* Gregory Mcwilliams MD - 03/28/2023 10:[address] [facility], First Floor [address] [place] [address] Telephone : [phone] Medical Records SLEEP DISORDERS CLINIC HYPOGLOSSAL NERVE STIMULATOR ACTIVATION VISIT NOTE Patient Name: Clay Cabrera Date of : 1960 Date of Visit: 03/28/2023 Age: [age] year old Sex: male Time allotted by [employer] to evaluate patient = 40 minutes The patient is a 62 year old male who presents for activation of hypoglossal nerve stimulator. S> Since the last clinic visit in Aug 2022, the patient has had no new health problems. [x] nasal congestion - not more than nornaml [x] nasal drainage - not more than normal [x] clear [] White [] yellow [] green [] broderick [] blood-tinged [x] heartburn - 3x a week [x] controlled with Pepcid 2 capsules 3x a week The patient underwent placement of the hypoglossal nerve stimulator on 02/06/2023. Incision sites: [x] no symptoms [] pain [] redness [] swelling [] drainage Sensory: [] pain [] numbness Motor: tongue movements [x] intact [] abnormal: Patient has downloaded the patient teressa and has already watched the sleep remote training video. Sleep Screening Tools [place] =15 Fatigue =47 Sleep Schedule: Workweek/Weekday: Bedtime 10 pm Initial sleep latency 2 hours Activities while awake in bed: [] worrying about sleep [] worrying about other things; Describe: [] watching TV [] reading [] computer tablet [x] smart phone [] telephone call [] texting [] other: Describe: Number of awakenings 1 Cause/s of awakenings bathroom Nocturia frequency = 1/night Subsequent sleep latency 15 min Wake time 7:30 am Alarm: [x] Yes; alarm time: 7 an and 7:30 am [] No Rise time 7:30 am Nap duration 0 Nap frequency 0 times during the workweek Weekend/Days Off: [] Same as day Bedtime 10 pm Wake time 9 am Rise time 9 am Nap duration 1 hr Nap frequency Sundays Exercise: [] Yes [x] No Current Outpatient [...] capsule, Rfl: 0 ergocalciferol (Drisdol) 1.25 MG (29478 UT) capsule, ergocalciferol (vitamin D2) 1,250 mcg (50,000 unit) capsule TAKE 1 CAPSULE BY MOUTH ONCE A WEEK DIRECTED, Disp: , Rfl: famotidine (Pepcid) 20 MG tablet, Take 1 (one) tablet by mouth once daily as needed for Heartburn, Disp: , Rfl: Fexofenadine-Pseudoephedrine (KATHRYN-D 24 HOUR PO), Take 1 [...] Codeine Itching, Rash and Vomiting Reaction: Rash, Physical Examination There were no vitals taken for this visit. Wt Readings from Last 3 Encounters: 02/14/23 83 kg (183 lb) 02/06/23 84.8 kg (187 lb) 01/16/23 87.1 kg (192 lb) General: The patient is coherent and not in cardiopulmonary distress. Oropharynx: Tongue movements [x] intact [] .abnormal: No neurapraxia noted. Skin: Incision sites Right submandibular area: [x] Healing well [] Other: Right anterior chest: [x] Healing well [] Other: I have reviewed the following laboratory tests, imaging studies, and other ancillary test results available on [facility] as part of my medical decision-making process: Sensory Waveform Analysis (Please see [email or web address] Printout): HNS activation with assistance of [employer] Pipefitter Welder, Ms. Morelia Mendez: Stimulation threshold = 0.7 V Functional threshold = 1 V Waveform analysis with HNS device on (see printout): [x] Good waveform [] Poor waveform ASSESSMENT: Severe obstructive sleep apnea based on the respiratory disturbance index Sleep-related hypoxemia; cannot rule out sleep-related hypoventilation as cause of hypoxemia since capnography was not performed. CPAP intolerance due to nasal congestion, chest tightness, and claustrophobia History of oral appliance therapy not fitting well Restless legs syndrome (RLS) with mildly elevated periodic limb movement index with rare associatedarousals. Chronic insomnia History of depression History of allergic rhinitis History of COVID-19 History of GERD History of chronic low back pain PLAN: Diagnostic: Full-night therapeutic PSG with HNS titration in 3 months 2. HNS Device Settings: Amplitude = 0.7 V Lower Limit = 1 V Upper [...] dairy, eggs, processed foods or refined carbohydrates. Reviewed and educated the patient on proper sleep remote function. Patient demonstrated competency with the remote and is aware of the patient teressa instructional videos and sleep remote quick guide. Patient was instructed to use therapy all night, every night and step up levels by 0.1V once per week until patient feels that sleep quality has improved. I had previously discussed the efficacy and side effects of the following RLS medications: A. Dopamine agonists - may cause augmentation and impulsive behaviors (gambling, shopping) B. Gabapentin - causes sedation Patient deferred treatment at that time Stimulus Control Therapy Sleep Restriction Therapy He takes melatonin gummy 25 mg tablet at bedtime Continue Loratadine 10 mg daily as needed GERD regimen: A. Avoid eating within 2-3 hours of bedtime B. Weight loss C. Raise head of bed > 30 degrees D. Minimize caffeine (coffee, tea, soda, energy drinks, etc.) E. Increase famotidine to 40 mg po daily Patient was advised to receive Influenzaand RSV vaccinations this fall. [facility], First Floor [address] [place] [address] Telephone : [phone] Medical Records Stimulus Control Therapy for Insomnia [...] insomnia. J Clin Psychiatry 1992; 53:37. [facility], First Floor [address] [place] [address] Telephone : [phone] Medical Records Sleep [...] you sleep at night: Sleep ability = ___6____ hours Write down your desired wake time: ___7:30____ am. You should wake up at your desired wake time everyday with the help of an alarm clock or a household member, whether or not you slept well the previous night. If your sleep ability is only ___6__ hours and your desired wake time is _7:30____ am, then you should not go to bed before __1:30 am. Do not take daytime naps. Once [...] may need to fine tune sleep times. Follow-up Appointment: 4-6 weeks Gregory Mcwilliams MD, [facility], [facility], [facility] Vortex Operator, [facility] [place] Professor of Internal Medicine Adjunct Casket Liner of Neurology Division of Pulmonary, Critical Care, and Sleep Medicine [facility] This note was electronically signed on 03/28/2023. documented in this encounter Progress Notes * Gregory Mcwilliams MD - 03/28/2023 10:[address] [facility], First Floor [address] [place] [address] Telephone : [phone] Medical Records SLEEP DISORDERS CLINIC HYPOGLOSSAL NERVE STIMULATOR ACTIVATION VISIT NOTE Patient Name: Clay Cabrera Date of : 1960 Date of Visit: 03/28/2023 Age: [age] year old Sex: male Time allotted by [facility] to evaluate patient = 40 minutes The patient is a 62 year old male who presents for activation of hypoglossal nerve stimulator. S> Since the last clinic visit in Aug 2022, the patient has had no new health problems. [x] nasal congestion - not more than nornaml [x] nasal drainage - not more than normal [x] clear [] White [] yellow [] green [] broderick [] blood-tinged [x] heartburn - 3x a week [x] controlled with Pepcid 2 capsules 3x a week The patient underwent placement of the hypoglossal nerve stimulator on 02/06/2023. Incision sites: [x] no symptoms [] pain [] redness [] swelling [] drainage Sensory: [] pain [] numbness Motor: tongue movements [x] intact [] abnormal: Patient has downloaded the patient teressa and has already watched the sleep remote training video. Sleep Screening Tools [place] =15 Fatigue =47 Sleep Schedule: Workweek/Weekday: Bedtime 10 pm Initial sleep latency 2 hours Activities while awake in bed: [] worrying about sleep [] worrying about other things; Describe: [] watching TV [] reading [] computer tablet [x] smart phone [] telephone call [] texting [] other: Describe: Number of awakenings 1 Cause/s of awakenings bathroom Nocturia frequency = 1/night Subsequent sleep latency 15 min Wake time 7:30 am Alarm: [x] Yes; alarm time: 7 an and 7:30 am [] No Rise time 7:30 am Nap duration 0 Nap frequency 0 times during the workweek Weekend/Days Off: [] Same as weekday Bedtime 10 pm Wake time 9 am Rise time 9 am Nap duration 1 hr Nap frequency Sundays Exercise: [] Yes [x] No Current Outpatient [...] Rfl: 0 ??? ergocalciferol (Drisdol) 1.25 MG (08461 UT) capsule, ergocalciferol (vitamin D2) 1,250 mcg (50,000 unit) capsule TAKE 1 CAPSULE BY MOUTH ONCE A WEEK DIRECTED, Disp: , Rfl: ??? famotidine (Pepcid) 20 MG tablet, Take 1 (one) tablet by mouth once daily as needed for Heartburn, Disp: , Rfl: ??? Fexofenadine-Pseudoephedrine (KATHRYN-D 24 HOUR PO), Take [...] Codeine Itching, Rash and Vomiting Reaction: Rash, Physical Examination There were no vitals taken for this visit. Wt Readings from Last 3 Encounters: 02/14/23 83 kg (183 lb) 02/06/23 84.8 kg (187 lb) 01/16/23 87.1 kg (192 lb) General: The patient is coherent and not in cardiopulmonary distress. Oropharynx: Tongue movements [x] intact [] .abnormal: No neurapraxia noted. Skin: Incision sites Right submandibular area: [x] Healing well [] Other: Right anterior chest: [x] Healing well [] Other: I have reviewed the following laboratory tests, imaging studies, and other ancillary test results available on [facility] as part of my medical decision-making process: Sensory Waveform Analysis (Please see [employer] Printout): HNS activation with assistance of [employer] Pipefitter Welder, Ms. Morelia Mendez: Stimulation threshold = 0.7 V Functional threshold = 1 V Waveform analysis with HNS device on (see printout): [x] Good waveform [] Poor waveform ASSESSMENT: 1. Severe obstructive sleep apnea based on the respiratory disturbance index 2. Sleep-related hypoxemia; cannot rule out sleep-related hypoventilation as cause of hypoxemia since capnography was not performed. 3. CPAP intolerance due to nasal congestion, chest tightness, and claustrophobia 4. History of oral appliance therapy not fitting well 5. Restless legs syndrome (RLS) with mildly elevated periodic limb movement index with rare associated arousals. 6. Chronic insomnia 7. History of depression 8. History of allergic rhinitis 9. History of COVID-19 10. History of GERD 11. History of chronic low back pain ? PLAN: Diagnostic:?? 1. Full-night therapeutic PSG with HNS titration in 3 months 2. HNS Device Settings: Amplitude = 0.7 V Lower Limit = 1 V Upper Limit = 2 V Start Delay = 60 min Pause Time = 15 min Duration = 9 hours Electrode: default Pulse Width: default Rate: Default 3. If GERD symptoms persist despite optimal medical therapy, refer to GI for possible EGD Therapeutic: 1. Weight loss via healthy eating and exercise. Walk up to 30 minutes 3-5 days a week. Eat more fruits, vegetables, beans, nuts, seeds, etc. Avoid or minimize meat, dairy, eggs, processed foods or refined carbohydrates. 2. Reviewed and educated the patient on proper sleep remote function. Patient demonstrated competency with the remote and is aware of the patient teressa instructional videos and sleep remote quick guide. 3. Patient was instructed to use therapy all night, every night and step up levels by 0.1V once per week until patient feels that sleep quality has improved. 4. I had previously discussed the efficacy and side effects of the following RLS medications: A. Dopamine agonists - may cause augmentation and impulsive behaviors (gambling, shopping) B. Gabapentin - causes sedation Patient deferred treatment at that time 5. Stimulus Control Therapy 6. Sleep Restriction Therapy 7. He takes melatonin gummy 25 mg tablet at bedtime 8. Continue Loratadine 10 mg daily as needed 9. GERD regimen: A. Avoid eating within 2-3 hours of bedtime B. Weight loss C. Raise head of bed > 30 degrees D. Minimize caffeine (coffee, tea, soda, energy drinks, etc.) E. Increase famotidine to 40 mg po daily 10. Patient was advised to receive Influenzaand RSV vaccinations this fall. [facility], First Floor [address] [place] [address] Telephone : [phone] Medical Records Stimulus Control Therapy for Insomnia [...] insomnia. J Clin Psychiatry 1992; 53:37. [facility], First Floor [address] [facility] [place] [address] Telephone : [phone] Medical Records Sleep [...] you sleep at night: Sleep ability = ___6____ hours Write down your desired wake time: ___7:30____ am. You should wake up at your desired wake time everyday with the help of an alarm clock or a household member, whether or not you slept well the previous night. If your sleep ability is only ___6__ hours and your desired wake time is _7:30____ am, then you should not go to bed before __1:30 am. Do not take daytime naps. Once [...] may need to fine tune sleep times. Follow-up Appointment: 4-6 weeks Gregory Mcwilliams MD, [facility], [facility], [facility] Vortex Operator, [facility] Professor of Internal Medicine Adjunct Casket Liner of Neurology Division of Pulmonary, Critical Care, and Sleep Medicine [facility] This note was electronically signed on 03/28/2023. documented in this encounter Plan of Treatment Not on file documented as of this encounter Visit Diagnoses Diagnosis Gastroesophageal reflux disease, unspecified whether esophagitis present- Primary documented in this encounter Care Teams Classics Professor Relationship Specialty Start Date End Date Tiffany Linda PA [address] [place] [id number] PCP - General 06/14/22 documented as of this encounter
--- OUTSIDE RECORDS SUMMARY | 2024-07-16 11:42 | XMS_ITS | Encounter Summary ---
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 Primary FELICIA (obstructive sleep apnea) Obstructive sleep apnea (adult) (pediatric) Obstructive sleep apnea Obstructive sleep apnea (adult) (pediatric) documented in this encounter Administered Medications Inactive Administered Medications - up to 3 most recent administrations Medication Order MAR Action Action Date Dose Rate Site fentaNYL (PF) (Sublimaze) injection 25 mcg 25 mcg, Intravenous, EVERY 10 MIN PRN, Mild Pain, 4 doses, Starting on Mon02/06/23 at 1110, Until Mon02/06/23 at 1648, Maximum total of 4 doses. If patient reaches max total dose, please consult anesthesiologist prior to further administration of pain meds. Hold pain meds if there are signs of hypoventilation. Patient preference for lesser PRN pain meds may be honored when the patient requests a less strong medication, a lower dose, or a less intrusive route of administration when the lesser drug, dose and route have been ordered for the patient. This patient request must be documented in the MAR., PACU fentaNYL (PF) (Sublimaze) injection 50 mcg 50 mcg, Intravenous, EVERY 10 MIN PRN, Moderate Pain, 4 doses, Starting on Mon02/06/23 at 1110, Until Mon02/06/23 at 1215, Maximum total of 4 doses. If patient reaches max total dose, please consult anesthesiologist prior to further administration of pain meds. Hold pain meds if there are signs of hypoventilation. Patient preference for lesser PRN pain meds may be honored when the patient requests a less strong medication, a lower dose, or a less intrusive route of administration when the lesser drug, dose and route have been ordered for the patient. This patient request must be documented in the MAR., PACU $ Given 02/06/2023 12:15 PM CDT 50 mcg $ Given 02/06/2023 12:05 PM CDT 50 mcg $ Given 02/06/2023 11:50 AM CDT 50 mcg hydrALAZINE (Apresoline) injection 5 mg 5 mg, Intravenous, POST-OP MULTIPLE, 4 doses, Starting on Mon02/06/23 at 1110, Until Mon02/06/23 at 1648, IV given slowly over 1 minute, up to 20 mg. Repeat 5 mg IV dose every 10-15 minutes for sustained hypertension SBP greater than 180, DBP greater than 100., PACU HYDROmorphone (Dilaudid) injection 0.5 mg 0.5 mg, Intravenous, EVERY 10 MIN PRN, Severe Pain, 4 doses, Starting on Mon02/06/23 at 1110, Until Mon02/06/23 at 1648, Maximum total of 4 doses If patient reaches max total dose, please consult anesthesiologist prior to further administration of pain meds. Hold pain meds if there are signs of hypoventilation. Patient preference for lesser PRN pain meds may be honored when the patient requests a less strong medication, a lower dose, or a less intrusive route of administration when the lesser drug, dose and route have been ordered for the patient. This patient request must be documented in the MAR., PACU labetalol (Normodyne; Trandate) injection 5 mg 5 mg, Intravenous, POST-OP MULTIPLE, 4 doses, Starting on Mon02/06/23 at 1110, Until Mon02/06/23 at 1648, IV given slowly over 1 minute up to 20 mg. Repeat every 10-15 minutes in 5 mg doses. Hold if heart rate is less than 60. Give for hypertension SBP greater than 180, DBP greater than 100., PACU lactated ringers infusion at 20 mL/hr, Intravenous, PRE-OP CONTINUOUS, Starting on Mon02/06/23 at 0700, Until Mon02/06/23 at 1648, Pre-op lidocaine 1% (Xylocaine) - EPINEPHrine 1:100,000 injection PRN, Starting on Mon02/06/23 at 0828, Until Mon02/06/23 at 1118, Intra-op $ Given 02/06/2023 8:28 AM CDT 5 mL Opera tive Site naloxone (Narcan) injection 0.04 mg 0.04 mg, Intravenous, POST-OP MULTIPLE, Starting on Mon02/06/23 at 1110, Until Mon02/06/23 at 1648, If respirations are less than 8 per minute and O2 sat is less than 90%, bag/mask patient and notify anesthesia immediately. If directed to administer naloxone, dilute 0.4mg in 9mL normal saline for dilution of 0.04mg/mL. Administer 1mL over 30 seconds while observing the patient response and titrating to effect. If no response, continue IV naloxone at the same rate up to a total of 0.8 mg of diluted naloxone., PACU ondansetron (Zofran) injection 4 mg 4 mg, Intravenous, ONCE PRN, Nausea/Vomiting, 1 dose, Starting on Mon02/06/23 at 1110, Until Mon02/06/23 at 1648, Second choice, use if first choice was ineffective., PACU prochlorperazine (Compazine) injection 10 mg 10 mg, Intravenous, ONCE PRN, Nausea/Vomiting, 1 dose, Starting on Mon02/06/23 at 1110, Until Mon02/06/23 at 1648, First choice, PACU documented in this encounter Active and Recently Administered Medications Times are shown in CDT. Scheduled Medication Order 02/04/2023 02/05/2023 02/06/2023 famotidine (Pepcid) injection 10 mg 10 mg, Intravenous, Once, 1 dose, On Mon02/06/23 at 0730, Dilute with 0.9% NaCl, D5W solution, or SWI to a volume of 5 to 10 mL and administer over at least 2 minutes. 0730 (Due) hydrALAZINE (Apresoline) injection 5 mg 5 mg, Intravenous, POST-OP MULTIPLE, 4 doses, Starting on Mon02/06/23 at 1110, Until Mon02/06/23 at 1648, IV given slowly over 1 minute, up to 20 mg. Repeat 5 mg IV dose every 10-15 minutes for sustained hypertension SBP greater than 180, DBP greater than 100., PACU labetalol (Normodyne; Trandate) injection 5 mg 5 mg, Intravenous, POST-OP MULTIPLE, 4 doses, Starting on Mon02/06/23 at 1110, Until Mon02/06/23 at 1648, IV given slowly over 1 minute up to 20 mg. Repeat every 10-15 minutes in 5 mg doses. Hold if heart rate is less than 60. Give for hypertension SBP greater than 180, DBP greater than 100., PACU naloxone (Narcan) injection 0.04 mg 0.04 mg, Intravenous, POST-OP MULTIPLE, Starting on Mon02/06/23 at 1110, Until Mon02/06/23 at 1648, If respirations are less than 8 per minute and O2 sat is less than 90%, bag/mask patient and notify anesthesia immediately. If directed to administer naloxone, dilute 0.4mg in 9mL normal saline for dilution of 0.04mg/mL. Administer 1mL over 30 seconds while observing the patient response and titrating to effect. If no response, continue IV naloxone at the same rate up to a total of 0.8 mg of diluted naloxone., PACU oxyCODONE-acetaminophen (Percocet) 5-325 MG tablet 1 tablet 1 tablet, Oral, Once, 1 dose, On Mon02/06/23 at 1400, Patient preference for lesser PRN pain meds may be honored when the patient requests a less strong medication, a lower dose, or a less intrusive route of administration when the lesser drug, dose and route have been ordered for the patient. This patient request must be documented in the MAR. 1400 (Due) Continuous Medication Order 02/04/2023 02/05/2023 02/06/2023 lactated ringers infusion at 20 mL/hr, Intravenous, PRE-OP CONTINUOUS, Starting on Mon02/06/23 at 0700, Until Mon02/06/23 at 1648, Pre-op 0700 (Due) PRN Medication Order 02/04/2023 02/05/2023 02/06/2023 fentaNYL (PF) (Sublimaze) injection 25 mcg 25 mcg, Intravenous, EVERY 10 MIN PRN, Mild Pain, 4 doses, Starting on Mon02/06/23 at 1110, Until Mon02/06/23 at 1648, Maximum total of 4 doses. If patient reaches max total dose, please consult anesthesiologist prior to further administration of pain meds. Hold pain meds if there are signs of hypoventilation. Patient preference for lesser PRN pain meds may be honored when the patient requests a less strong medication, a lower dose, or a less intrusive route of administration when the lesser drug, dose and route have been ordered for the patient. This patient request must be documented in the MAR., PACU fentaNYL (PF) (Sublimaze) injection 50 mcg (COMPLETED) 50 mcg, Intravenous, EVERY 10 MIN PRN, Moderate Pain, 4 doses, Starting on Mon02/06/23 at 1110, Until Mon02/06/23 at 1215, Maximum total of 4 doses. If patient reaches max total dose, please consult anesthesiologist prior to further administration of pain meds. Hold pain meds if there are signs of hypoventilation. Patient preference for lesser PRN pain meds may be honored when the patient requests a less strong medication, a lower dose, or a less intrusive route of administration when the lesser drug, dose and route have been ordered for the patient. This patient request must be documented in the MAR., PACU 1136 ($ Given - Prov ider: Ana Laura Monterroso RN)1150 ($ Given - Provider: Ana Laura Monterroso RN)1205 ($ Given - Provider: Ana Laura Monterroso RN)1215 ($ Given - Provider: Ana Laura Monterroso RN) HYDROmorphone (Dilaudid) injection 0.5 mg 0.5 mg, Intravenous, EVERY 10 MIN PRN, Severe Pain, 4 doses, Starting on Mon02/06/23 at 1110, Until Mon02/06/23 at 1648, Maximum total of 4 doses If patient reaches max total dose, please consult anesthesiologist prior to further administration of pain meds. Hold pain meds if there are signs of hypoventilation. Patient preference for lesser PRN pain meds may be honored when the patient requests a less strong medication, a lower dose, or a less intrusive route of administration when the lesser drug, dose and route have been ordered for the patient. This patient request must be documented in the MAR., PACU lidocaine 1% (Xylocaine) - EPINEPHrine 1:100,000 injection (CANCELED) PRN, Starting on Mon02/06/23 at 0828, Until Mon02/06/23 at 1118, Intra-op 0828 ($ Given - Prov ider: Juan Carlos Lou MD) ondansetron (Zofran) injection 4 mg 4 mg, Intravenous, ONCE PRN, Nausea/Vomiting, 1 dose, Starting on Mon02/06/23 at 1110, Until Mon02/06/23 at 1648, Second choice, use if first choice was ineffective., PACU prochlorperazine (Compazine) injection 10 mg 10 mg, Intravenous, ONCE PRN, Nausea/Vomiting, 1 dose, Starting on Mon02/06/23 at 1110, Until Mon02/06/23 at 1648, First choice, PACU documented in this encounter Care Teams Realtime Captioner Relationship Specialty Start Date End Date Tiffany Linda PA [address] [place] [id number] PCP - General 06/14/22 documented as of this encounter
--- OUTSIDE RECORDS SUMMARY | 2024-07-16 11:42 | XMS_ITS | Encounter Summary ---
Author Organization [facility] Address [address] [place] [address] Care Team Providers Care Anesthesiology Physician Name Role Phone iTffany Linda Primary Care Pr ovider Encounter Details Date Type Department Care Team (Latest Contact Info) Description 01/16/2023 8:00 AM CDT - 01/16/2023 10:02 AM CDT Hospital Encounter [facility] [address] [place] [phone] Juan Carlos Lou MD [address] [place] [address] Discharge Disposition: Home or Self Care Anesthesia Record Procedure Summary Procedure Name Responsible Anesthesiologist Anesthesia Start Time Anesthesia Stop Time RIGHT HYPOGLOSSAL NERVE STIMULATOR IMPLANT (INSPIRE) (Right) Edward Denton MD 02/06/23 0733 02/06/23 1123 Events Date Time Event Comment 02/06/2023 0714 0733 An Start 0733 Pt In Room 0733 An Start Data 0736 PT Reassessment 0739 Induction 0741 An Intubation 0746 Anes Ready 0827 Timeout Anesthesia part icipated in timeout at the time documented in the record by nursing. 0827 Time Out Anesthesia part icipated in timeout at the time documented in the record by nursing 0828 Proc Start 0846 Quick Note Temp probe bein g manipulated by surgeon, giving false reading. Patient is warm to touch in all four extremities. 1104 Proc Stop 1107 An Emergence 1109 Extubation 1111 ANPTO2 1115 an stop data 1115 Pt out of Room 1123 An Stop 1123 Handoff Meds * Agents No agents on file. * Blood No blood administrations on file. Lines, Drains, and Airways Type Details Placement Removal Peripheral IV Orientation: Right; Placed By: MD Corrie 02/06/23 1144 by 02/06/23 1400 by Raiza Rachel RN Peripheral IV Date: 02/06/23; Time : 708; Orientation: Right; Placed By: CIARA Eastman; Tolerance: Well 02/06/23 0709 by Raiza Rachel RN 02/06/23 1510 by Raiza Rachel, CIARA ETT Date: 02/06/23; Time : 740; Placed By: Dontae Young DO; Vent: mask not attempted; Induction: Rapid Sequence; Blade Type: April; Blade Size: 4; Laryngoscopy View: Grade 1 (full cords); Intubation Adjuncts: Stylet, Video Laryngoscope; Tube: Endotracheal Tube; Placement: Oral; Tube Type: Cuffed-inflated; Tube Size(mm): 8 MM; Depth of Insertion: 22 CM; Measured From: gum; Attempts: 1; Cuff Infated: Air; Verified By: Direct visualization, Bilateral breath sounds, Chest Auscultation, CO2 Monitor 02/06/23 0741 by Dontae Young DO 02/06/23 1109 by Dontae Young DO Procedural Site (Incision) 02/06/23; 1057; Right; Chest; exofin, 4x4; 02/06/23; 214702/06/23 1057 by Shelbei Hanh RN 02/06/232147 by Generic, Auto Release Procedural Site (Incision) 02/06/23; 1108; Neck; exofin, 4x4, elastinat; 02/06/23; 214702/06/23 1108 by Shelbie Hahn RN 02/06/232147 by Generic, Auto Release documented in this encounter Social History Tobacco Use Types Packs/Day Years Used Date Smoking Tobacco: Former Cigarettes 0.1 2 1 976 - 1977 Smokeless Tobacco: Never Tobacco Cessation:Counseling Given: Not Answered Alcohol Use Standard Drinks/Week Comments Yes 4 [...] Sign Reading Time Taken Comments Blood Pressure 124/78 01/16/2023 9:40 AM CDT Pulse 75 01/16/2023 9:40 AM CDT Temperature 36.7 ??C (98.1 ??F) 01/16/2023 9:40 AM CD T Respiratory Rate 16 01/16/2023 9:40 AM CDT Oxygen Saturation 98% 01/16/2023 9:40 AM CDT Inhaled Oxygen Concentration - - Weight 87.1 kg (192 lb) 01/16/2023 9:40 AM CDT Height 172.7 cm (5' 8 ) 01/16/2023 9:40 AM CDT Body Mass Index 29.19 01/16/2023 9:40 AM CDT documented in this encounter Medications at Time [...] 30 capsule 02/06/2023 ergocalciferol (Drisdol) 1.25 MG (26367 UT) capsule ergocalciferol (vitamin D2) 1,250 mcg [...] once daily as needed for Heartburn 03/28/2023 loratadine (Claritin) 10 MG tablet Take 1 (one) tablet by mouth once daily 02/06/2023 documented as of this encounter Plan of Treatment Not on file documented as of this encounter Visit Diagnoses Diagnosis Pre-op exam- Primary Preoperative examination, unspecified documented in this encounter Care Teams Anesthesiology Physician Relationship Specialty Start Date End Date Tiffany Linda PA [address] [place] [phone] PCP - General 06/14/22 documented as of this encounter
--- OUTSIDE RECORDS SUMMARY | 2024-07-16 11:42 | XMS_ITS | Clinical Summary ---
Author Organization [facility] [employer] Address [address] [place] [address] Care Team Providers Care Drug Safety Associate Name Role Phone Tiffany Linda Primary Care Pr ovider Source Comments [facility],non-owned Affiliates and Associated Physician Practices is amultiple site organization consisting of ambulatory clinics and hospital sitesin [place], [place], [place] and [place]. This disclosure is being madepursuant to the Care Everywhere program and may not contain all information available regarding this patient. Last updated 18.[facility] [employer] Allergies Active Allergy Reactions Criticality Noted Date Comments Codeine Itching,Rash,Vomiting Medium 06/14/2022 Reaction: Rash, Penicillins Urticaria,Other Medium 06/14/2022 Reaction: Medications * Be aware that medications may not be up to date on this document. Alwaysverify current medications with the patient. Medication Sig Dispensed Refills Start Date End Date Status buPROPion XL 24hr (Wellbutrin-XL) 150 MG tablet bupropion HCl XL 150 mg 24 hr tablet, extended release TAKE 1 TABLET BY MOUTH ONCE DAILY Active simvastatin (Zocor) 40 MG tablet simvastatin 40 mg tablet TAKE 1 TABLET BY MOUTH ONCE DAILY Active finasteride (Proscar) 5 MG tablet finasteride 5 mg tablet TAKE 1 TABLET BY MOUTH ONCE DAILY 04/14/2022 Active tamsulosin (Flomax) 0.4 MG capsule Take 1 (one) capsule by mouth once daily 04/14/2022 Active ergocalciferol (Drisdol) 1.25 MG (48666 UT) capsule ergocalciferol (vitamin D2) 1,250 mcg (50,000 unit) capsule TAKE 1 CAPSULE BY MOUTH ONCE A WEEK DIRECTED Active Fexofenadine-Pseu doephedrine (KATHRYN-D 24 HOUR PO) Take 1 tablet by mouth once daily as needed (ALLERGIES) Active acetaminophen (Tylenol) 500 MG capsule Take 2 (two) capsules by mouth every 6 hours as needed for Fever or Pain 60 capsule 1 02/06/2023 Active ibuprofen (Motrin) 600 MG tablet Take 1 (one) tablet by mouth every 6 hours as needed for Pain 60 tablet 1 02/06/2023 Active oxyCODONE, immediate release, (Roxicodone) 5 MG tabletIndications :S/P insertion of hypoglossal nerve stimulator,FELICIA (obstructive sleep apnea) Take 1 (one) tablet by mouth every 6 hours as needed for Pain 15 tablet 02/06/2023 Active docusate sodium (Colace) 100 MG capsule Take 1 (one) capsule by mouth once daily as needed for Constipation 30 capsule 02/06/2023 Active ondansetron (Zofran) 4 MG tablet Take 1 (one) tablet by mouth every 6 hours as needed for Nausea/Vomiting 9 tablet 02/07/2023 Active famotidine (Pepcid) 40 MG tabletIndications :Gastroesophageal reflux disease, unspecified whether esophagitis present Take 1 (one) tablet by mouth once daily 90 tablet 3 03/28/2023 Active gabapentin (Neurontin) 300 MG capsuleIndication s:RLS (restless legs syndrome) Take 2 (two) capsules by mouth at bedtime 180 capsule 3 07/12/2023 Active Active Problems Problem Noted Date Diagnosed Date Intolerance of continuous po sitive airway pressure (CPAP) ventilation 06/15/2022 Excessive daytime sleepiness 06/15/2022 Chronic insomnia 06/15/2022 Restless legs syndrome (RLS) 06/15/2022 Nocturia more than twice per night 06/15/2022 Inadequate sleep hygiene 06/15/2022 Sleep related bruxism 06/15/2022 Chest pain 06/15/2022 Abdominal pain 06/15/2022 Orthopnea 06/15/2022 Nocturnal cough 06/15/2022 Nasal congestion 06/15/2022 Hearing reduced, bilateral 06/15/2022 Leg cramps 06/15/2022 Lower urinary tract symptoms 02/17/2022 Altered bowel function 08/17/2021 Family history of prostate cancer 08/17/2021 Gastritis 08/17/2021 Blood glucose abnormal 01/29/2019 Chronic obstructive lung disease 01/29/2019 Dysfunction of eustachian tube 01/29/2019 Elevated liver enzymes 01/29/2019 Fatigue 01/29/2019 Gastroesophageal reflux disease 01/29/2019 Hearing loss 01/29/2019 Hyperlipidemia 01/29/2019 Internal hemorrhoids 01/29/2019 Lumbar spondylosis 01/29/2019 FELICIA (obstructive sleep apnea) 01/29/2019 Recurrent major depression 01/29/2019 Testicular hypofunction 01/29/2019 Vitamin D deficiency 01/29/2019 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 (F LUZONE; FLULAVAL; FLUARIX; AFLURIA QUADRIVALENT; 6MO+), 0.5 ML (IIV4) 04/19/2021 Zoster Hzv Vacc Recombinant Inj Im 07/12/2022, Family History Medical History Relation Name Comments Cancer - Other Father Cancer - Pancreatic Father High Cholesterol Father Hypertension Father Cancer - Breast Mother Cancer - Other Mother Diabetes; unknown type Mother Eczema Mother Hearing Loss - Unspecified Mother Thyroid Disease Mother Anxiety Disorder Sister 1 High Cholesterol Sister 1 Sleep Disorder - Sleep apnea Sister 1 Thyroid Disease Sister 1 Thyroid Disease Sister 2 Relation Name Status Comments Father Alive Mother Alive Sister 1 Alive Sister 2 Alive Social History Tobacco Use Types Packs/Day Years Used Date Smoking Tobacco: Former Cigarettes 0.1 2 1 6 - 1977 Smokeless Tobacco: Never Tobacco Cessation:Counseling [...] on file Sexual Orientation Not on file Last Filed Vital Signs Vital Sign Reading Time Taken Comments Blood Pressure 124/90 05/29/2023 10:02 AM HYDRAULIC ENGINEER Pulse 84 05/29/2023 10:02 AM HYDRAULIC ENGINEER Temperature 36.6 ??C (97.8 ??F) 02/06/2023 12:29 PM C DT Respiratory Rate 11 02/06/2023 1:45 PM CDT Oxygen Saturation 95% 02/06/2023 2:48 PM CDT Inhaled Oxygen Concentration - - Weight 84.4 kg (186 lb) 05/29/2023 10:02 AM HYDRAULIC ENGINEER Height 172.7 cm (5' 8 ) 05/29/2023 10:02 AM HYDRAULIC ENGINEER Body Mass Index 28.28 05/29/2023 10:02 AM HYDRAULIC ENGINEER Plan of Treatment Health Maintenance Due Date Last Done Comments COLOGUARD (AGES 45-75) - COL ON CA SCREENING 1961 COLON MONITORING 1961 COLONOSCOPY - COLON CA SCREENING 1961 CT COLONOGRAPHY - COLON CA SCREENING 1961 Colorectal Cancer Screening 1961 FIT - COLON CA SCREENING 1961 FLEX SIG - COLON CA SCREENING 1961 PNEUMOCOCCAL VACCINE (1 of 2 - PCV) 10/05/1967 HIV SCREENING 1976 HEPATITIS C SCREENING 09/30/1979 DTAP/TDAP/TD VACCINES (1 - Tdap) 1980 Respiratory Syncytial Virus (RSV) Vaccine Pt: or over 60 yrs (1 - Risk 60-74 years 1-dose series) 2021 COVID-19 VACCINE (4 - 2023-2 5 season) 2024 04/19/2021, 10/05/2020, 09/13/2020 INFLUENZA VACCINE (#1) 2024 04/19/2021 DEPRESSION SCREENING 07/03/2024 SCREENING FOR DIABETES 01/16/2026 3, 07/07/2022 ZOSTER VACCINE Completed 07/12/2022, 04/20/2022 HEPATITIS B VACCINE Aged Out No longe r eligible based on patient's age to complete this topic HIB VACCINE Aged Out No longer eligi ble based on patient's age to complete this topic HPV VACCINE Aged Out No longer eligi ble based on patient's age to complete this topic MENINGOCOCCAL VACCINE Aged Out No harleen radha eligible based on patient's age to complete this topic Medical Devices Implanted Type Area Carder Blankets Device Identifier Shelf Expiration Date Model / Serial / Lot Lead Nrstm Inspr 3 Eltrd Cuf Tnl Steffen Implanted:Qty: 1 on 02/06/2023 by Juan Carlos Lou MD at [facility] Right: Chest [employer] 10/31/2025 [id number] / / [id number] Lead Ns Resp - [id number] Implanted:Qty: 1 on 02/06/2023 by Juan Carlos Lou MD at [facility] Right: Chest [employer] 12/12/2025 [id number] / [id number] / [facility] - [id number] Implanted:Qty: 1 on 02/06/2023 by Juan Carlos Lou MD at [facility] Right: Chest [employer] 11/16/2025 3028 / [id number] / Procedures Procedure Name Priority Date/Time Associated Diagnosis Comments BASIC METABOLIC PANEL (CALCIUM TOTAL) Routine 01/16/2023 10:10 AM CDT Pre-op exam from Last 3 Months or Most Recently Relevant to Health Maintenance Results * (ABNORMAL) BASIC METABOLIC PANEL (CALCIUM TOTAL) (01/16/2023 10:10 AM CDT) BUN 14 7 - 26 mg/dL 01/16/2023 11:13 AM CDT [facility] Creatinine 1.32(H) 0.71 - 1.16 mg/dL 01/16/2023 11:13 AM CDT [facility] Sodium 137 136 - 145 mmol/L 01/16/2023 11:13 AM [facility] Potassium 3.8 3.5 - 4.5 mmol/L 01/16/2023 11:13 AM [facility] Chloride 105 98 - 107 mmol/L 01/16/2023 11:13 AM [facility] CO2 25 22 - 29 mmol/L 01/16/2023 11:13 AM [facility] Glucose 135(H) 70 - 115 mg/dL 01/16/2023 11:13 AM [facility] Calcium 9.5 8.4 - 10.2 mg/dL 01/16/2023 11:13 AM [facility] Anion Gap 11 8 - 18 01/16/2023 11:13 AM [facility] BUN/Creatinine Ratio 11 7 - 01/16/2023 11:13 AM [facility] Osmolality Calculated 287 270 - 300 mOsm/kg 01/16/2023 11:13 AM [facility] eGFR by CKD-EPI 61(L) >=90 mL/min/1.7 3 m2 01/16/2023 11:13 AM [facility] Blood BLOOD SPECIMEN / Unknown Lab Venipuncture / Unknown 01/16/2023 10:10 AM CDT 01/16/2023 10:31 AM [facility] PRODUCT SPECIALIST-DIRECTOR [facility] - CHEMISTRY ORDERABLES [facility] [address] [place] [address], [facility] [phone] from Last 3 Months or Most Recently Relevant to Health Maintenance Care Teams Drug Safety Associate Relationship Specialty Start Date End Date Tiffany Linda PA [address] [place] [address] PCP - General 06/14/22
--- OUTSIDE RECORDS SUMMARY | 2024-07-16 11:42 | XMS_ITS | Encounter Summary ---
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 Given 02/06/2023 7:29 AM CDT 2 mg ondansetron (Zofran) injection Intravenous, PRN, Starting on Mon02/06/23 at 1045, Until Mon02/06/23 at 1123, Anesthesia Intra-op $ Given 02/06/2023 10:45 AM CDT 4 mg phenylephrine 100 mcg/mL injection Intravenous, PRN, Starting on Mon02/06/23 at 0802, Until Mon02/06/23 at 1123, Anesthesia Intra-op $ Given 02/06/2023 8:13 AM CDT 100 mcg $ Given 02/06/2023 8:02 AM CDT 100 mcg propofol (Diprivan) injection Intravenous, PRN, Starting on Mon02/06/23 at 0802, Until Mon02/06/23 at 1123, Anesthesia Intra-op $ Given 02/06/2023 8:49 AM CDT 40 mg $ Given 02/06/2023 8:02 AM CDT 40 mg $ Given 02/06/2023 7:39 AM CDT 160 mg succinylcholine (Anectine) injection Intravenous, PRN, Starting on Mon02/06/23 at 0740, Until Mon02/06/23 at 1123, Anesthesia Intra-op $ Given 02/06/2023 7:40 AM CDT 100 mg documented in this encounter Care Teams Fireworks Maker Relationship Specialty Start Date End Date Tiffany Linda PA [address] [place] [address] PCP - General 06/14/22 documented as of this encounter
--- OUTSIDE RECORDS SUMMARY | 2024-07-16 11:42 | XMS_ITS | Encounter Summary ---
Author Organization [facility] Health Address [address] [facility] [place] [address] Care Team Providers Care Data Analysis Intern Name Role Phone Tiffany Linda Primary Care Pr ovider Encounter Details Date Type Department Care Team (Latest Contact Info) Description 04/27/2023 Travel Social History Tobacco Use Types Packs/Day [...] on filedocumented in this encounter Care Teams Data Analysis Intern Relationship Specialty Start Date End Date Tiffany Linda PA [address] [place] [address] PCP - General 06/14/22 documented as of this encounter
--- OUTSIDE RECORDS SUMMARY | 2024-07-16 11:42 | XMS_ITS | Encounter Summary ---
Author Organization [facility] Health [facility] [address] [place] [address] Care Team Providers Care Clinical Informatics Educator Name Role Phone Tiffany Linda Primary Care Pr ovider Encounter Details Date Type Department Care Team (Latest Contact Info) Description 01/16/2023 10:03 AM CDT - 01/16/2023 11:59 PM T Hospital Encounter [facility] OP DRAW STATION [address] [place] [address] Juan Carlos Lou MD [address] [place] [address] Discharge Disposition: Home or Self Care Social History Tobacco Use Types Packs/Day Years [...] on file documented as of this encounter Medications at Time of Discharge [...] 30 capsule 02/06/2023 ergocalciferol (Drisdol) 1.25 MG (28553 UT) capsule ergocalciferol (vitamin D2) 1,250 mcg [...] Routine 01/16/2023 10:10 AM CDT Pre-op exam documented in this encounter Results * (ABNORMAL) BASIC METABOLIC PANEL (CALCIUM TOTAL) (01/16/2023 10:10 AM CDT) BUN 14 7 - 26 mg/dL 01/16/2023 11:13 AM [facility] Creatinine 1.32(H) 0.71 - 1.16 mg/dL 01/16/2023 11:13 AM [facility] Sodium 137 136 - 145 mmol/L 01/16/2023 11:13 AM [facility] Potassium 3.8 3.5 - 4.5 mmol/L 01/16/2023 11:13 AM [facility] Chloride 105 98 - 107 mmol/L 01/16/2023 11:13 AM [facility] CO2 25 22 - 29 mmol/L 01/16/2023 11:13 AM [facility] Glucose 135(H) 70 - 115 mg/dL 01/16/2023 11:13 AM [facility] Calcium 9.5 8.4 - 10.2 mg/dL 01/16/2023 11:13 AM [facility] Anion Gap 11 8 - 18 01/16/2023 11:13 AM [facility] BUN/Creatinine Ratio 11 7 - 23 01/16/2023 11:13 AM [facility] Osmolality Calculated 287 270 - 300 mOsm/kg 01/16/2023 11:13 AM [facility] eGFR by CKD-EPI 61(L) >=90 mL/min/1.7 3 m2 01/16/2023 11:13 AM [facility] Blood BLOOD SPECIMEN / Unknown Lab Venipuncture / Unknown 01/16/2023 10:10 AM CDT 01/16/2023 10:31 AM CDT Ava Mcgee SECURITY EXPERT-SYNTHETIC FILAMENT EXTRUDER LAB - CHEMISTRY ORDERABLES [facility] [address] [place] [address], [facility] [phone] documented in this encounter Visit Diagnoses Diagnosis Pre-op exam- Primary Preoperative examination, unspecified documented in this encounter Care Teams Clinical Informatics Educator Relationship Specialty Start Date End Date Tiffany Linda PA [address] [place] [address] PCP - General 06/14/22 documented as of this encounter
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
--- OUTSIDE RECORDS SUMMARY | 2024-07-16 11:42 | XMS_ITS | Encounter Summary ---
Author Organization [facility] Address [address] [place] [address] Care Team Providers Care Dance Professor Name Role Phone Tiffany Linda Primary Care Pr ovider Reason for Visit * Auth/Cert (Routine) Specialty Diagnoses / Procedures Referred By Yoshi lopez Referred To Contact Diagnoses Obstructive sleep apnea OBSTRUCTIVE SLEEP APENA Procedures INSERTION/REPLACEMENT HYPOGLOSSAL NERVE STIMULATOR Referral ID Status Reason Start Date Expiration Date Visits Re quested Visits Authorized [id number] 1 1 Encounter Details Date Type Department Care Team (Latest Contact Info) Description 02/06/2023 6:14 AM CDT - 02/06/2023 3:30 PM CDT Hospital Encounter [facility] OP [address] [place] [address] Juan Carlos Lou MD [address] DEPT [place] [address] Surgery General Discharge Disposition: Home or Self Care Social [...] Sign Reading Time Taken Comments Blood Pressure 125/87 02/06/2023 2:48 PM CDT Pulse 75 02/06/2023 2:48 PM CDT Temperature 36.6 ??C (97.8 ??F) 02/06/2023 12:29 [...] non-clear, foul-smelling drainage) Please call us at: [phone] (business hours) [phone] (after 5pm or weekends) and ask for the ENT resident national investigative producer documented in this encounter Medications at Time [...] 30 capsule 02/06/2023 ergocalciferol (Drisdol) 1.25 MG (57490 UT) capsule ergocalciferol (vitamin D2) 1,250 mcg [...] AM HISTORY OF PRESENT ILLNESS (HPI): Clay Cabrera is a 62 year old [...] Name: Clay Cabrera Patient : 1960 CSN: [id number] Date of Procedure: 02/06/23 Preoperative Diagnosis: Obstructive [...] 180 degrees. Gauze was then used to java flex developer and pullout the tongue. Red electrode was [...] were then injected with 1% lidocaine with [id number] epinephrine. The patient was prepped and sterile [...] OF EXAM: ??02/06/2023 2:21 PM, LOCATION ??[facility] INDICATION: Z96.82: S/P insertion of hypoglossal nerve stimulator ADDITIONAL CLINICAL INFORMATION: Ordering Provider Reason For Exam: ??inspire implant position, r/o pneumothorax (accession [id number]), inspire implant position (accession [id number]) COMPARISON: None. FINDINGS/IMPRESSION: Chest: There is a [...] spine. Report dictated by Radha Vazquez DO (president ceo & founder). IBradley MD have personally reviewed and interpreted this examination/study. > Interpreting Provider: Bradley Petty MD on 02/06/2023 11:26 PM Procedure Note Bradley Petty MD - 02/06/2023 PROCEDURE: XR CHEST 2VW, XR NECK SOFT TISSUE, DATE/TIME OF EXAM:02/06/2023 2:21 PM, LOCATION [facility] INDICATION: Z96.82: S/P insertion of hypoglossal nerve stimulator ADDITIONAL CLINICAL INFORMATION: Ordering Provider Reason For Exam: inspire implant position, r/o pneumothorax (accession [id number]), inspire implant position (accession [id number]) COMPARISON: None. FINDINGS/IMPRESSION: Chest: There is a [...] spine. Report dictated by Radha Vazquez DO (president ceo & founder). Bradley White MD have personally reviewed and [...] OF EXAM: ??02/06/2023 2:21 PM, LOCATION ??[facility] INDICATION: Z96.82: S/P insertion of hypoglossal nerve stimulator ADDITIONAL CLINICAL INFORMATION: Ordering Provider Reason For Exam: ??inspire implant position, r/o pneumothorax (accession [id number]), inspire implant position (accession [id number]) COMPARISON: None. FINDINGS/IMPRESSION: Chest: There is a [...] spine. Report dictated by Radha Vazquez DO (president ceo & founder). Bradley White MD have personally reviewed and interpreted this examination/study. > Interpreting Provider: Bradley Petty MD on 02/06/2023 11:26 PM Procedure Note Bradley Petty MD - 02/06/2023 PROCEDURE: XR CHEST 2VW, XR NECK SOFT TISSUE, DATE/TIME OF EXAM:02/06/2023 2:21 PM, LOCATION [facility] INDICATION: Z96.82: S/P insertion of hypoglossal nerve stimulator ADDITIONAL CLINICAL INFORMATION: Ordering Provider Reason For Exam: inspire implant position, r/o pneumothorax (accession [id number]), inspire implant position (accession [id number]) COMPARISON: None. FINDINGS/IMPRESSION: Chest: There is a [...] spine. Report dictated by Radha Vazquez DO (president ceo & founder). I, Bradley Petty MD have personally reviewed and interpreted this examination/study. > Interpreting Provider: Bradley Petty MD on 02/06/2023 11:26 PM Juan Carlos Lou MD DIAGNOSTIC NADYAIN G ORDERABLES documented in this encounter Visit Diagnoses Diagnosis S/P insertion of hypoglossal nerve stimulator- Primary FELICIA (obstructive sleep apnea) Obstructive sleep apnea (adult) (pediatric) documented in this encounter Administered Medications Inactive Administered Medications - up to 3 most recent administrations Medication Order [facility] Action Action Date Dose Rate Site fentaNYL [...] minute up to 20 mg. Repeat every 10- 15 minutes in 5 mg doses. Hold if heart rate is less than 60. Give for hypertension SBP greater than 180, DBP greater than 100., PACU lactated ringers infusion at 20 mL/hr, Intravenous, PRE-OP CONTINUOUS, Starting on Mon02/06/23 at 0700, Until Mon02/06/23 at 1648, Pre-op naloxone (Narcan) injection 0.04 mg 0.04 mg, [...] patient request must be documented in the AUG. 1400 (Due) Continuous Medication Order 02/04/2023 02/05/2023 [...] PACU documented in this encounter Care Teams Dance Professor Relationship Specialty Start Date End Date Tiffany Linda PA [address] [place] [address] PCP - General 06/14/22 documented as of this encounter
--- OUTSIDE RECORDS SUMMARY | 2024-07-16 11:42 | XMS_ITS | Encounter Summary ---
Author Organization [facility] Health Address [address] [place] [address] Care Team Providers Care Cadet Deck Name Role Phone Tiffany Linda Primary Care Pr ovider Encounter Details Date Type Department Care Team (Late st Contact Info) Description 07/12/2023 9:20 AM SNOW SHOVELER Office Visit [facility] [address] [place] [id number] Gregory Mcwilliams MD [address] [facility] [address] DIV OF PULMONARY/[place] [address] FELICIA (obstructive sleep apnea) (Primary Dx); RLS (restless legs syndrome); Restless legs syndrome (RLS) Social History Tobacco Use Types Packs/Day Years Used Date Smoking Tobacco: Former Cigarettes 0.1 2 1 376 - 1977 Smokeless Tobacco: Never Alcohol Use [...] on file documented as of this encounter Patient Instructions * Patient Instructions* Gregory Mcwilliams MD - 07/12/2023 8:21 AM SNOW SHOVELER Images from the original note were not included. [facility], First Floor [address] [place] [address] Telephone : [phone] Medical Records HYPOGLOSSAL NERVE STIMULATION SETTINGS ADJUSTMENT ORDER Patient Name: Clay Cabrera Date of : 1960 Date of Visit: 07/12/2023 Age: [age] year old Sex: male Diagnosis: [x] Obstructive sleep apnea Order: [x] Adjust HNS Device Settings as follows: Amplitude = 2 V Lower Limit = 1.7 V Upper Limit = 2.7 V Start Delay = 60 min Pause Time = 15 min Duration = 9 hours Electrode: default Pulse Width: default Rate: default Gregory Mcwilliams MD, [facility], [facility], [facility] Research Management Associate, [facility] Professor of Internal Medicine Adjunct Pot Operator of Neurology Division of Pulmonary, Critical Care, and Sleep Medicine [facility] This note was electronically signed on 07/12/2023. [facility] [place] [address] Telephone : [phone] Medical Records Patient's Name: Clay Cabrera Date of : 1960 Date of Visit: 07/12/2023 POST-POLYSOMNOGRAPHY CLINIC VISIT NOTE Time allotted by [facility] for visit = 20 minutes S> The patient is a 62 year old male who follows up for obstructive sleep apnea (FELICIA). Since the patient's last visit in May 2023, the patient has had no new health problems. HNS Subjective Adherence: Frequency: [x] Nightly throughout the night - only missed 3 nights ([place]) [] Most nights (5 or 6 nights a week) [] > 4 hrs/night [] < 4 hrs per night [] Some nights (< 5 nights a week) [] Not using at all Problems with HNS use: [] tongue biting [] arousals [x] other: the implantation feels harder and itchy FELICIA symptoms on HNS therapy: Snoring and sleepiness are non-existent with HNST. His is very happy The patient underwent full-night therapeutic PSG with hypoglossal nerve stimulation titration on 07/11/2023. Problems during the sleep study: none Compared to sleep at home, sleep quality during sleep study was: [] better [x] Worse - a little worse, took longer to fall asleep [] same [] different Noise during the sleep study: [] no [x] yes , describe: a little bit Room temperature: [x] comfortable [] too warm [] too cold He takes gabapentin 300 mg cap, 2 caps at night. He denies any more RLS symptoms on gabapentin. Dream-enactment behavior [x] none [] Yes, description: Past Medical History: Diagnosis Date Abdominal pain 06/15/2022 Altered bowel function 08/17/2021 Arthralgia of wrist 07/16/2012 Arthritis Blood glucose abnormal 01/29/2019 Carpal tunnel syndrome 07/17/2012 Chest pain 06/15/2022 Chronic insomnia 06/15/2022 Chronic obstructive lung disease (CMS-HCC) 01/29/2019 Confusional arousals 06/15/2022 COVID-19 05/2022 Depression Dysfunction of eustachian tube 01/29/2019 Ear pain Elevated liver enzymes 01/29/2019 Excessive daytime sleepiness 06/15/2022 Family history of prostate cancer 08/17/2021 Fatigue 01/29/2019 Gastritis 08/17/2021 Gastroesophageal reflux disease 01/29/2019 GERD (gastroesophageal reflux disease) Hearing loss 01/29/2019 Hearing loss Hearing reduced, bilateral 06/15/2022 High cholesterol Hyperlipidemia 01/29/2019 Inadequate sleep hygiene 06/15/2022 Internal hemorrhoids 01/29/2019 Intolerance of continuous positive airway pressure (CPAP) ventilation 06/15/2022 Leg cramps 06/15/2022 Lower urinary tract symptoms 02/17/2022 Lumbago 09/27/2012 Lumbar radiculopathy 03/14/2016 Lumbar spondylosis 01/29/2019 Nasal congestion 06/15/2022 Nightmares 06/15/2022 Nocturia more than twice per night 06/15/2022 Nocturnal cough 06/15/2022 Orthopnea 06/15/2022 FELICIA (obstructive sleep apnea) 01/29/2019 Pain of hand 07/16/2012 Panic attacks Recurrent major depression (CMS-HCC) 01/29/2019 Restless legs syndrome (RLS) 06/15/2022 Shortness of breath Sleep drunkenness 06/15/2022 Sleep related bruxism 06/15/2022 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 Sleep talking 06/15/2022 Stuffy nose 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 Added automatically from request for surgery [id number] Vitamin D deficiency 01/29/2019 Current Outpatient Medications: acetaminophen (Tylenol) 500 MG [...] capsule, Rfl: 0 ergocalciferol (Drisdol) 1.25 MG (47319 UT) capsule, ergocalciferol (vitamin D2) 1,250 mcg [...] by mouth once daily, Disp: , Rfl: Social History Socioeconomic History Marital status: Spouse name: Not on file Number of children: 3 Years of education: 12 Highest education level: 12th grade Occupational History 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 Employer: [employer] Tobacco Use Smoking status: Former Packs/day: 0.10 Years: 0.50 Additional pack years: 0.00 Total pack years: 0.05 Types: Cigarettes Start date: 1975 Quit date: 1977 Years since quittin.0 Smokeless tobacco: Never Vaping Use Vaping Use: Never used Substance and Sexual Activity Alcohol use: Yes Alcohol/week: 4.0 standard drinks of alcohol Types: 4 Cans of beer per week Comment: weekly 4 beers Drug use: Yes Types: Marijuana Comment: weekly to monthly x2-couple hits Sexual activity: Not Currently Partners: Female Other Topics Concern Not on file Social History Narrative Lives in house 3 kids, 2 grandchildren 4 cats [facility] Social Determinants of Health Financial Resource Strain: Not on file Food Insecurity: Not on file Transportation Needs: Not on file Stress: Not on file Housing Stability: Not on file Immunization History Administered Date(s) Administered Covid [employer] primary monovalent 12+ yr 0.3mL Purple cap 09/13/2020, 10/05/2020, 04/19/2021 FLU VACCINE QUAD IIV4 SPLIT PF IM 04/19/2021 Zoster Hzv Vacc Recombinant Inj Im 04/20/2022, 07/12/2022 O> There were no vitals taken for this visit. Alert, communicates appropriately, no cardiopulmonary distress I have reviewed the following laboratory tests, imaging studies, and other ancillary test results as part of the medical decision-making process. Therapeutic PSG with HNS titration peformed on 07/11/2023 showed: Initial latency period: AHI = 14.5/hr RERAI = 41.4/hr Hypoglossal nerve stimulation therapy at optimal maximal amplitude = 2 mV AHI = 1.5/hr RERAI = 11.9/hr minSpO2 = 82% Time spent with SpO2 < 90% = 6.4% of total therapeutic sleep time PLMI = 10.3/hr (+) slightly increased phasic EMG twitches of the chin and anterior tibial muscles during REM sleep, consistent with REM sleep without atonia, ASSESSMENT: Severe obstructive sleep apnea based on the respiratory disturbance index Sleep-related hypoxemia; cannot rule out sleep-related hypoventilation as cause of hypoxemia since capnography was not performed. CPAP intolerance due to nasal congestion, chest tightness, and claustrophobia History of oral appliance therapy not fitting well Restless legs syndrome (RLS), severe, with mildly elevated periodic limb movement index with rare associated arousals, controlled with gabapentin 600 mg nightly Chronic insomnia, controlled History of depression, controlled History of allergic rhinitis, controlled History of COVID-19 History of GERD History of chronic low back pain PLAN: Diagnostic: 1. HNS Device Settings: Amplitude = 2 V Lower Limit = 1.7 V Upper Limit = 2.7 V Start Delay = 60 min Pause [...] has improved. Gabapentin 300 mg capsule, Take 2 tablets at bedtime Set aside worry time to write worries [...] daily - which he takes as needed * Follow-up in 3 months: Gregory Mcwilliams MD, [facility], [facility], [facility] Research Management Associate, [facility] Professor of Internal Medicine Adjunct Pot Operator of Neurology Division of Pulmonary, Critical Care, and Sleep Medicine [facility] This note was electronically signed on 07/12/2023. SHOVELER documented in this encounter Progress Notes * Gregory Mcwilliams MD - 07/12/2023 9:20 AM CST [facility], First Floor [address] [place] [address] Telephone : [phone] Online Medical Records Patient's Name: Clay Cabrera Date of : 1960 Date of Visit: 07/12/2023 POST-POLYSOMNOGRAPHY CLINIC VISIT NOTE Time allotted by Aaron for visit = 20 minutes S> The patient is a 62 year old male who follows up for obstructive sleep apnea (FELICIA). Since the patient's last visit in May 2023, the patient has had no new health problems. HNS Subjective Adherence: Frequency: [x] Nightly throughout the night - only missed 3 nights ([place] away from house [place]) [] Most nights (5 or 6 nights a week) [] > 4 hrs/night [] < 4 hrs per night [] Some nights (< 5 nights a week) [] Not using at all Problems with HNS use: [] tongue biting [] arousals [x] other: the implantation feels harder and itchy FELICIA symptoms on HNS therapy: Snoring and sleepiness are non-existent with HNST. His is very happy The patient underwent full-night therapeutic PSG with hypoglossal nerve stimulation titration on 07/11/2023. Problems during the sleep study: none Compared to sleep at home, sleep quality during sleep study was: [] better [x] Worse - a little worse, took longer to fall asleep [] same [] different Noise during the sleep study: [] no [x] yes , describe: a little bit Room temperature: [x] comfortable [] too warm [] too cold He takes gabapentin 300 mg cap, 2 caps at night. He denies any more RLS symptoms on gabapentin. Dream-enactment behavior [x] none [] Yes, description: Past Medical History: Diagnosis Date ??? Abdominal pain 06/15/2022 ??? Altered bowel function 08/17/2021 ??? Arthralgia of wrist 07/16/2012 ??? Arthritis ??? Blood glucose abnormal 01/29/2019 ??? Carpal tunnel syndrome 07/17/2012 ??? Chest pain 06/15/2022 ??? Chronic insomnia 06/15/2022 ??? Chronic obstructive lung disease (CMS-HCC) 01/29/2019 ??? Confusional arousals 06/15/2022 ??? COVID-19 [...] ??? Panic attacks ??? Recurrent major depression (CMS-HCC) 01/29/2019 ??? Restless legs syndrome (RLS) 06/15/2022 ??? Shortness of breath ??? Sleep drunkenness 06/15/2022 ??? 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 Sleep talking 06/15/2022 ??? Stuffy nose ??? 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 Vitamin D deficiency 01/29/2019 Current Outpatient Medications: ??? acetaminophen (Tylenol) 500 [...] Rfl: 0 ??? ergocalciferol (Drisdol) 1.25 MG (69133 UT) capsule, ergocalciferol (vitamin D2) 1,250 mcg [...] by mouth once daily, Disp: , Rfl: Social History Socioeconomic History ??? Marital status: Spouse name: Not on file ??? Number of children: 3 ??? Years of education: 12 ??? Highest education level: 12th grade Occupational History ??? 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 Smoking status: Former Packs/day: 0.10 Years: 0.50 Additional pack years: 0.00 Total pack years: 0.05 Types: Cigarettes Start date: 1975 Quit date: 1977 Years since quittin.0 ??? Smokeless tobacco: Never Vaping Use ??? [...] on file Housing Stability: Not on file Immunization History Administered Date(s) Administered ??? Covid Pfizer primary monovalent 12+ yr 0.3mL Purple cap 09/13/2020, 10/05/2020, 04/19/2021 ??? FLU VACCINE QUAD IIV4 SPLIT PF IM 04/19/2021 ??? Zoster Hzv Vacc Recombinant Inj Im 04/20/2022, 07/12/2022 O> There were no vitals taken for this visit. Alert, communicates appropriately, no cardiopulmonary distress I have reviewed the following laboratory tests, imaging studies, and other ancillary test results as part of the medical decision-making process. Therapeutic PSG with HNS titration peformed on 07/11/2023 showed: Initial latency period: AHI = 14.5/hr RERAI = 41.4/hr Hypoglossal nerve stimulation therapy at optimal maximal amplitude = 2 mV AHI = 1.5/hr RERAI = 11.9/hr minSpO2 = 82% Time spent with SpO2 < 90% = 6.4% of total therapeutic sleep time PLMI = 10.3/hr (+) slightly increased phasic EMG twitches of the chin and anterior tibial muscles during REM sleep, consistent with REM sleep without atonia, ASSESSMENT: 1. Severe??obstructive sleep apnea based on the respiratory disturbance index 2. Sleep-related hypoxemia; cannot rule out sleep-related hypoventilation as cause of hypoxemia since capnography was not performed. 3. CPAP intolerance due to nasal congestion, chest tightness, and claustrophobia 4. History of oral appliance therapy not fitting well 5. Restless legs syndrome (RLS), severe,??with mildly elevated periodic limb movement index with?rare??associated arousals, controlled with gabapentin 600 mg nightly 6. Chronic insomnia, controlled 7. History of depression, controlled 8. History of allergic rhinitis, controlled 9. History of COVID-19 10. History of GERD 11. History of chronic low back pain ? PLAN: Diagnostic:?? 1. ?HNS Device Settings: Amplitude =??2 V Lower Limit =??1.7??V Upper Limit =?2.7??V Start Delay =?60??min Pause Time =?15??min Duration [...] sleep quality has improved. 3. Gabapentin 300 mg??capsule,??Take 2 tablets at bedtime 4. Set aside worry time to write [...] drinks, etc.) ?E. ??famotidine??to 40 mg po daily??- which he takes as needed 10. * Follow-up in 3 months: Gregory Mcwilliams MD, [facility], [facility], [facility] Research Management Associate, [facility] Professor of Internal Medicine Adjunct Pot Operator of Neurology Division of Pulmonary, Critical Care, and Sleep Medicine [facility] This note was electronically signed on 07/12/2023. SHOVELER * Gregory Mcwilliams MD - 07/12/2023 8:21 AM CST Images from the original note were not included. [facility], First Floor [address] [place] [address] Telephone : [phone] Medical Records HYPOGLOSSAL NERVE STIMULATION SETTINGS ADJUSTMENT ORDER Patient Name: Clay Cabrera Date of : 1960 Date of Visit: 07/12/2023 Age: [age] year old Sex: male Diagnosis: [x] Obstructive sleep apnea Order: [x] Adjust HNS Device Settings as follows: Amplitude = 2 V Lower Limit = 1.7 V Upper Limit = 2.7 V Start Delay = 60 min Pause Time = 15 min Duration = 9 hours Electrode: default Pulse Width: default Rate: default Gregory Mcwilliams MD, [facility], [facility], [facility] Research Management Associate, [facility] Professor of Internal Medicine Adjunct Pot Operator of Neurology Division of Pulmonary, Critical Care, and Sleep Medicine [facility] This note was electronically signed on 07/12/2023. SHOVELER documented in this encounter Plan of Treatment Not on file documented as of this encounter Visit Diagnoses Diagnosis FELICIA (obstructive sleep apnea)- Primary Obstructive sleep apnea (adult) (pediatric) RLS (restless legs syndrome) Restless legs syndrome (RLS) Restless legs syndrome (RLS) documented in this encounter Care Teams Cadet Deck Relationship Specialty Start Date End Date Tiffany Linda PA [address] [place] [address] PCP - General 06/14/22 documented as of this encounter
--- OUTSIDE RECORDS SUMMARY | 2024-07-16 11:42 | XMS_ITS | Patient Health Summary ---
Author Organization [facility] Address [address] [place] [address] Care Team Providers Care Concrete Finisher Apprentice Name Role Phone Tiffany Linda Primary Care Pr ovider Note from [facility],non-owned Affiliates and Associated Physician Practices is amultiple site organization consisting of ambulatory clinics and hospital sitesin [place], [place], [place] and [place]. This disclosure is being madepursuant to the Care Everywhere program and may not contain all information available regarding this patient. Last updated 18.[facility] Allergies * Codeine(Itching,Rash,Vomiting) -Medium Criticality * Penicillins(Urticaria,Other) -Medium Criticality * Alkylamines(Unknown),Inactive * Oxycodone-Acetaminophen(Vomiting),Inactive * Sulfa Drugs(Unknown),Inactive Medications * Be aware that medications may not be up to date on this document. Alwaysverify current medications with the patient. * buPROPion XL 24hr (Wellbutrin-XL) 150 MG tablet bupropion HCl XL 150 mg 24 hr tablet, extended release TAKE 1 TABLET BY MOUTH ONCE DAILY * simvastatin (Zocor) 40 MG tablet simvastatin 40 mg tablet TAKE 1 TABLET BY MOUTH ONCE DAILY * finasteride (Proscar) 5 MG tablet(Started 04/14/2022) finasteride 5 mg tablet TAKE 1 TABLET BY MOUTH ONCE DAILY * tamsulosin (Flomax) 0.4 MG capsule(Started 04/14/2022) Take 1 (one) capsule by mouth once daily * ergocalciferol (Drisdol) 1.25 MG (60875 UT) capsule ergocalciferol (vitamin D2) 1,250 mcg (50,000 unit) capsule TAKE 1 CAPSULE BY MOUTH ONCE A WEEK DIRECTED * Fexofenadine-Pseudoephedrine (KATHRYN-D 24 HOUR PO) Take 1 tablet by mouth once daily as needed (ALLERGIES) * acetaminophen (Tylenol) 500 MG capsule(Started 02/06/2023) Take 2 (two) capsules by mouth every 6 hours as needed for Fever or Pain 1 refill by 02/06/2024 * ibuprofen (Motrin) 600 MG tablet(Started 02/06/2023) Take 1 (one) tablet by mouth every 6 hours as needed for Pain 1 refill by 02/06/2024 * oxyCODONE, immediate release, (Roxicodone) 5 MG tablet(Started 02/06/2023) Take 1 (one) tablet by mouth every 6 hours as needed for Pain * docusate sodium (Colace) 100 MG capsule(Started 02/06/2023) Take 1 (one) capsule by mouth once daily as needed for Constipation * ondansetron (Zofran) 4 MG tablet(Started 02/07/2023) Take 1 (one) tablet by mouth every 6 hours as needed for Nausea/Vomiting * famotidine (Pepcid) 40 MG tablet(Started 03/28/2023) Take 1 (one) tablet by mouth once daily 3 refills by 03/27/2024 * gabapentin (Neurontin) 300 MG capsule(Started 07/12/2023) Take 2 (two) capsules by mouth at bedtime 3 refills by 07/11/2024 Active Problems Problem Noted Date Diagnosed Date [...] Vitamin D deficiency 01/29/2019 Ureteral mass 10/23/2018 Lumbar radiculopathy 03/14/2016 Lumbago 09/27/2012 Carpal tunnel syndrome 07/17/2012 Arthralgia of wrist 07/16/2012 Pain of hand 07/16/2012 Immunizations * INFLUENZA VACCINE, QUADR. (FLUZONE; FLULAVAL; FLUARIX; AFLURIA QUADRIVALENT; 6MO+), 0.5 ML (IIV4)(Given 04/19/2021) * Zoster Hzv Vacc Recombinant Inj Im(Given 07/12/2022, 04/20/2022) Social History Tobacco Use Types Packs/Day Years [...] Comments Blood Pressure 124/90 05/29/2023 10:02 AM RESEARCH EPIDEMIOLOGIST Pulse 84 05/29/2023 10:02 AM RESEARCH EPIDEMIOLOGIST Temperature 36.6 ??C (97.8 ??F) 02/06/2023 12:29 PM C DT Respiratory Rate 11 02/06/2023 1:45 PM CDT Oxygen Saturation 95% 02/06/2023 2:48 PM CDT Inhaled Oxygen Concentration - - Weight 84.4 kg (186 lb) 05/29/2023 10:02 AM RESEARCH EPIDEMIOLOGIST Height 172.7 cm (5' 8 ) 05/29/2023 10:02 AM RESEARCH EPIDEMIOLOGIST Body Mass Index 28.28 05/29/2023 10:02 AM RESEARCH EPIDEMIOLOGIST Medical Devices Implanted Type Area Taxi Cab Driver Device Identifier Shelf Expiration Date Model / Serial / Lot Lead Nrstm Inspr 3 Eltrd Cuf Tnl Steffen Implanted:Qty: 1 on 02/06/2023 by Juan Carlos Lou MD at [facility] Right: Chest [employer] 10/31/2025 [id number] / / [id number] Lead Ns Resp - [id number] Implanted:Qty: 1 on 02/06/2023 by Juan Carlos Lou MD at [facility] Right: Chest [employer] 12/12/2025 [id number] / [id number] / Gntr Nrs - [id number] Implanted:Qty: 1 on 02/06/2023 by Juan Carlos Lou MD at [facility] Right: Chest [employer] 11/16/2025 [id number] / [id number] / Procedures * IL POLYSOM 6/> YRS 4/> FEMI(Performed 07/12/2023) Performed for FELICIA (obstructive sleep apnea) * XR CHEST 2VW(Performed 02/06/2023) Performed for S/P insertion of hypoglossal nerve stimulator * XR NECK SOFT TISSUE(Performed 02/06/2023) Performed for S/P insertion of hypoglossal nerve stimulator * INSERTION/REPLACEMENT HYPOGLOSSAL NERVE STIMULATOR(Performed 02/06/2023) Performed for Obstructive sleep apnea * ENDOTRACHEAL TUBE NOTE(Performed 02/06/2023) * BASIC METABOLIC PANEL (CALCIUM TOTAL)(Performed 01/16/2023) Performed for Pre-op exam * IL DISE DYN EVAL SLEEP DISORDERED BREATHING FLX DX(Performed 11/23/2022) Performed for Sleep apnea, obstructive * IL LARYNGOSCOPY,FLEX FIBER,DIAGNOSTIC(Performed 10/06/2022) Performed for FELICIA (obstructive sleep apnea) * IL POLYSOM 6/> YRS 4/> FEMI(Performed 08/18/2022) Performed for FELICIA (obstructive sleep apnea), Intolerance of continuous positive airway pressure (CPAP) ventilation, Excessive daytime sleepiness, Chronic fatigue, Chronic insomnia, Restless legs syndrome (RLS), Nocturia more than twice per night, Sleep talking, Nightmares, Confusional arousals, Sleep drunkenness, Sleep related rhythmic movement disorder, Sleep related bruxism, Chest pain, unspecified type, Gastroesophageal reflux disease, unspecified whether esophagitis present, Orthopnea, Nocturnal cough * ECHO COMPLETE(Performed 07/21/2022) Performed for Excessive daytime sleepiness, Chronic fatigue, Chest pain, unspecified type, Orthopnea * COMPLETE PFT W/WO BRONCHODILATOR(Performed 07/21/2022) Performed for FELICIA (obstructive sleep apnea), Excessive daytime sleepiness, Chronic fatigue, Nocturnal cough * HEMOGLOBIN A1C(Performed 07/07/2022) Performed for Excessive daytime sleepiness, Chronic fatigue, Blood glucose abnormal * FOLATE(Performed 07/07/2022) Performed for Excessive daytime sleepiness, Chronic fatigue * VITAMIN D 25-HYDROXY(Performed 07/07/2022) Performed for Excessive daytime sleepiness, Chronic fatigue, Leg cramps * VITAMIN B12(Performed 07/07/2022) Performed for Excessive daytime sleepiness, Chronic fatigue * METHYLMALONIC ACID BLOOD(Performed 07/07/2022) Performed for Excessive daytime sleepiness, Chronic fatigue * IRON + TIBC + FERRITIN(Performed 07/07/2022) Performed for Excessive daytime sleepiness, Chronic fatigue, Restless legs syndrome (RLS), Sleep related rhythmic movement disorder Results * IL POLYSOM 6/> YRS 4/> FEMI (07/12/2023 8:41 AM RESEARCH EPIDEMIOLOGIST) Gregory Sandoval MD - 07/12/2023 8:41 AM Gregory Ingram MD ? 07/12/2023 ??8:42 AM [facility] Accredited by the [place] Academy of Sleep Medicine [facility], First Floor [address] [place] [address] Telephone : [phone] ? Medical Records Patient Name: ?Patrick Cabrera : ??1960 Date of Study: ??07/11/2023 Referring Physician: ??Gregory Mcwilliams MD Type of Montage: ??Respiratory Scoring System: ??[facility] FULL NIGHT THERAPEUTIC POLYSOMNOGRAM INTERPRETATION (07/11/2023) Procedure: The polysomnogram was performed with a communications technologist in attendance. ??Frontal, central, and temporal [...] capsule, Rfl: 0 ?ergocalciferol (Drisdol) 1.25 MG (03661 UT) capsule, ergocalciferol (vitamin D2) 1,250 mcg [...] breathing events. Gregory Henning. ??MD Poppy, [facility], [facility], [facility] Cider Maker, [facility] Professor of Internal Medicine Adjunct Public Health Registrar of Neurology Division of Pulmonary, Critical Care, and Sleep Medicine [facility] This note was electronically signed on 07/12/2023. CC: ??Gregory Mcwilliams MD [address] Div Of Pulmonary/critical Care [facility], ??[place] [address] GANGA Heck Gregory Mcwilliams MD PROCEDURE/MINOR TORI GICAL ORDERABLES * XR CHEST 2VW (02/06/2023 2:20 PM CDT) Anatomical Region Laterality Modality Chest Radiographic Ynes ging 02/06/2023 3:23 PM CDT Narrative 02/06/2023 11:26 PM CDT PROCEDURE: ??XR CHEST 2VW, XR NECK SOFT TISSUE, DATE/TIME OF EXAM: ??02/06/2023 2:21 PM, LOCATION ??[facility] INDICATION: Z96.82: S/P insertion of hypoglossal nerve stimulator ADDITIONAL CLINICAL INFORMATION: Ordering Provider Reason For Exam: ??inspire implant position, r/o pneumothorax (accession [id number]), inspire implant position (accession [id number]) COMPARISON: None. FINDINGS/IMPRESSION: Chest: There is a [...] spine. Report dictated by Radha Vazquez DO (radiology technician). I, Bradley Petty MD have personally reviewed and interpreted this examination/study. > Interpreting Provider: Bradley Petty MD on 02/06/2023 11:26 PM Procedure Note Bradley Petty MD - 02/06/2023 PROCEDURE: XR CHEST 2VW, XR NECK SOFT TISSUE, DATE/TIME OF EXAM:02/06/2023 2:21 PM, LOCATION [facility] INDICATION: Z96.82: S/P insertion of hypoglossal nerve stimulator ADDITIONAL CLINICAL INFORMATION: Ordering Provider Reason For Exam: inspire implant position, r/o pneumothorax (accession [id number]), inspire implant position (accession [id number]) COMPARISON: None. FINDINGS/IMPRESSION: Chest: There is a [...] spine. Report dictated by Radha Vazquez DO (radiology technician). Bradley White MD have personally reviewed and [...] OF EXAM: ??02/06/2023 2:21 PM, LOCATION ??[facility] INDICATION: Z96.82: S/P insertion of hypoglossal nerve stimulator ADDITIONAL CLINICAL INFORMATION: Ordering Provider Reason For Exam: ??inspire implant position, r/o pneumothorax (accession [id number]), inspire implant position (accession [id number]) COMPARISON: None. FINDINGS/IMPRESSION: Chest: There is a [...] spine. Report dictated by Radha Vazquez DO (radiology technician). Bradley White MD have personally reviewed and interpreted this examination/study. > Interpreting Provider: Bradley Petty MD on 02/06/2023 11:26 PM Procedure Note Bradley Petty MD - 02/06/2023 PROCEDURE: XR CHEST 2VW, XR NECK SOFT TISSUE, DATE/TIME OF EXAM:02/06/2023 2:21 PM, LOCATION [facility] INDICATION: Z96.82: S/P insertion of hypoglossal nerve stimulator ADDITIONAL CLINICAL INFORMATION: Ordering Provider Reason For Exam: inspire implant position, r/o pneumothorax (accession [id number]), inspire implant position (accession [id number]) COMPARISON: None. FINDINGS/IMPRESSION: Chest: There is a [...] spine. Report dictated by Radha Vazquez DO (radiology technician). I, Bradley Petty MD have personally reviewed and interpreted this examination/study. > Interpreting Provider: Bradley Petty MD on 02/06/2023 11:26 PM Juan Carlos Lou MD DIAGNOSTIC IMAGIN G ORDERABLES * ETT LINE PERFORMABLE (02/06/2023 8:08 AM CDT) Narrative Dontae Young DO - 02/06/2023 8:08 AM CDT Dontae Young DO ? 02/06/2023 ??8:10 AM Endotracheal Tube Placement: ? Patient Location: OR. Intubation Event Date/Time: ??02/06/2023 7:41 AM Procedure: intubation (28425). Procedure Section: ?? Sedation: under general anesthesia. [...] Edward Denton MD GENERAL ANESTHESIA O RDERABLES * (ABNORMAL) BASIC METABOLIC PANEL (CALCIUM TOTAL) (01/16/2023 10:10 AM [facility]) BUN 14 7 - 26 mg/dL 01/16/2023 11:13 AM [facility] Creatinine 1.32(H) 0.71 - 1.16 mg/dL 01/16/2023 11:13 AM [facility] Sodium 137 136 - 145 mmol/L 01/16/2023 11:13 AM [facility] Potassium 3.8 3.5 - 4.5 mmol/L 01/16/2023 11:13 AM [facility] Chloride 105 98 - 107 mmol/L 01/16/2023 11:13 AM [facility] CO2 25 22 - 29 mmol/L 01/16/2023 11:13 AM [facility] Glucose 135(H) 70 - 115 mg/dL 01/16/2023 11:13 AM [facility] Calcium 9.5 8.4 - 10.2 mg/dL 01/16/2023 11:13 AM [facility] Anion Gap 11 8 - 18 01/16/2023 11:13 AM [facility] BUN/Creatinine Ratio 11 7 - 23 01/16/2023 11:13 AM [facility] Osmolality Calculated 287 270 - 300 mOsm/kg 01/16/2023 11:13 AM [facility] eGFR by CKD-EPI 61(L) >=90 mL/min/1.7 3 m2 01/16/2023 11:13 AM CDT [facility] Blood BLOOD SPECIMEN / Unknown Lab Venipuncture / Unknown 01/16/2023 10:10 AM CDT 01/16/2023 10:31 AM CDT Ava Mcgee CONSUMER SALES REPRESENTATIVE-COAL MILL OPERATOR LAB - CHEMISTRY ORDERABLES [facility] [address] [place] [address], [facility] [phone] * IL LARYNGOSCOPY,FLEX FIBER,DIAGNOSTIC (10/06/2022 1:59 PM CDT) Narrative Krishna Temple MD - 10/06/2022 1:59 PM CDT Krishna Temple MD ? 10/06/2022 ??5:27 PM Procedure Note Anesthesia: Lidocaine 2% and Suraj-Synephrine 1/2% Endoscopy Type: ??Flexible Gryhk-Rrcfjolspzyobl-Cwwoxxatggji Procedure Details: Informed consent was obtained. ??The patient was placed in the sitting position. ??After topical anesthesia and decongestion, the 4 mm laryngoscope was passed. ??The nasal cavities, nasopharynx, oropharynx, hypopharynx, and larynx were all examined. ??Vocal cords were examined during respiration and phonation. ??Pt was additionally examined in the supine position, with particular attention paid to end-expiratory anatomy. The following findings were noted: ?? -Moderate to severe AP narrowing worse when supine -Excellent response to jaw thrust at the level of the soft palate The patient tolerated procedure well. Complications: None Juan Carlos Lou MD PROCEDURE/MINOR S URGICAL ORDERABLES * IL POLYSOM 6/> YRS 4/> FEMI (08/18/2022 11:46 AM RESEARCH EPIDEMIOLOGIST) Narrative Gregory Mcwilliams MD - 08/18/2022 11:46 AM RESEARCH EPIDEMIOLOGIST Gregory Mcwilliams MD ? 08/18/2022 11:47 AM [facility] Accredited by the [place] Academy of Sleep Medicine [facility], First Floor [address] [place] [address] Telephone : [phone] ? Medical Records Patient Name: ?Patrick Cabrera : ??1960 Date of Study: ??08/17/2022 Referring Physician: ??GANGA Heck Type of Montage: ??Respiratory Scoring System: ??[facility] FULL NIGHT DIAGNOSTIC POLYSOMNOGRAM INTERPRETATION (08/17/2022) Procedure: The polysomnogram was performed with a communications technologist in attendance. ??Central, occipital, and temporal EEG, EOG, submentalis, EMG, nasal thermistor, nasal pressure, thoracoabdominal motion, anterior tibialis EMG, snore sensor, and pulse oximetry were monitored. ??Sleep stages, periodic limb movements, and EEG arousals were scored in 30-second epochs according to the AASM Scoring Manual. ??Apnea-hypopnea index was calculated using the recommended definition of hypopnea for scoring events. ??Data acquisition, collection, and scoring have been validated and clinically correlated. Sleep History: Mr. Clya Cabrera, a 61 year old male, was referred to the Sleep Disorders Clinic by GANGA Heck for the evaluation of suspected obstructive sleep apnea (FELICIA). Current Outpatient Medications: ?buPROPion XL 24hr (Wellbutrin-XL) 150 MG tablet, bupropion HCl XL 150 mg 24 hr tablet, extended release ??TAKE 1 TABLET BY MOUTH ONCE DAILY, Disp: , Rfl: ?ergocalciferol (Drisdol) 1.25 MG (11501 UT) capsule, ergocalciferol (vitamin D2) 1,250 mcg (50,000 unit) capsule ??TAKE 1 CAPSULE BY MOUTH ONCE A WEEK DIRECTED, Disp: , Rfl: ?finasteride (Proscar) 5 MG tablet, finasteride 5 mg tablet ?? TAKE 1 TABLET BY MOUTH ONCE DAILY, Disp: , Rfl: ?loratadine (Claritin) 10 MG tablet, TAKE 1 TABLET BY MOUTH ONCE DAILY NEEDED FOR CONGESTION NEEDED, Disp: , Rfl: ?simvastatin (Zocor) 40 MG tablet, simvastatin 40 mg tablet ?? TAKE 1 TABLET BY MOUTH ONCE DAILY, Disp: , Rfl: ?tamsulosin (Flomax) 0.4 MG capsule, tamsulosin 0.4 mg capsule ?? TAKE 1 CAPSULE BY MOUTH ONCE DAILY, Disp: , Rfl: DIAGNOSTIC STUDY Sleep Architecture: During this diagnostic study, the patient was monitored from 9:40 pm to 6:06 am. The patient slept for 310 minutes and had decreased sleep efficiency of 61.2%. ??The patient's initial sleep latency was reduced at 6.5 minutes. ??The initial REM latency was slightly reduced at 65 minutes. The patient was switched to therapeutic polysomnography with CPAP titration starting at 4 cmH2O via nasal Wisp mask at Epoch 605. ?? However the patient became distressed after a couple of minutes and was struggling breathing through his nose due to nasal congestion. ??He refused to try a full face mask. ??The therapeutic CPAP trial was aborted at Epoch 654. The sleep architecture was as follows: ??stage N1: ??27.1%; stage N2: ??57.1%; stage N3: ??1.5%; stage REM: ??14.4%. Respiratory Analysis: The patient's overall apnea-hypopnea index (AHI) was increased at 16.8 per hour while the respiratory effort-related arousal index was increased at 13.5 per hour. The overall respiratory disturbance index (RDI) was 30.3 per hour. The supine AHI was 58.3 per hour and the supine RERA index was 12.8 per hour. ??The lateral AHI was 11.3 per hour and the lateral RERA index was 16.2 per hour. The REM AHI was 20.2 per hour while the REM RERA index was 12.1 per hour. ??There were 17 obstructive apneas, 5 central apneas, 1 mixed apneas, 64 hypopneas, and 70 respiratory effort-related arousals (RERA). ??There was no evidence of periodic breathing. ?? Oximetry Data: The minimum oxygen saturation was decreased at 86% during REM sleep and decreased at 84% during non-REM sleep. ??The time spent with oxygen saturation less than 90% was 32 minutes of the total diagnostic sleep time. Snoring Profile: Mild, intermittent snoring was detected during this study. Periodic Limb Movements: The patient's periodic limb movement index was elevated at 15.5 per hour. ??Approximately 17% of the leg movements was associated with arousals. EEG Profile: The patient's total arousal index was elevated at 33.6 per hour. ?? Approximately 90% of the arousals was due to respiratory events, 8% was due to leg movements, and 2% was due to spontaneous arousals. ?? There was no epileptiform activity during sleep. Cardiac Profile: EKG showed normal sinus rhythm. ??No clinically significant arrhythmia was noted. Parasomnias: No parasomnia was noted during this diagnostic study. IMPRESSION: 1. ??Severe obstructive sleep apnea based on the respiratory disturbance index 2. ??Sleep-related hypoxemia; cannot rule out sleep-related hypoventilation as cause of hypoxemia since capnography was not performed. 3. ??Unable to tolerate therapeutic CPAP trial due to distress, nasal congestion, and breathing struggle 4. ??Mildly elevated periodic limb movement index with ??some associated arousals. RECOMMENDATIONS: 1. Suggest trial of non-positive airway pressure therapies for FELICIA (eg, oral appliance, hypoglossal nerve stimulation therapy, etc.) 2. Evaluate for causes of sleep-related hypoxemia disorder (e.g., hypoventilation, ventilation-perfusion mismatch, deadspace, shunt, diffusion abnormality, etc.). 3. ??Evaluate for causes of elevated periodic limb movement index, i.e., restless legs syndrome, iron deficiency, chronic kidney disease, etc. Gregory Burt ??MD Poppy, MSP, FCCP, [facility] Cider Maker, [facility] Professor of Internal Medicine Adjunct Public Health Registrar of Neurology Division of Pulmonary, Critical Care, and Sleep Medicine [facility] [place] This note was electronically signed on 08/18/2022. CC: ??BRYAN Taylor [address] [facility], ??[place] [address] GANGA Heck Aditi ADAMS PROCEDUR E/MINOR SURGICAL ORDERABLES * ECHO COMPLETE (07/21/2022 9:11 AM RESEARCH EPIDEMIOLOGIST) Anatomical Region Laterality Modality Chest Echo 07/21/2022 8:48 AM RESEARCH EPIDEMIOLOGIST Narrative Procedure Note Ara Xie MD - 07/21/2022 Aditi A Dettenmeier APNP-COAL MILL OPERATOR ECHOCARD IOGRAPHY RADIANT * COMPLETE PFT W/WO BRONCHODILATOR (07/21/2022 8:42 AM RESEARCH EPIDEMIOLOGIST) Impressions João Mantilla MD - 07/21/2022 8:42 AM RESEARCH EPIDEMIOLOGIST [facility] DEPARTMENT OF PULMONARY, CRITICAL CARE, AND SLEEP MEDICINE PULMONARY FUNCTION TEST Please see technologist's comments mentioned in the report. INTERPRETATION: SPIROMETRY: ? FVC: Normal ? FEV1: Normal ? FEV1/FVC ratio is Normal BRONCHODILATOR RESPONSE: There is no significant response to bronchodilator therapy FLOW-VOLUME LOOPS: Normal flow-volume loops LUNG VOLUMES: Lung volumes by body plethysmography are normal DLCO: Unadjusted for Hb and COHb is normal DLCO: Corrected for Hb and COHb is: not performed AIRWAY RESISTANCE: The airway resistance is normal and the specific conductance is normal IMPRESSION: Normal pulmonary function test Normal diffusion by DLCO No significant bronchodilator response, however this does not preclude the use of bronchodilators There is no previous study available for comparison Celio Lerma MD Pulmonary & Critical Care Fellow, PGY5 Division of Pulmonary, Critical Care and Sleep Medicine [facility] I have personally reviewed and agree with the fellow's interpretation. João Mantilla MD Narrative João Mantilla MD - 07/21/2022 8:42 AM RESEARCH EPIDEMIOLOGIST Celio Lerma MD ? 07/22/2022 10:29 AM Aditi A Dettenmeier APNP-COAL MILL OPERATOR RESPIRAT ORY THERAPY ORDERABLES * IRON + TIBC + FERRITIN (07/07/2022 12:42 PM RESEARCH EPIDEMIOLOGIST) TIBC 347 250 - 450 ug/dL [facility] INSURANCE BILL UIBC 194 111 - 343 ug/dL [facility] INSURANCE BILL Iron 153 38 - 169 ug/dL [facility] INSURANCE BILL Iron Saturation 44 15 - 55 % [facility] INSURANCE BILL Ferritin 214 30 - 400 ng/mL [facility] Comment:FASTING Blood BLOOD SPECIMEN / Unknown 07/07/2022 12:42 PM RESEARCH EPIDEMIOLOGIST 07/07/2022 Narrative Resulting Agency Comment Lab Testing performed at: [place] [id number] [facility] ??[facility] [id number] Aditi [facility] - [facility] EMISTRY ORDERABLES Performing Organization Address [facility] de Phone Number [facility] INSURANCE BILL [address] [place] [address] * METHYLMALONIC ACID BLOOD (07/07/2022 12:42 PM RESEARCH EPIDEMIOLOGIST) Pathologist [facility] Methylmalonic Acid 153 0 - 378 nmol/L [facility] INSURANCE BILL Comment:FASTING Blood BLOOD SPECIMEN / Unknown 07/07/2022 12:42 PM RESEARCH EPIDEMIOLOGIST 07/07/2022 Narrative [facility] INSURANCE BILL - 07/12/2022 4:10 PM RESEARCH EPIDEMIOLOGIST Test(s) 621279-Gvcznlkajjijg Acid, Serum was developed and its performance characteristics determined by [facility]. It has not been cleared or approved by the Food and Drug Administration. Resulting Agency Comment Lab Testing performed at: [address] ??[facility] [id number] [facility] - CH EMISTRY ORDERABLES Performing Organization Address [facility] de Phone Number [facility] INSURANCE BILL [address] [place] [address] * HEMOGLOBIN A1C (07/07/2022 12:42 PM RESEARCH EPIDEMIOLOGIST) Hemoglobin A1c 5.5 4.8 - 5.6 % [facility] Comment: ? . ? Prediabetes: 5.7 - 6.4 ? Diabetes: >6.4 ? Glycemic control for adults with diabetes: <7.0 FASTING Blood BLOOD SPECIMEN / Unknown 07/07/2022 12:42 PM RESEARCH EPIDEMIOLOGIST 07/07/2022 Narrative Resulting Agency Comment Lab Testing performed at: [facility] [address] ??[facility] [id number] Aditi A Jadaohier APNP-COAL MILL OPERATOR LAB - CH EMISTRY ORDERABLES Performing Organization Address [facility]/ZIP Co de Phone Number [facility] INSURANCE BILL [address] [place] [address] * VITAMIN D 25-HYDROXY (07/07/2022 12:42 PM RESEARCH EPIDEMIOLOGIST) [facility] Vitamin D, 25 Hydroxy 65.2 30.0 - 100.0 ng/mL [facility] INSURANCE BILL Comment: Vitamin D deficiency has been defined by the [place] of Medicine and an Endocrine Society practice guideline as a level of serum 25-OH vitamin D less than 20 ng/mL (1,2). The Endocrine Society went on to further define vitamin D insufficiency as a level between 21 and 29 ng/mL (2). 1. IOM ([place] of Medicine). 2010. Dietary reference ?? intakes for calcium and D. [place]: The ?? National AcademShopRunner Press. 2. Merlin MF, Koki NC, Shay GARNER, et al. ?? Evaluation, treatment, and prevention of vitamin D ?? deficiency: an Endocrine Society clinical practice ?? guideline. JCEM. 2010; 96(7):1911-30. FASTING Blood BLOOD SPECIMEN / Unknown 07/07/2022 12:42 PM RESEARCH EPIDEMIOLOGIST 07/07/2022 Narrative Resulting Agency Comment Lab [facility] performed at: [facility] [address] ??[facility] [phone] Aditi A [facility] APNP-COAL MILL OPERATOR LAB - CH EMISTRY ORDERABLES Performing Organization Address City/[facility]/ZIP Co de Phone Number [facility] INSURANCE BILL [address] [place] [address] * FOLATE (07/07/2022 12:42 PM RESEARCH EPIDEMIOLOGIST) Folate 8.1 >3.0 ng/mL [facility] INSURANCE BILL Comment: A serum folate concentration of less than 3.1 ng/mL is considered to represent clinical deficiency. FASTING Blood BLOOD SPECIMEN / Unknown 07/07/2022 12:42 PM RESEARCH EPIDEMIOLOGIST 07/07/2022 Narrative Resulting Agency Comment Lab Testing performed at: [address] ??[facility] [phone] Aditi A Dettenmeier APNP-COAL MILL OPERATOR LAB - [place] EMISTRY ORDERABLES [facility] INS[facility] [address] [place] [address] * VITAMIN B12 (07/07/2022 12:42 PM RESEARCH EPIDEMIOLOGIST) Vitamin B12 342 232 - 1,245 pg/mL [facility] INSURANCE BILL Comment:FASTING Blood BLOOD SPECIMEN / Unknown 07/07/2022 12:42 PM RESEARCH EPIDEMIOLOGIST 07/07/2022 Narrative Resulting Agency Comment Lab Testing performed at: [address] ??[facility] [phone] Aditi A Dettenmeier APNP-COAL MILL OPERATOR LAB - CH EMISTRY ORDERABLES [facility] INSUR[facility] BILL [address] [place] [address] Care Teams Concrete Finisher Apprentice Relationship Specialty Start Date End Date Tiffany Linda PA [address] [place] [address] PCP - General 06/14/22
--- OUTSIDE RECORDS SUMMARY | 2024-07-16 11:42 | XMS_ITS | Referral Summary ---
Author Organization [facility] Address [address] [place] [address] Care Team Providers Care Marketing Assistant Retail Division Name Role Phone Tiffany Linda Primary Care Pr ovider Source Comments [facility],non-owned Affiliates and Associated Physician Practices is amultiple site organization consisting of ambulatory clinics and hospital sitesin [place], [place], [place] and [place]. This disclosure is being madepursuant to the Care Everywhere program and may not contain all information available regarding this patient. Last updated 18.[facility] Allergies Active Allergy Reactions Criticality Noted Date [...] daily 04/14/2022 Active ergocalciferol (Drisdol) 1.25 MG (49803 UT) capsule ergocalciferol (vitamin D2) 1,250 mcg [...] (06/14/2022): Added automatically from request for surgery [id number] Lumbar radiculopathy 03/14/2016 Lumbago 09/27/2012 Carpal tunnel syndrome 07/17/2012 Arthralgia of wrist 07/16/2012 Pain of hand 07/16/2012 Immunizations Name Administration Dates Next Due INFLUENZA VACCINE, QUADR. (F LUZONE; FLULAVAL; FLUARIX; AFLURIA QUADRIVALENT; 6MO+), 0.5 ML (IIV4) 04/19/2021 Zoster Hzv Vacc Recombinant Inj Im 07/12/2022, Social History Tobacco Use Types Packs/Day Years [...] Comments Blood Pressure 124/90 05/29/2023 10:02 AM MANUAL ARTS TEACHER Pulse 84 05/29/2023 10:02 AM MANUAL ARTS TEACHER Temperature 36.6 ??C (97.8 ??F) 02/06/2023 12:29 PM C DT Respiratory Rate 11 02/06/2023 1:45 PM CDT Oxygen Saturation 95% 02/06/2023 2:48 PM CDT Inhaled Oxygen Concentration - - Weight 84.4 kg (186 lb) 05/29/2023 10:02 AM MANUAL ARTS TEACHER Height 172.7 cm (5' 8 ) 05/29/2023 10:02 AM MANUAL ARTS TEACHER Body Mass Index 28.28 05/29/2023 10:02 AM MANUAL ARTS TEACHER Plan of Treatment Not on file Medical Devices Implanted Type Area Tugboat Operator Device Identifier Shelf Expiration Date Model / Serial / Lot Lead Nrstm Inspr 3 Eltrd Cuf Tnl Steffen Implanted:Qty: 1 on 02/06/2023 by Juan Carlos Lou MD at [facility] Right: Chest [employer] 10/31/2025 [id number] / / [id number] Lead Ns Resp - [id number] Implanted:Qty: 1 on 02/06/2023 by Juan Carlos Lou MD at [facility] Right: Chest [employer] 12/12/2025 [id number] / [id number] / [facility] - [id number] Implanted:Qty: 1 on 02/06/2023 by Juan Carlos Lou MD at [facility] Right: Chest [employer] 11/16/2025 [id number] / [id number] / Procedures Procedure Name Priority Date/Time Associated Diagnosis Comments BASIC METABOLIC PANEL (CALCIUM TOTAL) Routine 01/16/2023 10:10 AM CDT Pre-op exam from Last 3 Months or Most Recently Relevant to Health Maintenance Results * (ABNORMAL) BASIC METABOLIC PANEL (CALCIUM TOTAL) (01/16/2023 10:10 AM CDT) BUN 14 7 - 26 mg/dL 01/16/2023 11:13 AM [facility] Creatinine 1.32(H) 0.71 - 1.16 mg/dL 01/16/2023 11:13 AM [facility] Sodium 137 136 - 145 mmol/L 01/16/2023 11:13 AM [facility] Potassium 3.8 3.5 - 4.5 mmol/L 01/16/2023 11:13 AM [facility] Chloride 105 98 - 107 mmol/L 01/16/2023 11:13 AM [facility] CO2 25 22 - 29 mmol/L 01/16/2023 11:13 AM [facility] Glucose 135(H) 70 - 115 mg/dL 01/16/2023 11:13 AM [facility] Calcium 9.5 8.4 - 10.2 mg/dL 01/16/2023 11:13 AM [facility] Anion Gap 11 8 - 18 01/16/2023 11:13 AM [facility] BUN/Creatinine Ratio 11 7 - 23 01/16/2023 11:13 AM [facility] Osmolality Calculated 287 270 - 300 mOsm/kg 01/16/2023 11:13 AM [facility] eGFR by CKD-EPI 61(L) >=90 mL/min/1.7 3 m2 01/16/2023 11:13 AM [facility] Blood BLOOD SPECIMEN / Unknown Lab Venipuncture / Unknown 01/16/2023 10:10 AM T 01/16/2023 10:31 AM [facility] Ava Mcgee PHYSICIAN'S AIDE-REGISTER IN CHANCERY LAB - CHEMISTRY ORDERABLES [facility] [address] [place] [address], [facility] [phone] from Last 3 Months or Most Recently Relevant to Health Maintenance Care Teams Marketing Assistant Retail Division Relationship Specialty Start Date End Date Tiffany Linda PA [address] [place] [address] PCP - General 06/14/22
--- OUTSIDE RECORDS SUMMARY | 2024-07-16 11:43 | XMS_ITS | Encounter Summary ---
Author Organization [facility] Address [address] [place] [address] Care Team Providers Care Space Studies Faculty Member Name Role Phone Tiffany Linda Primary Care Pr ovider Reason for Visit * Reason Comments Surgical Followup 1pos dise bonifacio Encounter Details Date Type Department Care Team (Late st Contact Info) Description 11/29/2022 8:30 AM CDT Office Visit [facility] [facility], [place] [id number] Juan Carlos Lou MD [address] [place] [address] [place] [address] FELICIA (obstructive sleep apnea) (Primary Dx) Social [...] suspected to have Coronavirus/COVID-19? No / Unsure 11/23/2022 11:02 AM CDT documented as of this encounter Last Filed Vital Signs Vital Sign Reading Time Taken Comments Blood Pressure 121/85 11/29/2022 8:22 AM CDT Pulse 73 11/29/2022 8:22 AM CDT Temperature - - Respiratory Rate - - Oxygen Saturation - - Inhaled Oxygen Concentration - - Weight 86.8 kg (191 lb 6.4 oz) 11/29/2022 8:22 A M CDT Height 172.7 cm (5' 8 ) 11/29/2022 8:22 AM CDT Body Mass Index 29.1 11/29/2022 8:22 AM CDT documented in this encounter Patient Instructions * Patient Instructions* Tasha Cerda MA - 11/29/2022 7:58 AM CDT Thank you for visiting [facility] Otolaryngology - Head & Neck Surgery. We appreciate your confidence in allowing us to participate in your health care. You may receive a survey about your visit with us today. Making our patients happy isn???t just happy talk; it???s ourmission. Please tell us if we made the right impression on you- and how we can serve you better. Please SAVE the information below, it will assist you when it???s time for you to contact us. To MAKE - CHANGE - CANCEL an office appointment If you become ill, need to be seen before your next scheduled appointment, or need to cancel or reschedule an appointment, please call our office at [phone] Monday through Monday from 8:00 am to4:30 pm. You can also request a routine appointment through your [facility] account. Prescription Refills Contact your pharmacy to request all refills. The pharmacy will need to fax the request to us at . Please allow a minimum of 48-72 hours for your prescription to be completed. Medical Emergency / After Hours Contact Information If you have a medical emergency, please call 911 or go to the nearest emergency room. For urgent medical calls, which cannot wait until the office opens, please call the medical exchange at and ask the artificial leather calender operator to page the ENT physician corrections officer. *Caller ID blocking service will need to be turned off for your call to be returned. We also specialize in Hearing Aids, Allergy testing, swallowing disorders, voice problems, cancer diagnosis, and so much more. Visit our website at [email or web address] for information about our practice and an interactive health encyclopedia. documented in this encounter Progress Notes * Juan Carlos Lou MD - 11/29/2022 8:26 AM CDT Chief Complaint Patient presents with ??? Surgical Followup 1pos dise bonifacio History of Present Illness HPI 10/06/2022: Clay [...] turbinate reduction +/- septal swell body reduction. Past History Allergies Allergen Reactions ??? Penicillins Urticaria and Other Reaction: ??? Sulfa Drugs Unknown ??? Codeine Itching, Rash and Vomiting Reaction: Rash, ??? Oxycodone-Acetaminophen Vomiting Current Outpatient Medications Medication Sig Dispense Refill ??? buPROPion XL 24hr (Wellbutrin-XL) 150 MG tablet bupropion HCl XL 150 mg 24 hr tablet, extended release TAKE 1 TABLET BY MOUTH ONCE DAILY ??? ergocalciferol (Drisdol) 1.25 MG (40578 UT) capsule ergocalciferol (vitamin D2) 1,250 mcg (50,000 unit) capsule TAKE 1 CAPSULE BY MOUTH ONCE A WEEK DIRECTED ??? finasteride (Proscar) 5 MG tablet finasteride 5 mg tablet TAKE 1 TABLET BY MOUTH ONCE DAILY ??? promethazine (Phenergan) 6.25 MG/5ML solution Take 5 mL by mouth every 6 hours as needed for Nausea/Vomiting (Patient not taking: Reported on 11/23/2022) ??? simvastatin (Zocor) 40 MG tablet simvastatin 40 mg tablet TAKE 1 TABLET BY MOUTH ONCE DAILY ??? tamsulosin (Flomax) 0.4 MG capsule tamsulosin 0.4 mg capsule TAKE 1 CAPSULE BY MOUTH ONCE DAILY No current facility-administered medications for this visit. [...] 08/17/2021 ??? Gastroesophageal reflux disease 01/29/2019 ??? Hearing loss 01/29/2019 ??? Hearing loss [...] 12th grade Occupational History ??? 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 Smoking status: Former Packs/day: 0.10 Years: 2.00 Pack years: 0.20 Types: Cigarettes Start date: 1975 Quit date: 1977 Years since quittin.4 ??? Smokeless tobacco: Never Vaping Use ??? Vaping status: Never Used Substance and Sexual Activity ??? 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 Review of Systems A 12 system review was performed and was negative except for: Hearing loss Physical Examination Ht 1.727 m (5' 8 ) Body mass index is 27.89 kg/m??. Constitutional: Alert, No acute Distress; Well developed/well nourished Neuro:cranial nerves III-XII grossly intact CV/Pulm: Normal respirations and peripheral pulses. Eyes: [...] supple, no lymphadenopathy, no masses, no palpable thryoid Voice: strong MusculoSkeletal: moves all extremities well [...] scope 10/06/22, with DISE showing multilevel obstruction Plan 1. Continue good sleep hygiene, including ongoing efforts towards weight loss, regular exercise, avoiding alcohol and caffeine near bed times, keeping as regular a sleep schedule as possible, etc. 2. The risks, alternatives, and benefits of the proposed treatments were discussed.?Options including oral appliance retrial, traditional surgeries (expansion pharyngoplasty versus Inspire placement, +/- hyoid suspension. Patient could also benefit from bilateral inferior turbinate reduction +/-septal swell body reduction.), vs DISE/Inspire were reviewed in detail.?All questions were answered. ??The family made an informed decision to proceed. ??( I just think the Inspire makes the most sense to me. ??Still does. ) ??Plan Right hypoglossal nerve stimulator implant (Inspire) on electivebasis as OP. Juan Carlos Lou MD 11/29/2022 8:27 AM documented in this encounter Plan of Treatment Not on file documented as of this encounter Visit Diagnoses Diagnosis FELICIA (obstructive sleep apnea)- Primary Obstructive sleep apnea (adult) (pediatric) documented in this encounter Care Teams Space Studies Faculty Member Relationship Specialty Start Date End Date Tiffany Linda PA [address] [place] [address] PCP - General 06/14/22 documented as of this encounter
--- OUTSIDE RECORDS SUMMARY | 2024-07-16 11:43 | XMS_ITS | Encounter Summary ---
Author Organization [facility] Address [address] [place] [address] Care Team Providers Care See Supervisor Name Role Phone Tiffany Linda Primary Care Pr ovider Encounter Details Date Type Department Care Team (Late st Contact Info) Description 06/14/2022 Orders Only [facility] [address] [place] [address] Aditi Rizvi, APNP-PE ELECTRICAL ENGINEER [address] OF PULMONARY/[place] [address] Excessive daytime sleepiness; Chronic fatigue; Restless legs syndrome (RLS); Sleep related rhythmic movement disorder; Leg cramps; FELICIA (obstructive sleep apnea); Intolerance of continuous positive airway pressure (CPAP) ventilation; Chronic insomnia; Nocturia more than twice per night; Sleep talking; Nightmares; Confusional arousals; Sleep drunkenness; Sleep related bruxism; Chest pain, unspecified type; Gastroesophageal reflux disease, unspecified whether esophagitis present; Orthopnea; Nocturnal cough; Blood glucose abnormal Social History Tobacco Use Types Packs/Day Years Used Date Smoking Tobacco: Former Cigarettes 0.1 2 1 1977 Smokeless Tobacco: Never Alcohol Use Standard Drinks/Week Comments Yes 4 (1 standard drink = 0.6 oz pur e alcohol) weekly 4 beer Education Answer Date Recorded What is the [...] Procedure Name Priority Date/Time Associated Diagnosis Comments ECHO COMPLETE Routine 07/21/2022 9:11 AM SPEECH THERAPIST Excessive daytime sleepiness Chronic fatigue Chest pain, unspecified type Orthopnea IRON + TIBC + FERRITIN Routine 12:42 PM SPEECH THERAPIST Excessive daytime sleepiness Chronic fatigue Restless legs syndrome (RLS) Sleep related rhythmic movement disorder METHYLMALONIC ACID BLOOD Routine 07/07/2022 12:42 PM SPEECH THERAPIST Excessive daytime sleepiness Chronic fatigue HEMOGLOBIN A1C Routine 07/07/2022 12:42 PM SPEECH THERAPIST Excessive daytime sleepiness Chronic fatigue Blood glucose abnormal VITAMIN D 25-HYDROXY Routine 07/07/2022 12:42 PM SPEECH THERAPIST Excessive daytime sleepiness Chronic fatigue Leg cramps FOLATE Routine 07/07/2022 12:42 PM SPEECH THERAPIST Excessive daytime sleepiness Chronic fatigue VITAMIN B12 Routine 07/07/2022 12:42 PM SPEECH THERAPIST Excessive daytime sleepiness Chronic fatigue documented in this encounter Results * UT POLYSOM 6/> YRS 4/> FEMI (08/18/2022 11:46 AM SPEECH THERAPIST) Narrative Gregory Mcwilliams MD - 08/18/2022 11:46 AM SPEECH THERAPIST Gregory Mcwilliams MD ? 08/18/2022 11:47 AM [facility] Accredited by the [place] [employer] [facility], First Floor [address] [place] [address] Telephone : [phone] ? Medical Records Patient Name: ??Clay Cabrera : ??1960 Date of Study: ??08/17/2022 Referring Physician: ??GANGA Heck Type of Montage: ??Respiratory Scoring System: ??[facility] FULL NIGHT DIAGNOSTIC POLYSOMNOGRAM INTERPRETATION (08/17/2022) Procedure: The polysomnogram was performed with a lead neurodiagnostic technologist in attendance. ??Central, occipital, and temporal [...] correlated. Sleep History: Mr. Clay Cabrera, a 61 year old male, was referred to the [facility] by GANGA Heck for the evaluation of suspected obstructive sleep apnea (FELICIA). Current Outpatient Medications: ?buPROPion XL 24hr (Wellbutrin-XL) 150 MG tablet, bupropion HCl XL 150 mg 24 hr tablet, extended release ??TAKE 1 TABLET BY MOUTH ONCE DAILY, Disp: , Rfl: ?ergocalciferol (Drisdol) 1.25 MG (54960 UT) capsule, ergocalciferol (vitamin D2) 1,250 mcg [...] iron deficiency, chronic kidney disease, etc. Gregory Henning. ??MD Poppy, [facility], [facility], [facility] Research Lab Assistant, [facility] Professor of Internal Medicine Adjunct Utilization Management Um Nurse of Neurology Division of Pulmonary, Critical Care, and Sleep Medicine [facility] This note was electronically signed on 08/18/2022. CC: ??Aditilavell Rizvi, APNP-PE ELECTRICAL ENGINEER [address] [facility], ??[place] [address] GANGA Heck Aditi A Dettenmeier APNP-PE ELECTRICAL ENGINEER PROCEDUR E/MINOR SURGICAL ORDERABLES * ECHO COMPLETE (07/21/2022 9:11 AM SPEECH THERAPIST) Anatomical Region Laterality Modality Chest Echo 07/21/2022 8:48 AM SPEECH THERAPIST Narrative Procedure Note Ara Xie MD - 07/21/2022 Aditi A Namtenmeier APNP-PE ELECTRICAL ENGINEER ECHOCARD IOGRAPHY RADIANT * HEMOGLOBIN A1C (07/07/2022 12:42 PM SPEECH THERAPIST) [facility] Hemoglobin A1c 5.5 4.8 - 5.6 % [facility] Comment: ? . ? Prediabetes: 5.7 - 6.4 ? Diabetes: >6.4 ? Glycemic control for adults with diabetes: <7.0 FASTING Blood BLOOD SPECIMEN / Unknown 07/07/2022 12:42 PM SPEECH THERAPIST 07/07/2022 Narrative Resulting Agency Comment Lab Testing performed at: [facility] [address] [facility] ??[facility] [id number] Aditi Rizvi [facility] LAB - CH EMISTRY ORDERABLES Performing Organization Address [facility] de Phone Number [facility] INSURANCE BILL [address] [place] [address] * FOLATE (07/07/2022 12:42 PM SPEECH THERAPIST) [facility] Folate 8.1 >3.0 ng/mL [facility] INSURANCE BILL Comment: A serum folate concentration of less than 3.1 ng/mL is considered to represent clinical deficiency. FASTING Blood BLOOD SPECIMEN / Unknown 07/07/2022 12:42 PM SPEECH THERAPIST 07/07/2022 Narrative Resulting Agency Comment Lab [facility] performed at: [facility] [address] ??[facility] [id number] Aditi Rizvi [facility] LAB - CH EMISTRY ORDERABLES Performing Organization Address [facility] de Phone Number [facility] INSURANCE BILL [address] [place] [address] * VITAMIN D 25-HYDROXY (07/07/2022 12:42 PM SPEECH THERAPIST) [facility] Vitamin D, 25 Hydroxy 65.2 30.0 - 100.0 ng/mL [facility] INSURANCE BILL Comment: Vitamin D deficiency has been defined by the [place] of Medicine and an Endocrine Society practice guideline as a level of serum 25-OH vitamin D less than 20 ng/mL (1,2). The Endocrine Society went on to further define vitamin D insufficiency as a level between 21 and 29 ng/mL (2). 1. IOM ([place] of [employer]). 2010. Dietary reference ?? intakes for calcium and D. [place]: The ?? National [employer]. 2. Merlin MF, Koki MILNER, Shay GARNER, et al. ?? Evaluation, treatment, and prevention of vitamin D ?? deficiency: an Endocrine Society clinical practice ?? guideline. JCEM. 2010; 96(7):1911-30. FASTING Blood BLOOD SPECIMEN / Unknown 07/07/2022 12:42 PM SPEECH THERAPIST 07/07/2022 Narrative Resulting Agency Comment Lab Testing performed at: [facility] [address] ??[facility] [id number] Aditi A Dettenmeier APNP-PE ELECTRICAL ENGINEER LAB - CH EMISTRY ORDERABLES Performing Organization Address City/[facility]/ZIP Co de Phone Number [facility] INSURANCE BILL [address] [place] [address] * VITAMIN B12 (07/07/2022 12:42 PM SPEECH THERAPIST) Vitamin B12 342 232 - 1,245 pg/mL [facility] INSURANCE BILL Comment:FASTING Blood BLOOD SPECIMEN / Unknown 07/07/2022 12:42 PM SPEECH THERAPIST 07/07/2022 Narrative Resulting Agency Comment Lab Testing performed at: [place] [address] ??[facility] [id number] Aditi A Dettenmeier APNP-PE ELECTRICAL ENGINEER LAB - CH EMISTRY ORDERABLES [facility] INSURANCE BILL [address] [place] [address] * METHYLMALONIC ACID BLOOD (07/07/2022 12:42 PM SPEECH THERAPIST) Methylmalonic Acid 153 0 - 378 nmol/L [facility] INSURANCE BILL Comment:FASTING Blood BLOOD SPECIMEN / Unknown 07/07/2022 12:42 PM SPEECH THERAPIST 07/07/2022 Narrative [facility] INS[facility] - 07/12/2022 4:10 PM SPEECH THERAPIST Test(s) 120388-Ryrtmsxesbppl Acid, Serum was developed and its performance characteristics determined by [facility]. It has not been cleared or approved by the Food and Drug Administration. Resulting Agency Comment Lab Testing performed at: [facility] ??[facility] [id number] Aditi Rizvi APNP-PE ELECTRICAL ENGINEER LAB - CH EMISTRY ORDERABLES Performing Organization Address City/[facility] Co de Phone Number [facility] INSURANCE BILL [address] [place] [address] * IRON + TIBC + FERRITIN (07/07/2022 12:42 PM SPEECH THERAPIST) TIBC 347 250 - 450 ug/dL [facility] INSURANCE BILL UIBC 194 111 - 343 ug/dL [facility] INSURANCE BILL Iron 153 38 - 169 ug/dL [facility] INSURANCE BILL Iron Saturation 44 15 - 55 % [facility] INSURANCE BILL Ferritin 214 30 - 400 ng/mL [facility] INSURANCE BILL Comment:FASTING Blood BLOOD SPECIMEN / Unknown 07/07/2022 12:42 PM SPEECH THERAPIST 07/07/2022 Narrative Resulting Agency Comment Lab Testing performed at: [facility] ??[facility] [id number] Aditi Rizvi APNP-PE ELECTRICAL ENGINEER LAB - CH EMISTRY ORDERABLES Performing Organization Address City/[facility] Co de Phone Number [facility] INSURANCE BILL [address] [place] [address] documented in this encounter Visit Diagnoses Diagnosis Excessive daytime sleepiness Chronic fatigue Other malaise and fatigue Restless legs syndrome (RLS) Sleep related rhythmic movement disorder Other organic sleep related movement disorders Leg cramps Cramp of limb FELICIA (obstructive sleep apnea) Obstructive sleep apnea (adult) (pediatric) Intolerance of continuous positive airway pressure (CPAP) ventilation Chronic insomnia Insomnia, unspecified Nocturia more than twice per night Sleep talking Other specific disorder of sleep of nonorganic origin Nightmares Other dysfunctions of sleep stages or arousal from sleep Confusional arousals Sleep drunkenness Other dysfunctions of sleep stages or arousal from sleep Sleep related bruxism Chest pain, unspecified type Gastroesophageal reflux disease, unspecified whether esophagitis present Orthopnea Nocturnal cough Cough Blood glucose abnormal Other abnormal glucose documented in this encounter Care Teams See Supervisor Relationship Specialty Start Date End Date Tiffany Linda PA [address] [place] [address] PCP - General 06/14/22 documented as of this encounter
--- OUTSIDE RECORDS SUMMARY | 2024-07-16 11:43 | XMS_ITS | Encounter Summary ---
Author Organization [facility] Address [address] [facility] [place] [address] Care Team Providers Care Miner Assistant Name Role Phone Tiffany Linda Primary Care Pr ovider Encounter Details Date Type Department Care Team (Latest Contact Info) Description 07/21/2022 Travel Social History Tobacco Use Types Packs/Day [...] on filedocumented in this encounter Care Teams Miner Assistant Relationship Specialty Start Date End Date Tiffany Linda PA [address] [place] [id number] PCP - General 06/14/22 documented as of this encounter
--- OUTSIDE RECORDS SUMMARY | 2024-07-16 11:43 | XMS_ITS | Encounter Summary ---
Author Organization [facility] Address [address] [place] [address] Care Team Providers Care Software Configuration Specialist Name Role Phone Tiffany Linda Primary Care Pr ovider Reason for Visit * Procedure (Routine) - Closed Specialty Diagnoses / Procedures Referred By Yoshi lopez Referred To Contact Sleep Center Diagnoses FELICIA (obstructive sleep apnea) Intolerance of continuous positive airway pressure (CPAP) ventilation Excessive daytime sleepiness Chronic fatigue Chronic insomnia Restless legs syndrome (RLS) Nocturia more than twice per night Sleep talking Nightmares Confusional arousals Sleep drunkenness 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 Chest pain, unspecified type Gastroesophageal reflux disease, unspecified whether esophagitis present Orthopnea Nocturnal cough Procedures PROC POLYSOMNOGRAPHY, SPLIT NIGHT Adtii Rizvi, RENU-MACHINE SHOP HELPER [address] [place] [address] Aff u [facility] [address] [place] [address] Referral ID Status Reason Start Date Expiration Date Visits Re quested Visits Authorized [id number] Closed 06/14/2022 06/14/2023 1 1 Encounter Details Date Type Department Care Team (Latest Contact Info) Description 08/17/2022 8:00 PM CLAY DRY PRESS OPERATOR Procedure visit [facility] [address] [place] [id number] FELICIA (obstructive sleep apnea) ; Sleep related hypoxia; Restless legs syndrome (RLS) Social History Tobacco [...] Progress Notes * Gregory Mcwilliams MD - 08/18/2022 11:34 AM CST [facility] Accredited by the [employer] [facility], First Floor [address] [place] [address]. [place] [address] Telephone : [phone] Medical Records Patient Name: Clay Cabrera : 1960 Date of Study: 08/17/2022 Referring Physician: GANGA Heck Type of Montage: Respiratory Scoring System: [facility] FULL NIGHT DIAGNOSTIC POLYSOMNOGRAM INTERPRETATION (08/17/2022) Procedure: The polysomnogram was performed with a microbiology technologist in attendance. Central, occipital, and temporal EEG, EOG, submentalis, EMG, [...] to the [facility] by GANGA Meza for the evaluation of suspected obstructive sleep apnea (FELICIA). Current Outpatient Medications: ??? buPROPion XL 24hr (Wellbutrin-XL) 150 MG tablet, bupropion HCl XL 150 mg 24 hr tablet, extendedrelease TAKE 1 TABLET BY MOUTH ONCE DAILY, Disp: , Rfl: ??? ergocalciferol (Drisdol) 1.25 MG (82131 UT) capsule, ergocalciferol (vitamin D2) 1,250 mcg (50,000 unit) capsule TAKE 1 CAPSULE BY MOUTH ONCE A WEEK DIRECTED, Disp: , Rfl: ??? finasteride (Proscar) 5 MG tablet, finasteride 5 mg tablet TAKE 1 TABLET BY MOUTH ONCE DAILY, Disp: , Rfl: ??? loratadine (Claritin) 10 MG tablet, TAKE 1 TABLET BY MOUTH ONCE DAILY NEEDED FOR CONGESTION NEEDED, Disp: , Rfl: ??? simvastatin (Zocor) 40 MG tablet, simvastatin 40 mg tablet TAKE 1 TABLET BY MOUTH ONCE DAILY, Disp: , Rfl: ??? tamsulosin (Flomax) 0.4 MG capsule, tamsulosin 0.4 mg capsule TAKE 1 CAPSULE BY MOUTH ONCE DAILY, Disp: , Rfl: DIAGNOSTIC STUDY Sleep Architecture: During this diagnostic study, the patient was monitored from 9:40 pm to 6:06 am. The patient slept for 310 minutes and had decreased sleep efficiency of 61.2%. The patient's initial sleep latency wasreduced at 6.5 minutes. The initial REM latency was slightly reduced at 65 minutes. The patient was switched to therapeutic polysomnography with CPAP titration starting at 4 cmH2O vianasal Wisp mask at Epoch 605. However the patient became distressed after a couple of minutes and was struggling breathing through his nose due to nasal congestion. He refused to try a full face mask. The therapeutic CPAP trial was aborted at Epoch 654. The sleep architecture was as follows: stage N1: 27.1%; stage N2: 57.1%; stage N3: 1.5%; stage REM:14.4%. Respiratory Analysis: The patient's overall apnea-hypopnea index (AHI) was increased at 16.8 per hour while the respiratory effort-related arousal index was increased at 13.5 per hour. The overall respiratory disturbance index (RDI) was 30.3 per hour. The supine AHI was 58.3 per hour and the supine RERA index was 12.8 per hour. The lateral AHI was 11.3 per hour and the lateral RERA index was 16.2 per hour. The REM AHIwas 20.2 per hour while the REM RERA index was 12.1 per hour. There were 17 obstructive apneas, 5 central apneas, 1 mixed apneas, 64 hypopneas, and 70 respiratory effort-related arousals (RERA). There was no evidence of periodic breathing. Oximetry Data: The minimum oxygen saturation was decreased at 86% during REM sleep and decreased at 84% during non-REM sleep. The time spent with oxygen saturation less than 90% was 32 minutes of the total diagnostic sleep time. Snoring Profile: Mild, intermittent snoring was detected during this study. Periodic Limb Movements: The patient's periodic limb movement index was elevated at 15.5 per hour. Approximately 17% of the leg movements was associated with arousals. EEG Profile: The patient's total arousal index was elevated at 33.6 per hour. Approximately 90% of the arousals was due to respiratory events, 8% was due to leg movements, and 2% was due to spontaneous arousals. There was no epileptiform activity during sleep. Cardiac Profile: EKG showed normal sinus rhythm. No clinically significant arrhythmia was noted. Parasomnias: No parasomnia was noted during this diagnostic study. IMPRESSION: 1. Severe obstructive sleep apnea based on the respiratory disturbance index 2. Sleep-related hypoxemia; cannot rule out sleep-related hypoventilation as cause of hypoxemia since capnography was not performed. 3. Unable to tolerate therapeutic CPAP trial due to distress, nasal congestion, and breathing struggle 4. Mildly elevated periodic limb movement index with some associated arousals. RECOMMENDATIONS: 1. Suggest trial of non-positive airway pressure therapies for FELICIA (eg, oral appliance, hypoglossalnerve stimulation therapy, etc.) 2. Evaluate for causes of sleep-related hypoxemia disorder (e.g., hypoventilation, ventilation-perfusion mismatch, deadspace, shunt, diffusion abnormality, etc.). 3. Evaluate for causes of elevated periodic limb movement index, i.e., restless legs syndrome, irondeficiency, chronic kidney disease, etc. Gregory Mcwilliams MD, [facility], [facility], [facility] Drug Safety Coordinator, [facility] Professor of Internal Medicine Adjunct Melt Superintendant of Neurology Division of Pulmonary, Critical Care, and Sleep Medicine [facility] This note was electronically signed on 08/18/2022. CC: Aditi Rizvi, APLEA-MACHINE SHOP HELPER [address] [place] [address] GANGA Heck DRY PRESS OPERATOR documented in this encounter H&P Notes * Forest Bustos RPSGT - 08/18/2022 7:52 AM CST Patient's History and Physical or screening information has been approved by Date 08-18-22 Recording Montage Standard LOC-M1 7-1 NICK-M1 8-1 Chin EMG 9,10,11 F3 - M2 19-2 F4 - M1 20-1 C3 - M2 3-2 C4 - M1 4-1 O1 - M2 5-2 O2 - M1 6-1 ECG 17,18, 21 Left Leg 13 -14 Rt Leg 15 -16 Snore James G CPAP Flow Thermo Flow A PTAF B Chest C Abdominal E SaO2 DRY PRESS OPERATOR documented in this encounter Procedure Notes * Gregory Mcwilliams MD - 08/18/2022 11:46 AM CSTAssociated Order(s): PROC POLYSOMNOGRAPHY, SPLIT NIGHT Procedure(s): ID POLYSOM 6/> YRS 4/> FEMI Pre-Procedure Diagnose(s): FELICIA (obstructive sleep apnea); Intolerance of continuous positive airwaypressure (CPAP) ventilation; Excessive daytime sleepiness; Chronic fatigue; Chronic insomnia; Restless legs syndrome (RLS); Nocturia more than twice per night; Sleep talking; Nightmares; Confusional a rousals; Sleep drunkenness; Sleep related rhythmic movement disorder; Sleep related bruxism; Chest pain, unspecified type; Gastroesophageal reflux disease, unspecified whether esophagitis present; Orthopnea; Nocturnal cough Post-Procedure Diagnose(s): FELICIA (obstructive sleep apnea); Sleep related hypoxia; RLS (restless legs syndrome) [facility] Accredited by the [employer] [facility], First Floor [address] [place] [address] Telephone : [phone] Medical Records Patient Name: Clay Cabrera : 1960 Date of Study: 08/17/2022 Referring Physician: GANGA Heck Type of Montage: Respiratory Scoring System: [facility] FULL NIGHT DIAGNOSTIC POLYSOMNOGRAM INTERPRETATION (08/17/2022) Procedure: The polysomnogram was performed with a microbiology technologist in attendance. Central, occipital, and temporal EEG, EOG, submentalis, EMG, [...] to the [facility] by GANGA Meza for the evaluation of suspected obstructive sleep apnea (FELICIA). Current Outpatient Medications: ??? buPROPion XL 24hr (Wellbutrin-XL) 150 MG tablet, bupropion HCl XL 150 mg 24 hr tablet, extendedrelease TAKE 1 TABLET BY MOUTH ONCE DAILY, Disp: , Rfl: ??? ergocalciferol (Drisdol) 1.25 MG (86379 UT) capsule, ergocalciferol (vitamin D2) 1,250 mcg (50,000 unit) capsule TAKE 1 CAPSULE BY MOUTH ONCE A WEEK DIRECTED, Disp: , Rfl: ??? finasteride (Proscar) 5 MG tablet, finasteride 5 mg tablet TAKE 1 TABLET BY MOUTH ONCE DAILY, Disp: , Rfl: ??? loratadine (Claritin) 10 MG tablet, TAKE 1 TABLET BY MOUTH ONCE DAILY NEEDED FOR CONGESTION NEEDED, Disp: , Rfl: ??? simvastatin (Zocor) 40 MG tablet, simvastatin 40 mg tablet TAKE 1 TABLET BY MOUTH ONCE DAILY, Disp: , Rfl: ??? tamsulosin (Flomax) 0.4 MG capsule, tamsulosin 0.4 mg capsule TAKE 1 CAPSULE BY MOUTH ONCE DAILY, Disp: , Rfl: DIAGNOSTIC STUDY Sleep Architecture: During this diagnostic study, the patient was monitored from 9:40 pm to 6:06 am. The patient slept for 310 minutes and had decreased sleep efficiency of 61.2%. The patient's initial sleep latency wasreduced at 6.5 minutes. The initial REM latency was slightly reduced at 65 minutes. The patient was switched to therapeutic polysomnography with CPAP titration starting at 4 cmH2O vianasal Wisp mask at Epoch 605. However the patient became distressed after a couple of minutes and was struggling breathing through his nose due to nasal congestion. He refused to try a full face mask. The therapeutic CPAP trial was aborted at Epoch 654. The sleep architecture was as follows: stage N1: 27.1%; stage N2: 57.1%; stage N3: 1.5%; stage REM:14.4%. Respiratory Analysis: The patient's overall apnea-hypopnea index (AHI) was increased at 16.8 per hour while the respiratory effort-related arousal index was increased at 13.5 per hour. The overall respiratory disturbance index (RDI) was 30.3 per hour. The supine AHI was 58.3 per hour and the supine RERA index was 12.8 per hour. The lateral AHI was 11.3 per hour and the lateral RERA index was 16.2 per hour. The REM AHIwas 20.2 per hour while the REM RERA index was 12.1 per hour. There were 17 obstructive apneas, 5 central apneas, 1 mixed apneas, 64 hypopneas, and 70 respiratory effort-related arousals (RERA). There was no evidence of periodic breathing. Oximetry Data: The minimum oxygen saturation was decreased at 86% during REM sleep and decreased at 84% during non-REM sleep. The time spent with oxygen saturation less than 90% was 32 minutes of the total diagnostic sleep time. Snoring Profile: Mild, intermittent snoring was detected during this study. Periodic Limb Movements: The patient's periodic limb movement index was elevated at 15.5 per hour. Approximately 17% of the leg movements was associated with arousals. EEG Profile: The patient's total arousal index was elevated at 33.6 per hour. Approximately 90% of the arousals was due to respiratory events, 8% was due to leg movements, and 2% was due to spontaneous arousals. There was no epileptiform activity during sleep. Cardiac Profile: EKG showed normal sinus rhythm. No clinically significant arrhythmia was noted. Parasomnias: No parasomnia was noted during this diagnostic study. IMPRESSION: 1. Severe obstructive sleep apnea based on the respiratory disturbance index 2. Sleep-related hypoxemia; cannot rule out sleep-related hypoventilation as cause of hypoxemia since capnography was not performed. 3. Unable to tolerate therapeutic CPAP trial due to distress, nasal congestion, and breathing struggle 4. Mildly elevated periodic limb movement index with some associated arousals. RECOMMENDATIONS: 1. Suggest trial of non-positive airway pressure therapies for FELICIA (eg, oral appliance, hypoglossalnerve stimulation therapy, etc.) 2. Evaluate for causes of sleep-related hypoxemia disorder (e.g., hypoventilation, ventilation-perfusion mismatch, deadspace, shunt, diffusion abnormality, etc.). 3. Evaluate for causes of elevated periodic limb movement index, i.e., restless legs syndrome, irondeficiency, chronic kidney disease, etc. Gregory Mcwilliams MD, [facility], [facility], [facility] Drug Safety Coordinator, [facility] Professor of Internal Medicine Adjunct Melt Superintendant of Neurology Division of Pulmonary, Critical Care, and Sleep Medicine [facility] This note was electronically signed on 08/18/2022. CC: RENU [facility] [address] [place] [address] GANGA Heck DRY PRESS OPERATOR documented in this encounter Plan of Treatment Not on file documented as of this encounter Procedures Procedure Name Priority Date/Time Associated Diagnosis Comments ID POLYSOM 6/> YRS 4/> FEMI Routine 08/18/2022 11:46 AM CLAY DRY PRESS OPERATOR FELICIA (obstructive sleep apnea) Intolerance of continuous positive airway pressure (CPAP) ventilation Excessive daytime sleepiness Chronic fatigue Chronic insomnia Restless legs syndrome (RLS) Nocturia more than twice per night Sleep talking Nightmares Confusional arousals Sleep drunkenness 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 Chest pain, unspecified type Gastroesophageal reflux disease, unspecified whether esophagitis present Orthopnea Nocturnal cough documented in this encounter Visit Diagnoses Diagnosis FELICIA (obstructive sleep apnea)- Primary Obstructive sleep apnea (adult) (pediatric) Sleep related hypoxia Idiopathic sleep related nonobstructive alveolar hypoventilation Restless legs syndrome (RLS) documented in this encounter Care Teams Software Configuration Specialist Relationship Specialty Start Date End Date Tiffany Linda PA [address] [place] [id number] PCP - General 06/14/22 documented as of this encounter
--- OUTSIDE RECORDS SUMMARY | 2024-07-16 11:43 | XMS_ITS | Encounter Summary ---
Author Organization [facility] Address [address] [place] [address] Care Team Providers Care Security Site Supervisor Name Role Phone Tiffany Linda Primary Care Pr ovider Encounter Details Date Type Department Care Team (Latest Contact Info) Description 11/23/2022 Travel Social History Tobacco Use Types Packs/Day [...] on filedocumented in this encounter Care Teams Security Site Supervisor Relationship Specialty Start Date End Date Tiffany Linda PA [address] [place] [id number] PCP - General 06/14/22 documented as of this encounter
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
--- OUTSIDE RECORDS SUMMARY | 2024-07-16 11:43 | XMS_ITS | Encounter Summary ---
Author Organization [facility] Address [address] [place] [address] Care Team Providers Care Attorney Lawyer Name Role Phone Tiffany Lnida Primary Care Pr ovider Reason for Visit * Reason Comments Establish Care Obstructive Sleep Apnea inspire Encounter Details Date Type Department Care Team (Late st Contact Info) Description 10/06/2022 1:15 PM CDT Office Visit [facility] [address] [facility], [place] [phone] Juan Carlos Lou MD [address] [place] [address] [place] [address] FELICIA (obstructive sleep apnea) (Primary Dx) Social [...] Sign Reading Time Taken Comments Blood Pressure 127/85 10/06/2022 1:10 PM CDT Pulse 73 10/06/2022 1:10 PM CDT Temperature - - Respiratory Rate - - Oxygen Saturation - - Inhaled Oxygen Concentration - - Weight 86.4 kg (190 lb 6.4 oz) 10/06/2022 1:10 P M CDT Height 172.7 cm (5' 8 ) 10/06/2022 1:10 PM CDT Body Mass Index 28.95 10/06/2022 1:10 PM CDT documented in this encounter Patient Instructions * Patient Instructions* Tasha Cerda MA - 10/06/2022 10:55 AM CDT Thank you for visiting [facility] Otolaryngology - Head & Neck Surgery. [...] an appointment, please call our office at [phone] Monday through Monday from 8:00 am to4:30 pm. You can also request a routine appointment through your [employer] account. Prescription Refills Contact your pharmacy to [...] the medical exchange at and ask the calculating machine operator to page the ENT physician prevention coordinator. *Caller ID blocking service will need to be turned off for your call to be returned. We also specialize in Hearing Aids, Allergy testing, swallowing disorders, voice problems, cancer diagnosis, and so much more. Visit our website at [email or web address] for information about our practice and an interactive health encyclopedia. documented in this encounter Progress Notes * Krishna Temple MD - 10/06/2022 1:37 PM CDT Chief Complaint Patient presents with ??? Establish Care ??? Obstructive Sleep Apnea inspire History of Present Illness HPI 10/06/2022: Clay Cabrera is a 62 year old male with PMH s/f GERD, testicular hypofunction who presents with 1) Bilateral hearing loss, uses hearing aids with good benefit 2) moderate FELICIA, CPAP intolerant, previous good response with dental appliance (PSG 08/17/2022: AHI 16.8, [place] 84%) Today, patient reports long history of FELICIA. Reports that he was first diagnosed with [...] surgery which was about 1.5 years ago. reports he has not been getting much rest at home. Will come home and go straight to sleep. Notes that he will wake up in the night and have difficulty falling back asleep for several hours. reports that he rarely grinds his teeth. Past History Allergies Allergen Reactions ??? Penicillins Urticaria and Other Reaction: ??? Sulfa Drugs Unknown ??? Codeine Itching, Rash and Vomiting Reaction: Rash, ??? Oxycodone-Acetaminophen Vomiting Current Outpatient Medications Medication Sig Dispense Refill ??? buPROPion XL 24hr (Wellbutrin-XL) 150 MG tablet bupropion HCl XL 150 mg 24 hr tablet, extended release TAKE 1 TABLET BY MOUTH ONCE DAILY ??? ergocalciferol (Drisdol) 1.25 MG (16459 UT) capsule ergocalciferol (vitamin D2) 1,250 mcg (50,000 unit) capsule TAKE 1 CAPSULE BY MOUTH ONCE A WEEK DIRECTED ??? finasteride (Proscar) 5 MG tablet finasteride 5 mg tablet TAKE 1 TABLET BY MOUTH ONCE DAILY ??? loratadine (Claritin) 10 MG tablet TAKE 1 TABLET BY MOUTH ONCE DAILY NEEDED FOR CONGESTION NEEDED (Patient not taking: Reported on 10/06/2022) ??? simvastatin (Zocor) 40 MG tablet simvastatin [...] 12th grade Occupational History ??? 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 Smoking status: Former Packs/day: 0.10 Years: 2.00 Pack years: 0.20 Types: Cigarettes Start date: 1975 Quit date: 1977 Years since quittin.2 ??? Smokeless tobacco: Never Vaping Use ??? Vaping Use: Never used Substance and Sexual Activity ??? Alcohol use: Yes Alcohol/week: 4.0 standard drinks Types: 4 Cans of beer per week Comment: weekly 4 beer ??? Drug use: Yes Types: Marijuana Comment: weekly to monthly x2-couple hits ??? Sexual activity: Not Currently Partners: Female Other Topics Concern ??? Not on file Social History Narrative Lives in house 3 kids, 2 grandchildren 4 cats Hobby [employer] Social Determinants of Health Financial Resource Strain: Not on file Food Insecurity: Not on file Transportation Needs: Not on file Stress: Not on file Housing Stability: Not on file Unless specifically documented above, history non-contributory to today's visit. Review of Systems A 12 system review was performed and was negative except for: See HPI Physical Examination BP 127/85 (BP SITE: LEFT ARM, BP POSITION: SITTING, BP CUFF SIZE: 12) Pulse 73 Ht 1.727 m (5' 8 ) Wt 86.4 kg (190 lb 6.4 oz) Body mass index is 28.95 kg/m??. Constitutional: Alert, No acute Distress; Well developed/well nourished Neuro:cranial nerves III-XII grossly intact CV/Pulm: Normal respirations and peripheral pulses. Eyes: PERRL, EOMI Face/Skin: normal appearance, no lesions/masses Ears: Right: Normal external Auditory canal, normal appearance and landmarks of tympanic membrane Left: Normal external Auditory canal, normal appearance and landmarks of tympanic membrane Nose: patent bilaterally, septum midline, Turbinates intact, Mucosal membranes intact, No drainage or sinus tenderness. Mouth and oropharynx: symmetric tongue mobility, no lesions/masses/ulcers, lips, dentition and gingiva within normal for age, tonsils not enlarged or inflamed Neck: supple, no lymphadenopathy, no masses, no palpable thryoid Voice: strong MusculoSkeletal: moves all extremities well Procedure Note For all procedures, attending was present and performed the toney portions of the procedure. Procedure Note Anesthesia: Lidocaine 2% and Suraj-Synephrine 1/2% Endoscopy Type: Flexible Hfpff-Xjmsejavsxfidp-Kgvbcwogndzi Procedure Details: Informed consent was obtained. The patient was placed in the sitting position. After topical anesthesia and decongestion, the 4 mm laryngoscope was passed. The nasal cavities, nasopharynx, oropharynx, hypopharynx, and larynx were all examined. Vocal cords were examined during respiration and phonation. Pt was additionally examined in the supine position, with particular attention paid to end-expiratory anatomy. The following findings were noted: -Moderate to severe AP narrowing worse when supine -Excellent response to jaw thrust at the level of the soft palate The patient tolerated procedure well. Complications: None Labs/Imaging: I have reviewed pertinent images and labs and these are my findings: Full-night PSG peformed on 08/17/2022 showed: Diagnostic: AHI = 16.8/hr RERAI = 13.5/hr RDI = 30.3 minSpO2 = 84% Time spent with SpO2 < 90% = 10.3% of total diagnostic sleep time PLMI = 15.5/hr Assessment Clay Cabrera is a 62 year old male with PMH s/f GERD, testicular hypofunction who presents with 1) Bilateral hearing loss, uses hearing aids with good benefit 2) moderate FELICIA, CPAP intolerant, previous good response with dental appliance (PSG 08/17/2022: AHI 16.8, [place] 84%) Plan 1. Continue good sleep hygiene, including ongoing efforts towards weight loss, regular exercise, avoiding alcohol and caffeine near bed times, keeping as regular a sleep schedule as possible, etc. 2. Discussed various treatment options including CPAP, dental appliances, and surgery (mandibular advancement, palatal surgery, hyoid suspension, Inspire, etc.). The risks, benefits, and alternativesof the proposed treatments were discussed. All questions were answered. Patient and family wish to proceed with DISE to evaluate for Inspire candidacy. 3. FU in OR for DISE. Krishna Temple MD Otolaryngology Resident PGY-1 10/06/2022 2:37 PM Addendum: I have seen and examined the patient with the resident and I agree with the findings and plan of care as documented by the resident. I was also present for the entirety of the procedure performed today. Date of Service: 10/06/22 Clay Cabrera is a 62 year old [...] and benefits of the proposed treatments were discussed. Options including oral appliance retrial, traditional surgeries including UPPP variants (Anterior palatoplasty), vsDISE/Inspire were reviewed in detail. All questions were answered. The family made an informed decision to proceed. ( I just think the Inspire makes the most sense to me. Let's do the airway look. ) Plan DISE as OP on elective basis. Today, pt with FELICIA, intolerant of CPAP, previously did fairly well with oral appliance but worried about ongoing dental changes. Interested in Inspire. Reviewed DISE, will proceed. Juan Carlos Lou MD ? Juan Carlos Lou MD documented in this encounter Procedure Notes * Krishna Temple MD - 10/06/2022 1:59 PM CDTAssociated Order(s): PROC ENDOSCOPY-LARYNX Procedure(s): NV LARYNGOSCOPY,FLEX FIBER,DIAGNOSTIC Pre-Procedure Diagnose(s): FELICIA (obstructive sleep apnea) Procedure Note Anesthesia: Lidocaine 2% and Suraj-Synephrine 1/2% Endoscopy Type: Flexible Gsyip-Emdmemjvlcallv-Hyohqxhocyzt Procedure Details: Informed consent was obtained. The patient was placed in the sitting position. After topical anesthesia and decongestion, the 4 mm laryngoscope was passed. The nasal cavities, nasopharynx, oropharynx, hypopharynx, and larynx were all examined. Vocal cords were examined during respiration and phonation. Pt was additionally examined in the supine position, with particular attention paid to end-expiratory anatomy. The following findings were noted: -Moderate to severe AP narrowing worse when supine -Excellent response to jaw thrust at the level of the soft palate The patient tolerated procedure well. Complications: None documented in this encounter Plan of Treatment Not on file documented as of this encounter Procedures Procedure Name Priority Date/Time Associated Diagnosis Comments NV LARYNGOSCOPY,FLEX FIBER,DIAGNOSTIC Routine 10/06/2022 1:59 PM CDT FELICIA (obstructive sleep apnea) documented in this encounter Results * NV LARYNGOSCOPY,FLEX FIBER,DIAGNOSTIC (10/06/2022 1:59 PM CDT) Narrative Krishna Temple MD - 10/06/2022 1:59 PM CDT Krishan Temple MD ? 10/06/2022 ??5:27 PM Procedure Note Anesthesia: Lidocaine 2% and Suraj-Synephrine 1/2% Endoscopy Type: ??Flexible Cjlde-Odwxpirywilves-Sntbclbpvzig Procedure Details: Informed consent was obtained. ??The [...] Carlos Lou MD PROCEDURE/MINOR S URGICAL ORDERABLES documented in this encounter Visit Diagnoses Diagnosis FELICIA (obstructive sleep apnea)- Primary Obstructive sleep apnea (adult) (pediatric) documented in this encounter Care Teams Attorney Lawyer Relationship Specialty Start Date End Date Tiffany Linda PA [address] [place] [id number] PCP - General 06/14/22 documented as of this encounter
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
--- OUTSIDE RECORDS SUMMARY | 2024-07-16 11:43 | XMS_ITS | Encounter Summary ---
Author Organization [facility] Address [address] [place] [address] Care Team Providers Care Classification And Treatment Director Name Role Phone Tiffany Linda Primary Care Pr ovider Encounter Details Date Type Department Care Team (Latest Contact Info) Description 11/29/2022 Travel Social History Tobacco Use Types Packs/Day [...] on filedocumented in this encounter Care Teams Classification And Treatment Director Relationship Specialty Start Date End Date Tiffany Linda PA [address] [place] [address] [place] [id number] PCP - General 06/14/22 documented as of this encounter
--- OUTSIDE RECORDS SUMMARY | 2024-07-16 11:43 | XMS_ITS | Encounter Summary ---
Author Organization [facility] Address [address] [place] [address] Care Team Providers Care Messenger Copy Name Role Phone Tiffany Linda Primary Care Pr ovider Reason for Referral * Procedure (Routine) - Closed Specialty Diagnoses / Procedures Referred By Contac t Referred To Contact Pulmonary Disease Diagnoses FELICIA (obstructive sleep apnea) Excessive daytime sleepiness Chronic fatigue Nocturnal cough Procedures COMPLETE PFT W/WO BRONCHODILATOR Aditi Rizvi APNP-INSPECTOR PACKAGER [address] [facility] 2L DIV OF PULMONARY/[place] [address] [facility] [address] [place] [address] Referral ID Status Reason Start Date Expiration Date Visits Re quested Visits Authorized [id number] Closed 06/14/2022 06/14/2023 1 1 MARKETING COORDINATOR Reason for Visit * Procedure (Routine) - Closed Specialty Diagnoses / Procedures Referred By Contac t Referred To Contact Pulmonary Disease Diagnoses FELICIA (obstructive sleep apnea) Excessive daytime sleepiness Chronic fatigue Nocturnal cough Procedures COMPLETE PFT W/WO BRONCHODILATOR Aditi Rizvi APNP-INSPECTOR PACKAGER [address] [facility] 2L DIV OF PULMONARY/[place] [address] [facility] [address] [place] [address] Referral ID Status Reason Start Date Expiration Date Visits Re quested Visits Authorized [id number] Closed 06/14/2022 06/14/2023 1 1 Encounter Details Date Type Department Care Team (Latest Contact Info) Description 07/21/2022 8:00 AM WEB MARKETING COORDINATOR - 07/21/2022 8:42 AM [facility] Hospital Encounter [facility] [address] [place] [address] Aditi Rizvi, APNP-INSPECTOR PACKAGER [address] [facility] 2L DIV OF PULMONARY/CRITIC AL CARE [place], [place] [id number] Discharge Disposition: Home or Self Care Social History Tobacco Use Types Packs/Day Years Used Date Smoking Tobacco: Former Cigarettes 0.1 2 1 85 1340 Smokeless Tobacco: Never Alcohol Use Standard Drinks/Week [...] MOUTH ONCE DAILY ergocalciferol (Drisdol) 1.25 MG (62703 UT) capsule ergocalciferol (vitamin D2) 1,250 mcg [...] (one) capsule by mouth once daily 04/14/2022 loratadine (Claritin) 10 MG tablet TAKE 1 TABLET BY MOUTH ONCE DAILY NEEDED FOR CONGESTION NEEDED 07/01/2021 11/16/2022 documented as of this encounter Procedure Notes * Celio Lerma MD - 07/21/2022 8:42 AM CSTAssociated Order(s): COMPLETE PFT W/WO BRONCHODILATOR Images from the original note were not included. MARKETING COORDINATOR documented in this encounter Plan of Treatment Not on file documented as of this encounter Procedures Procedure Name Priority Date/Time Associated Diagnosis Comments COMPLETE PFT W/WO BRONCHODILATOR Routine 07/21/2022 8:42 AM WEB MARKETING COORDINATOR FELICIA (obstructive sleep apnea) Excessive daytime sleepiness Chronic fatigue Nocturnal cough documented in this encounter Results * COMPLETE PFT W/WO BRONCHODILATOR (07/21/2022 8:42 AM WEB MARKETING COORDINATOR) Impressions João Mantilla MD - 07/21/2022 8:42 AM WEB MARKETING COORDINATOR [facility] DEPARTMENT OF PULMONARY, CRITICAL CARE, AND SLEEP [...] of Pulmonary, Critical Care and Sleep Medicine [facility] I have personally reviewed and agree with the fellow's interpretation. João Mantilla MD Narrative João Mantilla MD - 07/21/2022 8:42 AM WEB MARKETING COORDINATOR Celio Lerma MD ? 07/22/2022 10:29 AM Aditi Whitehead Dmitri APNP-INSPECTOR PACKAGER [employer] THERAP[facility] ORDERABLES documented in this encounter Visit Diagnoses Diagnosis FELICIA (obstructive sleep apnea) Obstructive sleep apnea (adult) (pediatric) Excessive daytime sleepiness Chronic fatigue Other malaise and fatigue Nocturnal cough Cough documented in this encounter Care Teams Messenger Copy Relationship Specialty Start Date End Date Tiffany Linda PA [address] [place] [id number] PCP - General 06/14/22 documented as of this encounter
--- OUTSIDE RECORDS SUMMARY | 2024-07-16 11:43 | XMS_ITS | Encounter Summary ---
Author Organization [facility] Address [address] [place] [address] Care Team Providers Care Mill Tender Warm Up Name Role Phone Tiffany Linda Primary Care Pr ovider Encounter Details Date Type Department Care Team (Late st Contact Info) Description 08/18/2022 10:00 AM GAMES MANAGER Office Visit [facility] [address] [place] [address] Gregory Mcwilliams MD [address] [facility] [address] OF [address]UL[address] [address] FELICIA (obstructive sleep apnea) (Primary Dx); Restless legs syndrome (RLS); Elevated liver enzymes Social History Tobacco Use Types Packs/Day Years Used Date Smoking Tobacco: Former Cigarettes 0.1 2 1 536 - 5091 Smokeless Tobacco: Never Alcohol Use Standard Drinks/Week [...] Notes * Gregory Mcwilliams MD - 08/18/2022 10:00 AM CST Images from the original note were not included. [facility], First Floor [address] [place] [address] Telephone : [phone] Medical Records Patient's Name: Clay Cabrera Date of : 1960 Date of Visit: 08/18/2022 POST-POLYSOMNOGRAPHY CLINIC VISIT NOTE Time allotted by [facility] for visit = 20 minutes The patient's history was reviewed with the Medical Student Doctor Mukherjee and with the patient. Patient was seen and examined with the Medical Student. I agree with the findings and assessment and recommendations except as follows: S> The patient is a 61 year old male who follows up for suspected obstructive sleep apnea. Since the patient's last visit in Jun 2023, the patient has had no new health problems. The patient underwent a split-night PSG with attempted CPAP titration on 08/17/2022. However, the patient could not tolerate CPAP via nasal mask due to sensation of nasal pressure and nasal congestion. He was offered a full face mask but refused to proceed with the CPAP titration. The PSG was converted back to a diagnostic study. He has tried CPAP before but could not tolerate it because he could not breathe through his nose, developed chest tightness with it, and had claustrophobia. He had also tried an oral appliance device before but it did not fit. He is currently is getting some dental work done. Restless legs syndrome (RLS) symptoms: [] none [x] urge to move legs: Frequency: [] paresthesia: [] creepy-crawly sensation [] pain Timing: [] morning [] afternoon [x] evening [] night Activity: [] sitting [] lying [] other: Relieving factors: [] walking [] massaging/rubbing legs [] stretching [x] moving legs Past Medical History: Diagnosis Date ??? Abdominal pain 06/15/2022 ??? Altered bowel function 08/17/2021 ??? Arthralgia of wrist 07/16/2012 ??? Blood glucose abnormal 01/29/2019 ??? Carpal tunnel syndrome 07/17/2012 ??? Chest pain 06/15/2022 ??? Chronic insomnia 06/15/2022 ??? Chronic obstructive lung disease (CMS/HCC) 01/29/2019 ??? Confusional arousals 06/15/2022 ??? COVID-19 05/2022 ??? Dysfunction of eustachian tube 01/29/2019 ??? Elevated liver enzymes 01/29/2019 ??? Excessive daytime sleepiness 06/15/2022 ??? Family history of prostate cancer 08/17/2021 ??? Fatigue 01/29/2019 ??? Gastritis 08/17/2021 ??? Gastroesophageal reflux disease 01/29/2019 ??? Hearing loss 01/29/2019 ??? Hearing reduced, bilateral 06/15/2022 ??? Hyperlipidemia 01/29/2019 ??? Inadequate sleep hygiene [...] 01/29/2019 ??? Pain of hand 07/16/2012 ??? Recurrent major depression (CMS/HCC) 01/29/2019 ??? Restless legs syndrome (RLS) 06/15/2022 ??? Sleep drunkenness 06/15/2022 ??? 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 Sleep talking 06/15/2022 ??? 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 Vitamin D deficiency 01/29/2019 Current Outpatient Medications: ??? buPROPion XL 24hr (Wellbutrin-XL) 150 MG tablet, bupropion HCl XL 150 mg 24 hr tablet, extendedrelease TAKE 1 TABLET BY MOUTH ONCE DAILY, Disp: , Rfl: ??? ergocalciferol (Drisdol) 1.25 MG (31963 UT) capsule, ergocalciferol (vitamin D2) 1,250 mcg [...] BY MOUTH ONCE DAILY, Disp: , Rfl: Social History Socioeconomic History ??? Marital status: Spouse name: Not on file ??? Number of children: 3 ??? Years of education: 12 ??? Highest education level: 12th grade Occupational History ??? 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 Smoking status: Former Packs/day: 0.10 Years: 2.00 Pack years: 0.20 Types: Cigarettes Start date: 1975 Quit date: 1977 Years since quittin.1 ??? Smokeless tobacco: Never Vaping Use ??? [...] ??? Zoster Hzv Vacc Recombinant Inj Im 04/20/2022 O> There were no vitals taken for this visit. Alert, communicates appropriately, no cardiopulmonary distress I have reviewed the following laboratory tests, imaging studies, and other ancillary test results as part of the medical decision-making process. Latest Reference Range & Units Most Recent Ferritin 30 - 400 ng/mL 214 07/07/22 12:42 Folate >3.0 ng/mL 8.1 07/07/22 12:42 Iron 38 - 169 ug/dL 153 07/07/22 12:42 TIBC 250 - 450 ug/dL 347 07/07/22 12:42 Iron Saturation 15 - 55 % 44 07/07/22 12:42 Vitamin B12 232 - 1,245 pg/mL 342 07/07/22 12:42 UIBC 111 - 343 ug/dL 194 07/07/22 12:42 Methylmalonic Acid 0 - 378 nmol/L 153 07/07/22 12:42 Vitamin D, 25 Hydroxy 30.0 - 100.0 ng/mL 65.2 07/07/22 12:42 Hemoglobin A1c 4.8 - 5.6 % 5.5 07/07/22 12:42 2d echo (07/21/2022): The transthoracic echocardiogram is normal by two-dimensional, color flow imaging, and Doppler interrogation Hypoglossal Nerve Stimulation Therapy (HNST) Eligibility Criteria Covered Indications FDA-approved hypoglossal nerve neurostimulation is considered medically reasonable and necessary for the treatment of moderate to severe obstructive sleep apnea when all of the following criteria aremet: [x] Beneficiary is 22 years of age or older; and [x] Body mass index (BMI) is less than 35 kg/m2; and [x] A polysomnography (PSG) is performed within 24 months of first consultation for HGNS implant; and [x] Beneficiary has predominantly obstructive events (defined as central and mixed apneas less than25% of the total AHI); and [x] AHI is 15 to 65 events per hour; and [x] Beneficiary has documentation that demonstrates CPAP failure (defined as AHI greater than 15 despite CPAP usage) or CPAP intolerance (defined as less than 4 hours per night, 5 nights per week or the CPAP has been returned) including shared decision making that the patient was intolerant of CPAPdespite consultation with a sleep expert: and [] Absence of complete concentric collapse at the soft palate level as seen on a drug-induced sleependoscopy (DISE) procedure; and [] No other anatomical findings that would compromise performance of device (e.g., tonsil size 3 or4 per standardized tonsillar hypertrophy grading scale). Full-night PSG peformed on 08/17/2022 showed: Diagnostic: AHI = 16.8/hr RERAI = 13.5/hr RDI = 30.3 minSpO2 = 84% Time spent with SpO2 < 90% = 10.3% of total diagnostic sleep time PLMI = 15.5/hr ASSESSMENT: 1. Severe obstructive sleep apnea based [...] 11. History of chronic low back pain PLAN: Diagnostic: 1. Refer to Dr. Juan Carlos Lou ([facility]) for drug-induced sleep endoscopy. 2. CMP Therapeutic: 1. Weight loss through healthy eating and exercise. Exercise (e.g., walking) up to 30-60 minutes 3-5 days a week. Eat more fruits, vegetables, beans, nuts, seeds, whole grains, etc. Avoid or minimizemeat, dairy, eggs, fast food, processed foods, or refined carbohydrates. Avoid or minimize salt intake. 2. Medical Student Doctor Yaz and I explained the results of the sleep study to the patient. 3. I discussed the mechanism and efficacy of hypoglossal nerve stimulation with the patient 4. I discussed the efficacy and side effects of the following RLS medications: A. Dopamine agonists - may cause augmentation and impulsive behaviors (gambling, shopping) B. Gabapentin - causes sedation Patient deferred treatment at this time 5. Continue Loratadine 10 mg daily Follow-up: after DISE +/- HNS implantation Gregory Mcwilliams MD, [facility], [facility], [facility] Audioprosthologist, [facility] Professor of Internal Medicine Adjunct Oncology Social Worker of Neurology Division of Pulmonary, Critical Care, and Sleep Medicine [facility] This note was electronically signed on 08/18/2022. S MANAGER * Yaz Gabino - 08/18/2022 8:37 AM CST [facility], First Floor [address] [facility] [address] [place] [address] Telephone : [phone] Medical Records Patient's Name: Clay Cabrera Date of : 1960 Date of Visit: 08/18/2022 POST-POLYSOMNOGRAPHY CLINIC VISIT NOTE Time allotted by Aaron for visit = 20 minutes S> The patient is a 61 year old male who follows up for suspected obstructive sleep apnea. Since the patient's last visit June 2022 the patient has had no new health problems. The patient underwent Diagnostic-night PSG with on 08/18/2022. Problems during the sleep study: Could not do the CPAP machine, could not breath through nose.Wholechest felt tightened, could not breath. Took hour to recover from that experience Compared to sleep at home, sleep quality during sleep study was: [] better [] worse [] same [x] different - had interruption last night Noise during the sleep study: [x] no [] yes , describe: Room temperature: [x] comfortable [] too warm [] too cold CPAP interface used: [] nasal pillows [] Airfit P10 [x] nasal mask [] P30i [] full face mask [] Airfit F20 [] combination oral mask/nasal pillows [] fit for mask Size of CPAP interface: [] extra-small [] small [x] medium [] large [] standard Problems with PAP therapy: [] none [] excessive airflow pressure [] air leak [] coldness of the airflow [] rhinorrhea [x] nasal congestion [] oronasal dryness [] facial skin abrasion [] dryness/irritation of the eyes [x] chest discomfort [] aerophagia [] sinus discomfort [x] claustrophobia [] difficulty exhaling [] Noise [place] like he could not breath Had trailed CPAP before- could not do it Past Medical History: Diagnosis Date ??? Abdominal pain 06/15/2022 ??? Altered bowel function 08/17/2021 ??? Arthralgia of wrist 07/16/2012 ??? Blood glucose abnormal 01/29/2019 ??? Carpal tunnel syndrome 07/17/2012 ??? Chest pain 06/15/2022 ??? Chronic insomnia 06/15/2022 ??? Chronic obstructive lung disease (CMS/HCC) 01/29/2019 ??? Confusional arousals 06/15/2022 ??? COVID-19 05/2022 ??? Dysfunction of eustachian tube 01/29/2019 ??? Elevated liver enzymes 01/29/2019 ??? Excessive daytime sleepiness 06/15/2022 ??? Family history of prostate cancer 08/17/2021 ??? Fatigue 01/29/2019 ??? Gastritis 08/17/2021 ??? Gastroesophageal reflux disease 01/29/2019 ??? Hearing loss 01/29/2019 ??? Hearing reduced, bilateral 06/15/2022 ??? Hyperlipidemia 01/29/2019 ??? Inadequate sleep hygiene [...] 01/29/2019 ??? Pain of hand 07/16/2012 ??? Recurrent major depression (CMS/HCC) 01/29/2019 ??? Restless legs syndrome (RLS) 06/15/2022 ??? Sleep drunkenness 06/15/2022 ??? 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 Sleep talking 06/15/2022 ??? 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 Vitamin D deficiency 01/29/2019 Current Outpatient Medications: ??? buPROPion XL 24hr (Wellbutrin-XL) 150 MG tablet, bupropion HCl XL 150 mg 24 hr tablet, extendedrelease TAKE 1 TABLET BY MOUTH ONCE DAILY, Disp: , Rfl: ??? ergocalciferol (Drisdol) 1.25 MG (77138 UT) capsule, ergocalciferol (vitamin D2) 1,250 mcg [...] BY MOUTH ONCE DAILY, Disp: , Rfl: Social History Socioeconomic History ??? Marital status: Spouse name: Not on file ??? Number of children: 3 ??? Years of education: 12 ??? Highest education level: 12th grade Occupational History ??? 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 Smoking status: Former Packs/day: 0.10 Years: 2.00 Pack years: 0.20 Types: Cigarettes Start date: 1975 Quit date: 1977 Years since quittin.1 ??? Smokeless tobacco: Never Vaping Use ??? [...] kids, 2 grandchildren 4 cats Hobby hockey-season [employer] Social Determinants of Health Financial Resource Strain: Not on file Food Insecurity: Not on file Transportation Needs: Not on file Stress: Not on file Housing Stability: Not on file Immunization History Administered Date(s) Administered ??? Covid Pfizer primary monovalent 12+ yr 0.3mL Purple cap 09/13/2020, 10/05/2020, 04/19/2021 ??? FLU VACCINE QUAD IIV4 SPLIT PF IM 04/19/2021 ??? Zoster Hzv Vacc Recombinant Inj Im 04/20/2022 O> There were no vitals taken for this visit. Alert, communicates appropriately, no cardiopulmonary distress I have reviewed the following laboratory tests, imaging studies, and other ancillary test results as part of the medical decision-making process. All-night PSG peformed on 08/18/2022 showed: Diagnostic: AHI = 16.8/hr RERAI = 30/hr minSpO2 = 82% Restless Leg Syndrome Throughout day- snap leg to get energy down there Stand on feet all day, has to move leg(left) Moving around calms it down More toward later part of the day(evening/night/getting tired) Has had it for years, does not impeded Daily Life ASSESSMENT: 1. FELICIA 2. Patient not able to toelrate CPAP. Had similar issues before 3. Restless Leg syndrome 4. Elevated Liver Enzymes Hypoglossal Nerve Stimulation Therapy (HNST) Eligibility Criteria Covered Indications FDA-approved hypoglossal nerve neurostimulation is considered medically reasonable and necessary for the treatment of moderate to severe obstructive sleep apnea when all of the following criteria aremet: [x] Beneficiary is 22 years of age or older; and [x] Body mass index (BMI) is less than 35 kg/m2; and [x] A polysomnography (PSG) is performed within 24 months of first consultation for HGNS implant; and [x] Beneficiary has predominantly obstructive events (defined as central and mixed apneas less than25% of the total AHI); and [x] AHI is 15 to 65 events per hour; and [x] Beneficiary has documentation that demonstrates CPAP failure (defined as AHI greater than 15 despite CPAP usage) or CPAP intolerance (defined as less than 4 hours per night, 5 nights per week or the CPAP has been returned) including shared decision making that the patient was intolerant of CPAPdespite consultation with a sleep expert: and [] Absence of complete concentric collapse at the soft palate level as seen on a drug-induced sleependoscopy (DISE) procedure; and [] No other anatomical findings that would compromise performance of device (e.g., tonsil size 3 or4 per standardized tonsillar hypertrophy grading scale). PLAN: Diagnostic: 1. Drug Induced Sleep Endoscopy with Dr. oLu Therapeutic: 1. Weight loss through healthy eating and exercise. Exercise (e.g., walking) up to 30-60 minutes 3-5 days a week. Eat more fruits, vegetables, beans, nuts, seeds, whole grains, etc. Avoid or minimizemeat, dairy, eggs, fast food, processed foods, or refined carbohydrates. Avoid or minimize salt intake. 2. I explained the results of the sleep study to the patient. 3. I discussed the mechanism of FELICIA as well as the possible adverse health effects as follows: A. Excessive daytime sleepiness B. Tiredness C. Difficulty falling asleep D. Depressed mood E. Motor vehicle accidents F. High blood pressure G. Diabetes mellitus H. Heart disease/heart failure I. Arrhythmia J. Stroke K. Pulmonary hypertension L. 4. I discussed the efficacy, benefits, and risks of the following treatment options.for FELICIA. The patient chose: [] CPAP [x] Oral appliance therapy: Refer to Dr. Rayray Avalos DDS, a board- certified dental sleep medicine specialist, for oral appliance therapy [x] Positional Therapy [] ENT surgery (i.e., uvulopalatopharyngoplasty or UPPP): Refer to Dr. Juan Carlos Lou (Otolaryngology Service) [x] Hypoglossal nerve stimulation [] No therapy at this time 5. Continue to monitor Restless Leg Symptoms, will defer treatment for now 1. Discussed treatment options at this visit Follow-up: [x] Post-PSG Clinic c/o Dr. Mcwilliams. F/U in 3 months [facility] Gregory Mcwilliams MD, [facility], [facility] Audioprosthologist, [facility] Professor of Internal Medicine Adjunct Oncology Social Worker of Neurology Division of Pulmonary, Critical Care, and Sleep Medicine [facility] This note was electronically signed on 08/18/2022. S MANAGER documented in this encounter Plan of Treatment Not on file documented as of this encounter Visit Diagnoses Diagnosis FELICIA (obstructive sleep apnea)- Primary Obstructive sleep apnea (adult) (pediatric) Restless legs syndrome (RLS) Elevated liver enzymes Nonspecific elevation of levels of transaminase or lactic acid dehydrogenase (LDH) documented in this encounter Care Teams Mill Tender Warm Up Relationship Specialty Start Date End Date Tiffany Linda PA [address] [place] [address] PCP - General 06/14/22 documented as of this encounter
--- OUTSIDE RECORDS SUMMARY | 2024-07-16 11:43 | XMS_ITS | Encounter Summary ---
Author Organization [facility] Address [address] [facility] [place] [address] Care Team Providers Care Showroom Salesperson Name Role Phone Tiffany Linda Primary Care Pr ovider Reason for Visit * Radiology Services (Routine) - Closed Specialty Diagnoses / Procedures Referred By Yoshi t Referred To Contact Diagnoses Excessive daytime sleepiness Chronic fatigue Chest pain, unspecified type Orthopnea Procedures ECHO COMPLETE NamtenmeTorrey mezaia A, APNP-CORROSION CONTROL FITTER [address] DIV OF PULMONARY/[place] [address] [facility] Echo [address] [place] [address] Referral ID Status Reason Start Date Expiration Date Visits Re quested Visits Authorized [id number] Closed 06/14/2022 06/14/2023 1 1 Encounter Details Date Type Department Care Team (Latest Contact Info) Description 07/21/2022 8:43 AM YOUTH PASTOR - 07/21/2022 11:59 PM YOUTH PASTOR Hospital Encounter [facility] ECHO [address] [place] [address] Aditi Rizvi, APNP-CORROSION CONTROL FITTER [address] DIV OF PULMONARY/[place] [address] Discharge Disposition: Home or Self Care Social History Tobacco Use Types Packs/Day Years Used Date Smoking Tobacco: Former Cigarettes 0.1 2 1 6 1977 Smokeless Tobacco: Never Alcohol Use Standard [...] MOUTH ONCE DAILY ergocalciferol (Drisdol) 1.25 MG (92191 UT) capsule ergocalciferol (vitamin D2) 1,250 mcg [...] 07/01/2021 11/16/2022 documented as of this encounter Plan of Treatment Not on file documented as of this encounter Procedures Procedure Name Priority Date/Time Associated Diagnosis Comments ECHO COMPLETE Routine 07/21/2022 9:11 AM YOUTH PASTOR Excessive daytime sleepiness Chronic fatigue Chest pain, unspecified type Orthopnea documented in this encounter Results * ECHO COMPLETE (07/21/2022 9:11 AM YOUTH PASTOR) Anatomical Region Laterality Modality Chest Echo 07/21/2022 8:48 AM YOUTH PASTOR Narrative Procedure Note Ara Xie MD - 07/21/2022 Aditi Rizvi APNP-CORROSION CONTROL FITTER ECHOCARD IOGRAPHY RADIANT documented in this encounter Visit Diagnoses Not on filedocumented in this encounter Care Teams Showroom Salesperson Relationship Specialty Start Date End Date Tiffany Linda PA [address] [place] [id number] PCP - General 06/14/22 documented as of this encounter
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
--- OUTSIDE RECORDS SUMMARY | 2024-07-16 11:43 | XMS_ITS | Encounter Summary ---
Author Organization [facility] Address [address] [place] [address] Care Team Providers Care Felling Machine Operator Name Role Phone Tiffany Linda Primary Care Pr ovider Reason for Visit * Auth/Cert (Routine) Specialty Diagnoses / Procedures Referred By Yoshi lopez Referred To Contact Diagnoses Sleep apnea, obstructive OBSTRUCTIVE SLEEP APNEA Procedures ENDOSCOPY DRUG INDUCED SLEEP EVALUATION Referral ID Status Reason Start Date Expiration Date Visits Re quested Visits Authorized [id number] 1 1 Encounter Details Date Type Department Care Team (Latest Contact Info) Description 11/23/2022 11:02 AM CDT - 11/23/2022 12:31 PM CDT Hospital Encounter [facility] [address] [place] [address] Juan Carlos Lou MD [address] [place] [address] Surgery General Discharge Disposition: Home or Self [...] Recorded In the last 10 days, have irtika u been in contact with someone who [...] appointment on 11/29/2022 8:30 AM at the [facility]. Call our clinic at [phone] to confirmand/or reschedule that appointment. Wound care: none needed Pain: You should start by taking Tylenol and ibuprofen [id number], alternating every 3 hours as needed. Do not exceed 3 grams of acetaminophen (a component of Tylenol, [place], Percocet) over a 24 hour period. Diet: [...] nearest Emergency Room and call the hospital black top spreader machine operator at [phone] dial [phone] ask for the ENT resident bus transportation manager. documented in this encounter Medications at Time of Discharge Medication Sig Dispensed Refills Start Date End Date buPROPion XL 24hr (Wellbutrin-XL) 150 MG tablet bupropion HCl XL 150 mg 24 hr tablet, extended release TAKE 1 TABLET BY MOUTH ONCE DAILY ergocalciferol (Drisdol) 1.25 MG (54238 UT) capsule ergocalciferol (vitamin D2) 1,250 mcg [...] ONCE DAILY ??? ergocalciferol (Drisdol) 1.25 MG (09659 UT) capsule ergocalciferol (vitamin D2) 1,250 mcg [...] Procedure Name Priority Date/Time Associated Diagnosis Comments NH DISE DYN EVAL SLEEP DISORDERED BREATHING FLX DX 11/23/2022 11:37 AM CDT Sleep apnea, obstructive Special Needs SUPINE, GENERAL, ENDOSCOPIC VIDEO CART documented in this encounter Visit Diagnoses Not [...] PACU documented in this encounter Care Teams Felling Machine Operator Relationship Specialty Start Date End Date Tiffany Linda PA [address] [place] [address] PCP - General 06/14/22 documented as of this encounter
--- OUTSIDE RECORDS SUMMARY | 2024-07-16 11:44 | XMS_ITS | Encounter Summary ---
Author Organization [facility] Address [address] [place] [address] Care Team Providers Care Dynamite Shooter Name Role Phone Unavailable Primary Care Provider Unavailabl e Encounter Details Date Type Department Care Team (Late st Contact Info) Description 06/30/2020 10:00 AM PEDIATRIC PHYSIATRIST Rapid Evaluation [place] [facility] Community [facility] [address] [place] [address] Social History Tobacco Use Types Packs/Day Years Used Date Smoking Tobacco: Never Assessed Sex and Gender Information Value Date Recorded Sex Assigned at Not on file Legal Sex Male 10:10 PM CDT Gender Identity Not on file Sexual Orientation Not on file documented as of this encounter Plan of Treatment Not on file documented as of this encounter Visit Diagnoses Not on filedocumented in this encounter
--- OUTSIDE RECORDS SUMMARY | 2024-07-16 11:44 | XMS_ITS | Encounter Summary ---
Author Organization [facility] Address [address] [place] [address] Care Team Providers Care Administration Intern Name Role Phone Unavailable Primary Care Provider Unavailabl e Encounter Details Date Type Department Care Team (Late st Contact Info) Description 05/17/2020 Lab Requisition [facility] [address] [place] [address] [place] [address] [place] [address] Social History Tobacco Use Types Packs/Day Years [...] Procedure Name Priority Date/Time Associated Diagnosis Comments SARS-COV-2 PCR [facility] ONLY Routine 05/17/2020 8:12 AM CHANNEL DEVELOPMENT DIRECTOR documented in this encounter Visit Diagnoses Not on filedocumented in this encounter
--- OUTSIDE RECORDS SUMMARY | 2024-07-16 11:44 | XMS_ITS | Encounter Summary ---
Author Organization [facility] Address [address] [place] [address] Care Team Providers Care Blooming Mill Supervisor Name Role Phone Unavailable Primary Care Provider Unavailabl e Encounter Details Date Type Department Care Team (Late st Contact Info) Description 11/13/2020 2:30 PM CDT Rapid Evaluation [place] [facility] Community [facility] [address] [place] [address] Social History Tobacco Use Types Packs/Day Years [...]
--- OUTSIDE RECORDS SUMMARY | 2024-07-16 11:44 | XMS_ITS | Encounter Summary ---
Author Organization [facility] Address [address] [place] [address] Care Team Providers Care Rn L And D Name Role Phone Unavailable Primary Care Provider Unavailabl e Encounter Details Date Type Department Care Team (Late st Contact Info) Description 05/17/2020 9:00 AM WOOD STAINER Rapid Evaluation [place] [facility] Community Testing [facility] [address] [place] [address] Social History Tobacco Use Types Packs/Day Years [...]
--- OUTSIDE RECORDS SUMMARY | 2024-07-16 11:44 | XMS_ITS | Encounter Summary ---
Author Organization [facility] Address [address] [place] [address] Care Team Providers Care Geoscience Specialist Name Role Phone Unavailable Primary Care Provider Unavailabl e Encounter Details Date Type Department Care Team (Late st Contact Info) Description 11/13/2020 Lab Requisition [facility] Community Testing [facility] [address] [place] [address] Timur Serna MD [address] [place] [address] [address] [place] [address] Social History Tobacco Use Types Packs/Day Years [...] Diagnosis Comments SARS-COV-2 PCR [facility] ONLY Routine 11/13/2020 2:22 PM CDT documented in this encounter Visit Diagnoses Not on filedocumented in this encounter
--- OUTSIDE RECORDS SUMMARY | 2024-07-16 11:44 | XMS_ITS | Clinical Summary ---
Author Organization [facility] Address [address] [place] [address] Care Team Providers Care Chief Unit Forester Name Role Phone Unavailable Primary Care Provider Unavailabl e Social History Tobacco Use Types Packs/Day Years Used Date Smoking Tobacco: Never Assessed Sex and Gender Information Value Date Recorded Sex Assigned at Not on file Legal Sex Male 10:10 PM CDT Gender Identity Not on file Sexual Orientation Not on file Plan of Treatment Health Maintenance Due Date Last Done Comments Hepatitis C Virus (HCV) Screening 1960 TdaP Immunization 1960 Colonoscopy 2006 Colorectal Cancer Screening 2006 Cologuard 10/05/2011 Immunochemical Fecal Occult Blood 10/05/2011 Pneumococcal Immunization (5 0+ years) (1 of 1 - PCV) 10/05/2011 Zoster Immunization (1 of 2) 10/05/2011 PSA Discussion 2016 Influenza Immunization (#1) 2024 SARS-COV-2 Immunization ( season) 2024 04/19/2021, 10/05/2020, 09/13/2020 Respiratory Syncytial Virus (RSV) Immunization (Adult) (1 - 1-dose 75+ series) 2036 Hepatitis B Immunization Aged Out No longer eligible based on patient's age to complete this topic Meningococcal Immunization (ACWY) Aged Out No longer eligible b ased on patient's age to complete this topic Pneumococcal Immunization Combined Aged Out No longer eligible b ased on patient's age to complete this topic Rotavirus Immunization Aged Out No lo nger eligible based on patient's age to complete this topic
--- OUTSIDE RECORDS SUMMARY | 2024-07-16 11:44 | XMS_ITS | Encounter Summary ---
Author Organization [facility] Address [address] [place] [address] Care Team Providers Care Rubber Heel And Sole Press Tender Name Role Phone Unavailable Primary Care Provider Unavailabl e Encounter Details Date Type Department Care Team (Late st Contact Info) Description 06/30/2020 Lab Requisition [facility] Community [facility] [address] [place] [address] Miles, [place] [address] [place] [address] Social History Tobacco Use Types Packs/Day Years [...] Diagnosis Comments SARS-COV-2 PCR [facility] ONLY Routine 06/30/2020 9:52 AM TALENT AGENT documented in this encounter Visit Diagnoses Not on filedocumented in this encounter
--- OUTSIDE RECORDS SUMMARY | 2024-07-16 11:44 | XMS_ITS | Encounter Summary ---
Author Organization [facility] Address [address] [place] [address] Care Team Providers Care Digital Controls Technical Officer Name Role Phone Unavailable Primary Care Provider Unavailabl e Encounter Details Date Type Department Care Team (Late st Contact Info) Description 06/08/2020 Lab Requisition [facility] Community Testing [facility] [address] [place] [address] [place] [address] [place] [address] Social History Tobacco Use Types Packs/Day Years [...] Diagnosis Comments SARS-COV-2 PCR [facility] ONLY Routine 06/08/2020 3:00 PM INDEPENDENT BEAUTY CONSULTANT documented in this encounter Visit Diagnoses Not on filedocumented in this encounter
--- OUTSIDE RECORDS SUMMARY | 2024-07-16 11:44 | XMS_ITS | Encounter Summary ---
Author Organization [facility] Address [address] [place] [address] Care Team Providers Care Caramel Candy Maker Name Role Phone Unavailable Primary Care Provider Unavailabl e Encounter Details Date Type Department Care Team (Late st Contact Info) Description 06/08/2020 3:00 PM UNINDENTURED APPRENTICE Rapid Evaluation [place] [facility] Community Testing [facility] [address] [place] [address] Social History Tobacco Use Types Packs/Day Years [...]
== END 2024-07-09 11:17 | disposition home or self-care (01) ==
PROVIDERS: PCP Physician Assistant; Visit Provider Urology
DX: Z87.442 Personal history of urinary calculi (principal)
CPT/HCPCS: 74018

== ENCOUNTER 2025-02-20 11:40 | Outpatient (CLI) | payer BC, SELFPAY ==
--- NOTE | ~2025-02-20 | XR_ITS ---
XR abdomen/kub 1V 02/20/2025 12:02 INDICATION: History of kidney stones TECHNIQUE: KUB COMPARISON: Comparison to multiple prior studies sequentially, with oldest reviewed study dated 02/10/2007. FINDINGS: Bowel gas pattern is normal. There is no evidence of free air, mass, organomegaly, ascites or obstruction. No abnormal calculi are seen. The bones appear intact. IMPRESSION: 1: No acute abdominal abnormality identified. Reviewed, dictated and finalized at location O.
--- OUTSIDE RECORDS SUMMARY | 2025-02-20 12:12 | XMS_ITS | Clinical Summary ---
Author Organization [facility] Address [address] [place] [address] Care Team Providers Care Charge Master Coordinator Name Role Phone Unavailable Primary Care Provider [...] Virus (HCV) Screening 1960 TdaP Immunization 1961 Cologuard 2006 Colonoscopy 2006 Colorectal Cancer Screening 2006 Immunochemical Fecal Occult Blood 2006 Pneumococcal Immunization (5 0+ years) (1 of 1 - PCV) 10/05/2011 Zoster Immunization (1 of 2) 10/05/2011 SARS-COV-2 Immunization ( season) 2024 04/19/2021, 10/05/2020, 09/13/2020 Influenza Immunization (#1) 2025 Respiratory Syncytial Virus (RSV) Immunization (Adult) (1 - 1-dose 75+ series) 2036 Hepatitis B Immunization Aged Out No longer eligible based on patient's age to complete this topic Human Papillomavirus (HPV) Immunization Aged Out No longer eligible b ased on patient's age to complete this topic Meningococcal Immunization (ACWY) Aged Out No longer eligible b ased on patient's age to complete this topic Rotavirus Immunization Aged Out No lo nger eligible based on patient's age to complete this topic
--- OUTSIDE RECORDS SUMMARY | 2025-02-20 12:12 | XMS_ITS | Clinical Summary ---
Author Organization [facility] Address [address] [facility] [place] [address] Care Team Providers Care Cell Tower Climber Name Role Phone Tiffany Linda Primary Care Pr ovider Source Comments [facility],non-owned Affiliates and Associated Physician Practices is amultiple site organization consisting of ambulatory clinics and hospital sitesin [place], [place] and [place]. This disclosure is being madepursuant to the Care Everywhere program and may not contain all information available regarding this patient. Last updated 18.[facility] Allergies Active Allergy Reactions Criticality Noted Date Comments Codeine Itching,Rash,Vomiting Medium 06/14/2022 Reaction: Rash, Penicillins Urticaria,Other Medium 06/14/2022 Reaction: Medications * Be aware that medications may not be up to date on this document. Alwaysverify current medications with the patient. buPROPion XL 24hr (Wellbutrin-XL) 150 MG tablet bupropion HCl XL 150 mg 24 hr tablet, extended release TAKE 1 TABLET BY MOUTH ONCE DAILY Active simvastatin (Zocor) 40 MG tablet simvastatin 40 mg tablet TAKE 1 TABLET BY MOUTH ONCE DAILY Active finasteride (Proscar) 5 MG tablet finasteride 5 mg tablet TAKE 1 TABLET BY MOUTH ONCE DAILY 04/14/20 Active tamsulosin (Flomax) 0.4 MG capsule Take 1 (one) capsule by mouth once daily 10/13/20 22 Active ergocalciferol (Drisdol) 1.25 MG (70077 UT) capsule ergocalciferol (vitamin D2) 1,250 mcg (50,000 unit) capsule TAKE 1 CAPSULE BY MOUTH ONCE A WEEK DIRECTED Active Fexofenadine-Ps eudoephedrine (KATHRYN-D 24 HOUR PO) Take 1 tablet by mouth once daily as needed (ALLERGIES) Active acetaminophen (Tylenol) 500 MG capsule Take 2 (two) capsules by mouth every 6 hours as needed for Fever or Pain 60 capsule 1 02/07/20 23 Active ibuprofen (Motrin) 600 MG tablet Take 1 (one) tablet by mouth every 6 hours as needed for Pain 60 tablet 1 02/07/20 23 Active oxyCODONE, immediate release, (Roxicodone) 5 MG tabletIndicatio ns:S/P insertion of hypoglossal nerve stimulator,FELICIA (obstructive sleep apnea) Take 1 (one) tablet by mouth every 6 hours as needed for Pain 15 tablet 02/07/20 23 Active docusate sodium (Colace) 100 MG capsule Take 1 (one) capsule by mouth once daily as needed for Constipation 30 capsule 02/07/20 23 Active ondansetron (Zofran) 4 MG tablet Take 1 (one) tablet by mouth every 6 hours as needed for Nausea/Vomiting 9 tablet 02/08/20 23 Active famotidine (Pepcid) 40 MG tabletIndicatio ns:Gastroesopha geal reflux disease, unspecified whether esophagitis present Take 1 (one) tablet by mouth once daily 90 tablet 3 03/28/20 23 Active gabapentin (Neurontin) 300 MG capsuleIndicati ons:RLS (restless legs syndrome) Take 2 (two) capsules by mouth at bedtime 180 capsule 3 07/12/19 24 Active Active Problems Problem Noted Date Diagnosed [...] (06/14/2022): Added automatically from request for surgery [id number] Lumbar radiculopathy 03/14/2016 Lumbago 09/27/2012 Carpal tunnel syndrome 07/17/2012 Arthralgia of wrist 07/16/2012 Pain of hand 07/16/2012 Immunizations Immunization Administration Dates Next Due INFLUENZA VACCINE, QUADR. 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 Not on file Not on file Last Filed Vital Signs Vital Sign Reading Time Taken Comments Blood Pressure 124/90 05/29/2023 10:02 AM EMPLOYEE BENEFITS COORDINATOR Pulse 84 05/29/2023 10:02 AM EMPLOYEE BENEFITS COORDINATOR Temperature 36.6 C (97.8 F) 02/06/2023 12:29 PM CDT Respiratory Rate 11 02/06/2023 1:45 PM CDT Oxygen Saturation 95% 02/06/2023 2:48 PM CDT Inhaled Oxygen Concentration - - Weight 84.4 kg (186 lb) 05/29/2023 10:02 AM EMPLOYEE BENEFITS COORDINATOR Height 172.7 cm (5' 8) 05/29/2023 10:02 AM EMPLOYEE BENEFITS COORDINATOR Body Mass Index 28.28 05/29/2023 10:02 AM EMPLOYEE BENEFITS COORDINATOR Plan of Treatment Health Maintenance Due Date Last Done Comments COLOGUARD (AGES 45-75) - COL ON CA SCREENING 1961 COLON MONITORING 1961 COLONOSCOPY - COLON CA SCREENING 1961 CT COLONOGRAPHY - COLON CA SCREENING 1961 Colorectal Cancer Screening 1961 FIT - COLON CA SCREENING 1961 FLEX SIG - COLON CA SCREENING 1961 HIV SCREENING 1976 HEPATITIS C SCREENING 09/30/1979 DTAP/TDAP/TD VACCINES (1 - Tdap) 1980 PNEUMOCOCCAL VACCINE 50+ (1 of 2 - PCV) 1980 Respiratory Syncytial Virus (RSV) Vaccine Pt: or over 60 yrs (1 - Risk 60-74 years 1-dose series) 2021 COVID-19 VACCINE (2023-2 5 season) 2024 04/19/2021, 10/05/2020, 09/13/2020 DEPRESSION SCREENING 07/03/2024 INFLUENZA VACCINE (#1) 2025 04/19/2021 SCREENING FOR DIABETES 01/16/2026 3, 07/07/2022 ZOSTER VACCINE Completed 07/12/2022, 04/20/2022 HEPATITIS B VACCINE Aged Out No longe r eligible based on patient's age to complete this topic HIB VACCINE Aged Out No longer eligi ble based on patient's age to complete this topic HPV VACCINE Aged Out No longer eligi ble based on patient's age to complete this topic MENINGOCOCCAL (Group B) VACCINE SHARED DECISION-MAKING Aged Out No longer eligible based on patient's age to complete this topic MENINGOCOCCAL GROUPS A/C/Y/W VACCINE Aged Out No longer eligible b ased on patient's age to complete this topic Medical Devices Implanted Type Area Photogrammetric Compilation Specialist Device Identifier Shelf Expiration Date Model / Serial / Lot Lead Nrstm Inspr 3 Eltrd Cuf Tnl Steffen Implanted:Qty: 1 on 02/06/2023 by Juan Carlos Lou MD at [facility] Right: Chest [employer] 10/31/2025 [id number] / / [id number] Lead Ns Resp - [id number] Implanted:Qty: 1 on 02/06/2023 by Juan Carlos Lou MD at [facility] Right: Chest [employer] 12/12/2025 [id number] / [id number] / [facility] - [id number] Implanted:Qty: 1 on 02/06/2023 by Juan Carlos Lou MD at [facility] Right: Chest [employer] 11/16/2025 [id number] / [id number] / Procedures Procedure Name Priority Date/Time Associated Diagnosis Comments BASIC METABOLIC PANEL (CALCIUM TOTAL) Routine 01/16/2023 10:10 AM CDT Pre-op exam from Last 3 Months or Most Recently Relevant to Health Maintenance Results * (ABNORMAL) BASIC METABOLIC PANEL (CALCIUM TOTAL) (01/16/2023 10:10 AM [facility]) BUN 14 7 - 26 mg/dL 01/16/2023 11:13 AM [facility] Creatinine 1.32(H) 0.71 - 1.16 mg/dL 01/16/2023 11:13 AM [facility] Sodium 137 136 - 145 mmol/L 01/16/2023 11:13 AM [facility] Potassium 3.8 3.5 - 4.5 mmol/L 01/16/2023 11:13 AM [facility] Chloride 105 98 - 107 mmol/L 01/16/2023 11:13 AM [facility] CO2 25 22 - 29 mmol/L 01/16/2023 11:13 AM [facility] Glucose 135(H) 70 - 115 mg/dL 01/16/2023 11:13 AM [facility] Calcium 9.5 8.4 - 10.2 mg/dL 01/16/2023 11:13 AM [facility] Anion Gap 11 8 - 18 01/16/2023 11:13 AM [facility] BUN/Creatinine Ratio 11 7 - 23 01/16/2023 11:13 AM [facility] Osmolality Calculated 287 270 - 300 mOsm/kg 01/16/2023 11:13 AM [facility] eGFR by CKD-EPI 61(L) >=90 mL/min/1.7 3 m2 01/16/2023 11:13 AM [facility] Blood BLOOD SPECIMEN / Unknown Lab Venipuncture / Unknown 01/16/2023 10:10 AM CDT 01/16/2023 10:31 AM [facility] us Ava Mcgee CASH POSTING REPRESENTATIVE-TRACTOR ENGINE MECHANIC LAB - CHEMISTRY ORDERABL ES Final Result [facility] [address] [place] [address], [facility] [phone] from Last 3 Months or Most Recently Relevant to Health Maintenance Insurance [employer] Care Teams Cell Tower Climber Relationship Specialty Start Date End Date Tiffany Linda PA [address] [place] [address] PCP - General 06/14/22
== END 2025-02-20 11:41 | disposition home or self-care (01) ==
PROVIDERS: PCP Physician Assistant; Visit Provider Urology
DX: Z87.442 Personal history of urinary calculi (principal)
CPT/HCPCS: 74018